=== PATIENT | male | born 1945 | race Caucasian/White ===

== ENCOUNTER 2018-06-04 22:01 | Inpatient (IN) | payer OTHER, BC ==
--- NOTE | 2018-06-04 22:07 | PDOC ---
History of Present Illness - General History Source: Patient - History of Present Illness Initial Comments: 06/04/18 22:10 The patient is a 72 year old male with a PMH of CAD (s/p CABG, stents x4) [place] (x5 ), CVA x2 (residual L sided weakness and slurred speech), IDDM, HTN and HLD who presents to our ED c/o weakness and resolved visual changes. @ bedside assists with history. Patient states he was doing the crossword puzzle when the words started to run together and he felt the sudden urge to urinate. Patient went to the bathroom and then had difficulty getting off the toilet. helped him to the couch and called 911. Patient states visual changes resolved though he continues to feel weak. Notes his first CVA presented similarly with visual changes that persisted. also notes a 2-3 week h/o unsteady gait and general fatigue after completing ADL's. As per EMR, patient last evaluated in 2012 for shortness of breath. ECG non- ischemic, however was admitted to OBS Tele - no notes in EMR. NKDA Surgical: CABG, Stent x4 Social: denies toxic habits PMD: Dr. Alvarez - as per EMR admits to Dr. Christy [employer] Supervisor: Dr. Garcia, Dr. Ramirez <Rebekah Magallon - Last Filed: 06/05/18 00:13> <Michaela Peña - Last Filed: 06/05/18 00:44> - General Chief Complaint: Weakness Stated Complaint: PAIN Time Seen by Provider: 06/04/18 22:06 Past History - Past Medical History Cardiac Disorders: Yes ([place] x5 + CABG) CVA: Yes (LT SIDED WEAKNESS) Diabetes: Yes GI Disorders: Yes (GERD) HTN: Yes Hypercholesterolemia: Yes - Surgical History Cardiac Surgery: Yes (CABG, ENDARTERECTOMY, CARDIAC STENTS 4, 2 TO LOWER EXTREMITIES) - Suicide/Smoking/Psychosocial Hx Smoking Status: Yes Smoking History: Former smoker Years of Tobacco Use: 30 Have you smoked in the past 12 months: No Number of Cigarettes Smoked Daily: 0 Hx Alcohol Use: No Drug/Substance Use Hx: No Substance Use Type: None Hx Substance Use Treatment: No <Rebekah Magallon - Last Filed: 06/05/18 00:13> <Michaela Peña - Last Filed: 06/05/18 00:44> - Past Medical History Allergies/Adverse Reactions: Allergies Allergy/AdvReac Type Severity Reaction Status Date / Time No Known Allergies Allergy Verified 06/04/18 22:24 Home Medications: Ambulatory Orders Atenolol [Tenormin -] 100 mg PO BID #0 tablet 12/19/12 Isosorbide Mononitrate [Imdur] 120 mg PO DAILY 01/08/13 Pantoprazole Sodium 40 mg PO DAILY 01/08/13 Ranolazine [Ranexa] 1,000 mg PO BID 01/08/13 Salmeterol/Fluticasone [Advair 250Mcg/50Mcg -] 1 inh PO BID 01/08/13 Tamsulosin HCl 0.4 mg PO HS 01/08/13 Vitamin E 400 unit PO DAILY 01/08/13 Furosemide [Lasix -] 40 mg PO DAILY #0 tablet 01/10/13 Atorvastatin Ca [Lipitor] 80 mg PO DAILY 06/04/18 Clopidogrel Bisulfate [Plavix] 75 mg PO DAILY 06/04/18 Ezetimibe [Zetia] 10 mg PO DAILY 06/04/18 Ferrous Sulfate [Feosol] 325 mg PO Q48H 06/04/18 Finasteride [Proscar] 5 mg PO DAILY 06/04/18 Insulin (LOG) Aspart [NovoLOG -] 0 units SQ TID 06/04/18 Insulin Degludec [Tresiba Flextouch U-100] 60 unit SQ AM 06/04/18 Montelukast Sodium [Singulair] 10 mg PO DAILY 06/04/18 Nitroglycerin [place] [Nitrolingual [place] -] 1 spray TL Q5M PRN 06/04/18 Polyethylene Glycol 3350 [Miralax 255 gm Btl] 17 gm PO DAILY PRN 06/04/18 Potassium Chloride [Klor-Con 10] 10 meq PO DAILY 06/04/18 Sennosides [Senokot] 8.6 mg PO DAILY PRN 06/04/18 Sitagliptin Phosphate [Januvia] 50 mg PO DAILY 06/04/18 Valsartan [Diovan] 80 mg PO DAILY 06/04/18 Review of Systems - Review of Systems Constitutional: Yes: Weakness. No: Chills, Fever HEENTM: Yes: Blurred Vision. No: Double Vision Respiratory: No: Cough, Shortness of Breath, Wheezing Cardiac (ROS): No: Chest Pain, Lightheadedness, Palpitations, Syncope ABD/GI: No: Constipated, Diarrhea, Nausea, Vomiting : No: Burning, Dysuria Neurological: Yes: Unsteady Gait <SheritaRebekah - Last Filed: 06/05/18 00:13> *Physical Exam - Physical Exam General Appearance: Yes: Nourished, Appropriately Dressed HEENT: positive: Normal Voice, Hearing Grossly Normal Neck: positive: Trachea midline, Supple Respiratory/Chest: positive: Lungs Clear, Normal Breath Sounds. negative: Crackles, Wheezing Cardiovascular: positive: Edema (B/L 1+ pitting edema from feet to ankles), Bradycardia. negative: JVD, Murmur Vascular Pulses: Dorsalis-Pedis (R): 2+, Doralis-Pedis (L): 2+ Gastrointestinal/Abdominal: positive: Normal Bowel Sounds, Soft Musculoskeletal: negative: CVA Tenderness (R), CVA Tenderness (L) Extremity: positive: Normal Capillary Refill, Normal Inspection, Other Integumentary: positive: Dry, Warm Neurologic: positive: Fully Oriented, Alert <Rebekah Magallon - Last Filed: 06/05/18 00:13> - Vital Signs Last Vital Signs Temp Pulse Resp BP Pulse Ox 97.6 F 48 L 18 129/61 98 06/04/18 22:01 06/04/18 22:01 06/04/18 22:01 06/04/18 22:01 06/04/18 23:10 <Michaela Peña - Last Filed: 06/05/18 00:44> Heart Score/ECG Review - ECG Impressions Comment:: 06/04/18 22:55 Sinus julieta 58 GEETA in aVR and aVL, not reciprocal depressions, TWI. <Rebekah Magallon - Last Filed: 06/05/18 00:13> ED Treatment Course - LABORATORY CBC & Chemistry Diagram: 06/04/18 22:50 06/04/18 22:50 <Rebekah Magallon - Last Filed: 06/05/18 00:13> - LABORATORY CBC & Chemistry Diagram: 06/04/18 22:50 06/04/18 22:50 - ADDITIONAL ORDERS Additional order review: Laboratory Results 06/04/18 06/04/18 23:00 22:50 PT with INR 13.70 H INR 1.16 H PTT (Actin FS) 31.6 Sodium 136 Potassium 5.3 H Chloride 101 Carbon Dioxide 30 Anion Gap 5 L BUN 41 H Creatinine 2.2 H Creat Clearance w eGFR 29.49 Random Glucose 181 H Calcium 9.7 Total Bilirubin 0.8 AST 22 ALT 34 Alkaline Phosphatase 119 H Creatine Kinase 69 Troponin I 0.03 B-Natriuretic Peptide 2673.6 H Total Protein 7.0 Albumin 3.2 L 06/04/18 22:50 RBC 3.52 L MCV 92.8 MCHC 33.8 RDW 16.0 H MPV 9.6 D Neutrophils % 76.6 Lymphocytes % 11.3 D Monocytes % 10.3 H Eosinophils % 1.7 Basophils % 0.1 - Medications Given in the ED: ED Medications Discontinued Medications Generic Name Dose Route Start Last Admin Trade Name Freq PRN Reason Stop Dose Admin Sodium Chloride 1,000 ml 06/04/18 22:44 06/04/18 23:58 Normal Saline - IV 06/04/18 22:45 1,000 ml ONCE ONE Administration <Michaela Peña - Last Filed: 06/05/18 00:44> Medical Decision Making - Medical Decision Making 06/04/18 22:20 72 year old male with weakness (resolved). ECG shows ST elevations in aVR and aVL not presents on previous ECG. Will obtain cardiac work-up to r/o ACS as well as CT Head to evaluate for CVA vs TIA. NIHSS 2. As neurologic changes resolved no indication for Code Montiel at this time. Bradycardic (40's-50's) other VS unremarkable. Cardiac Monitoring. Reassess. 06/04/18 22:54 Patient @ [address] Labs pending 06/04/18 23:33 K+ 5.3 - no peaked T waves BNP 2673 (previous BNP 2199) Cr 2.2 (previous Cr 1.1) Patient recieving IV NS Will page Dr. Christy (as per EMR, Dr. Alvarez admits to Dr. Christy) for admission My read of CT shows no areas of acute infarct/ischemia 06/04/18 23:41 Case d/w Dr. Christy, requests Dr. Murray for cardiology. Patient admitted to Inpatient Telemetry. 06/04/18 23:48 Patient reassessed @ bedside Remains bradycardic (48), other VSS Patient and patient's counseled on plan of care 06/04/18 23:[address] negative for acute ischemia. <Rebekah Magallon - Last Filed: 06/05/18 00:13> *DC/Admit/Observation/Transfer - Discharge Dispostion Decision to Admit order: Yes <Rebekah Magallon - Last Filed: 06/05/18 00:13> - Discharge Dispostion Decision to Admit order: Yes Decision to Admit order Date/Time: 06/05/18 00:43 <Michaela Peña - Last Filed: 06/05/18 00:44> Diagnosis at time of Disposition: Acute electrocardiogram changes, Elevated creatine kinase, Elevated brain natriuretic peptide (BNP) level, Bradycardia - Discharge Dispostion Condition at time of disposition: Fair
--- NOTE | 2018-06-04 22:34 | PDOC ---
NIH Stroke Scale - Initial Evaluation Level of consciousness: Alert Ask patient the month and their age: Answers both correctly Ask patient to open & close eyes; make fist and let go: Obeys both correctly Best gaze (horizontal eye movement): Normal Visual field testing: No visual field loss Facial paresis (Show teeth/raise eyebrows/close eyes tight): Normal symmetrical movement Motor Function: Left Arm: Normal Motor Function: Right Arm: Normal (extends arm 90 (or 45) degrees for 10 seconds without drift Motor Function: Left Leg: Some effort against gravity Motor Function: Right Leg: Normal (extends leg 30 degrees for 5 seconds without drift) Limb Ataxia: No ataxia Sensory(Use pinprick test arms,legs,trunk,face/side to side): Normal Best language (Describe picture, name items, read sentences): No Aphasia Dysarthria (read several words): Normal articulation Extinction and Inattention: No abnormality - Total Score NIH Stroke Scale Score: 2
[2018-06-04] MEDS ORDERED: SODIUM CHLORIDE 0.9% 500 ML INFUS.BAG IV ONE (22:44)
[2018-06-04 22:59] LABS: BASO % 0.1 % (0-2.0); EOS % 1.7 % (0-4.5); HEMATOCRIT 32.6 % (35.4-49); LYMPH % 11.3 % (8-40); MCH 31.3 pg (25.7-33.7); MCHC 33.8 g/dl (32.0-35.9); MEAN CELL VOLUME 92.8 fl (80-96); MEAN PLT VOLUME 9.6 fl (7.5-11.1); MONO % 10.3 % (3.8-10.2); NEUT % 76.6 % (42.8-82.8); PLATELET COUNT 142 K/MM3 (134-434); RBC 3.52 M/mm3 (4.00-5.60); WHITE BLOOD COUNT 5.8 K/mm3 (4.0-10.0)
[2018-06-04 23:30] LABS: ALBUMIN 3.2 g/dl (3.4-5.0); ALK PHOS 119 U/L (45-117); ANION GAP 5 MMOL/L (8-16); BILIRUBIN,TOTAL 0.8 mg/dL (0.2-1); BLOOD UREA NITROGEN 41 mg/dL (7-18); CALCIUM 9.7 mg/dL (8.5-10.1); CHLORIDE 101 mmol/L (98-107); CO2 30 mmol/L (21-32); CREATININE 2.2 mg/dL (0.55-1.3); GLUCOSE,RANDOM 181 mg/dL (74-106); N-TERMINAL BNP 2673.6 pg/ml (5-125); POTASSIUM 5.3 mmol/L (3.5-5.1); SGOT/AST 22 U/L (15-37); SGPT/ALT 34 U/L (13-61); SODIUM 136 mmol/L (136-145)
[2018-06-04 23:35] LABS: INR 1.16 (0.83-1.09); PROTHROMBIN TIME (PATIENT) 13.7 SEC (9.7-13.0)
[2018-06-04 23:38] LABS: ACTIVATED PTT 31.6 SECONDS (25.2-36.5)
--- NOTE | 2018-06-05 00:53 | PDOC ---
Attending Attestation - Resident Resident Name: SheritaRebekah - ED Attending Attestation I have performed the following: I have examined & evaluated the patient, The case was reviewed & discussed with the resident, I agree w/resident's findings & plan - HPI HPI: 06/05/18 00:44 Erica 72-year-old male with past medical history significant for CABG, CAD , [place] x5, cardiac stents, hypertension, diabetes, CVA with residual left-sided weakness, hyperlipidemia, presents with weakness, nausea, diaphoresis, transient visual changes and dizziness when he was doing crossword puzzle. Patient went to the bathroom and then had difficulty getting off the toilet. + numbness in his legs, feels unsteady, intermittently x 1 month. - Physicial Exam PE: 06/05/18 00:45 NAD, well appearing, PERRL, EOMI, MMM, nl conjunctiva, anicteric; neck supple. No JVD. Anterior sternotomy scar. lungs clear, RRR, abdomen soft nontender, protuberant. [place] x4, chronic LLE decreased strength against gravity.. No peripheral edema. Pale appearing, WWP. - Medical Decision Making 06/05/18 00:46 Vital signs reviewed, wnl. Prior notes attempted to be reviewed but system not working, including admissions, discharges and consultations. laboratory results and imaging reviewed, basic labs and lytes wnl, notable for baseline anemia and CKD CXR_enlarged cardiac silhouette, interstitial markings noted Cardiac panel_neg trop, but chronically elevated bnp. EKG sinus bradycardia, no interval abnormalities, narrow QRS, ST and T wave segments and morphology normal. TWI in I, AVL, new from prior. CT head grossly normal. ED course: no acute events, remained stable and well appearing. Clinically improved after interventions, including gently IVF Dispo: Admit to Dr Christy, tele monitoring for symptomatic bradycardia and CVA/ Cardiac workup. Discussed results and management plan with pt and family member at bedside, agree with impression and plan 06/05/18 00:53
--- NOTE | 2018-06-05 09:32 | HP ---
Admitting History and Physical - Primary Care Physician PCP: Allen Christy - Admission Chief Complaint: Visual disturbance. Weakness History of Present Illness: Pt with significant Hx/o CAD, CABG, CHF at home yesterday, solving crossword puzzle when the lines of words started to wave and mix. Pt started to feel dizzy , weak (couldn't get up from the toilet w/o help); his called 911. Pt also noticed worsening of his CORREIA for the last 2-3 days. 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: CVA (with left hemiparesis) Cardiovascular: Yes: CAD (s/p CABG and stenting), HTN, [place] Endocrine: Yes: Diabetes Mellitus - Past Surgical History Additional Past Surgical History: PVD with leg stenting - Smoking History Smoking history: Former smoker Have you smoked in the past 12 months: No Aproximately how many cigarettes per day: 0 - Alcohol/Substance Use Hx Alcohol Use: No Home Medications - Allergies Allergies/Adverse Reactions: Allergies Allergy/AdvReac Type Severity Reaction Status Date / Time No Known Allergies Allergy Verified 06/04/18 22:24 - Home Medications Home Medications: Ambulatory Orders Atenolol [Tenormin -] 100 mg PO BID #0 tablet 12/19/12 Isosorbide Mononitrate [Imdur] 120 mg PO DAILY 01/08/13 Pantoprazole Sodium 40 mg PO DAILY 01/08/13 Ranolazine [Ranexa] 1,000 mg PO BID 01/08/13 Salmeterol/Fluticasone [Advair 250Mcg/50Mcg -] 1 inh PO BID 01/08/13 Tamsulosin HCl 0.4 mg PO HS 01/08/13 Vitamin E 400 unit PO DAILY 01/08/13 Furosemide [Lasix -] 40 mg PO DAILY #0 tablet 01/10/13 Atorvastatin Ca [Lipitor] 80 mg PO DAILY 06/04/18 Clopidogrel Bisulfate [Plavix] 75 mg PO DAILY 06/04/18 Ezetimibe [Zetia] 10 mg PO DAILY 06/04/18 Ferrous Sulfate [Feosol] 325 mg PO Q48H 06/04/18 Finasteride [Proscar] 5 mg PO DAILY 06/04/18 Insulin (LOG) Aspart [NovoLOG -] 0 units SQ TID 06/04/18 Insulin Degludec [Tresiba Flextouch U-100] 60 unit SQ AM 06/04/18 Montelukast Sodium [Singulair] 10 mg PO DAILY 06/04/18 Nitroglycerin [place] [Nitrolingual [place] -] 1 spray TL Q5M PRN 06/04/18 Polyethylene Glycol 3350 [Miralax 255 gm Btl] 17 gm PO DAILY PRN 06/04/18 Potassium Chloride [Klor-Con 10] 10 meq PO DAILY 06/04/18 Sennosides [Senokot] 8.6 mg PO DAILY PRN 06/04/18 Sitagliptin Phosphate [Januvia] 50 mg PO DAILY 06/04/18 Valsartan [Diovan] 80 mg PO DAILY 06/04/18 Review of Systems - Review of Systems Constitutional: denies: Chills, Fever Eyes: reports: Recent Change in Vision. denies: Blurred Vision, Double Vision HENT: denies: Difficult Swallowing, Ear Discharge, Nasal Congestion, Throat Pain Neck: denies: Pain on Movement, Stiffness Cardiovascular: denies: Chest Pain, Palpitations Respiratory: denies: Cough, SOB, Wheezing Gastrointestinal: denies: Abdominal Pain, Diarrhea, Nausea, Vomiting Genitourinary: denies: Burning, Discharge, Dysuria Musculoskeletal: denies: Back Pain, Muscle Pain Integumentary: denies: Blister, Bruising Neurological: reports: Weakness. denies: Change in LOC, Change in Speech, Numbness Endocrine: denies: Excessive Sweating, Intolerance to Cold Hematology/Lymphatic: denies: Easily Bruised, Excessive Bleeding Physical Examination Vital Signs: Vital Signs Temperature 97.7 F 06/05/18 07:18 Pulse Rate 62 06/05/18 07:18 Respiratory Rate 18 06/05/18 07:18 Blood Pressure 142/75 06/05/18 07:18 O2 Sat by Pulse Oximetry (%) 96 06/05/18 07:18 Constitutional: Yes: No Distress, Calm Eyes: Yes: EOM Intact, PERRL HENT: No: Epistaxis, Pharyngeal Erythema, Rhinnorhea Neck: Yes: Trachea Midline. No: Lymphadenopathy Cardiovascular: Yes: Regular Rate and Rhythm, S1, S2 Respiratory: Yes: Regular, CTA Bilaterally. No: Rales Gastrointestinal: Yes: Normal Bowel Sounds, Soft, Abdomen, Obese. No: Tenderness ...Rectal Exam: Yes: Deferred Renal/: No: CVA Tenderness - Left, CVA Tenderness - Right Edema: Yes Edema: LLE: 1+, RLE: 1+ Neurological: Yes: Alert, Oriented, Other (dereased motor on lrft side, otherwise sensory and motor is symmetric andintact) Labs: CBC, BMP 06/04/18 22:50 06/04/18 22:50 Imaging - Results Chest X-ray: Report Reviewed Cat Scan: Report Reviewed Problem List - Problems (1) Acute congestive heart failure Code(s): I50.9 - HEART FAILURE, UNSPECIFIED (2) Acute renal failure Code(s): N17.9 - ACUTE KIDNEY FAILURE, UNSPECIFIED (3) Visual disturbance Code(s): H53.9 - UNSPECIFIED VISUAL DISTURBANCE (4) Diabetes mellitus Code(s): E11.9 - TYPE 2 DIABETES MELLITUS WITHOUT COMPLICATIONS (5) Bradycardia Code(s): R00.1 - BRADYCARDIA, UNSPECIFIED (6) CAD (coronary artery disease) Code(s): I25.10 - ATHSCL HEART DISEASE OF [place] CORONARY ARTERY W/O ANG PCTRS (7) CVA (cerebral vascular accident) Code(s): I63.9 - CEREBRAL INFARCTION, UNSPECIFIED Assessment/Plan Admit to monitor bed Lasix Cardio consult Renal consult Neuro cosult AM labs
--- NOTE | 2018-06-05 10:02 | CON.CARD ---
Consult Consult Specialty:: cardio - History of Present Illness Chief Complaint: vision changes History of Present Illness: 72 M here with vision changes and weakness. Patient was doing the crossword puzzle when he noticed words started to run together. Patient went to the bathroom to urinate, then was too weak to rise off the toilet. helped him to the couch and called 911. visual changes resolved by ER. Pt noted that his sx's of his first CVA were also visual changes. per , last cath 2015 ([facility])--awoke next day with vision changes ("double vision") diagnosed with CVA then. was seeing Dr. Malachi Sampson--now for referral to new cardio at [facility] (per dr elliott) has had no chest pain. has noted incr sob with activity the past couple weeks. also feet swollen. dr elliott told him 3 days ago to increase lasix from 40qd to 80qd until sx's improve--noted incr subjective UOP with this but no clear improvement in sx's. no sob at rest currently. 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) IDDM HTN HPL - Alcohol/Substance Use Hx Alcohol Use: No - Smoking History Smoking history: Former smoker Have you smoked in the past 12 months: No Aproximately how many cigarettes per day: 0 Home Medications - Allergies Allergies/Adverse Reactions: Allergies Allergy/AdvReac Type Severity Reaction Status Date / Time No Known Allergies Allergy Verified 06/04/18 22:24 - Home Medications Home Medications: Ambulatory Orders Atenolol [Tenormin -] 100 mg PO BID #0 tablet 12/19/12 Isosorbide Mononitrate [Imdur] 120 mg PO DAILY 01/08/13 Pantoprazole Sodium 40 mg PO DAILY 01/08/13 Ranolazine [Ranexa] 1,000 mg PO BID 01/08/13 Salmeterol/Fluticasone [Advair 250Mcg/50Mcg -] 1 inh PO BID 01/08/13 Tamsulosin HCl 0.4 mg PO HS 01/08/13 Vitamin E 400 unit PO DAILY 01/08/13 Furosemide [Lasix -] 40 mg PO DAILY #0 tablet 01/10/13 Atorvastatin Ca [Lipitor] 80 mg PO DAILY 06/04/18 Clopidogrel Bisulfate [Plavix] 75 mg PO DAILY 06/04/18 Ezetimibe [Zetia] 10 mg PO DAILY 06/04/18 Ferrous Sulfate [Feosol] 325 mg PO Q48H 06/04/18 Finasteride [Proscar] 5 mg PO DAILY 06/04/18 Insulin (LOG) Aspart [NovoLOG -] 0 units SQ TID 06/04/18 Insulin Degludec [Tresiba Flextouch U-100] 60 unit SQ AM 06/04/18 Montelukast Sodium [Singulair] 10 mg PO DAILY 06/04/18 Nitroglycerin [place] [Nitrolingual [place] -] 1 spray TL Q5M PRN 06/04/18 Polyethylene Glycol 3350 [Miralax 255 gm Btl] 17 gm PO DAILY PRN 06/04/18 Potassium Chloride [Klor-Con 10] 10 meq PO DAILY 06/04/18 Sennosides [Senokot] 8.6 mg PO DAILY PRN 06/04/18 Sitagliptin Phosphate [Januvia] 50 mg PO DAILY 06/04/18 Valsartan [Diovan] 80 mg PO DAILY 06/04/18 Review of Systems - Review of Systems Constitutional: denies: Chills, Fever Eyes: denies: Eye Pain HENT: denies: Nasal Congestion Neck: denies: Stiffness Cardiovascular: denies: Palpitations Respiratory: denies: Orthopnea, PND Gastrointestinal: denies: Diarrhea, Rectal Bleeding Genitourinary: denies: Burning, Hematuria Musculoskeletal: denies: Muscle Pain Integumentary: denies: Rash Neurological: denies: Numbness, Seizure, Syncope Endocrine: denies: Excessive Sweating Hematology/Lymphatic: denies: Excessive Bleeding Vital Signs: Vital Signs Temperature 97.7 F 06/05/18 07:18 Pulse Rate 62 06/05/18 07:18 Respiratory Rate 18 06/05/18 07:18 Blood Pressure 142/75 06/05/18 07:18 O2 Sat by Pulse Oximetry (%) 96 06/05/18 07:18 Constitutional: Yes: Well Nourished, No Distress Eyes: No: Sclera Icterus HENT: No: Nasal Congestion Neck: No: Decreased ROM Respiratory: Yes: CTA Bilaterally, Rales (L base). No: Accessory Muscle Use, Wheezes Gastrointestinal: Yes: Normal Bowel Sounds. No: Distention, Hepatomegaly, Palpable Mass, Tenderness Cardiovascular: Yes: Regular Rate and Rhythm JVD: Yes Carotid Bruit: No PMI: Non-Displaced Heart Sounds: Yes: S1, S2. No: Gallop Murmur: No: Systolic Murmur, Diastolic Murmur Musculoskeletal: Yes: Other (No kyphosis) Extremities: No: Cool, Cyanosis Edema: Yes (1+ pretib) Peripheral Pulses: 2+ Left Carotid, 2+ Right Carotid, 2+ Left Doralis Pedis, 2+ Right Dorsalis Pedis Integumentary: No: Jaundice Neurological: Yes: Alert, Oriented (x3) Psychiatric: No: Agitated - Other Data Labs, Other Data: CBC, BMP 06/04/18 22:50 06/04/18 22:50 INR, PTT INR 1.16 (0.83-1.09) H 06/04/18 23:00 Troponin, BNP 06/04/18 06/05/18 22:50 04:30 Troponin I 0.03 0.02 B-Natriuretic Peptide 2673.6 H Troponin, BNP 06/04/18 06/05/18 22:50 04:30 Troponin I 0.03 0.02 B-Natriuretic Peptide 2673.6 H Laboratory Tests 12/14/12 01/08/13 01/10/13 05:20 10:25 06:00 WBC Hgb Plt Count Sodium Potassium Carbon Dioxide BUN Creatinine 2.0 H 1.4 H D AST ALT Troponin I B-Natriuretic Peptide 2199 H* 06/04/18 06/04/18 06/05/18 22:50 22:50 04:30 WBC 5.8 Hgb 11.0 L Plt Count 142 D Sodium 136 Potassium 5.3 H Carbon Dioxide 30 BUN 41 H Creatinine 2.2 H AST 22 ALT 34 Troponin I 0.03 0.02 B-Natriuretic Peptide 2673.6 H Assessment/Plan ECG: sinus julieta (48 bpm); incomplete LBBB. diffuse ST-Ts r/o ischemia. vs prior (2012), QRS is wider and ST-Ts more diffuse CXR: mild congestive changes CT head: no acute pathology acute vision changes, h/o CVA: -CT head no acute pathology -neuro consult pending acute CHF: -mildly decompensated at present -CXR with mild congestive changes and cephalization -BNP 2K (unchanged vs 2016), low GFR confounds -probable JVD on exam. incr sob/pedal edema of late. -on lasix 40qd at home, incr'd to 80 qd 3d ago. will give lasix 40 IV today, reassess phys exam and bun/creat tomorrow. -doubt ACS (trop.s neg x 2, ECG only slightly changed vs remote prior) renal insufficiency: -no recent baseline data available -creat 2.2 here, trend labs CAD, h/o CABG and stents: -doubt ACS here, as above -cont home med regimen -watch for bradycardia on high dose atenolol bid regimen -on ranolazine per outpt cardio, with low GFR--will not change tx plan here, defer to outpt f/u with his doctor HTN: -bp controlled -cont home meds
--- NOTE | 2018-06-05 10:46 | EKG ---
Test Reason : Blood Pressure : / mmHG Vent. Rate : 048 BPM Atrial Rate : 048 BPM P-R Int : 192 ms QRS Dur : 118 ms QT Int : 476 ms P-R-T Axes : 040 -12 149 degrees QTc Int : 425 ms SINUS BRADYCARDIA NON-SPECIFIC INTRA-VENTRICULAR CONDUCTION DELAY ABNORMAL ECG WHEN COMPARED WITH ECG OF 09-JAN-2013 08:31, T WAVE VARIATION Confirmed by LIAM MADDEN MD ([id number]) on 06/05/2018 10:45:51 AM Referred By: Confirmed By:LIAM MADDEN MD
[2018-06-05] MEDS ORDERED: FUROSEMIDE 40 MG/4 ML INJECTABLE VIAL IVPUSH ONE (11:02)
[2018-06-05] MEDS ORDERED: FUROSEMIDE 40 MG/4 ML INJECTABLE VIAL ONE (11:10)
[2018-06-05] MEDS ORDERED: PATIENT'S OWN MEDICATION (NON-FORMULARY) (Insulin Degludec [Tresiba Flextouch U-100] 60 UN SQ SCH (11:12)
[2018-06-05] MEDS ORDERED: SENNOSIDES 8.6MG TABLET (FP) PO PRN (11:12)
[2018-06-05] MEDS ORDERED: POLYETHYLENE GLYCOL 3350 255 GM BTL PO PRN (11:12)
[2018-06-05] MEDS ORDERED: NITROGLYCERIN 0.4MG/SPRAY 4.9 GM BOTTLE TL PRN (11:12)
[2018-06-05] MEDS ORDERED: POTASSIUM CHLORIDE TABS 10 MEQ TABLET.ER (FP) PO SCH (11:30)
[2018-06-05] MEDS: RANOLAZINE E.R. 1,000 MG TABLET (FP) PO SCH ×2 (12:10→23:02)
[2018-06-05] MEDS: FINASTERIDE 5 MG TABLET (FP) PO SCH (12:45)
[2018-06-05] MEDS: ISOSORBIDE MONONITRATE 60 MG TAB.SR.24H (FP) PO SCH (12:45)
[2018-06-05] MEDS: CLOPIDOGREL BISULFATE 75 MG TABLET (FP) PO SCH (12:45)
[2018-06-05] MEDS: ATORVASTATIN CA 80 MG TABLET (FP) PO SCH (12:45)
[2018-06-05] MEDS: PANTOPRAZOLE 40 MG TABLET (FP) PO SCH (12:45)
[2018-06-05] MEDS: ATENOLOL 50 MG TABLET (FP) PO SCH ×2 (12:45→23:02)
[2018-06-05] MEDS: BUDESONIDE/FORMETEROL FUMARATE 80/4.5 mcg INHALER IH SCH ×2 (12:45→23:03)
[2018-06-05] MEDS: EZETIMIBE 10 MG TABLET (FP) PO SCH (12:45)
[2018-06-05] MEDS: MONTELUKAST NA 10 MG TABLET PO SCH (12:45)
--- NOTE | 2018-06-05 14:32 | CONSULT ---
Consult Consult Specialty:: Nephrology ( Suraj/ Shawn) Referred by:: Dr. Christy Reason for Consultation:: Abnormal kidney functions. - History of Present Illness Chief Complaint: The patient is a 72 year old male admitted with weakness, and visual deficits. He has past h/o CAD (s/p CABG, stents x4) [place] (x5), CVA x2 ( residual L sided weakness and slurred speech), IDDM, HTN, PVD with clementina LE stenting. - History Source History Provided By: Patient, Family Member - Past Medical History ASSISTANT TO THE DIRECTOR: Yes: CVA Cardio/Vascular: Yes: CHF, HTN, Hyperlipdemia, SC Renal/: Yes: Renal Failure - Past Surgical History Past Surgical History: Yes: Bypass, Carotid Endarterectomy - Alcohol/Substance Use Hx Alcohol Use: No - Smoking History Smoking history: Former smoker Have you smoked in the past 12 months: No Aproximately how many cigarettes per day: 0 Home Medications - Allergies Allergies/Adverse Reactions: Allergies Allergy/AdvReac Type Severity Reaction Status Date / Time No Known Allergies Allergy Verified 06/04/18 22:24 - Home Medications Home Medications: Ambulatory Orders Atenolol [Tenormin -] 100 mg PO BID #0 tablet 12/19/12 Isosorbide Mononitrate [Imdur] 120 mg PO DAILY 01/08/13 Pantoprazole Sodium 40 mg PO DAILY 01/08/13 Ranolazine [Ranexa] 1,000 mg PO BID 01/08/13 Salmeterol/Fluticasone [Advair 250Mcg/50Mcg -] 1 inh PO BID 01/08/13 Tamsulosin HCl 0.4 mg PO HS 01/08/13 Vitamin E 400 unit PO DAILY 01/08/13 Furosemide [Lasix -] 40 mg PO DAILY #0 tablet 01/10/13 Atorvastatin Ca [Lipitor] 80 mg PO DAILY 06/04/18 Clopidogrel Bisulfate [Plavix] 75 mg PO DAILY 06/04/18 Ezetimibe [Zetia] 10 mg PO DAILY 06/04/18 Ferrous Sulfate [Feosol] 325 mg PO Q48H 06/04/18 Finasteride [Proscar] 5 mg PO DAILY 06/04/18 Insulin (LOG) Aspart [NovoLOG -] 0 units SQ TID 06/04/18 Insulin Degludec [Tresiba Flextouch U-100] 60 unit SQ AM 06/04/18 Montelukast Sodium [Singulair] 10 mg PO DAILY 06/04/18 Nitroglycerin [place] [Nitrolingual [place] -] 1 spray TL Q5M PRN 06/04/18 Polyethylene Glycol 3350 [Miralax 255 gm Btl] 17 gm PO DAILY PRN 06/04/18 Potassium Chloride [Klor-Con 10] 10 meq PO DAILY 06/04/18 Sennosides [Senokot] 8.6 mg PO DAILY PRN 06/04/18 Sitagliptin Phosphate [Januvia] 50 mg PO DAILY 06/04/18 Valsartan [Diovan] 80 mg PO DAILY 06/04/18 Review of Systems - Review of Systems Constitutional: reports: Weakness Eyes: reports: Blurred Vision, Recent Change in Vision Neck: reports: No Symptoms. denies: Pain on Movement Cardiovascular: reports: Palpitations, Shortness of Breath. denies: Chest Pain Respiratory: reports: Orthopnea, SOB Gastrointestinal: reports: No Symptoms Genitourinary: reports: Frequency Musculoskeletal: reports: No Symptoms Neurological: reports: Change in Speech, Confusion Physical Exam Vital Signs: Vital Signs Temperature 98 F 06/05/18 11:21 Pulse Rate 64 06/05/18 12:45 Respiratory Rate 18 06/05/18 12:45 Blood Pressure 151/66 06/05/18 12:45 O2 Sat by Pulse Oximetry (%) 96 06/05/18 12:45 Constitutional: Yes: Anxious, Pallor Eyes: Yes: Conjunctiva Clear Neck: Yes: Supple Cardiovascular: Yes: Tachycardia, Pulse Irregular, S1, S2 Respiratory: Yes: CTA Bilaterally, Poor Air Entry Renal/: No: Bladder Distention, CVA Tenderness - Left, CVA Tenderness - Right , Hematuria Musculoskeletal: No: Back Pain Edema: No Neurological: Yes: Alert, Oriented Psychiatric: Yes: Alert Labs: CBC, BMP 06/04/18 22:50 06/04/18 22:50 Problem List - Problems (1) VICENTE (acute kidney injury) Code(s): N17.9 - ACUTE KIDNEY FAILURE, UNSPECIFIED (2) CKD (chronic kidney disease) Code(s): N18.9 - CHRONIC KIDNEY DISEASE, UNSPECIFIED (3) Anemia Code(s): D64.9 - ANEMIA, UNSPECIFIED (4) CAD (coronary artery disease) Code(s): I25.10 - ATHSCL HEART DISEASE OF [place] CORONARY ARTERY W/O ANG PCTRS (5) PVD (peripheral vascular disease) Code(s): I73.9 - PERIPHERAL VASCULAR DISEASE, UNSPECIFIED (6) CVA (cerebral vascular accident) Code(s): I63.9 - CEREBRAL INFARCTION, UNSPECIFIED (7) Bradycardia Code(s): R00.1 - BRADYCARDIA, UNSPECIFIED Assessment/Plan The patient is a 72 year old male with a PMH of CAD , s/p PTIC, CABG, stents x4 ) [place] (x5), CVA x2 (residual L sided weakness and slurred speech), IDDM, HTN and HLD who presents to our ED c/o weakness and resolved visual changes. The patient has long standing h/o DM2 with h/o Diabetic Retinopathy. Chronic Kidney disease...Stage 3... 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 There could be contributions from other conditions including Hypertension, Athersclerotic vascular disease, etc. There is probably some Acute component to the kidney disease from a purely Hemodynamic reason. Mild Hyperkalemia..Noted patient on CDur. PLAN: Basic w/u ordered. Will stop KDur. Monitor the Renal/ Electrolyte functions with you. Some improvement in azotemia expected. Thank you. Will follow with you. Leonor Ruelas MD
[2018-06-05] MEDS ORDERED: sitaGLIPtin PHOSPHATE 50 MG TABLET ONE (17:47)
[2018-06-05] MEDS ORDERED: INSULIN (NOVOLOG) ASPART 100 UNITS/ML 10ML VIAL ONE (17:49)
[2018-06-05] MEDS: INSULIN SLIDING SCALE (NOVOLOG) 1 VIAL SQ SCH ×2 (17:55→23:02)
[2018-06-05] MEDS: sitaGLIPtin PHOSPHATE 25 MG TABLET (FP) PO SCH (17:56)
[2018-06-05] MEDS: TAMSULOSIN HCL 0.4 MG CAP PO SCH (23:01)
[2018-06-05 23:48] VITALS: BMI 32.1
[2018-06-06] MEDS: sitaGLIPtin PHOSPHATE 25 MG TABLET (FP) PO SCH (06:33)
[2018-06-06] MEDS: INSULIN SLIDING SCALE (NOVOLOG) 1 VIAL SQ SCH ×4 (06:33→21:56)
[2018-06-06 06:35] LABS: HEMATOCRIT 29.7 % (35.4-49); HEMOGLOBIN 9.8 GM/dL (11.7-16.9); MCH 30.5 pg (25.7-33.7); MCHC 33.2 g/dl (32.0-35.9); MEAN CELL VOLUME 91.9 fl (80-96); MEAN PLT VOLUME 9.4 fl (7.5-11.1); PLATELET COUNT 127 K/MM3 (134-434); RBC 3.23 M/mm3 (4.00-5.60); RDW 15.7 % (11.9-15.9); WHITE BLOOD COUNT 5.4 K/mm3 (4.0-10.0)
[2018-06-06 07:13] LABS: ALBUMIN 2.9 g/dl (3.4-5.0); ALK PHOS 102 U/L (45-117); ANION GAP 4 MMOL/L (8-16); BILIRUBIN,TOTAL 0.7 mg/dL (0.2-1); BLOOD UREA NITROGEN 45 mg/dL (7-18); CALCIUM 9.8 mg/dL (8.5-10.1); CHLORIDE 101 mmol/L (98-107); CO2 31 mmol/L (21-32); CREATININE 1.8 mg/dL (0.55-1.3); GLUCOSE,RANDOM 123 mg/dL (74-106); POTASSIUM 4.5 mmol/L (3.5-5.1); SGOT/AST 19 U/L (15-37); SGPT/ALT 28 U/L (13-61); SODIUM 137 mmol/L (136-145); TOT PROT 6.3 g/dl (6.4-8.2)
[2018-06-06] MEDS: ISOSORBIDE MONONITRATE 60 MG TAB.SR.24H (FP) PO SCH (09:48)
[2018-06-06] MEDS: PANTOPRAZOLE 40 MG TABLET (FP) PO SCH (09:48)
[2018-06-06] MEDS: EZETIMIBE 10 MG TABLET (FP) PO SCH (09:48)
[2018-06-06] MEDS: RANOLAZINE E.R. 1,000 MG TABLET (FP) PO SCH ×2 (09:48→21:43)
[2018-06-06] MEDS: CLOPIDOGREL BISULFATE 75 MG TABLET (FP) PO SCH (09:48)
[2018-06-06] MEDS: ATENOLOL 50 MG TABLET (FP) PO SCH ×2 (09:48→21:43)
[2018-06-06] MEDS: FINASTERIDE 5 MG TABLET (FP) PO SCH (09:50)
--- NOTE | 2018-06-06 11:22 | PN ---
Progress Note, Physician History of Present Illness: Pt w/o new sensory or motor deficit, CP, palpitations, SOB, abd pain - Current Medication List Current Medications: Active Medications Atenolol (Tenormin -) 100 mg PO BID [facility] Last Admin: 06/06/18 09:48 Dose: 100 mg Atorvastatin Calcium (Lipitor -) 80 mg PO HS [facility] Last Admin: 06/05/18 12:45 Dose: 80 mg Budesonide/Formoterol Fumarate (Symbicort 80/4.5mcg -) 2 puff IH BID [facility] Last Admin: 06/05/18 23:03 Dose: 2 puff Clopidogrel Bisulfate (Plavix -) 75 mg PO DAILY [facility] Last Admin: 06/06/18 09:48 Dose: 75 mg Ezetimibe (Zetia -) 10 mg PO DAILY [facility] Last Admin: 06/06/18 09:48 Dose: 10 mg Ferrous Sulfate (Feosol -) 325 mg PO Q2D [facility] Finasteride (Proscar -) 5 mg PO DAILY [facility] Last Admin: 06/06/18 09:50 Dose: 5 mg Insulin Aspart (Novolog Vial Sliding Scale -) 1 vial SQ ACHS [facility]; Protocol Last Admin: 06/06/18 06:33 Dose: Not Given Isosorbide Mononitrate (Imdur -) 120 mg PO DAILY [facility] Last Admin: 06/06/18 09:48 Dose: 120 mg Montelukast Sodium (Singulair -) 10 mg PO [facility] Last Admin: 06/05/18 12:45 Dose: 10 mg Nitroglycerin (Nitrolingual [place] -) 1 spray TL Q5M PRN PRN Reason: FOR CHEST PAIN Non-Formulary Medication (Insulin Degludec [Tresiba Flextouch U-100]) 60 unit SQ AM [facility] Pantoprazole Sodium (Protonix -) 40 mg PO DAILY [facility] Last Admin: 06/06/18 09:48 Dose: 40 mg Polyethylene Glycol (Miralax (For Bowel Prep) -) 17 gm PO DAILY PRN PRN Reason: CONSTIPATION Ranolazine (Ranexa -) 1,000 mg PO BID [facility] Last Admin: 06/06/18 09:48 Dose: 1,000 mg Senna (Senna -) 1 tab PO DAILY PRN PRN Reason: CONSTIPATION Sitagliptin Phosphate (Januvia -) 25 mg PO DAILY@0700 [facility] Last Admin: 06/06/18 06:33 Dose: 25 mg Tamsulosin HCl (Flomax -) 0.4 mg PO HS [facility] Last Admin: 06/05/18 23:01 Dose: 0.4 mg - Objective Vital Signs: Vital Signs Temperature 98 F 06/06/18 09:50 Pulse Rate 53 L 06/06/18 09:50 Respiratory Rate 20 06/06/18 09:50 Blood Pressure 129/62 06/06/18 09:50 O2 Sat by Pulse Oximetry (%) 97 06/06/18 09:00 Constitutional: Yes: No Distress, Calm Cardiovascular: Yes: Regular Rate and Rhythm, S1, S2 Respiratory: Yes: Regular, CTA Bilaterally. No: Rales Gastrointestinal: Yes: Normal Bowel Sounds, Soft, Abdomen, Obese. No: Tenderness Edema: LLE: 1+, RLE: 1+ Neurological: Yes: Alert, Oriented Labs: CBC, BMP 06/06/18 05:30 06/06/18 05:30 INR, PTT INR 1.16 (0.83-1.09) H 06/04/18 23:00 Problem List - Problems (1) Acute congestive heart failure Code(s): I50.9 - HEART FAILURE, UNSPECIFIED (2) Acute renal failure Code(s): N17.9 - ACUTE KIDNEY FAILURE, UNSPECIFIED (3) Visual disturbance Code(s): H53.9 - UNSPECIFIED VISUAL DISTURBANCE (4) Diabetes mellitus Code(s): E11.9 - TYPE 2 DIABETES MELLITUS WITHOUT COMPLICATIONS (5) Bradycardia Code(s): R00.1 - BRADYCARDIA, UNSPECIFIED (6) CAD (coronary artery disease) Code(s): I25.10 - ATHSCL HEART DISEASE OF [place] CORONARY ARTERY W/O ANG PCTRS (7) CVA (cerebral vascular accident) Code(s): I63.9 - CEREBRAL INFARCTION, UNSPECIFIED Assessment/Plan Admitted to Telemetry IV Lasix Cardio and Renal consults are appreciated. Neuro consult AM labs Case was d/w pt's nurse.
--- NOTE | 2018-06-06 11:39 | PN ---
Progress Note (short form) - Note Progress Note: s: no cp palps dizzy; sob better o: Vital Signs Period Temp Pulse Resp BP Sys/Chen Pulse Ox Last 24 Hr 97.8 F-98.4 F 52-64 18-20 111-154/50-66 96-97 Constitutional: Yes: Well Nourished, No Distress Eyes: No: Sclera Icterus Respiratory: Yes: CTA Bilaterally, Rales (L base). No: Accessory Muscle Use, Wheezes Gastrointestinal: Yes: Normal Bowel Sounds. No: Distention, Hepatomegaly, Palpable Mass, Tenderness Cardiovascular: Yes: Regular Rate and Rhythm JVD: Yes Heart Sounds: Yes: S1, S2. No: Gallop Murmur: No: Systolic Murmur, Diastolic Murmur Extremities: No: Cool, Cyanosis Edema: Yes (1+ pretib) Peripheral Pulses: 2+ Left Carotid, 2+ Right Carotid, 2+ Left Doralis Pedis, 2+ Right Dorsalis Pedis Integumentary: No: Jaundice Neurological: Yes: Alert, Oriented (x3) Psychiatric: No: Agitated Current Medications Generic Name Dose Route Start Last Admin Trade Name Freq PRN Reason Stop Dose Admin Atenolol 100 mg 06/05/18 11:15 06/06/18 09:48 Tenormin - PO 100 mg BID JAMILA Administration Atorvastatin Calcium 80 mg 06/05/18 11:15 06/05/18 12:45 Lipitor - PO 80 mg HS JAMILA Administration Budesonide/Formoterol Fumarate 2 puff 06/05/18 12:15 06/05/18 23:03 Symbicort 80/4.5mcg - IH 2 puff BID JAMILA Administration Clopidogrel Bisulfate 75 mg 06/05/18 11:15 06/06/18 09:48 Plavix - PO 75 mg DAILY JAMILA Administration Ezetimibe 10 mg 06/05/18 11:15 06/06/18 09:48 Zetia - PO 10 mg DAILY JAMILA Administration Ferrous Sulfate 325 mg 06/06/18 11:15 Feosol - PO Q2D JAMILA Finasteride 5 mg 06/05/18 11:15 06/06/18 09:50 Proscar - PO 5 mg DAILY JAMILA Administration Furosemide 40 mg 06/06/18 11:45 Lasix Injection - IVPUSH DAILY [facility] Insulin Aspart 1 vial 06/05/18 16:30 06/06/18 06:33 Novolog Vial Sliding Scale - SQ Not Given ACHS [facility] Protocol Isosorbide Mononitrate 120 mg 06/05/18 11:15 06/06/18 09:48 Imdur - PO 120 mg DAILY JAMILA Administration Montelukast Sodium 10 mg 06/05/18 11:15 06/05/18 12:45 Singulair - PO 10 mg HS JAMILA Administration Nitroglycerin 1 spray 06/05/18 11:12 Nitrolingual [place] - TL Q5M PRN FOR CHEST PAIN Non-Formulary Medication 60 unit 06/05/18 11:12 Insulin Degludec [Tresiba Flextouch U-100] SQ AM JAMILA Pantoprazole Sodium 40 mg 06/05/18 11:15 06/06/18 09:48 Protonix - PO 40 mg DAILY JAMILA Administration Polyethylene Glycol 17 gm 06/05/18 11:12 Miralax (For Bowel Prep) - PO DAILY PRN CONSTIPATION Ranolazine 1,000 mg 06/05/18 11:30 06/06/18 09:48 Ranexa - PO 1,000 mg BID JAMILA Administration Senna 1 tab 06/05/18 11:12 Senna - PO DAILY PRN CONSTIPATION Sitagliptin Phosphate 25 mg 06/05/18 17:00 06/06/18 06:33 Januvia - PO 25 mg DAILY@0700 JAMILA Administration Tamsulosin HCl 0.4 mg 06/05/18 22:00 06/05/18 23:01 Flomax - PO 0.4 mg HS JAMILA Administration CBC, BMP 06/06/18 05:30 06/06/18 05:30 Assessment/Plan ECG: sinus julieta (48 bpm); incomplete LBBB. diffuse ST-Ts r/o ischemia. vs prior (2012), QRS is wider and ST-Ts more diffuse CXR: mild congestive changes CT head: no acute pathology tele: sr acute vision changes, h/o CVA: -CT head no acute pathology -neuro consult pending acute CHF: -mildly decompensated at present -CXR with mild congestive changes and cephalization -BNP 2K (unchanged vs 2016), low GFR confounds -probable JVD on exam. incr sob/pedal edema of late. -on lasix 40qd at home, incr'd to 80 qd 3d ago. got lasix 40 IV 11/12 and today sob better, cr improved, will cont with lasix 40 iv qd -doubt ACS (trop.s neg x 2, ECG only slightly changed vs remote prior) renal insufficiency: -cr better today after iv lasix, monitor CAD, h/o CABG and stents: -doubt ACS here, as above -cont home med regimen -watch for bradycardia on high dose atenolol bid regimen -on ranolazine per outpt cardio, with low GFR--will not change tx plan here, defer to outpt f/u with his doctor HTN: -bp controlled -cont home meds
[2018-06-06] MEDS: BUDESONIDE/FORMETEROL FUMARATE 80/4.5 mcg INHALER IH SCH ×2 (11:58→21:55)
[2018-06-06] MEDS: FUROSEMIDE 40 MG/4 ML INJECTABLE VIAL IVPUSH SCH (11:59)
[2018-06-06] MEDS: FERROUS SO4 325 MG TABLET (FP) PO SCH (12:01)
--- NOTE | 2018-06-06 14:06 | PN ---
Progress Note (short form) - Note Progress Note: Renal follow up for VICENTE vs CKD Pt seen and examined at the bedside no acute complaints feels better still has a little weakness on left side making urine no sob, cp, abd pain Vital Signs Temperature 98 F 06/06/18 09:50 Pulse Rate 53 L 06/06/18 09:50 Respiratory Rate 20 06/06/18 09:50 Blood Pressure 129/62 06/06/18 09:50 O2 Sat by Pulse Oximetry (%) 97 06/06/18 09:00 Intake & Output 06/03/18 06/04/18 06/05/18 06/06/18 23:59 23:59 23:59 23:59 Intake Total 230 50 Output Total 1280 Balance -1050 50 Weight 100.698 kg 98.883 kg NaD RRR CTA trace edema CBC, BMP 06/06/18 05:30 06/06/18 05:30 Laboratory Tests 06/06/18 06/06/18 05:30 05:30 MCV 91.9 Calcium 9.8 Albumin 2.9 L Current Medications Atenolol (Tenormin -) 100 mg PO BID [facility] Last Admin: 06/06/18 09:48 Dose: 100 mg Atorvastatin Calcium (Lipitor -) 80 mg PO HS [facility] Last Admin: 06/05/18 12:45 Dose: 80 mg Budesonide/Formoterol Fumarate (Symbicort 80/4.5mcg -) 2 puff IH BID [facility] Last Admin: 06/06/18 11:58 Dose: 2 puff Clopidogrel Bisulfate (Plavix -) 75 mg PO DAILY [facility] Last Admin: 06/06/18 09:48 Dose: 75 mg Ezetimibe (Zetia -) 10 mg PO DAILY [facility] Last Admin: 06/06/18 09:48 Dose: 10 mg Ferrous Sulfate (Feosol -) 325 mg PO Q2D [facility] Last Admin: 06/06/18 12:01 Dose: 325 mg Finasteride (Proscar -) 5 mg PO DAILY [facility] Last Admin: 06/06/18 09:50 Dose: 5 mg Furosemide (Lasix Injection -) 40 mg IVPUSH DAILY [facility] Last Admin: 06/06/18 11:59 Dose: 40 mg Insulin Aspart (Novolog Vial Sliding Scale -) 1 vial SQ ACHS [facility]; Protocol Last Admin: 11/13/18 12:52 Dose: 4 unit Isosorbide Mononitrate (Imdur -) 120 mg PO DAILY [facility] Last Admin: 06/06/18 09:48 Dose: 120 mg Montelukast Sodium (Singulair -) 10 mg PO HS [facility] Last Admin: 06/05/18 12:45 Dose: 10 mg Nitroglycerin (Nitrolingual [place] -) 1 spray TL Q5M PRN PRN Reason: FOR CHEST PAIN Non-Formulary Medication (Insulin Degludec [Tresiba Flextouch U-100]) 60 unit SQ AM [facility] Pantoprazole Sodium (Protonix -) 40 mg PO DAILY [facility] Last Admin: 06/06/18 09:48 Dose: 40 mg Polyethylene Glycol (Miralax (For Bowel Prep) -) 17 gm PO DAILY PRN PRN Reason: CONSTIPATION Ranolazine (Ranexa -) 1,000 mg PO BID [facility] Last Admin: 06/06/18 09:48 Dose: 1,000 mg Senna (Senna -) 1 tab PO DAILY PRN PRN Reason: CONSTIPATION Sitagliptin Phosphate (Januvia -) 25 mg PO DAILY@0700 [facility] Last Admin: 06/06/18 06:33 Dose: 25 mg Tamsulosin HCl (Flomax -) 0.4 mg PO HS [facility] Last Admin: 06/05/18 23:01 Dose: 0.4 mg 72 year old male admitted with weakness, and visual deficits. He has past h/o CAD (s/p CABG, stents x4) [place] (x5), CVA x2 (residual L sided weakness and slurred speech), IDDM, HTN, PVD with clement[place] LE stenting. #VICENTE vs. CKD #Anemia Renal function improving toward baseline continue Lasix once daily US of the kidney showed no obstruction Trend renal function and electrolytes would benefit from renal follow up as outpatient Thank you Allan Escobar DO
--- NOTE | 2018-06-06 16:43 | CON.NEURO ---
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 (with left hemiparesis) Cardio/Vascular: Yes: CAD (s/p CABG and stenting), HTN, [place] Renal/: Yes: Renal Failure Endocrine: Yes: Diabetes Mellitus - Past Surgical History Past Surgical History: Yes: Bypass, Carotid Endarterectomy - Alcohol/Substance Use Hx Alcohol Use: No - Smoking History Smoking history: Former smoker Have you smoked in the past 12 months: No Aproximately how many cigarettes per day: 0 Home Medications - Allergies Allergies/Adverse Reactions: Allergies Allergy/AdvReac Type Severity Reaction Status Date / Time No Known Allergies Allergy Verified 06/04/18 22:24 - Home Medications Home Medications: Ambulatory Orders Atenolol [Tenormin -] 100 mg PO BID #0 tablet 12/19/12 Isosorbide Mononitrate [Imdur] 120 mg PO DAILY 01/08/13 Pantoprazole Sodium 40 mg PO DAILY 01/08/13 Ranolazine [Ranexa] 1,000 mg PO BID 01/08/13 Salmeterol/Fluticasone [Advair 250Mcg/50Mcg -] 1 inh PO BID 01/08/13 Tamsulosin HCl 0.4 mg PO HS 01/08/13 Vitamin E 400 unit PO DAILY 01/08/13 Furosemide [Lasix -] 40 mg PO DAILY #0 tablet 01/10/13 Atorvastatin Ca [Lipitor] 80 mg PO DAILY 06/04/18 Clopidogrel Bisulfate [Plavix] 75 mg PO DAILY 06/04/18 Ezetimibe [Zetia] 10 mg PO DAILY 06/04/18 Ferrous Sulfate [Feosol] 325 mg PO Q48H 06/04/18 Finasteride [Proscar] 5 mg PO DAILY 06/04/18 Insulin (LOG) Aspart [NovoLOG -] 0 units SQ TID 06/04/18 Insulin Degludec [Tresiba Flextouch U-100] 60 unit SQ AM 06/04/18 Montelukast Sodium [Singulair] 10 mg PO DAILY 06/04/18 Nitroglycerin [place] [Nitrolingual [place] -] 1 spray TL Q5M PRN 06/04/18 Polyethylene Glycol 3350 [Miralax 255 gm Btl] 17 gm PO DAILY PRN 06/04/18 Potassium Chloride [Klor-Con 10] 10 meq PO DAILY 06/04/18 Sennosides [Senokot] 8.6 mg PO DAILY PRN 06/04/18 Sitagliptin Phosphate [Januvia] 50 mg PO DAILY 06/04/18 Valsartan [Diovan] 80 mg PO DAILY 06/04/18 Physical Exam-Neuro Vital Signs: Vital Signs Temperature 98 F 06/06/18 09:50 Pulse Rate 53 L 06/06/18 09:50 Respiratory Rate 20 06/06/18 09:50 Blood Pressure 129/62 06/06/18 09:50 O2 Sat by Pulse Oximetry (%) 97 06/06/18 09:00 Labs: CBC, BMP 06/06/18 05:30 06/06/18 05:30 INR, PTT INR 1.16 (0.83-1.09) H 06/04/18 23:00 Assessment/Plan Covering for Dr Kathy PALMER possible TIA HPI 72 year old male history of CAD,CABG,CHF, was home doing crossword puzzle and he went to bathroom and his words were slurred and he was swaying to one side or another. He has difficulty moving and blancing. Patient has two stroke in past and had cabg in past. He is feeling better and he has left sided hemiparesis as baseline PMH:CVA (with left hemiparesis) CAD (s/p CABG and stenting), HTN, [place] Diabetes Mellitus ,PVD with leg stenting Social History Former smoker H Allergies/Adverse Reactions: Allergies Allergy/AdvReac Type Severity Reaction Status Date / Time No Known Allergies Allergy Verified 06/04/18 22:24 Home Medications: Atenolol [Tenormin -] 100 mg PO BID #0 tablet 12/19/12 Isosorbide Mononitrate [Imdur] 120 mg PO DAILY 01/08/13 Pantoprazole Sodium 40 mg PO DAILY 01/08/13 Ranolazine [Ranexa] 1,000 mg PO BID 01/08/13 Salmeterol/Fluticasone [Advair 250Mcg/50Mcg -] 1 inh PO BID 01/08/13 Tamsulosin HCl 0.4 mg PO HS 01/08/13 Vitamin E 400 unit PO DAILY 01/08/13 Furosemide [Lasix -] 40 mg PO DAILY #0 tablet 01/10/13 Atorvastatin Ca [Lipitor] 80 mg PO DAILY 06/04/18 Clopidogrel Bisulfate [Plavix] 75 mg PO DAILY 06/04/18 Ezetimibe [Zetia] 10 mg PO DAILY 06/04/18 Ferrous Sulfate [Feosol] 325 mg PO Q48H 06/04/18 Finasteride [Proscar] 5 mg PO DAILY 06/04/18 Insulin (LOG) Aspart [NovoLOG -] 0 units SQ TID 06/04/18 Insulin Degludec [Tresiba Flextouch U-100] 60 unit SQ AM 06/04/18 Montelukast Sodium [Singulair] 10 mg PO DAILY 06/04/18 Nitroglycerin [place] [Nitrolingual [place] -] 1 spray TL Q5M PRN 06/04/18 Polyethylene Glycol 3350 [Miralax 255 gm Btl] 17 gm PO DAILY PRN 06/04/18 Potassium Chloride [Klor-Con 10] 10 meq PO DAILY 06/04/18 Sennosides [Senokot] 8.6 mg PO DAILY PRN 06/04/18 Sitagliptin Phosphate [Januvia] 50 mg PO DAILY 06/04/18 Valsartan [Diovan] 80 mg PO DAILY 06/04/18 Family history, ROS reviewed in chart Neurological Examination Alert oriented x 3 , speech is normal eomi, pupils reactive, no face asymmetry Motor left arm and leg weakness grade 5- sensation is normal ct head unremarkable carotid ultrasound is unremarkable Assessment/Plan Possible TIA PLAN- suggest to continue plavix and statin , already on high dose - mri cant be done - carotid ultrasound - life style modificaitons Thanking you so much Gurvinder Kaufman MD
[2018-06-06] MEDS ORDERED: FLU VACCINE QUAD 60 MCG/0.5 ML (MDV 18-19) IM ONE (17:30)
[2018-06-06 21:37] LABS: URINE APPEARANCE CLEAR; URINE BILIRUBIN NEGATIVE (<2.0 mg/dL); URINE COLOR LTYELLOW; URINE GLUCOSE (UA) NEGATIVE (NEGATIVE); URINE KETONE NEGATIVE (NEGATIVE); URINE LEUK ESTERASE NEGATIVE (NEGATIVE); URINE NITRITE NEGATIVE (NEGATIVE); URINE PROTEIN NEGATIVE (NEGATIVE); URINE UROBILINOGEN NEGATIVE mg/dL (0.2-1.0)
[2018-06-06] MEDS: TAMSULOSIN HCL 0.4 MG CAP PO SCH (21:43)
[2018-06-06] MEDS: MONTELUKAST NA 10 MG TABLET PO SCH (21:43)
[2018-06-06] MEDS: ATORVASTATIN CA 80 MG TABLET (FP) PO SCH (21:43)
[2018-06-07] MEDS: INSULIN SLIDING SCALE (NOVOLOG) 1 VIAL SQ SCH ×4 (06:45→22:13)
[2018-06-07] MEDS: sitaGLIPtin PHOSPHATE 25 MG TABLET (FP) PO SCH (06:48)
[2018-06-07 07:13] LABS: BASO % 0.3 % (0-2.0); EOS % 2.4 % (0-4.5); HEMATOCRIT 33.9 % (35.4-49); HEMOGLOBIN 11.3 GM/dL (11.7-16.9); LYMPH % 17.7 % (8-40); MCH 30.6 pg (25.7-33.7); MCHC 33.4 g/dl (32.0-35.9); MEAN CELL VOLUME 91.6 fl (80-96); MEAN PLT VOLUME 9.7 fl (7.5-11.1); MONO % 11.8 % (3.8-10.2); NEUT % 67.8 % (42.8-82.8); PLATELET COUNT 134 K/MM3 (134-434); RBC 3.71 M/mm3 (4.00-5.60); RDW 15.5 % (11.9-15.9); WHITE BLOOD COUNT 5.1 K/mm3 (4.0-10.0)
[2018-06-07 08:14] LABS: ALBUMIN 3.4 g/dl (3.4-5.0); ALK PHOS 121 U/L (45-117); ANION GAP 8 MMOL/L (8-16); BILIRUBIN,TOTAL 0.9 mg/dL (0.2-1); BLOOD UREA NITROGEN 45 mg/dL (7-18); CHLORIDE 100 mmol/L (98-107); CO2 28 mmol/L (21-32); CREATININE 1.9 mg/dL (0.55-1.3); GLUCOSE,RANDOM 231 mg/dL (74-106); MAGNESIUM 1.9 mg/dL (1.8-2.4); POTASSIUM 4.8 mmol/L (3.5-5.1); SGOT/AST 20 U/L (15-37); SGPT/ALT 34 U/L (13-61); SODIUM 136 mmol/L (136-145); TOT PROT 7.1 g/dl (6.4-8.2)
--- NOTE | 2018-06-07 08:57 | PN ---
Progress Note (short form) - Note Progress Note: Neurology 72 year old male seen initial by Dr. Pepper, covering for me, with history of CAD,CABG,CHF, was home doing crossword puzzle and he went to bathroom with reported slurred speech and per notes was swaying to one side or another. He had difficulty with balance and of note has prior CVAs with residual L hemiparesis. CT head completed and without acute changes. Carotid dopplers completed and reviewed. He is on dual antiplatelet of ASA and Plavix. States his speech is at baseline. Active Medications Atenolol (Tenormin -) 100 mg PO BID [facility] Last Admin: 06/06/18 21:43 Dose: 100 mg Atorvastatin Calcium (Lipitor -) 80 mg PO HS [facility] Last Admin: 06/06/18 21:43 Dose: 80 mg Budesonide/Formoterol Fumarate (Symbicort 80/4.5mcg -) 2 puff IH BID [facility] Last Admin: 06/06/18 21:55 Dose: 2 puff Clopidogrel Bisulfate (Plavix -) 75 mg PO DAILY [facility] Last Admin: 06/06/18 09:48 Dose: 75 mg Ezetimibe (Zetia -) 10 mg PO DAILY [facility] Last Admin: 06/06/18 09:48 Dose: 10 mg Ferrous Sulfate (Feosol -) 325 mg PO Q2D [facility] Last Admin: 06/06/18 12:01 Dose: 325 mg Finasteride (Proscar -) 5 mg PO DAILY [facility] Last Admin: 06/06/18 09:50 Dose: 5 mg Furosemide (Lasix Injection -) 40 mg IVPUSH DAILY [facility] Last Admin: 06/06/18 11:59 Dose: 40 mg Insulin Aspart (Novolog Vial Sliding Scale -) 1 vial SQ ACHS [facility]; Protocol Last Admin: 06/07/18 06:45 Dose: 6 unit Isosorbide Mononitrate (Imdur -) 120 mg PO DAILY [facility] Last Admin: 06/06/18 09:48 Dose: 120 mg Montelukast Sodium (Singulair -) 10 mg PO HS [facility] Last Admin: 06/06/18 21:43 Dose: 10 mg Nitroglycerin (Nitrolingual [place] -) 1 spray TL Q5M PRN PRN Reason: FOR CHEST PAIN Non-Formulary Medication (Insulin Degludec [Tresiba Flextouch U-100]) 60 unit SQ AM [facility] Pantoprazole Sodium (Protonix -) 40 mg PO DAILY [facility] Last Admin: 06/06/18 09:48 Dose: 40 mg Polyethylene Glycol (Miralax (For Bowel Prep) -) 17 gm PO DAILY PRN PRN Reason: CONSTIPATION Ranolazine (Ranexa -) 1,000 mg PO BID [facility] Last Admin: 06/06/18 21:43 Dose: 1,000 mg Senna (Senna -) 1 tab PO DAILY PRN PRN Reason: CONSTIPATION Sitagliptin Phosphate (Januvia -) 25 mg PO DAILY@0700 [facility] Last Admin: 06/07/18 06:48 Dose: 25 mg Tamsulosin HCl (Flomax -) 0.4 mg PO HS [facility] Last Admin: 06/06/18 21:43 Dose: 0.4 mg Physical Exam-Neuro Vital Signs Period Temp Pulse Resp BP Sys/Chen Pulse Ox Last 24 Hr 97.5 F-98.2 F 52-56 18-20 120-153/60-67 97-97 Gen: Awake, alert, responds to questions Card: RRR, nml S1,S2 Resp: Normal symmetric effort, lungs clear to auscultation Abdomen: Soft, nontender, bowel sounds active Musculoskeletal: Adequate range of motion without significant deformity Head atraumatic and normocephalic CN: PERRL, EOMI intact, no apparent facial droop, no abnormalities in facial sensation, palate elevates, uvula and tongue midline Motor: LUE 5-/5, LLE 5-/5 Sensory: Intact to Temperature, light touch, and pinprick in all extremities Reflexes: 2+ biceps, brachioradialis, patellar, achillies Coordination: Intact on aeseic-ehpn-trjvlw testing CBCD WBC 5.1 K/mm3 (4.0-10.0) 06/07/18 06:10 RBC 3.71 M/mm3 (4.00-5.60) L 06/07/18 06:10 Hgb 11.3 GM/dL (11.7-16.9) L 06/07/18 06:10 Hct 33.9 % (35.4-49) L 06/07/18 06:10 MCV 91.6 fl (80-96) 06/07/18 06:10 MCHC 33.4 g/dl (32.0-35.9) 06/07/18 06:10 RDW 15.5 % (11.9-15.9) 06/07/18 06:10 Plt Count 134 K/MM3 (134-434) 06/07/18 06:10 MPV 9.7 fl (7.5-11.1) 06/07/18 06:10 CMP Sodium 136 mmol/L (136-145) 06/07/18 06:10 Potassium 4.8 mmol/L (3.5-5.1) 06/07/18 06:10 Chloride 100 mmol/L (98-107) 06/07/18 06:10 Carbon Dioxide 28 mmol/L (21-32) 06/07/18 06:10 Anion Gap 8 MMOL/L (8-16) 06/07/18 06:10 BUN 45 mg/dL (7-18) H 06/07/18 06:10 Creatinine 1.9 mg/dL (0.55-1.3) H 06/07/18 06:10 Creat Clearance w eGFR 34.92 (>60) 06/07/18 06:10 Calcium 10.0 mg/dL (8.5-10.1) 06/07/18 06:10 Total Bilirubin 0.9 mg/dL (0.2-1) 06/07/18 06:10 AST 20 U/L (15-37) 06/07/18 06:10 ALT 34 U/L (13-61) 06/07/18 06:10 Alkaline Phosphatase 121 U/L (45-117) H 06/07/18 06:10 Total Protein 7.1 g/dl (6.4-8.2) 06/07/18 06:10 Albumin 3.4 g/dl (3.4-5.0) 06/07/18 06:10 Assessment/Plan 72 year old male seen initial by Dr. Pepper, covering for me, with history of CAD,CABG,CHF, was home doing crossword puzzle and he went to bathroom with reported slurred speech and per notes was swaying to one side or another. He had difficulty with balance and of note has prior CVAs with residual L hemiparesis. CT head completed and without acute changes. Carotid dopplers completed and reviewed. He is on dual antiplatelet of ASA and Plavix. States his speech is at baseline. Reports not being able to tolerate MRI, currently low suspicion as patient at baseline. Would optimize medically, monitor blood pressure, maintain normotensive range. Monitor glucose, avoid episodes of hyper/ hypoglycemia. Maintain hydration. Fall precautions. Continue dual antiplatelet, remains on max dose statin.
--- NOTE | 2018-06-07 09:51 | PN ---
Progress Note (short form) - Note Progress Note: Progress Note: s: no cp palps dizzy, still some sob with walking but improving o: Vital Signs Period Temp Pulse Resp BP Sys/Chen Pulse Ox Last 24 Hr 97.5 F-98.2 F 52-56 18-20 120-153/60-67 97 Constitutional: Yes: Well Nourished, No Distress Eyes: No: Sclera Icterus Respiratory: Yes: CTA Bilaterally, +Rales (L base). No: Accessory Muscle Use, Wheezes Gastrointestinal: Yes: Normal Bowel Sounds. No: Distention, Hepatomegaly, Palpable Mass, Tenderness Cardiovascular: Yes: Regular Rate and Rhythm JVD: +JVD Heart Sounds: Yes: S1, S2. No: Gallop Murmur: No: Systolic Murmur, Diastolic Murmur Extremities: No: Cool, Cyanosis Edema: Yes (1+ pretib) Peripheral Pulses: 2+ Left Carotid, 2+ Right Carotid, 2+ Left Doralis Pedis, 2+ Right Dorsalis Pedis Integumentary: No: Jaundice Neurological: Yes: Alert, Oriented (x3) Psychiatric: No: Agitated Current Medications Atenolol (Tenormin -) 100 mg PO BID [facility] Last Admin: 06/06/18 21:43 Dose: 100 mg Atorvastatin Calcium (Lipitor -) 80 mg PO HS [facility] Last Admin: 06/06/18 21:43 Dose: 80 mg Budesonide/Formoterol Fumarate (Symbicort 80/4.5mcg -) 2 puff IH BID [facility] Last Admin: 06/06/18 21:55 Dose: 2 puff Clopidogrel Bisulfate (Plavix -) 75 mg PO DAILY [facility] Last Admin: 06/06/18 09:48 Dose: 75 mg Ezetimibe (Zetia -) 10 mg PO DAILY [facility] Last Admin: 06/06/18 09:48 Dose: 10 mg Ferrous Sulfate (Feosol -) 325 mg PO Q2D [facility] Last Admin: 06/06/18 12:01 Dose: 325 mg Finasteride (Proscar -) 5 mg PO DAILY [facility] Last Admin: 06/06/18 09:50 Dose: 5 mg Furosemide (Lasix Injection -) 40 mg IVPUSH DAILY [facility] Last Admin: 06/06/18 11:59 Dose: 40 mg Insulin Aspart (Novolog Vial Sliding Scale -) 1 vial SQ ACHS [facility]; Protocol Last Admin: 06/07/18 06:45 Dose: 6 unit Isosorbide Mononitrate (Imdur -) 120 mg PO DAILY [facility] Last Admin: 06/06/18 09:48 Dose: 120 mg Montelukast Sodium (Singulair -) 10 mg PO HS [facility] Last Admin: 06/06/18 21:43 Dose: 10 mg Nitroglycerin (Nitrolingual [place] -) 1 spray TL Q5M PRN PRN Reason: FOR CHEST PAIN Non-Formulary Medication (Insulin Degludec [Tresiba Flextouch U-100]) 60 unit SQ AM [facility] Pantoprazole Sodium (Protonix -) 40 mg PO DAILY [facility] Last Admin: 06/06/18 09:48 Dose: 40 mg Polyethylene Glycol (Miralax (For Bowel Prep) -) 17 gm PO DAILY PRN PRN Reason: CONSTIPATION Ranolazine (Ranexa -) 1,000 mg PO BID [facility] Last Admin: 06/06/18 21:43 Dose: 1,000 mg Senna (Senna -) 1 tab PO DAILY PRN PRN Reason: CONSTIPATION Sitagliptin Phosphate (Januvia -) 25 mg PO DAILY@0700 [facility] Last Admin: 06/07/18 06:48 Dose: 25 mg Tamsulosin HCl (Flomax -) 0.4 mg PO HS [facility] Last Admin: 06/06/18 21:43 Dose: 0.4 mg Assessment/Plan ECG: sinus julieta (48 bpm); incomplete LBBB. diffuse ST-Ts r/o ischemia. vs prior (2012), QRS is wider and ST-Ts more diffuse CXR: mild congestive changes CT head: no acute pathology tele: sinus acute vision changes, h/o CVA: -CT head no acute pathology -neuro consult pending acute CHF: -CXR with mild congestive changes and cephalization -BNP 2K (unchanged vs 2016), low GFR confounds -on lasix 40qd at home, incr'd to 80 qd prior to admission - JVD on exam. edema improving - symptoms improving with lasix 40 mg IV daily, continue - monitor daily Cr, standing weight, I/O -doubt ACS (trops neg x 2, ECG only slightly changed vs remote prior) renal insufficiency: -cr better today after iv lasix, monitor CAD, h/o CABG and stents: -doubt ACS here, as above -cont home med regimen -watch for bradycardia on high dose atenolol bid regimen -on ranolazine per outpt cardio, with low GFR--will not change tx plan here, defer to outpt f/u with his doctor HTN: -bp controlled -cont home meds
[2018-06-07] MEDS: EZETIMIBE 10 MG TABLET (FP) PO SCH (10:33)
[2018-06-07] MEDS: ISOSORBIDE MONONITRATE 60 MG TAB.SR.24H (FP) PO SCH (10:34)
[2018-06-07] MEDS: ATENOLOL 50 MG TABLET (FP) PO SCH ×2 (10:34→22:09)
[2018-06-07] MEDS: FUROSEMIDE 40 MG/4 ML INJECTABLE VIAL IVPUSH SCH ×2 (10:34→13:09)
[2018-06-07] MEDS: CLOPIDOGREL BISULFATE 75 MG TABLET (FP) PO SCH (10:34)
[2018-06-07] MEDS: PANTOPRAZOLE 40 MG TABLET (FP) PO SCH (10:34)
[2018-06-07] MEDS: RANOLAZINE E.R. 1,000 MG TABLET (FP) PO SCH ×2 (10:34→22:07)
[2018-06-07] MEDS: FINASTERIDE 5 MG TABLET (FP) PO SCH (10:35)
[2018-06-07] MEDS: BUDESONIDE/FORMETEROL FUMARATE 80/4.5 mcg INHALER IH SCH ×2 (10:35→22:12)
--- NOTE | 2018-06-07 10:47 | PN ---
Progress Note (short form) - Note Progress Note: Renal follow up for VICENTE vs CKD Pt seen and examined at the bedside awake and alert no acute complaints still has some weakenss but feels better no sob, cp, abd pain Vital Signs Temperature 98 F 06/07/18 10:32 Pulse Rate 58 L 06/07/18 10:32 Respiratory Rate 20 06/07/18 10:32 Blood Pressure 127/60 06/07/18 10:32 O2 Sat by Pulse Oximetry (%) 97 06/06/18 20:21 Intake & Output 06/04/18 06/05/18 06/06/18 06/07/18 23:59 23:59 23:59 23:59 Intake Total 230 510 100 Output Total 1280 1100 300 Balance -1050 -590 -200 Weight 100.698 kg 98.883 kg NAD awake and alert RRR CTA soft NT/ND trace edema in LE CBC, BMP 06/07/18 06:10 06/07/18 06:10 Current Medications Atenolol (Tenormin -) 100 mg PO BID [facility] Last Admin: 06/07/18 10:34 Dose: 100 mg Atorvastatin Calcium (Lipitor -) 80 mg PO HS [facility] Last Admin: 06/06/18 21:43 Dose: 80 mg Budesonide/Formoterol Fumarate (Symbicort 80/4.5mcg -) 2 puff IH BID [facility] Last Admin: 06/07/18 10:35 Dose: 2 puff Clopidogrel Bisulfate (Plavix -) 75 mg PO DAILY [facility] Last Admin: 06/07/18 10:34 Dose: 75 mg Ezetimibe (Zetia -) 10 mg PO DAILY [facility] Last Admin: 06/07/18 10:33 Dose: 10 mg Ferrous Sulfate (Feosol -) 325 mg PO Q2D [facility] Last Admin: 06/06/18 12:01 Dose: 325 mg Finasteride (Proscar -) 5 mg PO DAILY [facility] Last Admin: 06/07/18 10:35 Dose: 5 mg Furosemide (Lasix Injection -) 40 mg IVPUSH DAILY [facility] Last Admin: 06/07/18 10:34 Dose: 40 mg Insulin Aspart (Novolog Vial Sliding Scale -) 1 vial SQ ACHS [facility]; Protocol Last Admin: 06/07/18 06:45 Dose: 6 unit Isosorbide Mononitrate (Imdur -) 120 mg PO DAILY [facility] Last Admin: 06/07/18 10:34 Dose: 120 mg Montelukast Sodium (Singulair -) 10 mg PO HS [facility] Last Admin: 06/06/18 21:43 Dose: 10 mg Nitroglycerin (Nitrolingual [place] -) 1 spray TL Q5M PRN PRN Reason: FOR CHEST PAIN Non-Formulary Medication (Insulin Degludec [Tresiba Flextouch U-100]) 60 unit SQ AM [facility] Pantoprazole Sodium (Protonix -) 40 mg PO DAILY [facility] Last Admin: 06/07/18 10:34 Dose: 40 mg Polyethylene Glycol (Miralax (For Bowel Prep) -) 17 gm PO DAILY PRN PRN Reason: CONSTIPATION Ranolazine (Ranexa -) 1,000 mg PO BID [facility] Last Admin: 06/07/18 10:34 Dose: 1,000 mg Senna (Senna -) 1 tab PO DAILY PRN PRN Reason: CONSTIPATION Sitagliptin Phosphate (Januvia -) 25 mg PO DAILY@0700 [facility] Last Admin: 06/07/18 06:48 Dose: 25 mg Tamsulosin HCl (Flomax -) 0.4 mg PO HS [facility] Last Admin: 06/06/18 21:43 Dose: 0.4 mg 72 year old male admitted with weakness, and visual deficits. He has past h/o CAD (s/p CABG, stents x4) [place] (x5), CVA x2 (residual L sided weakness and slurred speech), IDDM, HTN, PVD with [place] LE stenting. #VICENTE vs. CKD (baseline Cr 1-1.4?, US showed no obstruction, [place] UA, UPCR 0.5) #BPH w/o retention #Anemia #Mild Volume overload Renal function improved and stable D/c IV lasix and start Torsemide 20mg Daily Trend renal function and electrolytes should follow up in our office on discharge Continue proscar and flomax awaiting rehab placement Thank you Allan Escobar DO
--- NOTE | 2018-06-07 12:14 | PN ---
Progress Note, Physician History of Present Illness: Pt's voice is back to normal. Pt w/o CP, palpitations, SOB, abd pain. - Current Medication List Current Medications: Active Medications Atenolol (Tenormin -) 100 mg PO BID [facility] Last Admin: 06/07/18 10:34 Dose: 100 mg Atorvastatin Calcium (Lipitor -) 80 mg PO HS [facility] Last Admin: 06/06/18 21:43 Dose: 80 mg Budesonide/Formoterol Fumarate (Symbicort 80/4.5mcg -) 2 puff IH BID [facility] Last Admin: 06/07/18 10:35 Dose: 2 puff Clopidogrel Bisulfate (Plavix -) 75 mg PO DAILY [facility] Last Admin: 06/07/18 10:34 Dose: 75 mg Ezetimibe (Zetia -) 10 mg PO DAILY [facility] Last Admin: 06/07/18 10:33 Dose: 10 mg Ferrous Sulfate (Feosol -) 325 mg PO Q2D [facility] Last Admin: 06/06/18 12:01 Dose: 325 mg Finasteride (Proscar -) 5 mg PO DAILY [facility] Last Admin: 06/07/18 10:35 Dose: 5 mg Furosemide (Lasix Injection -) 40 mg IVPUSH DAILY [facility] Last Admin: 06/07/18 10:34 Dose: 40 mg Insulin Aspart (Novolog Vial Sliding Scale -) 1 vial SQ ACHS [facility]; Protocol Last Admin: 06/07/18 06:45 Dose: 6 unit Isosorbide Mononitrate (Imdur -) 120 mg PO DAILY [facility] Last Admin: 06/07/18 10:34 Dose: 120 mg Montelukast Sodium (Singulair -) 10 mg PO HS [facility] Last Admin: 06/06/18 21:43 Dose: 10 mg Nitroglycerin (Nitrolingual [place] -) 1 spray TL Q5M PRN PRN Reason: FOR CHEST PAIN Non-Formulary Medication (Insulin Degludec [Tresiba Flextouch U-100]) 60 unit SQ AM [facility] Pantoprazole Sodium (Protonix -) 40 mg PO DAILY [facility] Last Admin: 06/07/18 10:34 Dose: 40 mg Polyethylene Glycol (Miralax (For Bowel Prep) -) 17 gm PO DAILY PRN PRN Reason: CONSTIPATION Ranolazine (Ranexa -) 1,000 mg PO BID [facility] Last Admin: 06/07/18 10:34 Dose: 1,000 mg Senna (Senna -) 1 tab PO DAILY PRN PRN Reason: CONSTIPATION Sitagliptin Phosphate (Januvia -) 25 mg PO DAILY@0700 [facility] Last Admin: 06/07/18 06:48 Dose: 25 mg Tamsulosin HCl (Flomax -) 0.4 mg PO HS [facility] Last Admin: 06/06/18 21:43 Dose: 0.4 mg - Objective Vital Signs: Vital Signs Temperature 98 F 06/07/18 10:32 Pulse Rate 58 L 06/07/18 10:32 Respiratory Rate 20 06/07/18 10:32 Blood Pressure 127/60 06/07/18 10:32 O2 Sat by Pulse Oximetry (%) 97 06/07/18 09:00 Constitutional: Yes: No Distress, Calm Cardiovascular: Yes: Regular Rate and Rhythm, S1, S2 Respiratory: Yes: Regular, Rales (crackles at bases) Gastrointestinal: Yes: Normal Bowel Sounds, Soft Edema: LLE: 1+, RLE: 1+ Neurological: Yes: Alert, Oriented Labs: CBC, BMP 06/07/18 06:10 06/07/18 06:10 INR, PTT INR 1.16 (0.83-1.09) H 06/04/18 23:00 Problem List - Problems (1) Acute congestive heart failure Code(s): I50.9 - HEART FAILURE, UNSPECIFIED (2) Acute renal failure Code(s): N17.9 - ACUTE KIDNEY FAILURE, UNSPECIFIED (3) Visual disturbance Code(s): H53.9 - UNSPECIFIED VISUAL DISTURBANCE (4) Diabetes mellitus Code(s): E11.9 - TYPE 2 DIABETES MELLITUS WITHOUT COMPLICATIONS (5) Bradycardia Code(s): R00.1 - BRADYCARDIA, UNSPECIFIED (6) CAD (coronary artery disease) Code(s): I25.10 - ATHSCL HEART DISEASE OF [place] CORONARY ARTERY W/O ANG PCTRS (7) CVA (cerebral vascular accident) Code(s): I63.9 - CEREBRAL INFARCTION, UNSPECIFIED Assessment/Plan Admitted to Telemetry Pt refused IV Lasix today. Pt's sugar si above 300as he is receiving Tresiba. He states yhat before was on Lantus 50 units SQ AM (confirmed by his ). To order Levemir Cardio, Renal, Neuro consults are appreciated. AM labs Case was d/w pt's nurse.
[2018-06-07] MEDS ORDERED: INSULIN (LEVEMIR) 100 UNITS/ML UNITS SQ ONE (13:06)
[2018-06-07] MEDS ORDERED: TORSEMIDE 20 MG TABLET (FP) PO ONE (13:45)
[2018-06-07] MEDS: ATORVASTATIN CA 80 MG TABLET (FP) PO SCH (22:06)
[2018-06-07] MEDS: TAMSULOSIN HCL 0.4 MG CAP PO SCH (22:07)
[2018-06-07] MEDS: MONTELUKAST NA 10 MG TABLET PO SCH (22:09)
[2018-06-08] MEDS: INSULIN SLIDING SCALE (NOVOLOG) 1 VIAL SQ SCH ×5 (02:22→22:51)
[2018-06-08] MEDS: sitaGLIPtin PHOSPHATE 25 MG TABLET (FP) PO SCH (06:15)
[2018-06-08 08:27] LABS: ANION GAP 11 MMOL/L (8-16); BLOOD UREA NITROGEN 25 mg/dL (7-18); CALCIUM 8.4 mg/dL (8.5-10.1); CHLORIDE 94 mmol/L (98-107); CO2 29 mmol/L (21-32); CREATININE 1.1 mg/dL (0.55-1.3); GLUCOSE,RANDOM 141 mg/dL (74-106); MAGNESIUM 1.8 mg/dL (1.8-2.4); POTASSIUM 4.3 mmol/L (3.5-5.1); SODIUM 134 mmol/L (136-145)
--- NOTE | 2018-06-08 09:06 | PN ---
Progress Note (short form) - Note Progress Note: Neurology 72 year old male seen initial by Dr. Pepper, covering for me, with history of CAD,CABG,CHF, was home doing crossword puzzle and he went to bathroom with reported slurred speech and per notes was swaying to one side or another. He had difficulty with balance and of note has prior CVAs with residual L hemiparesis. CT head completed and without acute changes. Carotid dopplers completed and reviewed. States his speech is at baseline. Elevated sugars being optimized. Active Medications Atenolol (Tenormin -) 100 mg PO BID [facility] Last Admin: 06/07/18 22:09 Dose: Not Given Atorvastatin Calcium (Lipitor -) 80 mg PO HS [facility] Last Admin: 06/07/18 22:06 Dose: 80 mg Budesonide/Formoterol Fumarate (Symbicort 80/4.5mcg -) 2 puff IH BID [facility] Last Admin: 06/07/18 22:12 Dose: 2 puff Clopidogrel Bisulfate (Plavix -) 75 mg PO DAILY [facility] Last Admin: 06/07/18 10:34 Dose: 75 mg Ezetimibe (Zetia -) 10 mg PO DAILY [facility] Last Admin: 06/07/18 10:33 Dose: 10 mg Ferrous Sulfate (Feosol -) 325 mg PO Q2D [facility] Last Admin: 06/06/18 12:01 Dose: 325 mg Finasteride (Proscar -) 5 mg PO DAILY [facility] Last Admin: 06/07/18 10:35 Dose: 5 mg Insulin Aspart (Novolog Vial Sliding Scale -) 1 vial SQ ACHS [facility]; Protocol Last Admin: 06/08/18 06:15 Dose: 2 unit Insulin Detemir (Levemir Vial) 50 units SQ DAILY [facility] Isosorbide Mononitrate (Imdur -) 120 mg PO DAILY [facility] Last Admin: 06/07/18 10:34 Dose: 120 mg Montelukast Sodium (Singulair -) 10 mg PO [facility] Last Admin: 06/07/18 22:09 Dose: 10 mg Nitroglycerin (Nitrolingual [place] -) 1 spray TL Q5M PRN PRN Reason: FOR CHEST PAIN Non-Formulary Medication (Insulin Degludec [Tresiba Flextouch U-100]) 60 unit SQ AM [facility] Pantoprazole Sodium (Protonix -) 40 mg PO DAILY [facility] Last Admin: 06/07/18 10:34 Dose: 40 mg Polyethylene Glycol (Miralax (For Bowel Prep) -) 17 gm PO DAILY PRN PRN Reason: CONSTIPATION Ranolazine (Ranexa -) 1,000 mg PO BID [facility] Last Admin: 06/07/18 22:07 Dose: 1,000 mg Senna (Senna -) 1 tab PO DAILY PRN PRN Reason: CONSTIPATION Sitagliptin Phosphate (Januvia -) 25 mg PO DAILY@0700 [facility] Last Admin: 06/08/18 06:15 Dose: 25 mg Tamsulosin HCl (Flomax -) 0.4 mg PO HS [facility] Last Admin: 06/07/18 22:07 Dose: 0.4 mg Torsemide (Demadex -) 20 mg PO DAILY [facility] Physical Exam-Neuro Vital Signs Temperature 98.2 F 06/08/18 05:50 Pulse Rate 56 L 06/08/18 05:50 Respiratory Rate 20 06/08/18 05:50 Blood Pressure 142/63 06/08/18 05:50 O2 Sat by Pulse Oximetry (%) 96 06/07/18 21:00 Gen: Awake, alert, responds to questions Card: RRR, nml S1,S2 Resp: Normal symmetric effort, lungs clear to auscultation Abdomen: Soft, nontender, bowel sounds active Musculoskeletal: Adequate range of motion without significant deformity Head atraumatic and normocephalic CN: PERRL, EOMI intact, no apparent facial droop, no abnormalities in facial sensation, palate elevates, uvula and tongue midline Motor: LUE 5-/5, LLE 5-/5 Sensory: Intact to Temperature, light touch, and pinprick in all extremities Reflexes: 2+ biceps, brachioradialis, patellar, achillies Coordination: Intact on [id number] testing CBCD WBC 5.1 K/mm3 (4.0-10.0) 06/07/18 06:10 RBC 3.71 M/mm3 (4.00-5.60) L 06/07/18 06:10 Hgb 11.3 GM/dL (11.7-16.9) L 06/07/18 06:10 Hct 33.9 % (35.4-49) L 06/07/18 06:10 MCV 91.6 fl (80-96) 06/07/18 06:10 MCHC 33.4 g/dl (32.0-35.9) 06/07/18 06:10 RDW 15.5 % (11.9-15.9) 06/07/18 06:10 Plt Count 134 K/MM3 (134-434) 06/07/18 06:10 MPV 9.7 fl (7.5-11.1) 06/07/18 06:10 CMP Sodium 134 mmol/L (136-145) L 06/08/18 06:50 Potassium 4.3 mmol/L (3.5-5.1) 06/08/18 06:50 Chloride 94 mmol/L (98-107) L 06/08/18 06:50 Carbon Dioxide 29 mmol/L (21-32) 06/08/18 06:50 Anion Gap 11 MMOL/L (8-16) 06/08/18 06:50 BUN 25 mg/dL (7-18) H 06/08/18 06:50 Creatinine 1.1 mg/dL (0.55-1.3) 06/08/18 06:50 Creat Clearance w eGFR > 60 (>60) 06/08/18 06:50 Random Glucose 141 mg/dL (74-106) H 06/08/18 06:50 Calcium 8.4 mg/dL (8.5-10.1) L 06/08/18 06:50 Total Bilirubin 0.9 mg/dL (0.2-1) 06/07/18 06:10 AST 20 U/L (15-37) 06/07/18 06:10 ALT 34 U/L (13-61) 06/07/18 06:10 Alkaline Phosphatase 121 U/L (45-117) H 06/07/18 06:10 Total Protein 7.1 g/dl (6.4-8.2) 06/07/18 06:10 Albumin 3.4 g/dl (3.4-5.0) 06/07/18 06:10 CARDIAC ENZYMES Creatine Kinase 63 IU/L (26-308) 06/05/18 04:30 Troponin I 0.02 ng/ml (0.00-0.05) 06/05/18 04:30 Assessment/Plan 72 year old male seen initial by Dr. Pepper, covering for me, with history of CAD,CABG,CHF, was home doing crossword puzzle and he went to bathroom with reported slurred speech and per notes was swaying to one side or another. He had difficulty with balance and of note has prior CVAs with residual L hemiparesis. CT head completed and without acute changes. Carotid dopplers completed and reviewed. He is on dual antiplatelet of ASA and Plavix. States his speech is at baseline. Reports not being able to tolerate MRI, currently low suspicion as patient at baseline. Would optimize medically, monitor blood pressure, maintain normotensive range. Monitor glucose, avoid episodes of hyper/ hypoglycemia, stillbeing optimized. Maintain hydration. Fall precautions. Continue Plavix, remains on max dose statin. Neurologically stable at this time.
[2018-06-08] MEDS: FINASTERIDE 5 MG TABLET (FP) PO SCH (09:51)
[2018-06-08] MEDS: EZETIMIBE 10 MG TABLET (FP) PO SCH (09:52)
[2018-06-08] MEDS: FERROUS SO4 325 MG TABLET (FP) PO SCH (09:52)
[2018-06-08] MEDS: CLOPIDOGREL BISULFATE 75 MG TABLET (FP) PO SCH (09:52)
[2018-06-08] MEDS: PANTOPRAZOLE 40 MG TABLET (FP) PO SCH (09:52)
[2018-06-08] MEDS: RANOLAZINE E.R. 1,000 MG TABLET (FP) PO SCH ×2 (09:52→21:17)
[2018-06-08] MEDS: ISOSORBIDE MONONITRATE 60 MG TAB.SR.24H (FP) PO SCH (09:53)
[2018-06-08] MEDS: TORSEMIDE 20 MG TABLET (FP) PO SCH (09:53)
[2018-06-08] MEDS: INSULIN (LEVEMIR) 100 UNITS/ML UNITS SQ SCH (09:53)
[2018-06-08] MEDS: BUDESONIDE/FORMETEROL FUMARATE 80/4.5 mcg INHALER IH SCH ×2 (09:54→21:18)
[2018-06-08] MEDS: ATENOLOL 50 MG TABLET (FP) PO SCH ×2 (09:54→21:17)
--- NOTE | 2018-06-08 11:35 | PN ---
Progress Note (short form) - Note Progress Note: s: no cp palps dizzy; sob better o: Vital Signs Period Temp Pulse Resp BP Sys/Chen Pulse Ox Last 24 Hr 97.9 F-98.2 F 55-58 18-20 111-142/41-74 96-96 Constitutional: Yes: Well Nourished, No Distress Eyes: No: Sclera Icterus Respiratory: Yes: CTA Bilaterally, Rales (L base). No: Accessory Muscle Use, Wheezes Gastrointestinal: Yes: Normal Bowel Sounds. No: Distention, Hepatomegaly, Palpable Mass, Tenderness Cardiovascular: Yes: Regular Rate and Rhythm Heart Sounds: Yes: S1, S2. No: Gallop Murmur: No: Systolic Murmur, Diastolic Murmur Extremities: No: Cool, Cyanosis Edema: no Peripheral Pulses: 2+ Left Carotid, 2+ Right Carotid, 2+ Left Doralis Pedis, 2+ Right Dorsalis Pedis Integumentary: No: Jaundice Neurological: Yes: Alert, Oriented (x3) Psychiatric: No: Agitated Current Medications Generic Name Dose Route Start Last Admin Trade Name Freq PRN Reason Stop Dose Admin Atenolol 100 mg 06/05/18 11:15 06/08/18 09:54 Tenormin - PO Not Given BID JAMILA Atorvastatin Calcium 80 mg 06/05/18 11:15 06/07/18 22:06 Lipitor - PO 80 mg HS JAMILA Administration Budesonide/Formoterol Fumarate 2 puff 06/05/18 12:15 06/08/18 09:54 Symbicort 80/4.5mcg - IH 2 puff BID JAMILA Administration Clopidogrel Bisulfate 75 mg 06/05/18 11:15 06/08/18 09:52 Plavix - PO 75 mg DAILY JAMILA Administration Ezetimibe 10 mg 06/05/18 11:15 06/08/18 09:52 Zetia - PO 10 mg DAILY JAMILA Administration Ferrous Sulfate 325 mg 06/06/18 11:15 06/08/18 09:52 Feosol - PO 325 mg Q2D JAMILA Administration Finasteride 5 mg 06/05/18 11:15 06/08/18 09:51 Proscar - PO 5 mg DAILY JAMILA Administration Insulin Aspart 1 vial 06/05/18 16:30 06/08/18 11:23 Novolog Vial Sliding Scale - SQ Not Given ACHS [facility] Protocol Insulin Detemir 50 units 06/08/18 10:00 06/08/18 09:53 Levemir Vial SQ Not Given DAILY JAMILA Isosorbide Mononitrate 120 mg 06/05/18 11:15 06/08/18 09:53 Imdur - PO 120 mg DAILY JAMIAL Administration Montelukast Sodium 10 mg 06/05/18 11:15 06/07/18 22:09 Singulair - PO 10 mg HS JAMILA Administration Nitroglycerin 1 spray 06/05/18 11:12 Nitrolingual [place] - TL Q5M PRN FOR CHEST PAIN Non-Formulary Medication 60 unit 06/05/18 11:12 Insulin Degludec [Tresiba Flextouch U-100] SQ AM JAMILA Pantoprazole Sodium 40 mg 06/05/18 11:15 06/08/18 09:52 Protonix - PO 40 mg DAILY JAMILA Administration Polyethylene Glycol 17 gm 06/05/18 11:12 Miralax (For Bowel Prep) - PO DAILY PRN CONSTIPATION Ranolazine 1,000 mg 06/05/18 11:30 06/08/18 09:52 Ranexa - PO 1,000 mg BID JAMILA Administration Senna 1 tab 06/05/18 11:12 Senna - PO DAILY PRN CONSTIPATION Sitagliptin Phosphate 25 mg 06/05/18 17:00 06/08/18 06:15 Januvia - PO 25 mg DAILY@0700 JAMILA Administration Tamsulosin HCl 0.4 mg 06/05/18 22:00 06/07/18 22:07 Flomax - PO 0.4 mg HS JAMILA Administration Torsemide 20 mg 06/08/18 10:00 06/08/18 09:53 Demadex - PO 20 mg DAILY JAMILA Administration CBC, BMP 06/07/18 06:10 06/08/18 06:50 Assessment/Plan ECG: sinus julieta (48 bpm); incomplete LBBB. diffuse ST-Ts r/o ischemia. vs prior (2012), QRS is wider and ST-Ts more diffuse CXR: mild congestive changes CT head: no acute pathology tele: sr acute vision changes, h/o CVA: -CT head no acute pathology -neuro consulted acute diastolic CHF: -mildly decompensated at present -CXR with mild congestive changes and cephalization -BNP 2K (unchanged vs 2016), low GFR confounds -probable JVD on exam. incr sob/pedal edema of late. -on lasix 40qd at home, incr'd to 80 qd 3d ago. got lasix IV and sob better, cr improved -doubt ACS (trop.s neg x 2, ECG only slightly changed vs remote prior) -06/08: vol stable, cont torsemide po renal insufficiency: -cr better, renal following CAD, h/o CABG and stents: -doubt ACS here, as above -cont home med regimen -watch for bradycardia on high dose atenolol bid regimen -on ranolazine per outpt cardio, with low GFR--will not change tx plan here, defer to outpt f/u with his doctor HTN: -bp controlled -cont home meds cardiac lai stable, dc tele
--- NOTE | 2018-06-08 11:47 | PN ---
Progress Note, Physician History of Present Illness: Pt w/o CP, palpitations, SOB, abd pain. pt w/o new motor or sensory deficits - Current Medication List Current Medications: Active Medications Atenolol (Tenormin -) 100 mg PO BID [facility] Last Admin: 06/08/18 09:54 Dose: Not Given Atorvastatin Calcium (Lipitor -) 80 mg PO [facility] Last Admin: 06/07/18 22:06 Dose: 80 mg Budesonide/Formoterol Fumarate (Symbicort 80/4.5mcg -) 2 puff IH BID [facility] Last Admin: 06/08/18 09:54 Dose: 2 puff Clopidogrel Bisulfate (Plavix -) 75 mg PO DAILY [facility] Last Admin: 06/08/18 09:52 Dose: 75 mg Ezetimibe (Zetia -) 10 mg PO DAILY [facility] Last Admin: 06/08/18 09:52 Dose: 10 mg Ferrous Sulfate (Feosol -) 325 mg PO Q2D [facility] Last Admin: 06/08/18 09:52 Dose: 325 mg Finasteride (Proscar -) 5 mg PO DAILY [facility] Last Admin: 06/08/18 09:51 Dose: 5 mg Insulin Aspart (Novolog Vial Sliding Scale -) 1 vial SQ [facility]; Protocol Last Admin: 06/08/18 11:23 Dose: Not Given Insulin Detemir (Levemir Vial) 50 units SQ DAILY [facility] Last Admin: 06/08/18 09:53 Dose: Not Given Isosorbide Mononitrate (Imdur -) 120 mg PO DAILY [facility] Last Admin: 06/08/18 09:53 Dose: 120 mg Montelukast Sodium (Singulair -) 10 mg PO [facility] Last Admin: 06/07/18 22:09 Dose: 10 mg Nitroglycerin (Nitrolingual [place] -) 1 spray TL Q5M PRN PRN Reason: FOR CHEST PAIN Non-Formulary Medication (Insulin Degludec [Tresiba Flextouch U-100]) 60 unit SQ AM [facility] Pantoprazole Sodium (Protonix -) 40 mg PO DAILY [facility] Last Admin: 06/08/18 09:52 Dose: 40 mg Polyethylene Glycol (Miralax (For Bowel Prep) -) 17 gm PO DAILY PRN PRN Reason: CONSTIPATION Ranolazine (Ranexa -) 1,000 mg PO BID [facility] Last Admin: 06/08/18 09:52 Dose: 1,000 mg Senna (Senna -) 1 tab PO DAILY PRN PRN Reason: CONSTIPATION Sitagliptin Phosphate (Januvia -) 25 mg PO DAILY@0700 [facility] Last Admin: 06/08/18 06:15 Dose: 25 mg Tamsulosin HCl (Flomax -) 0.4 mg PO HS [facility] Last Admin: 06/07/18 22:07 Dose: 0.4 mg Torsemide (Demadex -) 20 mg PO DAILY [facility] Last Admin: 06/08/18 09:53 Dose: 20 mg - Objective Vital Signs: Vital Signs Temperature 97.9 F 06/08/18 09:40 Pulse Rate 57 L 06/08/18 09:40 Respiratory Rate 20 06/08/18 09:40 Blood Pressure 111/74 06/08/18 09:40 O2 Sat by Pulse Oximetry (%) 96 06/08/18 09:39 Constitutional: Yes: No Distress, Calm Cardiovascular: Yes: Regular Rate and Rhythm, S1, S2 Respiratory: Yes: Regular, Rales, Other (crackles at bases) Edema: LLE: Trace, RLE: Trace Neurological: Yes: Alert, Oriented Labs: CBC, BMP 06/07/18 06:10 06/08/18 06:50 INR, PTT INR 1.16 (0.83-1.09) H 06/04/18 23:00 Problem List - Problems (1) Acute congestive heart failure Code(s): I50.9 - HEART FAILURE, UNSPECIFIED (2) Acute renal failure Code(s): N17.9 - ACUTE KIDNEY FAILURE, UNSPECIFIED (3) Visual disturbance Code(s): H53.9 - UNSPECIFIED VISUAL DISTURBANCE (4) Diabetes mellitus Code(s): E11.9 - TYPE 2 DIABETES MELLITUS WITHOUT COMPLICATIONS (5) Bradycardia Code(s): R00.1 - BRADYCARDIA, UNSPECIFIED (6) CAD (coronary artery disease) Code(s): I25.10 - ATHSCL HEART DISEASE OF [place] CORONARY ARTERY W/O ANG PCTRS (7) CVA (cerebral vascular accident) Code(s): I63.9 - CEREBRAL INFARCTION, UNSPECIFIED Assessment/Plan Admitted to Telemetry Lasix per Cardio Cardio, Renal, Neuro consults are appreciated. AM labs. I encouraged pt to walk and report CORREIA or CP. Case was d/w pt's nurse.
--- NOTE | 2018-06-08 15:20 | PN ---
Progress Note (short form) - Note Progress Note: Renal follow up for VICENTE vs CKD Pt seen and examined at the bedside sleeping no overnight events at the bedside Vital Signs Temperature 97.9 F 06/08/18 09:40 Pulse Rate 57 L 06/08/18 09:40 Respiratory Rate 20 06/08/18 09:40 Blood Pressure 111/74 06/08/18 09:40 O2 Sat by Pulse Oximetry (%) 96 06/08/18 09:39 Intake & Output 06/05/18 06/06/18 06/07/18 06/08/18 23:59 23:59 23:59 23:59 Intake Total 230 510 580 10 Output Total 1280 1100 1200 Balance -1050 -590 -620 10 Weight 98.883 kg 100.879 kg NAD awake and alert RRR CTA soft NT/ND trace edema in LE CBC, BMP 06/07/18 06:10 06/08/18 06:50 Current Medications Atenolol (Tenormin -) 100 mg PO BID [facility] Last Admin: 06/08/18 09:54 Dose: Not Given Atorvastatin Calcium (Lipitor -) 80 mg PO HS [facility] Last Admin: 06/07/18 22:06 Dose: 80 mg Budesonide/Formoterol Fumarate (Symbicort 80/4.5mcg -) 2 puff IH BID [facility] Last Admin: 06/08/18 09:54 Dose: 2 puff Clopidogrel Bisulfate (Plavix -) 75 mg PO DAILY [facility] Last Admin: 06/08/18 09:52 Dose: 75 mg Ezetimibe (Zetia -) 10 mg PO DAILY [facility] Last Admin: 06/08/18 09:52 Dose: 10 mg Ferrous Sulfate (Feosol -) 325 mg PO Q2D [facility] Last Admin: 06/08/18 09:52 Dose: 325 mg Finasteride (Proscar -) 5 mg PO DAILY [facility] Last Admin: 06/08/18 09:51 Dose: 5 mg Insulin Aspart (Novolog Vial Sliding Scale -) 1 vial SQ ACHS [facility]; Protocol Last Admin: 06/08/18 11:23 Dose: Not Given Insulin Detemir (Levemir Vial) 50 units SQ DAILY [facility] Last Admin: 06/08/18 09:53 Dose: Not Given Isosorbide Mononitrate (Imdur -) 120 mg PO DAILY [facility] Last Admin: 06/08/18 09:53 Dose: 120 mg Montelukast Sodium (Singulair -) 10 mg PO HS [facility] Last Admin: 06/07/18 22:09 Dose: 10 mg Nitroglycerin (Nitrolingual [place] -) 1 spray TL Q5M PRN PRN Reason: FOR CHEST PAIN Non-Formulary Medication (Insulin Degludec [Tresiba Flextouch U-100]) 60 unit SQ AM [facility] Pantoprazole Sodium (Protonix -) 40 mg PO DAILY [facility] Last Admin: 06/08/18 09:52 Dose: 40 mg Polyethylene Glycol (Miralax (For Bowel Prep) -) 17 gm PO DAILY PRN PRN Reason: CONSTIPATION Ranolazine (Ranexa -) 1,000 mg PO BID [facility] Last Admin: 06/08/18 09:52 Dose: 1,000 mg Senna (Senna -) 1 tab PO DAILY PRN PRN Reason: CONSTIPATION Sitagliptin Phosphate (Januvia -) 25 mg PO DAILY@0700 [facility] Last Admin: 06/08/18 06:15 Dose: 25 mg Tamsulosin HCl (Flomax -) 0.4 mg PO [facility] Last Admin: 06/07/18 22:07 Dose: 0.4 mg Torsemide (Demadex -) 20 mg PO DAILY [facility] Last Admin: 06/08/18 09:53 Dose: 20 mg 72 year old male admitted with weakness, and visual deficits. He has past h/o CAD (s/p CABG, stents x4) [place] (x5), CVA x2 (residual L sided weakness and slurred speech), IDDM, HTN, PVD with c[place]ina LE stenting. #VICENTE vs. CKD (baseline Cr 1-1.4?, US showed no obstruction, [place] UA, UPCR 0.5) #BPH w/o retention #Anemia #Mild Volume overload Renal function improved and stable Continue torsemide daily, trend daily weights cardiology follow up discharge planning as per primary Thank you Allan Escobar DO
[2018-06-08] MEDS: MONTELUKAST NA 10 MG TABLET PO SCH (21:17)
[2018-06-08] MEDS: TAMSULOSIN HCL 0.4 MG CAP PO SCH (21:17)
[2018-06-08] MEDS: ATORVASTATIN CA 80 MG TABLET (FP) PO SCH (21:17)
[2018-06-09] MEDS: sitaGLIPtin PHOSPHATE 25 MG TABLET (FP) PO SCH (06:22)
[2018-06-09] MEDS: INSULIN SLIDING SCALE (NOVOLOG) 1 VIAL SQ SCH ×4 (06:23→21:37)
[2018-06-09 07:26] LABS: ANION GAP 8 MMOL/L (8-16); BLOOD UREA NITROGEN 51 mg/dL (7-18); CALCIUM 10.1 mg/dL (8.5-10.1); CHLORIDE 99 mmol/L (98-107); CO2 28 mmol/L (21-32); GLUCOSE,RANDOM 207 mg/dL (74-106); POTASSIUM 4.3 mmol/L (3.5-5.1); SODIUM 135 mmol/L (136-145)
[2018-06-09] MEDS: EZETIMIBE 10 MG TABLET (FP) PO SCH (09:43)
[2018-06-09] MEDS: INSULIN (LEVEMIR) 100 UNITS/ML UNITS SQ SCH (09:44)
[2018-06-09] MEDS: PANTOPRAZOLE 40 MG TABLET (FP) PO SCH (09:44)
[2018-06-09] MEDS: RANOLAZINE E.R. 1,000 MG TABLET (FP) PO SCH ×2 (09:44→21:33)
[2018-06-09] MEDS: CLOPIDOGREL BISULFATE 75 MG TABLET (FP) PO SCH (09:44)
[2018-06-09] MEDS: ISOSORBIDE MONONITRATE 60 MG TAB.SR.24H (FP) PO SCH (09:44)
[2018-06-09] MEDS: BUDESONIDE/FORMETEROL FUMARATE 80/4.5 mcg INHALER IH SCH ×2 (09:45→21:43)
[2018-06-09] MEDS: FINASTERIDE 5 MG TABLET (FP) PO SCH (09:45)
[2018-06-09] MEDS: ATENOLOL 50 MG TABLET (FP) PO SCH ×2 (09:45→21:33)
[2018-06-09] MEDS: TORSEMIDE 20 MG TABLET (FP) PO SCH (09:46)
--- NOTE | 2018-06-09 10:48 | PN ---
Progress Note, Physician History of Present Illness: Pt w/o SOB, CP, palpitations,, abd pain, difficulty urinating, blood in urine. Pt w/o new motor or sensory deficits. - Current Medication List Current Medications: Active Medications Atenolol (Tenormin -) 100 mg PO BID [facility] Last Admin: 06/09/18 09:45 Dose: Not Given Atorvastatin Calcium (Lipitor -) 80 mg PO [facility] Last Admin: 06/08/18 21:17 Dose: 80 mg Budesonide/Formoterol Fumarate (Symbicort 80/4.5mcg -) 2 puff IH BID [facility] Last Admin: 06/09/18 09:45 Dose: 2 puff Clopidogrel Bisulfate (Plavix -) 75 mg PO DAILY [facility] Last Admin: 06/09/18 09:44 Dose: 75 mg Ezetimibe (Zetia -) 10 mg PO DAILY [facility] Last Admin: 06/09/18 09:43 Dose: 10 mg Ferrous Sulfate (Feosol -) 325 mg PO Q2D [facility] Last Admin: 06/08/18 09:52 Dose: 325 mg Finasteride (Proscar -) 5 mg PO DAILY [facility] Last Admin: 06/09/18 09:45 Dose: 5 mg Insulin Aspart (Novolog Vial Sliding Scale -) 1 vial SQ ACHS [facility]; Protocol Last Admin: 06/09/18 06:23 Dose: 4 unit Insulin Detemir (Levemir Vial) 50 units SQ DAILY [facility] Last Admin: 06/09/18 09:44 Dose: 50 units Isosorbide Mononitrate (Imdur -) 120 mg PO DAILY [facility] Last Admin: 06/09/18 09:44 Dose: 120 mg Montelukast Sodium (Singulair -) 10 mg PO [facility] Last Admin: 06/08/18 21:17 Dose: 10 mg Nitroglycerin (Nitrolingual [place] -) 1 spray TL Q5M PRN PRN Reason: FOR CHEST PAIN Non-Formulary Medication (Insulin Degludec [Tresiba Flextouch U-100]) 60 unit SQ AM [facility] Pantoprazole Sodium (Protonix -) 40 mg PO DAILY [facility] Last Admin: 06/09/18 09:44 Dose: 40 mg Polyethylene Glycol (Miralax (For Bowel Prep) -) 17 gm PO DAILY PRN PRN Reason: CONSTIPATION Ranolazine (Ranexa -) 1,000 mg PO BID [facility] Last Admin: 06/09/18 09:44 Dose: 1,000 mg Senna (Senna -) 1 tab PO DAILY PRN PRN Reason: CONSTIPATION Last Admin: 06/08/18 21:17 Dose: 1 tab Sitagliptin Phosphate (Januvia -) 25 mg PO DAILY@0700 [facility] Last Admin: 06/09/18 06:22 Dose: 25 mg Tamsulosin HCl (Flomax -) 0.4 mg PO HS [facility] Last Admin: 06/08/18 21:17 Dose: 0.4 mg Torsemide (Demadex -) 20 mg PO DAILY [facility] Last Admin: 06/09/18 09:46 Dose: 20 mg - Objective Vital Signs: Vital Signs Temperature 97.9 F 06/09/18 06:03 Pulse Rate 55 L 06/09/18 06:03 Respiratory Rate 18 06/09/18 06:03 Blood Pressure 142/69 06/09/18 06:03 O2 Sat by Pulse Oximetry (%) 96 06/08/18 20:47 Constitutional: Yes: No Distress, Calm Cardiovascular: Yes: Regular Rate and Rhythm, S1, S2 Respiratory: Yes: Regular, Rales (minimal crackles at bases) Gastrointestinal: Yes: Normal Bowel Sounds, Soft, Tenderness Edema: LLE: Trace, RLE: Trace Labs: CBC, BMP 06/07/18 06:10 06/09/18 05:30 INR, PTT INR 1.16 (0.83-1.09) H 06/04/18 23:00 Problem List - Problems (1) Acute congestive heart failure Code(s): I50.9 - HEART FAILURE, UNSPECIFIED (2) Acute renal failure Code(s): N17.9 - ACUTE KIDNEY FAILURE, UNSPECIFIED (3) Visual disturbance Code(s): H53.9 - UNSPECIFIED VISUAL DISTURBANCE (4) Diabetes mellitus Code(s): E11.9 - TYPE 2 DIABETES MELLITUS WITHOUT COMPLICATIONS (5) Bradycardia Code(s): R00.1 - BRADYCARDIA, UNSPECIFIED (6) CAD (coronary artery disease) Code(s): I25.10 - ATHSCL HEART DISEASE OF [place] CORONARY ARTERY W/O ANG PCTRS (7) CVA (cerebral vascular accident) Code(s): I63.9 - CEREBRAL INFARCTION, UNSPECIFIED Assessment/Plan Admitted to Telemetry. Cardio, Renal, Neuro consults are appreciated. Elevated Creatinine, unclear etiology; to repeate BMP; to f/u with Renal, Cardio. AM labs. I encouraged pt to walk and report CORREIA or CP. Case was d/w pt's nurse.
--- NOTE | 2018-06-09 11:36 | PN ---
Progress Note (short form) - Note Progress Note: s: no cp palps dizzy; sob better o: Vital Signs Period Temp Pulse Resp BP Sys/Chen Pulse Ox Last 24 Hr 97.5 F-98.0 F 54-70 18-20 102-160/52-70 96-96 Constitutional: Yes: Well Nourished, No Distress Eyes: No: Sclera Icterus Respiratory: Yes: CTA Bilaterally, Rales (L base). No: Accessory Muscle Use, Wheezes Gastrointestinal: Yes: Normal Bowel Sounds. No: Distention, Hepatomegaly, Palpable Mass, Tenderness Cardiovascular: Yes: Regular Rate and Rhythm Heart Sounds: Yes: S1, S2. No: Gallop Murmur: No: Systolic Murmur, Diastolic Murmur Extremities: No: Cool, Cyanosis Edema: no Peripheral Pulses: 2+ Left Carotid, 2+ Right Carotid, 2+ Left Doralis Pedis, 2+ Right Dorsalis Pedis Integumentary: No: Jaundice Neurological: Yes: Alert, Oriented (x3) Psychiatric: No: Agitated Current Medications Generic Name Dose Route Start Last Admin Trade Name Freq PRN Reason Stop Dose Admin Atenolol 100 mg 06/05/18 11:15 06/09/18 09:45 Tenormin - PO Not Given BID JAMILA Atorvastatin Calcium 80 mg 06/05/18 11:15 06/08/18 21:17 Lipitor - PO 80 mg HS JAMILA Administration Budesonide/Formoterol Fumarate 2 puff 06/05/18 12:15 06/09/18 09:45 Symbicort 80/4.5mcg - IH 2 puff BID JAMILA Administration Clopidogrel Bisulfate 75 mg 06/05/18 11:15 06/09/18 09:44 Plavix - PO 75 mg DAILY JAMILA Administration Ezetimibe 10 mg 06/05/18 11:15 06/09/18 09:43 Zetia - PO 10 mg DAILY JAMILA Administration Ferrous Sulfate 325 mg 06/06/18 11:15 06/08/18 09:52 Feosol - PO 325 mg Q2D JAMILA Administration Finasteride 5 mg 06/05/18 11:15 06/09/18 09:45 Proscar - PO 5 mg DAILY JAMILA Administration Insulin Aspart 1 vial 06/05/18 16:30 06/09/18 06:23 Novolog Vial Sliding Scale - SQ 4 unit ACHS JAMILA Administration Protocol Insulin Detemir 50 units 06/08/18 10:00 06/09/18 09:44 Levemir Vial SQ 50 units DAILY JAMILA Administration Isosorbide Mononitrate 120 mg 06/05/18 11:15 06/09/18 09:44 Imdur - PO 120 mg DAILY JAMILA Administration Montelukast Sodium 10 mg 06/05/18 11:15 06/08/18 21:17 Singulair - PO 10 mg HS JAMILA Administration Nitroglycerin 1 spray 06/05/18 11:12 Nitrolingual [place] - TL Q5M PRN FOR CHEST PAIN Non-Formulary Medication 60 unit 06/05/18 11:12 Insulin Degludec [Tresiba Flextouch U-100] SQ AM JAMILA Pantoprazole Sodium 40 mg 06/05/18 11:15 06/09/18 09:44 Protonix - PO 40 mg DAILY JAMILA Administration Polyethylene Glycol 17 gm 06/05/18 11:12 Miralax (For Bowel Prep) - PO DAILY PRN CONSTIPATION Ranolazine 1,000 mg 06/05/18 11:30 06/09/18 09:44 Ranexa - PO 1,000 mg BID JAMILA Administration Senna 1 tab 06/05/18 11:12 06/08/18 21:17 Senna - PO 1 tab DAILY PRN Administration CONSTIPATION Sitagliptin Phosphate 25 mg 06/05/18 17:00 06/09/18 06:22 Januvia - PO 25 mg DAILY@0700 JAMILA Administration Tamsulosin HCl 0.4 mg 06/05/18 22:00 06/08/18 21:17 Flomax - PO 0.4 mg HS JAMILA Administration Torsemide 20 mg 06/08/18 10:00 06/09/18 09:46 Demadex - PO 20 mg DAILY JAMILA Administration CBC, BMP 06/07/18 06:10 06/09/18 05:30 Assessment/Plan ECG: sinus julieta (48 bpm); incomplete LBBB. diffuse ST-Ts r/o ischemia. vs prior (2012), QRS is wider and ST-Ts more diffuse CXR: mild congestive changes CT head: no acute pathology tele: sr, sb acute vision changes, h/o CVA: -CT head no acute pathology -neuro consulted acute diastolic CHF: -mildly decompensated at present -CXR with mild congestive changes and cephalization -BNP 2K (unchanged vs 2016), low GFR confounds -probable JVD on exam. incr sob/pedal edema of late. -on lasix 40qd at home, incr'd to 80 qd 3d ago. got lasix IV and sob better, cr improved -doubt ACS (trop.s neg x 2, ECG only slightly changed vs remote prior) -06/08-16: vol stable, cont torsemide po renal insufficiency: -cr better, renal following CAD, h/o CABG and stents: -doubt ACS here, as above -cont home med regimen -on atenolol 100 bid but has been held several times due to julieta, will decrease dose to 50 bid. -on ranolazine per outpt cardio, with low GFR--will not change tx plan here, defer to outpt f/u with his doctor HTN: -cont current meds cardiac lai stable
--- NOTE | 2018-06-09 12:54 | PN ---
Progress Note (short form) - Note Progress Note: Renal follow up for VICENTE vs CKD Pt seen and examined at the bedside awake and alert no acute complaints no sob, cp, abd pain, N/V/D Vital Signs Temperature 97.9 F 06/09/18 06:03 Pulse Rate 54 L 06/09/18 10:59 Respiratory Rate 18 06/09/18 10:59 Blood Pressure 160/62 06/09/18 10:59 O2 Sat by Pulse Oximetry (%) 96 06/09/18 09:00 Intake & Output 06/06/18 06/07/18 06/08/18 06/09/18 23:59 23:59 23:59 23:59 Intake Total 510 580 490 Output Total 1100 1200 400 Balance -590 -620 90 Weight 100.879 kg 100.335 kg NAD awake and alert RRR CTA soft NT/ND trace edema in LE CBC, BMP 06/07/18 06:10 Current Medications Atenolol (Tenormin -) 50 mg PO BID [facility] Atorvastatin Calcium (Lipitor -) 80 mg PO HS [facility] Last Admin: 06/08/18 21:17 Dose: 80 mg Budesonide/Formoterol Fumarate (Symbicort 80/4.5mcg -) 2 puff IH BID [facility] Last Admin: 06/09/18 09:45 Dose: 2 puff Clopidogrel Bisulfate (Plavix -) 75 mg PO DAILY [facility] Last Admin: 06/09/18 09:44 Dose: 75 mg Ezetimibe (Zetia -) 10 mg PO DAILY [facility] Last Admin: 06/09/18 09:43 Dose: 10 mg Ferrous Sulfate (Feosol -) 325 mg PO Q2D [facility] Last Admin: 06/08/18 09:52 Dose: 325 mg Finasteride (Proscar -) 5 mg PO DAILY [facility] Last Admin: 06/09/18 09:45 Dose: 5 mg Insulin Aspart (Novolog Vial Sliding Scale -) 1 vial SQ ACHS [facility]; Protocol Last Admin: 06/09/18 06:23 Dose: 4 unit Insulin Detemir (Levemir Vial) 50 units SQ DAILY [facility] Last Admin: 06/09/18 09:44 Dose: 50 units Isosorbide Mononitrate (Imdur -) 120 mg PO DAILY [facility] Last Admin: 06/09/18 09:44 Dose: 120 mg Montelukast Sodium (Singulair -) 10 mg PO HS [facility] Last Admin: 06/08/18 21:17 Dose: 10 mg Nitroglycerin (Nitrolingual [place] -) 1 spray TL Q5M PRN PRN Reason: FOR CHEST PAIN Non-Formulary Medication (Insulin Degludec [Tresiba Flextouch U-100]) 60 unit SQ AM [facility] Pantoprazole Sodium (Protonix -) 40 mg PO DAILY [facility] Last Admin: 06/09/18 09:44 Dose: 40 mg Polyethylene Glycol (Miralax (For Bowel Prep) -) 17 gm PO DAILY PRN PRN Reason: CONSTIPATION Ranolazine (Ranexa -) 1,000 mg PO BID [facility] Last Admin: 06/09/18 09:44 Dose: 1,000 mg Senna (Senna -) 1 tab PO DAILY PRN PRN Reason: CONSTIPATION Last Admin: 06/08/18 21:17 Dose: 1 tab Sitagliptin Phosphate (Januvia -) 25 mg PO DAILY@0700 [facility] Last Admin: 06/09/18 06:22 Dose: 25 mg Tamsulosin HCl (Flomax -) 0.4 mg PO [facility] Last Admin: 06/08/18 21:17 Dose: 0.4 mg Torsemide (Demadex -) 20 mg PO DAILY [facility] Last Admin: 06/09/18 09:46 Dose: 20 mg 72 year old male admitted with weakness, and visual deficits. He has past h/o CAD (s/p CABG, stents x4) [place] (x5), CVA x2 (residual L sided weakness and slurred speech), IDDM, HTN, PVD with [place] LE stenting. #VICENTE vs. CKD (baseline Cr 1-1.4?, US showed no obstruction, [place] UA, UPCR 0.5) #BPH w/o retention #Anemia #Mild Volume overload Cr sindhu to 2 today, etiology unclear as pt w/o nephrotoxin exposure, no overt hypotension and appears to be evolemic will repeat labs to ensure that it is not a lab error if Cr remains elevated, will check imaging of kidney and bladder continue torsemide for now Thank you Allan Escobar DO
[2018-06-09 13:18] LABS: ANION GAP 8 MMOL/L (8-16); BLOOD UREA NITROGEN 53 mg/dL (7-18); CHLORIDE 99 mmol/L (98-107); CO2 28 mmol/L (21-32); CREATININE 1.9 mg/dL (0.55-1.3); POTASSIUM 4.2 mmol/L (3.5-5.1); SODIUM 136 mmol/L (136-145)
[2018-06-09 13:25] LABS: GLUCOSE,RANDOM 304 mg/dL (74-106)
[2018-06-09] MEDS: ATORVASTATIN CA 80 MG TABLET (FP) PO SCH (21:33)
[2018-06-09] MEDS: MONTELUKAST NA 10 MG TABLET PO SCH (21:33)
[2018-06-09] MEDS: TAMSULOSIN HCL 0.4 MG CAP PO SCH (21:33)
[2018-06-09] MEDS ORDERED: INSULIN (NOVOLOG) ASPART 100 UNITS/ML 10ML VIAL ONE (21:41)
[2018-06-10] MEDS: INSULIN SLIDING SCALE (NOVOLOG) 1 VIAL SQ SCH ×4 (05:59→22:50)
[2018-06-10] MEDS: sitaGLIPtin PHOSPHATE 25 MG TABLET (FP) PO SCH (06:32)
[2018-06-10 06:59] LABS: HEMATOCRIT 30.8 % (35.4-49); HEMOGLOBIN 10.1 GM/dL (11.7-16.9); MCH 30.1 pg (25.7-33.7); MCHC 32.9 g/dl (32.0-35.9); MEAN CELL VOLUME 91.3 fl (80-96); MEAN PLT VOLUME 9.7 fl (7.5-11.1); PLATELET COUNT 128 K/MM3 (134-434); RBC 3.37 M/mm3 (4.00-5.60); RDW 15.6 % (11.9-15.9); WHITE BLOOD COUNT 5.2 K/mm3 (4.0-10.0)
--- NOTE | 2018-06-10 07:38 | PN ---
Progress Note (short form) - Note Progress Note: Renal follow up for VICENTE vs CKD Pt seen and examined at the bedside no acute complaints denies any sob, cp, abd pain making urine Vital Signs Temperature 98.2 F 06/10/18 06:00 Pulse Rate 57 L 06/10/18 06:00 Respiratory Rate 20 06/10/18 06:00 Blood Pressure 115/45 L 06/10/18 06:00 O2 Sat by Pulse Oximetry (%) 96 06/09/18 20:24 Intake & Output 06/07/18 06/08/18 06/09/18 06/10/18 23:59 23:59 23:59 23:59 Intake Total 580 490 480 Output Total 1200 400 300 Balance -620 90 180 Weight 100.879 kg 100.335 kg NAD trace Le edema no bladder distension CBC, BMP 06/10/18 05:30 06/10/18 05:30 Current Medications Atenolol (Tenormin -) 50 mg PO BID [facility] Last Admin: 06/09/18 21:33 Dose: 50 mg Atorvastatin Calcium (Lipitor -) 80 mg PO HS [facility] Last Admin: 06/09/18 21:33 Dose: 80 mg Budesonide/Formoterol Fumarate (Symbicort 80/4.5mcg -) 2 puff IH BID [facility] Last Admin: 06/09/18 21:43 Dose: 2 puff Clopidogrel Bisulfate (Plavix -) 75 mg PO DAILY [facility] Last Admin: 06/09/18 09:44 Dose: 75 mg Ezetimibe (Zetia -) 10 mg PO DAILY [facility] Last Admin: 06/09/18 09:43 Dose: 10 mg Ferrous Sulfate (Feosol -) 325 mg PO Q2D [facility] Last Admin: 06/08/18 09:52 Dose: 325 mg Finasteride (Proscar -) 5 mg PO DAILY [facility] Last Admin: 06/09/18 09:45 Dose: 5 mg Insulin Aspart (Novolog Vial Sliding Scale -) 1 vial SQ [facility]; Protocol Last Admin: 06/10/18 05:59 Dose: Not Given Insulin Detemir (Levemir Vial) 50 units SQ DAILY [facility] Last Admin: 06/09/18 09:44 Dose: 50 units Isosorbide Mononitrate (Imdur -) 120 mg PO DAILY [facility] Last Admin: 06/09/18 09:44 Dose: 120 mg Montelukast Sodium (Singulair -) 10 mg PO HS [facility] Last Admin: 06/09/18 21:33 Dose: 10 mg Nitroglycerin (Nitrolingual [place] -) 1 spray TL Q5M PRN PRN Reason: FOR CHEST PAIN Pantoprazole Sodium (Protonix -) 40 mg PO DAILY [facility] Last Admin: 06/09/18 09:44 Dose: 40 mg Polyethylene Glycol (Miralax (For Bowel Prep) -) 17 gm PO DAILY PRN PRN Reason: CONSTIPATION Ranolazine (Ranexa -) 1,000 mg PO BID [facility] Last Admin: 06/09/18 21:33 Dose: 1,000 mg Senna (Senna -) 1 tab PO DAILY PRN PRN Reason: CONSTIPATION Last Admin: 06/08/18 21:17 Dose: 1 tab Sitagliptin Phosphate (Januvia -) 25 mg PO DAILY@0700 [facility] Last Admin: 06/10/18 06:32 Dose: 25 mg Tamsulosin HCl (Flomax -) 0.4 mg PO [facility] Last Admin: 06/09/18 21:33 Dose: 0.4 mg Torsemide (Demadex -) 20 mg PO DAILY [facility] Last Admin: 06/09/18 09:46 Dose: 20 mg 72 year old male admitted with weakness, and visual deficits. He has past h/o CAD (s/p CABG, stents x4) [place] (x5), CVA x2 (residual L sided weakness and slurred speech), IDDM, HTN, PVD with clementina LE stenting. #VICENTE vs. CKD (baseline Cr 1-1.4?, US showed no obstruction, [place] UA, UPCR 0.5) #BPH w/o retention #Anemia #Mild Volume overload Cr w/o improvement back to baseline however is not worsening US showed no obstruction or signs of retention no overt nephrotoxin exposure noted Would continue Torsemide for volume management check urine studies no indication for [employer] given no acidosis, hyperkalemia discharge planning as per primary, renal function can be monitored as outpatient as well. Thank you Allan Escobar DO
[2018-06-10 07:49] LABS: ALBUMIN 2.9 g/dl (3.4-5.0); ALK PHOS 104 U/L (45-117); ANION GAP 5 MMOL/L (8-16); BILIRUBIN,TOTAL 0.8 mg/dL (0.2-1); BLOOD UREA NITROGEN 51 mg/dL (7-18); CALCIUM 10.5 mg/dL (8.5-10.1); CHLORIDE 101 mmol/L (98-107); CO2 31 mmol/L (21-32); CREATININE 1.8 mg/dL (0.55-1.3); GLUCOSE,RANDOM 112 mg/dL (74-106); SGOT/AST 21 U/L (15-37); SGPT/ALT 24 U/L (13-61); SODIUM 138 mmol/L (136-145); TOT PROT 6.3 g/dl (6.4-8.2)
[2018-06-10] MEDS: RANOLAZINE E.R. 1,000 MG TABLET (FP) PO SCH ×2 (09:48→22:50)
[2018-06-10] MEDS: FERROUS SO4 325 MG TABLET (FP) PO SCH (09:48)
[2018-06-10] MEDS: CLOPIDOGREL BISULFATE 75 MG TABLET (FP) PO SCH (09:49)
[2018-06-10] MEDS: INSULIN (LEVEMIR) 100 UNITS/ML UNITS SQ SCH (09:49)
[2018-06-10] MEDS: PANTOPRAZOLE 40 MG TABLET (FP) PO SCH (09:49)
[2018-06-10] MEDS: ISOSORBIDE MONONITRATE 60 MG TAB.SR.24H (FP) PO SCH (09:51)
[2018-06-10] MEDS: EZETIMIBE 10 MG TABLET (FP) PO SCH (09:52)
[2018-06-10] MEDS: ATENOLOL 50 MG TABLET (FP) PO SCH ×2 (09:52→22:50)
[2018-06-10] MEDS: FINASTERIDE 5 MG TABLET (FP) PO SCH (09:53)
[2018-06-10] MEDS: TORSEMIDE 20 MG TABLET (FP) PO SCH (09:53)
[2018-06-10] MEDS: BUDESONIDE/FORMETEROL FUMARATE 80/4.5 mcg INHALER IH SCH ×2 (09:56→22:50)
--- NOTE | 2018-06-10 15:23 | PN ---
Progress Note, Physician History of Present Illness: See Progress note I wrote later. - Current Medication List Current Medications: Active Medications Atenolol (Tenormin -) 50 mg PO BID [facility] Last Admin: 06/10/18 09:52 Dose: 50 mg Atorvastatin Calcium (Lipitor -) 80 mg PO HS [facility] Last Admin: 06/09/18 21:33 Dose: 80 mg Budesonide/Formoterol Fumarate (Symbicort 80/4.5mcg -) 2 puff IH BID [facility] Last Admin: 06/10/18 09:56 Dose: 2 puff Clopidogrel Bisulfate (Plavix -) 75 mg PO DAILY [facility] Last Admin: 06/10/18 09:49 Dose: 75 mg Ezetimibe (Zetia -) 10 mg PO DAILY [facility] Last Admin: 06/10/18 09:52 Dose: 10 mg Ferrous Sulfate (Feosol -) 325 mg PO Q2D [facility] Last Admin: 06/10/18 09:48 Dose: 325 mg Finasteride (Proscar -) 5 mg PO DAILY [facility] Last Admin: 06/10/18 09:53 Dose: 5 mg Insulin Aspart (Novolog Vial Sliding Scale -) 1 vial SQ [facility]; Protocol Last Admin: 06/10/18 13:13 Dose: 2 unit Insulin Detemir (Levemir Vial) 50 units SQ DAILY [facility] Last Admin: 06/10/18 09:49 Dose: 50 units Isosorbide Mononitrate (Imdur -) 120 mg PO DAILY [facility] Last Admin: 06/10/18 09:51 Dose: 120 mg Montelukast Sodium (Singulair -) 10 mg PO [facility] Last Admin: 06/09/18 21:33 Dose: 10 mg Nitroglycerin (Nitrolingual [place] -) 1 spray TL Q5M PRN PRN Reason: FOR CHEST PAIN Pantoprazole Sodium (Protonix -) 40 mg PO DAILY [facility] Last Admin: 06/10/18 09:49 Dose: 40 mg Polyethylene Glycol (Miralax (For Bowel Prep) -) 17 gm PO DAILY PRN PRN Reason: CONSTIPATION Ranolazine (Ranexa -) 1,000 mg PO BID [facility] Last Admin: 06/10/18 09:48 Dose: 1,000 mg Senna (Senna -) 1 tab PO DAILY PRN PRN Reason: CONSTIPATION Last Admin: 06/08/18 21:17 Dose: 1 tab Sitagliptin Phosphate (Januvia -) 25 mg PO DAILY@0700 [facility] Last Admin: 06/10/18 06:32 Dose: 25 mg Tamsulosin HCl (Flomax -) 0.4 mg PO [facility] Last Admin: 06/09/18 21:33 Dose: 0.4 mg Torsemide (Demadex -) 20 mg PO DAILY [facility] Last Admin: 06/10/18 09:53 Dose: 20 mg - Objective Vital Signs: Vital Signs Temperature 97.4 F L 06/10/18 10:00 Pulse Rate 51 L 06/10/18 10:00 Respiratory Rate 18 06/10/18 10:00 Blood Pressure 143/65 06/10/18 10:00 O2 Sat by Pulse Oximetry (%) 94 L 06/10/18 09:00 Labs: CBC, BMP 06/10/18 05:30 06/10/18 05:30 INR, PTT INR 1.16 (0.83-1.09) H 06/04/18 23:00 Problem List - Problems (1) Acute congestive heart failure Code(s): I50.9 - HEART FAILURE, UNSPECIFIED (2) Acute renal failure Code(s): N17.9 - ACUTE KIDNEY FAILURE, UNSPECIFIED (3) Visual disturbance Code(s): H53.9 - UNSPECIFIED VISUAL DISTURBANCE (4) Diabetes mellitus Code(s): E11.9 - TYPE 2 DIABETES MELLITUS WITHOUT COMPLICATIONS (5) Bradycardia Code(s): R00.1 - BRADYCARDIA, UNSPECIFIED (6) CAD (coronary artery disease) Code(s): I25.10 - ATHSCL HEART DISEASE OF [place] CORONARY ARTERY W/O ANG PCTRS (7) CVA (cerebral vascular accident) Code(s): I63.9 - CEREBRAL INFARCTION, UNSPECIFIED Assessment/Plan See Progress note I wrote later.
--- NOTE | 2018-06-10 15:44 | PN ---
Progress Note, Physician History of Present Illness: Pt w/o SOB, CP, palpitations,, abd pain. Pt w/o new motor or sensory deficits. Pt states that walked a little today in AM w/o CORREIA. Pt awawre that needs to give urine for tests but didn't go to the bathroom since AM. - Current Medication List Current Medications: Active Medications Atenolol (Tenormin -) 50 mg PO BID [facility] Last Admin: 06/10/18 09:52 Dose: 50 mg Atorvastatin Calcium (Lipitor -) 80 mg PO [facility] Last Admin: 06/09/18 21:33 Dose: 80 mg Budesonide/Formoterol Fumarate (Symbicort 80/4.5mcg -) 2 puff IH BID [facility] Last Admin: 06/10/18 09:56 Dose: 2 puff Clopidogrel Bisulfate (Plavix -) 75 mg PO DAILY [facility] Last Admin: 06/10/18 09:49 Dose: 75 mg Ezetimibe (Zetia -) 10 mg PO DAILY [facility] Last Admin: 06/10/18 09:52 Dose: 10 mg Ferrous Sulfate (Feosol -) 325 mg PO Q2D [facility] Last Admin: 06/10/18 09:48 Dose: 325 mg Finasteride (Proscar -) 5 mg PO DAILY [facility] Last Admin: 06/10/18 09:53 Dose: 5 mg Insulin Aspart (Novolog Vial Sliding Scale -) 1 vial SQ [facility]; Protocol Last Admin: 06/10/18 13:13 Dose: 2 unit Insulin Detemir (Levemir Vial) 50 units SQ DAILY [facility] Last Admin: 06/10/18 09:49 Dose: 50 units Isosorbide Mononitrate (Imdur -) 120 mg PO DAILY [facility] Last Admin: 06/10/18 09:51 Dose: 120 mg Montelukast Sodium (Singulair -) 10 mg PO [facility] Last Admin: 06/09/18 21:33 Dose: 10 mg Nitroglycerin (Nitrolingual [place] -) 1 spray TL Q5M PRN PRN Reason: FOR CHEST PAIN Pantoprazole Sodium (Protonix -) 40 mg PO DAILY [facility] Last Admin: 06/10/18 09:49 Dose: 40 mg Polyethylene Glycol (Miralax (For Bowel Prep) -) 17 gm PO DAILY PRN PRN Reason: CONSTIPATION Ranolazine (Ranexa -) 1,000 mg PO BID [facility] Last Admin: 06/10/18 09:48 Dose: 1,000 mg Senna (Senna -) 1 tab PO DAILY PRN PRN Reason: CONSTIPATION Last Admin: 06/08/18 21:17 Dose: 1 tab Sitagliptin Phosphate (Januvia -) 25 mg PO DAILY@0700 [facility] Last Admin: 06/10/18 06:32 Dose: 25 mg Tamsulosin HCl (Flomax -) 0.4 mg PO HS [facility] Last Admin: 06/09/18 21:33 Dose: 0.4 mg Torsemide (Demadex -) 20 mg PO DAILY [facility] Last Admin: 06/10/18 09:53 Dose: 20 mg - Objective Vital Signs: Vital Signs Temperature 97.4 F L 06/10/18 10:00 Pulse Rate 51 L 06/10/18 10:00 Respiratory Rate 18 06/10/18 10:00 Blood Pressure 143/65 06/10/18 10:00 O2 Sat by Pulse Oximetry (%) 94 L 06/10/18 09:00 Constitutional: Yes: No Distress, Calm Cardiovascular: Yes: Regular Rate and Rhythm, S1, S2 Respiratory: Yes: Regular, Rales (minimal crackle at bases) Gastrointestinal: Yes: Normal Bowel Sounds, Soft, Abdomen, Obese. No: Tenderness Edema: LLE: 1+, RLE: 1+ Neurological: Yes: Alert, Oriented Labs: CBC, BMP 06/10/18 05:30 06/10/18 05:30 INR, PTT INR 1.16 (0.83-1.09) H 06/04/18 23:00 Problem List - Problems (1) Acute congestive heart failure Code(s): I50.9 - HEART FAILURE, UNSPECIFIED (2) Acute renal failure Code(s): N17.9 - ACUTE KIDNEY FAILURE, UNSPECIFIED (3) Visual disturbance Code(s): H53.9 - UNSPECIFIED VISUAL DISTURBANCE (4) Diabetes mellitus Code(s): E11.9 - TYPE 2 DIABETES MELLITUS WITHOUT COMPLICATIONS (5) Bradycardia Code(s): R00.1 - BRADYCARDIA, UNSPECIFIED (6) CAD (coronary artery disease) Code(s): I25.10 - ATHSCL HEART DISEASE OF [place] CORONARY ARTERY W/O ANG PCTRS (7) CVA (cerebral vascular accident) Code(s): I63.9 - CEREBRAL INFARCTION, UNSPECIFIED (8) Anemia Code(s): D64.9 - ANEMIA, UNSPECIFIED Assessment/Plan Admitted to Telemetry. Cardio, Renal, Neuro consults are appreciated. Creatinine level stable but elevated, unclear cause. AM labs. I encouraged pt and (at bedside) to walk and report CORREIA or CP; if AM labs are stable to DC pt home. Case was d/w pt's nurse.
[2018-06-10 16:16] LABS: URINE APPEARANCE CLEAR; URINE BILIRUBIN NEGATIVE (<2.0 mg/dL); URINE COLOR LTYELLOW; URINE GLUCOSE (UA) NEGATIVE (NEGATIVE); URINE KETONE NEGATIVE (NEGATIVE); URINE LEUK ESTERASE NEGATIVE (NEGATIVE); URINE NITRITE NEGATIVE (NEGATIVE); URINE PROTEIN NEGATIVE (NEGATIVE); URINE UROBILINOGEN NEGATIVE mg/dL (0.2-1.0)
--- NOTE | 2018-06-10 17:42 | PN ---
Progress Note, Physician History of Present Illness: No complaints today Tele: SB 50s No dizziness - Current Medication List Current Medications: Active Medications Atenolol (Tenormin -) 50 mg PO BID [facility] Last Admin: 06/10/18 09:52 Dose: 50 mg Atorvastatin Calcium (Lipitor -) 80 mg PO HS [facility] Last Admin: 06/09/18 21:33 Dose: 80 mg Budesonide/Formoterol Fumarate (Symbicort 80/4.5mcg -) 2 puff IH BID [facility] Last Admin: 06/10/18 09:56 Dose: 2 puff Clopidogrel Bisulfate (Plavix -) 75 mg PO DAILY [facility] Last Admin: 06/10/18 09:49 Dose: 75 mg Ezetimibe (Zetia -) 10 mg PO DAILY [facility] Last Admin: 06/10/18 09:52 Dose: 10 mg Ferrous Sulfate (Feosol -) 325 mg PO Q2D [facility] Last Admin: 06/10/18 09:48 Dose: 325 mg Finasteride (Proscar -) 5 mg PO DAILY [facility] Last Admin: 06/10/18 09:53 Dose: 5 mg Insulin Aspart (Novolog Vial Sliding Scale -) 1 vial SQ [facility]; Protocol Last Admin: 06/10/18 13:13 Dose: 2 unit Insulin Detemir (Levemir Vial) 50 units SQ DAILY [facility] Last Admin: 06/10/18 09:49 Dose: 50 units Isosorbide Mononitrate (Imdur -) 120 mg PO DAILY [facility] Last Admin: 06/10/18 09:51 Dose: 120 mg Montelukast Sodium (Singulair -) 10 mg PO [facility] Last Admin: 06/09/18 21:33 Dose: 10 mg Nitroglycerin (Nitrolingual [place] -) 1 spray TL Q5M PRN PRN Reason: FOR CHEST PAIN Pantoprazole Sodium (Protonix -) 40 mg PO DAILY [facility] Last Admin: 06/10/18 09:49 Dose: 40 mg Polyethylene Glycol (Miralax (For Bowel Prep) -) 17 gm PO DAILY PRN PRN Reason: CONSTIPATION Ranolazine (Ranexa -) 1,000 mg PO BID [facility] Last Admin: 06/10/18 09:48 Dose: 1,000 mg Senna (Senna -) 1 tab PO DAILY PRN PRN Reason: CONSTIPATION Last Admin: 06/08/18 21:17 Dose: 1 tab Sitagliptin Phosphate (Januvia -) 25 mg PO DAILY@0700 [facility] Last Admin: 06/10/18 06:32 Dose: 25 mg Tamsulosin HCl (Flomax -) 0.4 mg PO HS [facility] Last Admin: 06/09/18 21:33 Dose: 0.4 mg Torsemide (Demadex -) 20 mg PO DAILY [facility] Last Admin: 06/10/18 09:53 Dose: 20 mg - Objective Vital Signs: Vital Signs Temperature 97.4 F L 06/10/18 10:00 Pulse Rate 51 L 06/10/18 10:00 Respiratory Rate 06/10/18 10:00 Blood Pressure 143/65 06/10/18 10:00 O2 Sat by Pulse Oximetry (%) 94 L 06/10/18 09:00 Constitutional: Yes: No Distress Eyes: Yes: WNL HENT: Yes: WNL Neck: Yes: WNL Cardiovascular: Yes: Bradycardia, Murmur Respiratory: Yes: CTA Bilaterally Gastrointestinal: Yes: Normal Bowel Sounds Musculoskeletal: Yes: WNL Extremities: Yes: WNL Edema: No Labs: CBC, BMP 06/10/18 05:30 06/10/18 05:30 INR, PTT INR 1.16 (0.83-1.09) H 06/04/18 23:00 Assessment/Plan acute vision changes, h/o CVA: -CT head no acute pathology -neuro consulted acute diastolic CHF: -mildly decompensated at present -CXR with mild congestive changes and cephalization -BNP 2K (unchanged vs 2016), low GFR confounds -on lasix 40qd at home, incr'd to 80 qd 3d ago. got lasix IV and sob better, cr improved -doubt ACS (trop.s neg x 2, ECG only slightly changed vs remote prior) -06/08-: vol stable, cont torsemide po -06/10: Creat Stable at 1.8 (1.9), weight down 220#. Will continue Torsemide PO renal insufficiency: -cr better (1.8 today), renal following CAD, h/o CABG and stents: -doubt ACS here, as above -cont home med regimen -on atenolol 100 bid but has been held several times due to julieta, now on 50mg bid remains julieta to 50s but asx. -on ranolazine per outpt cardio, with low GFR--will not change tx plan here, defer to outpt f/u with his doctor HTN: -cont current meds cardiac lai stable
[2018-06-10] MEDS: MONTELUKAST NA 10 MG TABLET PO SCH (22:50)
[2018-06-10] MEDS: ATORVASTATIN CA 80 MG TABLET (FP) PO SCH (22:50)
[2018-06-10] MEDS: TAMSULOSIN HCL 0.4 MG CAP PO SCH (22:50)
[2018-06-11] MEDS: sitaGLIPtin PHOSPHATE 25 MG TABLET (FP) PO SCH (06:35)
[2018-06-11] MEDS: INSULIN SLIDING SCALE (NOVOLOG) 1 VIAL SQ SCH ×2 (06:35→12:05)
[2018-06-11 07:36] LABS: ANION GAP 6 MMOL/L (8-16); BLOOD UREA NITROGEN 50 mg/dL (7-18); CHLORIDE 100 mmol/L (98-107); CO2 31 mmol/L (21-32); CREATININE 1.7 mg/dL (0.55-1.3); GLUCOSE,RANDOM 200 mg/dL (74-106); MAGNESIUM 1.7 mg/dL (1.8-2.4); PHOSPHOROUS 3.2 mg/dL (2.5-4.9); POTASSIUM 3.8 mmol/L (3.5-5.1); SODIUM 137 mmol/L (136-145)
--- NOTE | 2018-06-11 08:35 | PN ---
Progress Note (short form) - Note Progress Note: Renal follow up for VICENTE vs CKD Pt seen and examined at the bedside no acute compliants no sob, cp, abd pain, N/V/D Vital Signs Temperature 97.1 F L 06/11/18 06:00 Pulse Rate 56 L 06/11/18 06:00 Respiratory Rate 20 06/11/18 06:00 Blood Pressure 153/67 06/11/18 06:00 O2 Sat by Pulse Oximetry (%) 94 L 06/10/18 20:27 Intake & Output 06/08/18 06/09/18 06/10/18 06/11/18 23:59 23:59 23:59 23:59 Intake Total 490 480 Output Total 400 300 Balance 90 180 Weight 100.879 kg 100.335 kg 99.79 kg 98.52 kg NAD awake and alert No LE edema CBC, BMP 06/10/18 05:30 06/11/18 05:30 Current Medications Atenolol (Tenormin -) 50 mg PO BID [facility] Last Admin: 06/10/18 22:50 Dose: 50 mg Atorvastatin Calcium (Lipitor -) 80 mg PO HS [facility] Last Admin: 06/10/18 22:50 Dose: 80 mg Budesonide/Formoterol Fumarate (Symbicort 80/4.5mcg -) 2 puff IH BID [facility] Last Admin: 06/10/18 22:50 Dose: 2 puff Clopidogrel Bisulfate (Plavix -) 75 mg PO DAILY [facility] Last Admin: 06/10/18 09:49 Dose: 75 mg Ezetimibe (Zetia -) 10 mg PO DAILY [facility] Last Admin: 06/10/18 09:52 Dose: 10 mg Ferrous Sulfate (Feosol -) 325 mg PO Q2D [facility] Last Admin: 06/10/18 09:48 Dose: 325 mg Finasteride (Proscar -) 5 mg PO DAILY [facility] Last Admin: 06/10/18 09:53 Dose: 5 mg Insulin Aspart (Novolog Vial Sliding Scale -) 1 vial SQ [facility]; Protocol Last Admin: 06/11/18 06:35 Dose: 4 unit Insulin Detemir (Levemir Vial) 50 units SQ DAILY [facility] Last Admin: 06/10/18 09:49 Dose: 50 units Isosorbide Mononitrate (Imdur -) 120 mg PO DAILY [facility] Last Admin: 06/10/18 09:51 Dose: 120 mg Montelukast Sodium (Singulair -) 10 mg PO HS [facility] Last Admin: 06/10/18 22:50 Dose: 10 mg Nitroglycerin (Nitrolingual [place] -) 1 spray TL Q5M PRN PRN Reason: FOR CHEST PAIN Pantoprazole Sodium (Protonix -) 40 mg PO DAILY [facility] Last Admin: 06/10/18 09:49 Dose: 40 mg Polyethylene Glycol (Miralax (For Bowel Prep) -) 17 gm PO DAILY PRN PRN Reason: CONSTIPATION Ranolazine (Ranexa -) 1,000 mg PO BID [facility] Last Admin: 06/10/18 22:50 Dose: 1,000 mg Senna (Senna -) 1 tab PO DAILY PRN PRN Reason: CONSTIPATION Last Admin: 06/08/18 21:17 Dose: 1 tab Sitagliptin Phosphate (Januvia -) 25 mg PO DAILY@0700 [facility] Last Admin: 06/11/18 06:35 Dose: 25 mg Tamsulosin HCl (Flomax -) 0.4 mg PO [facility] Last Admin: 06/10/18 22:50 Dose: 0.4 mg Torsemide (Demadex -) 20 mg PO DAILY [facility] Last Admin: 06/10/18 09:53 Dose: 20 mg 72 year old male admitted with weakness, and visual deficits. He has past h/o CAD (s/p CABG, stents x4) [place] (x5), CVA x2 (residual L sided weakness and slurred speech), IDDM, HTN, PVD with clementina LE stenting. #VICENTE vs. CKD (baseline Cr 1-1.4?, US showed no obstruction, [place] UA, UPCR 0.5, FeUrea 35.7%) #BPH w/o retention #Anemia #Mild Volume overload Renal function slightly imported Urine studies show borderline FeUrea indicating possible tubular injury no change in management at this time continue torsemide daily for volume management can be discharged and renal function can be monitored as outpatient avoid nsaids, fleets, IV contrast at this time Thank you Allan Escobar DO
[2018-06-11 09:59] VITALS: BP 149/80; PULSE 57; TEMP 98
[2018-06-11] MEDS ORDERED: MAGNESIUM OXIDE 400 MG TABLET (FP) PO ONE (10:00)
[2018-06-11] MEDS: INSULIN (LEVEMIR) 100 UNITS/ML UNITS SQ SCH (10:05)
[2018-06-11] MEDS: TORSEMIDE 20 MG TABLET (FP) PO SCH (10:05)
[2018-06-11] MEDS: ISOSORBIDE MONONITRATE 60 MG TAB.SR.24H (FP) PO SCH (10:05)
[2018-06-11] MEDS: CLOPIDOGREL BISULFATE 75 MG TABLET (FP) PO SCH (10:05)
[2018-06-11] MEDS: BUDESONIDE/FORMETEROL FUMARATE 80/4.5 mcg INHALER IH SCH (10:06)
[2018-06-11] MEDS: EZETIMIBE 10 MG TABLET (FP) PO SCH (10:06)
[2018-06-11] MEDS: FINASTERIDE 5 MG TABLET (FP) PO SCH (10:06)
[2018-06-11] MEDS: PANTOPRAZOLE 40 MG TABLET (FP) PO SCH (10:06)
[2018-06-11] MEDS: RANOLAZINE E.R. 1,000 MG TABLET (FP) PO SCH (10:06)
[2018-06-11] MEDS: ATENOLOL 50 MG TABLET (FP) PO SCH (10:06)
--- NOTE | 2018-06-11 10:12 | PN ---
Progress Note, Physician History of Present Illness: No CV events overnight Nagging non-productive cough persists Tele: Sinus julieta - Current Medication List Current Medications: Active Medications Atenolol (Tenormin -) 50 mg PO BID [facility] Last Admin: 06/11/18 10:06 Dose: 50 mg Atorvastatin Calcium (Lipitor -) 80 mg PO HS [facility] Last Admin: 06/10/18 22:50 Dose: 80 mg Budesonide/Formoterol Fumarate (Symbicort 80/4.5mcg -) 2 puff IH BID [facility] Last Admin: 06/11/18 10:06 Dose: 2 puff Clopidogrel Bisulfate (Plavix -) 75 mg PO DAILY [facility] Last Admin: 06/11/18 10:05 Dose: 75 mg Ezetimibe (Zetia -) 10 mg PO DAILY [facility] Last Admin: 06/11/18 10:06 Dose: 10 mg Ferrous Sulfate (Feosol -) 325 mg PO Q2D [facility] Last Admin: 06/10/18 09:48 Dose: 325 mg Finasteride (Proscar -) 5 mg PO DAILY [facility] Last Admin: 06/11/18 10:06 Dose: 5 mg Insulin Aspart (Novolog Vial Sliding Scale -) 1 vial SQ [facility]; Protocol Last Admin: 06/11/18 06:35 Dose: 4 unit Insulin Detemir (Levemir Vial) 50 units SQ DAILY [facility] Last Admin: 06/11/18 10:05 Dose: 50 units Isosorbide Mononitrate (Imdur -) 120 mg PO DAILY [facility] Last Admin: 06/11/18 10:05 Dose: 120 mg Montelukast Sodium (Singulair -) 10 mg PO [facility] Last Admin: 06/10/18 22:50 Dose: 10 mg Nitroglycerin (Nitrolingual [place] -) 1 spray TL Q5M PRN PRN Reason: FOR CHEST PAIN Pantoprazole Sodium (Protonix -) 40 mg PO DAILY [facility] Last Admin: 06/11/18 10:06 Dose: 40 mg Polyethylene Glycol (Miralax (For Bowel Prep) -) 17 gm PO DAILY PRN PRN Reason: CONSTIPATION Ranolazine (Ranexa -) 1,000 mg PO BID [facility] Last Admin: 06/11/18 10:06 Dose: 1,000 mg Senna (Senna -) 1 tab PO DAILY PRN PRN Reason: CONSTIPATION Last Admin: 06/08/18 21:17 Dose: 1 tab Sitagliptin Phosphate (Januvia -) 25 mg PO DAILY@0700 [facility] Last Admin: 06/11/18 06:35 Dose: 25 mg Tamsulosin HCl (Flomax -) 0.4 mg PO HS [facility] Last Admin: 06/10/18 22:50 Dose: 0.4 mg Torsemide (Demadex -) 20 mg PO DAILY [facility] Last Admin: 06/11/18 10:05 Dose: 20 mg - Objective Vital Signs: Vital Signs Temperature 98 F 06/11/18 09:59 Pulse Rate 57 L 06/11/18 09:59 Respiratory Rate 20 06/11/18 09:59 Blood Pressure 149/80 06/11/18 09:59 O2 Sat by Pulse Oximetry (%) 94 L 06/10/18 20:27 Constitutional: Yes: No Distress, Calm Eyes: Yes: WNL HENT: Yes: WNL Neck: Yes: WNL Cardiovascular: Yes: Regular Rate and Rhythm Respiratory: Yes: CTA Bilaterally Gastrointestinal: Yes: Normal Bowel Sounds Musculoskeletal: Yes: WNL Extremities: Yes: WNL Edema: Yes Labs: CBC, BMP 06/10/18 05:30 06/11/18 05:30 INR, PTT INR 1.16 (0.83-1.09) H 06/04/18 23:00 Assessment/Plan acute vision changes, h/o CVA: -CT head no acute pathology -neuro consulted acute diastolic CHF: -mildly decompensated at present -CXR with mild congestive changes and cephalization -BNP 2K (unchanged vs 2016), low GFR confounds -on lasix 40qd at home, incr'd to 80 qd 3d ago. got lasix IV and sob better, cr improved -doubt ACS (trop.s neg x 2, ECG only slightly changed vs remote prior) -06/08-: vol stable, cont torsemide po -06/10: Creat Stable at 1.8 (1.9), weight down 220#. Will continue Torsemide PO -06/11: Creat improving 1.7, weight 220. Continue diuresis with PO Torsemide renal insufficiency: -cr better (1.7 today), renal following CAD, h/o CABG and stents: -doubt ACS here, as above -cont home med regimen -on atenolol 100 bid but has been held several times due to julieta, now on 50mg bid remains julieta to 50s but asx. -on ranolazine per outpt cardio, with low GFR--will not change tx plan here, defer to outpt f/u with his doctor HTN: -cont current meds cardiac lai stable
--- NOTE | 2018-06-11 11:49 | DS ---
Physical Examination Vital Signs: Vital Signs Temperature 98 F 06/11/18 09:59 Pulse Rate 57 L 06/11/18 09:59 Respiratory Rate 20 06/11/18 09:59 Blood Pressure 149/80 06/11/18 09:59 O2 Sat by Pulse Oximetry (%) 97 06/11/18 09:00 Findings/Remarks: Pt w/o SOB, CP, Palpitations, dizziness, abd pain. Pt walked w/o CORREIA. Constitutional: Yes: No Distress, Calm Cardiovascular: Yes: Regular Rate and Rhythm, S1, S2 Respiratory: Yes: Regular, CTA Bilaterally. No: Rales Gastrointestinal: Yes: Normal Bowel Sounds, Soft, Abdomen, Obese. No: Tenderness Edema: LLE: 1+, RLE: 1+ Neurological: Yes: Alert, Oriented Labs: CBC, BMP 06/10/18 05:30 06/11/18 05:30 Discharge Summary Reason For Visit: ACUTE KIDNEY INJURY,ELEVATED BRAIN NATRIURETIC Current Active Problems VICENTE (acute kidney injury) (Acute) Acute congestive heart failure (Acute) Acute electrocardiogram changes (Acute) Acute renal failure (Acute) Anemia (Acute) Bradycardia (Acute) CAD (coronary artery disease) (Acute) CKD (chronic kidney disease) (Acute) CVA (cerebral vascular accident) (Acute) Diabetes mellitus (Acute) Elevated brain natriuretic peptide (BNP) level (Acute) Elevated creatine kinase (Acute) PVD (peripheral vascular disease) (Acute) Visual disturbance (Acute) Procedures: Principal: Head CT scan. Renal and Bladder US Hospital Course: Pt came to ER c/o weakness, dizziness, visual disturbances, CORREIA. Pt was admitted to Telemetry for acute CHF exacerbation, VICENTE. Pt was seen in consult by Cardio (Dr. King), Renal (Dr. Ruelas/ Shawn), Neuro (Dr. Kaufman). Pt had Head CT scan which was negative for acute injury. Pt received diuretics and CHF improved. Pt creatinine increased again, and Renal and Bladder US ( no obstruction) were done; per Renal, tubular injury could be the cause of creatinine elevation; creatinine is improving. 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 Condition: Improved - Instructions Diet, Activity, Other Instructions: Resume Diet To f/u with PCP, Cardio, Renal, Neuro. Referrals: Darlene Alvarez MD [Primary Care Provider] - (within one week; Needs BMP, Magnesium checked) Linus King MD [Staff Physician] - (in 1-2 weeks) Allan Escobar MD [Staff Physician] - (in 1-2 weeks) Krishan Fitzpatrick MD [Staff Physician] - (in 2-4 weeks) Disposition: HOME - Home Medications Comprehensive Discharge Medication List: Ambulatory Orders See DC instructions
[2018-06-12] MEDS ORDERED: MAGNESIUM OXIDE 400 MG TABLET (FP) PO SCH (10:00)
== END 2018-06-11 14:34 | disposition home or self-care (01) | DRG 291 ==
LOC: JER 22:01 → JERBED 23:05 → J4W 06-05 19:10
PROVIDERS: ADMIT Internal Medicine; ATTEND Internal Medicine
DX: I13.0 Hypertensive heart and chronic kidney disease with heart failure and stage 1 through stage 4 chronic kidney disease, or unspecified chronic kidney disease (principal); I50.31 Acute diastolic (congestive) heart failure; I69.354 Hemiplegia and hemiparesis following cerebral infarction affecting left non-dominant side; N17.9 Acute kidney failure, unspecified; I25.10 Atherosclerotic heart disease of native coronary artery without angina pectoris; E11.9 Type 2 diabetes mellitus without complications; I10 Essential (primary) hypertension; E78.5 Hyperlipidemia, unspecified; E11.319 Type 2 diabetes mellitus with unspecified diabetic retinopathy without macular edema; K21.9 Gastro-esophageal reflux disease without esophagitis; R29.702 NIHSS score 2; I25.2 Old myocardial infarction; H53.9 Unspecified visual disturbance; D64.9 Anemia, unspecified; R00.1 Bradycardia, unspecified; I44.7 Left bundle-branch block, unspecified; E11.51 Type 2 diabetes mellitus with diabetic peripheral angiopathy without gangrene; E87.5 Hyperkalemia; N40.0 Benign prostatic hyperplasia without lower urinary tract symptoms; E11.22 Type 2 diabetes mellitus with diabetic chronic kidney disease; N18.3 Chronic kidney disease, stage 3 (moderate); Z95.5 Presence of coronary angioplasty implant and graft; Z95.1 Presence of aortocoronary bypass graft
CPT/HCPCS: 36415; 70450-TC; 71045-TC-FY; 76775-TC; 76856-TC; 80048; 80053; 81003; 82550; 82570; 82962; 83735; 83880; 84100; 84156; 84300; 84484; 84540; 85025; 85027; 85610; 85730; 87205; 90688; 93005; 93010; 93880-TC; 99285-25; G0008

== ENCOUNTER 2018-07-26 13:30 | Inpatient (IN) | payer OTHER, BC ==
--- NOTE | 2018-07-26 13:52 | PDOC ---
Attending Attestation - HPI HPI: 07/26/18 14:28 The patient is a 72 year old male with a PMH of CAD (s/p CABG, stents x4) AL (x5 ), CVA x2 (residual L sided weakness and slurred speech), IDDM, HTN and HLD who presents to our ED from [facility] for evaluation of anterior chest pressure pain, bilateral hand numbness, and increased SOB today. He was reportedly given 10 units of insulin and 2 nitros prior to ED arrival. As per at bedside, the patient was seen at [facility] from 07/18 to 07/23 where he was incidentally diagnosed with acute kidney failure after a fall onto his backside and transferred to [facility] for rehab. Allergies: NKDA Surgical Hx: CABG, Stent x4 Social Hx: denies toxic habits PMD: Dr. Alvarez - as per EMR admits to Dr. Christy Filterer: Dr. King - Physicial Exam PE: 07/26/18 14:28 GENERAL: (+) The patient is in respiratory distress. HEAD: Normal with no signs of trauma. EYES: PERRLA, EOMI, sclera anicteric, conjunctiva clear. ENT: Ears normal, nares patent, oropharynx clear without exudates. Moist mucous membranes. NECK: (+) JVD. Normal range of motion, supple without lymphadenopathy, or masses. LUNGS: (+) conversational dyspnea, tachypnea, inspiratory and expiratory wheezing, bibasilar crackles. Breath sounds equal, HEART:Regular rate and rhythm, normal S1 and S2 without murmur, rub or gallop. ABDOMEN: Soft, nontender, normoactive bowel sounds. No guarding, no rebound. No masses palpable. EXTREMITIES: Normal range of motion, no edema. No clubbing or cyanosis. No erythema, or tenderness. NEUROLOGICAL: Cranial nerves II through XII grossly intact. Normal speech. No focal neurological deficits. MUSCULOSKELETAL: Back non-tender to palpation, no CVA tenderness SKIN: Warm, Dry, normal turgor, no rashes or lesions noted. - Medical Decision Making 07/26/18 14:30 Documentation prepared by Renate Walden, acting as medical records technician for Silvina Toussaint MD 07/26/18 16:23 Dr. King was paged at this time requesting a call back for doctor to doctor. 07/26/18 16:49 Dr. King was called at this time and the patient's case was discussed. 07/26/18 17:14 Dr. Christy was paged via phone answering service at this time. <Renate Walden - Last Filed: 07/26/18 17:14> - Resident Resident Name: Jason Solis - ED Attending Attestation I have performed the following: I have examined & evaluated the patient, The case was reviewed & discussed with the resident, I agree w/resident's findings & plan, Exceptions are as noted - Medical Decision Making 07/26/18 13:59 EKG - NSR rate of 89 bpm, axis nml, no st elevations, lateral st depressions, t wave inversions laterally, otherwise, prominent t waves 07/26/18 15:35 Laboratory Tests 07/26/18 15:13 WBC 6.1 Hgb 10.1 L Hct 30.5 L Plt Count 200 D 07/26/18 16:28 Laboratory Tests 06/05/18 07/26/18 04:30 15:11 Sodium 135 L Potassium 4.7 Chloride 103 Carbon Dioxide 26 BUN 39 H Creatinine 1.4 H Random Glucose 278 H Creatine Kinase 63 101 Troponin I 0.02 0.43 H B-Natriuretic Peptide 5610.0 H Pt continues to have chest pain 05/03 --> 5/10 after SLN 2 in the ER Will start heparin 07/26/18 16:[address] King Will keep here BNP higher than prior Will give Lasix 20mg IV, BiPAP Admit to tele to Dr. Christy <Silvina Toussaint - Last Filed: 07/28/18 07:49>
--- NOTE | 2018-07-26 14:12 | PDOC ---
History of Present Illness - General Chief Complaint: Chest Pain Stated Complaint: CHEST PAIN Time Seen by Provider: 07/26/18 13:42 - History of Present Illness Initial Comments: 07/26/18 14:32 The patient is a 72 year old male with a history of HTN, HLD, DM, CAD, [place], CABG , CVA who presents for evaluation of chest pain and shortness of breath. The patient is accompanied by family who assist in providing the history. They note that the patient was recently admitted at [facility] following a fall after being found to have an VICENTE. He was recently discharged to rehab at [facility] on 07/23/18. They note over the past few days, the patient has been experiencing worsening shortness of breath and began experiencing poorly described chest pain today prompting his presentation to the ED for further evaluation. The patient received 2 nitro en route to the ED. They otherwise deny fevers, chills, nausea, vomiting, abdominal pain, or changes with urination or bowel movements. Past History - Past Medical History Allergies/Adverse Reactions: Allergies Allergy/AdvReac Type Severity Reaction Status Date / Time No Known Allergies Allergy Verified 07/26/18 13:52 Home Medications: Ambulatory Orders Atenolol [Tenormin -] 100 mg PO BID #0 tablet 12/19/12 Isosorbide Mononitrate [Imdur] 120 mg PO DAILY 01/08/13 Pantoprazole Sodium 40 mg PO DAILY 01/08/13 Ranolazine [Ranexa] 1,000 mg PO BID 01/08/13 Salmeterol/Fluticasone [Advair 250Mcg/50Mcg -] 1 inh PO BID 01/08/13 Tamsulosin HCl 0.4 mg PO HS 01/08/13 Vitamin E 400 unit PO DAILY 01/08/13 Atorvastatin Ca [Lipitor] 80 mg PO DAILY 06/04/18 Clopidogrel Bisulfate [Plavix] 75 mg PO DAILY 06/04/18 Ezetimibe [Zetia] 10 mg PO DAILY 06/04/18 Ferrous Sulfate [Feosol] 325 mg PO Q48H 06/04/18 Finasteride [Proscar] 5 mg PO DAILY 06/04/18 Insulin (LOG) Aspart [NovoLOG -] 0 units SQ TID 06/04/18 Insulin Degludec [Tresiba Flextouch U-100] 60 unit SQ AM 06/04/18 Montelukast Sodium [Singulair] 10 mg PO DAILY 06/04/18 Nitroglycerin [place] [Nitrolingual [place] -] 1 spray TL Q5M PRN 06/04/18 Polyethylene Glycol 3350 [Miralax 255 gm Btl -] 17 gm PO DAILY PRN 06/04/18 Sennosides [Senokot] 8.6 mg PO DAILY PRN 06/04/18 Sitagliptin Phosphate [Januvia] 50 mg PO DAILY 06/04/18 Magnesium Oxide [Mag-Ox -] 400 mg PO DAILY #30 tablet MDD 1 06/11/18 Torsemide [Demadex -] 20 mg PO DAILY #30 tablet MDD 1 06/11/18 Cardiac Disorders: Yes (AZ x5 + CABG) CVA: Yes (LT SIDED WEAKNESS) COPD: No Diabetes: Yes GI Disorders: Yes (GERD) HTN: Yes Hypercholesterolemia: Yes - Surgical History Cardiac Surgery: Yes (CABG, ENDARTERECTOMY, CARDIAC STENTS 4, 2 TO LOWER EXTREMITIES) - Suicide/Smoking/Psychosocial Hx Smoking Status: Yes Smoking History: Never smoked Years of Tobacco Use: 30 Have you smoked in the past 12 months: No Number of Cigarettes Smoked Daily: 0 Information on smoking cessation initiated: No Hx Alcohol Use: No Drug/Substance Use Hx: No Substance Use Type: None Hx Substance Use Treatment: No Review of Systems - Review of Systems Comments:: 07/26/18 14:44 Constitutional: No fevers, chills, fatigue, malaise HEENT: No Rhinorrhea, nasal congestion, visual changes Cardiovascular: Chest pain. No syncope, palpitations, lightheadedness Respiratory: SOB. No Cough, Hemoptysis, Gastrointestinal: No Abdominal pain, Nausea, Vomiting, Constipation, Diarrhea, Melena Genitourinary: No Dysuria, Frequency, Urgency, Hesitancy, Hematuria, Flank pain Musculoskeletal: No Myalgia, arthralgia Skin: No rashes, itching, bruising, pallor Neurologic: No Headache, Dizziness, Numbness, Weakness, or Tingling Psychiatric: No Hallucinations. No SI or HI *Physical Exam - Vital Signs Last Vital Signs Temp Pulse Resp BP Pulse Ox 98.6 F 94 H 16 152/77 100 07/26/18 13:30 07/26/18 13:30 07/26/18 13:30 07/26/18 13:30 07/26/18 13:30 - Physical Exam Comments: 07/26/18 14:46 General Appearance: Nourished. No Apparent Distress HEENT: No Pharyngeal Erythema, Tonsillar Exudate, Tonsillar Erythema Neck: No Cervical Lymphadenopathy Respiratory/Chest: Diffuse inspiratory and expiratory wheezing with poor air movement noted on exam. No Crackles or rales. Cardiovascular: Regular Rhythm, Regular Rate. No Murmur, Gallops, Rubs Gastrointestinal/Abdominal: Normal Bowel Sounds, Soft. No Guarding, Rebound, Tenderness Musculoskeletal: No CVA Tenderness Extremity: Normal Capillary Refill Integumentary: Normal Color, Dry, Warm Neurologic: Fully Oriented, Alert, Normal Mood/Affect, Normal Response, Moderate Sedation - Procedure Monitoring Vital Signs: Procedure Monitoring Vital Signs Temperature 98.6 F 07/26/18 13:30 Pulse Rate 94 H 07/26/18 13:30 Respiratory Rate 16 07/26/18 13:30 Blood Pressure 152/77 07/26/18 13:30 O2 Sat by Pulse Oximetry (%) 100 07/26/18 13:30 Heart Score/ECG Review #1 ECG reviewed & interpreted by me at: 14:46 07/26/18 14:46 Normal Sinus Rhythm Possible Left Atrial Enlargement HR 89 Unchanged from prior on 06/04/18 ED Treatment Course - LABORATORY CBC & Chemistry Diagram: 07/26/18 15:13 07/26/18 15:11 - RADIOLOGY Radiology Studies Ordered: Category Date Time Status CHEST X-RAY PORTABLE* [RAD] Stat Radiology 07/26/18 13:43 Ordered Medical Decision Making - Medical Decision Making 07/26/18 14:48 The patient is a 72 year old male with a history of HTN, HLD, DM, CAD, AZ, CABG , CVA who presents for evaluation of chest pain and shortness of breath. Differential includes but is not limited to: ACS, COPD, CHF, Pneumonia, Infectious, Metabolic Derangement. Given the patient's history and physical exam, we will obtain a cbc, cmp, troponin, bnp, chest plain film, ekg to evaluate further. We will treat with SL nitro, aspirin, duoneb and continue to monitor and reassess while here in the ED. The patient will likely require admission for further management. 07/26/18 18:53 CBC, cmp is unremarkable and unchanged. Troponin is elevated to 0.43. BNP is elevated to 5000s. Chest plain film demonstrates a large heart with pulmonary congestion. We discussed the case with cardiology Dr. King who recommended treating the patient's elevated troponin as an nstemi with plavix and a heparin drip. We will also treat with 20mg of lasix given his congestive changes. We discussed the case with the admitting team who accepted the patient for admission. *DC/Admit/Observation/Transfer Diagnosis at time of Disposition: Shortness of breath, Elevated troponin Chest pain Qualifiers: Chest pain type: unspecified Qualified Code(s): R07.9 - Chest pain, unspecified - Discharge Dispostion Condition at time of disposition: Stable Decision to Admit order: Yes - Referrals Referrals: Darlene Alvarez MD [Primary Care Provider] - - Patient Instructions - Post Discharge Activity
[2018-07-26] MEDS ORDERED: NITROGLYCERIN SUBLINGUAL 1/150 0.4 MG TAB SL ONE ×2 (14:27→15:30)
[2018-07-26] MEDS ORDERED: ALBUTEROL SO4 2.5/IPRATROPIUM 0.5 INH SOL 3 ML VIAL.NEB. NEB ONE ×2 (14:27→14:53)
[2018-07-26] MEDS ORDERED: ASPIRIN 81 MG CHEWABLE TABLETS PO ONE (14:27)
[2018-07-26] MEDS ORDERED: NITROGLYCERIN SUBLINGUAL 1/150 0.4 MG TAB ONE (14:53)
[2018-07-26] MEDS ORDERED: ASPIRIN 81 MG CHEWABLE TABLETS ONE (14:53)
[2018-07-26 15:28] LABS: BASO % 0.3 % (0-2.0); EOS % 0.7 % (0-4.5); HEMATOCRIT 30.5 % (35.4-49); HEMOGLOBIN 10.1 GM/dL (11.7-16.9); LYMPH % 9.6 % (8-40); MCH 30.9 pg (25.7-33.7); MCHC 33.1 g/dl (32.0-35.9); MEAN CELL VOLUME 93.5 fl (80-96); MEAN PLT VOLUME 8.7 fl (7.5-11.1); MONO % 7.7 % (3.8-10.2); NEUT % 81.7 % (42.8-82.8); PLATELET COUNT 200 K/MM3 (134-434); RBC 3.27 M/mm3 (4.00-5.60); WHITE BLOOD COUNT 6.1 K/mm3 (4.0-10.0)
[2018-07-26 15:40] LABS: INR 1.13 (0.83-1.09); PROTHROMBIN TIME (PATIENT) 13.3 SEC (9.7-13.0)
[2018-07-26 15:43] LABS: ACTIVATED PTT 31.2 SECONDS (25.2-36.5)
[2018-07-26] MEDS ORDERED: ACETAMINOPHEN 1000 MG/100 ML VIAL (NON FORMULARY) IVPB ONE (16:15)
[2018-07-26 16:17] LABS: ALBUMIN 2.9 g/dl (3.4-5.0); ALK PHOS 152 U/L (45-117); ANION GAP 6 MMOL/L (8-16); BLOOD UREA NITROGEN 39 mg/dL (7-18); CALCIUM 10.7 mg/dL (8.5-10.1); CHLORIDE 103 mmol/L (98-107); CO2 26 mmol/L (21-32); CREATININE 1.4 mg/dL (0.55-1.3); GLUCOSE,RANDOM 278 mg/dL (74-106); POTASSIUM 4.7 mmol/L (3.5-5.1); SGOT/AST 41 U/L (15-37); SGPT/ALT 63 U/L (13-61); SODIUM 135 mmol/L (136-145); TOT PROT 7.2 g/dl (6.4-8.2)
[2018-07-26] MEDS ORDERED: ACETAMINOPHEN INJECTION 100 ML IVPB ONE (16:22)
[2018-07-26] MEDS ORDERED: FUROSEMIDE 40 MG/4 ML INJECTABLE VIAL IVPUSH ONE (16:46)
[2018-07-26] MEDS ORDERED: CLOPIDOGREL BISULFATE 75 MG TABLET (FP) PO ONE (16:54)
[2018-07-26] MEDS ORDERED: HEPARIN NA (PORCINE) 5,000 UNITS/ML 1ML VIAL IVPUSH PRN ×2 (16:54)
[2018-07-26] MEDS ORDERED: FUROSEMIDE 40 MG/4 ML INJECTABLE VIAL ONE (17:14)
[2018-07-26] MEDS ORDERED: HEPARIN INFUSION - 25,000 UNITS/500 ML INFUS.BAG IVPB ONE (17:15)
[2018-07-26] MEDS: HEPARIN - 25,000 UNIT in SODIUM CHLORIDE 495 ML IV SCH (17:20)
[2018-07-26] MEDS ORDERED: CLOPIDOGREL BISULFATE 75 MG TABLET (FP) ONE (17:23)
--- NOTE | 2018-07-26 18:06 | EKG ---
Test Reason : Blood Pressure : / mmHG Vent. Rate : 089 BPM Atrial Rate : 089 BPM P-R Int : 146 ms QRS Dur : 126 ms QT Int : 380 ms P-R-T Axes : 052 016 164 degrees QTc Int : 462 ms NORMAL SINUS RHYTHM POSSIBLE LEFT ATRIAL ENLARGEMENT NON-SPECIFIC INTRA-VENTRICULAR CONDUCTION BLOCK T WAVE ABNORMALITY, CONSIDER INFEROLATERAL ISCHEMIA ABNORMAL ECG WHEN COMPARED WITH ECG OF 04-JUN-2018 22:10, VENT. RATE HAS INCREASED BY 41 BPM T WAVE INVERSION NO LONGER EVIDENT IN ANTERIOR LEADS Confirmed by BEST MESA MD ([id number]) on 07/26/2018 6:05:53 PM Referred By: Confirmed By:BEST MESA MD
--- NOTE | 2018-07-26 19:19 | HP ---
Admitting History and Physical - Primary Care Physician PCP: Allen Christy - Admission Chief Complaint: CP History of Present Illness: Pt with significant Hx/ CAD, CABG in [facility], developed left sided CP yesterday but didn't tell anybody; today pt developed again left sided CP, radiating to left shoulder today, and SOB. Pt was transferred to ER were was foun to have elevated Trop I, and elevated BNP. Pt with recent admission to [facility] (in [place]) after fall, found to be in ARF ( no CVA or Heart attack -per his ); from hospitalization pt was transferred to [facility] for Rehab. 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) Cardiovascular: Yes: CAD (s/p CABG and stenting), HTN, [place] Renal/: Yes: Renal Failure (VICENTE and CRF) Endocrine: Yes: Diabetes Mellitus - Past Surgical History Past Surgical History: Yes: Bypass, Carotid Endarterectomy, Stent (to LE) - Smoking History Smoking history: Never smoked Have you smoked in the past 12 months: No Aproximately how many cigarettes per day: 0 - Alcohol/Substance Use Hx Alcohol Use: No Home Medications - Allergies Allergies/Adverse Reactions: Allergies Allergy/AdvReac Type Severity Reaction Status Date / Time No Known Allergies Allergy Verified 07/26/18 13:52 - Home Medications Home Medications: Ambulatory Orders Atenolol [Tenormin -] 100 mg PO BID #0 tablet 12/19/12 Isosorbide Mononitrate [Imdur] 120 mg PO DAILY 01/08/13 Pantoprazole Sodium 40 mg PO DAILY 01/08/13 Ranolazine [Ranexa] 1,000 mg PO BID 01/08/13 Salmeterol/Fluticasone [Advair 250Mcg/50Mcg -] 1 inh PO BID 01/08/13 Tamsulosin HCl 0.4 mg PO HS 01/08/13 Vitamin E 400 unit PO DAILY 01/08/13 Atorvastatin Ca [Lipitor] 80 mg PO DAILY 06/04/18 Clopidogrel Bisulfate [Plavix] 75 mg PO DAILY 06/04/18 Ezetimibe [Zetia] 10 mg PO DAILY 06/04/18 Ferrous Sulfate [Feosol] 325 mg PO Q48H 06/04/18 Finasteride [Proscar] 5 mg PO DAILY 06/04/18 Insulin (LOG) Aspart [NovoLOG -] 0 units SQ TID 06/04/18 Insulin Degludec [Tresiba Flextouch U-100] 60 unit SQ AM 06/04/18 Montelukast Sodium [Singulair] 10 mg PO DAILY 06/04/18 Nitroglycerin [place] [Nitrolingual [place] -] 1 spray TL Q5M PRN 06/04/18 Polyethylene Glycol 3350 [Miralax 255 gm Btl -] 17 gm PO DAILY PRN 06/04/18 Sennosides [Senokot] 8.6 mg PO DAILY PRN 06/04/18 Sitagliptin Phosphate [Januvia] 50 mg PO DAILY 06/04/18 Magnesium Oxide [Mag-Ox -] 400 mg PO DAILY #30 tablet MDD 1 06/11/18 Torsemide [Demadex -] 20 mg PO DAILY #30 tablet MDD 1 06/11/18 Review of Systems - Review of Systems Constitutional: denies: Chills, Fever Eyes: reports: Blurred Vision (for few months). denies: Recent Change in Vision HENT: denies: Difficult Swallowing, Ear Discharge, Ear Pain, Throat Pain Neck: denies: Stiffness, Tenderness Cardiovascular: reports: Chest Pain. denies: Edema, Palpitations, Shortness of Breath (now) Respiratory: denies: Cough, Wheezing Gastrointestinal: denies: Abdominal Pain, Nausea, Vomiting Genitourinary: denies: Burning, Discharge, Dysuria Musculoskeletal: reports: Back Pain (chronic). denies: Joint Swelling Integumentary: denies: Blister, Bruising Neurological: reports: Unsteady Gait (since the fall). denies: Change in Speech , Confusion Endocrine: denies: Excessive Sweating, Intolerance to Cold Hematology/Lymphatic: denies: Easily Bruised, Excessive Bleeding Psychiatric: denies: Anxiety, Depression Physical Examination Vital Signs: Vital Signs Temperature 98.6 F 07/26/18 13:30 Pulse Rate 88 07/26/18 16:05 Respiratory Rate 20 07/26/18 16:05 Blood Pressure 153/73 07/26/18 16:05 O2 Sat by Pulse Oximetry (%) 96 07/26/18 16:05 Constitutional: Yes: No Distress, Calm Eyes: Yes: Conjunctiva Clear, EOM Intact, PERRL HENT: No: Pharyngeal Erythema, Rhinnorhea Neck: Yes: Trachea Midline. No: Lymphadenopathy Cardiovascular: Yes: Regular Rate and Rhythm, S1, S2 Respiratory: Yes: Regular, CTA Bilaterally Gastrointestinal: Yes: Normal Bowel Sounds, Soft, Abdomen, Obese. No: Tenderness ...Rectal Exam: Yes: Deferred Renal/: No: CVA Tenderness - Left, CVA Tenderness - Right Musculoskeletal: Yes: Back Pain. No: Joint Stiffness Extremities: No: Cool, Cyanosis Edema: No Neurological: Yes: Alert, Oriented, Other (motort and sensory examination is symmetric in UE/ LE/ face) Psychiatric: Yes: Alert, Oriented Labs: CBC, BMP 07/26/18 15:13 07/26/18 15:11 Imaging - Results Chest X-ray: Report Reviewed EKG: Report Reviewed Problem List - Problems (1) NSTEMI (non-ST elevated myocardial infarction) Code(s): I21.4 - NON-ST ELEVATION (NSTEMI) MYOCARDIAL INFARCTION (2) S/P CABG (coronary artery bypass graft) Code(s): Z95.1 - PRESENCE OF AORTOCORONARY BYPASS GRAFT (3) Acute congestive heart failure Code(s): I50.9 - HEART FAILURE, UNSPECIFIED (4) CAD (coronary artery disease) Code(s): I25.10 - ATHSCL HEART DISEASE OF [place] CORONARY ARTERY W/O ANG PCTRS (5) CKD (chronic kidney disease) Code(s): N18.9 - CHRONIC KIDNEY DISEASE, UNSPECIFIED (6) Diabetes mellitus Code(s): E11.9 - TYPE 2 DIABETES MELLITUS WITHOUT COMPLICATIONS (7) Back pain Code(s): M54.9 - DORSALGIA, UNSPECIFIED (8) HTN (hypertension) Code(s): I10 - ESSENTIAL (PRIMARY) HYPERTENSION (9) CVA (cerebral vascular accident) Code(s): I63.9 - CEREBRAL INFARCTION, UNSPECIFIED Assessment/Plan IV Heparin O2 Supplementation SL NGL PRN BB IV Lasix Statin Serial CE Admit to Monitored bed Cardio Consult
[2018-07-26] MEDS ORDERED: POLYETHYLENE GLYCOL 3350 119 GM BTL PO PRN (20:06)
[2018-07-26] MEDS ORDERED: SENNOSIDES 8.6MG TABLET (FP) PO PRN (20:06)
[2018-07-26] MEDS ORDERED: ATORVASTATIN CA 80 MG TABLET (FP) PO SCH ×2 (20:15→22:00)
[2018-07-26] MEDS ORDERED: TAMSULOSIN HCL 0.4 MG CAP PO SCH (22:00)
[2018-07-26] MEDS: PANTOPRAZOLE 40 MG TABLET (FP) PO SCH (22:03)
[2018-07-26] MEDS: MAGNESIUM OXIDE 400 MG TABLET (FP) PO SCH (22:03)
[2018-07-26] MEDS: BUDESONIDE/FORMETEROL FUMARATE 80/4.5 mcg INHALER IH SCH (22:03)
[2018-07-26] MEDS: ATENOLOL 50 MG TABLET (FP) PO SCH (22:03)
[2018-07-27] MEDS ORDERED: CLOPIDOGREL BISULFATE 75 MG TABLET (FP) PO ONE (03:30)
[2018-07-27 06:54] LABS: HEMOGLOBIN 9.7 GM/dL (11.7-16.9); MCH 30.9 pg (25.7-33.7); MCHC 33.4 g/dl (32.0-35.9); MEAN CELL VOLUME 92.7 fl (80-96); MEAN PLT VOLUME 8.5 fl (7.5-11.1); PLATELET COUNT 205 K/MM3 (134-434); RBC 3.13 M/mm3 (4.00-5.60); RDW 15.3 % (11.9-15.9); WHITE BLOOD COUNT 5.1 K/mm3 (4.0-10.0)
[2018-07-27 07:36] VITALS: BMI 30.4
[2018-07-27] MEDS: HEPARIN - 25,000 UNIT in SODIUM CHLORIDE 495 ML IV SCH (09:00)
[2018-07-27 09:02] LABS: CREATININE 1.8 mg/dL (0.55-1.3)
[2018-07-27 09:03] LABS: ALBUMIN 2.9 g/dl (3.4-5.0); CO2 24 mmol/L (21-32)
[2018-07-27 09:32] LABS: ALK PHOS 147 U/L (45-117); ANION GAP 9 MMOL/L (8-16); BLOOD UREA NITROGEN 43 mg/dL (7-18); CALCIUM 10.7 mg/dL (8.5-10.1); CHLORIDE 103 mmol/L (98-107); GLUCOSE,RANDOM 284 mg/dL (74-106); MAGNESIUM 2.2 mg/dL (1.8-2.4); POTASSIUM 5.2 mmol/L (3.5-5.1); SGOT/AST 113 U/L (15-37); SGPT/ALT 71 U/L (13-61); SODIUM 135 mmol/L (136-145); TOT PROT 6.8 g/dl (6.4-8.2)
[2018-07-27] MEDS ORDERED: SODIUM POLYSTYRENE SULFONATE 15 GM/60 ML BOTTLE PO ONE (09:58)
--- NOTE | 2018-07-27 09:59 | PN ---
Progress Note, Physician History of Present Illness: Pt w/o CP this AM; no SOB, palpitations, dizziness. Pt c/o back pain, asking for Tramadol; he states that didn't received it since yesterday. - Current Medication List Current Medications: Active Medications Aspirin (Asa -) 81 mg PO DAILY [facility] Atenolol (Tenormin -) 100 mg PO BID [facility] Last Admin: 07/26/18 22:03 Dose: 100 mg Atorvastatin Calcium (Lipitor -) 80 mg PO HS [facility] Last Admin: 07/26/18 22:03 Dose: 80 mg Budesonide/Formoterol Fumarate (Symbicort 80/4.5mcg -) 2 puff IH BID [facility] Last Admin: 07/26/18 22:03 Dose: 2 puff Clopidogrel Bisulfate (Plavix -) 75 mg PO DAILY [facility] Finasteride (Proscar -) 5 mg PO DAILY [facility] Heparin Sodium (Porcine) (Heparin -) 1,000 unit IVPUSH PRN PRN PRN Reason: Heparin Heparin Sodium (Porcine) (Heparin -) 5,000 unit IVPUSH PRN PRN PRN Reason: Heparin Heparin Sodium (Porcine) 25, (000 unit/ Sodium Chloride) 500 mls @ 16 mls/hr IV TITR [facility]; Protocol Last Titration: 07/27/18 02:30 Dose: 900 unit/hr, 18 mls/hr Isosorbide Mononitrate (Imdur -) 120 mg PO DAILY [facility] Magnesium Oxide (Mag-Ox -) 400 mg PO DAILY [facility] Last Admin: 07/26/18 22:03 Dose: 400 mg Montelukast Sodium (Singulair -) 10 mg PO [facility] Pantoprazole Sodium (Protonix -) 40 mg PO DAILY [facility] Last Admin: 07/26/18 22:03 Dose: 40 mg Polyethylene Glycol (Miralax (For Daily Use) -) 17 gm PO DAILY PRN PRN Reason: CONSTIPATION Senna (Senna -) 2 tab PO HS PRN PRN Reason: CONSTIPATION Tamsulosin HCl (Flomax -) 0.4 mg PO HS [facility] Last Admin: 07/26/18 22:03 Dose: 0.4 mg - Objective Vital Signs: Vital Signs Temperature 98.1 F 07/27/18 02:04 Pulse Rate 60 07/27/18 02:04 Respiratory Rate 20 07/27/18 02:04 Blood Pressure 114/47 L 07/27/18 02:04 O2 Sat by Pulse Oximetry (%) 94 L 07/27/18 07:55 Constitutional: Yes: No Distress, Calm Cardiovascular: Yes: Regular Rate and Rhythm, S1, S2 Respiratory: Yes: Regular, Rales, Other (coarse BS at bases) Gastrointestinal: Yes: Normal Bowel Sounds, Soft, Abdomen, Obese. No: Tenderness Edema: No Neurological: Yes: Alert, Oriented Labs: CBC, BMP 07/27/18 05:30 07/27/18 06:00 INR, PTT INR 1.13 (0.83-1.09) H 07/26/18 15:13 Problem List - Problems (1) NSTEMI (non-ST elevated myocardial infarction) Code(s): I21.4 - NON-ST ELEVATION (NSTEMI) MYOCARDIAL INFARCTION (2) S/P CABG (coronary artery bypass graft) Code(s): Z95.1 - PRESENCE OF AORTOCORONARY BYPASS GRAFT (3) Acute congestive heart failure Code(s): I50.9 - HEART FAILURE, UNSPECIFIED (4) CAD (coronary artery disease) Code(s): I25.10 - ATHSCL HEART DISEASE OF [place] CORONARY ARTERY W/O ANG PCTRS (5) CKD (chronic kidney disease) Code(s): N18.9 - CHRONIC KIDNEY DISEASE, UNSPECIFIED (6) Diabetes mellitus Code(s): E11.9 - TYPE 2 DIABETES MELLITUS WITHOUT COMPLICATIONS (7) Back pain Code(s): M54.9 - DORSALGIA, UNSPECIFIED (8) HTN (hypertension) Code(s): I10 - ESSENTIAL (PRIMARY) HYPERTENSION (9) CVA (cerebral vascular accident) Code(s): I63.9 - CEREBRAL INFARCTION, UNSPECIFIED (10) Hyperkalemia Code(s): E87.5 - HYPERKALEMIA (11) Creatinine elevation Code(s): R79.89 - OTHER SPECIFIED ABNORMAL FINDINGS OF BLOOD CHEMISTRY Assessment/Plan Pt is admitted to monitored bed IV Heparin O2 Supplementation SL NGL PRN BB Statin Serial CE Cardio Consult To f/u ECHO report Kayexalate X 1. AM labs Case was d/w pt's nurse
[2018-07-27] MEDS ORDERED: ISOSORBIDE MONONITRATE 60 MG TAB.SR.24H (FP) PO SCH (10:00)
[2018-07-27] MEDS ORDERED: ASPIRIN 81 MG CHEWABLE TABLETS PO SCH (10:00)
[2018-07-27] MEDS ORDERED: FINASTERIDE 5 MG TABLET (FP) PO SCH (10:00)
[2018-07-27] MEDS ORDERED: CLOPIDOGREL BISULFATE 75 MG TABLET (FP) PO SCH (10:00)
[2018-07-27] MEDS ORDERED: traMADol HCL 50 MG TABLET PO PRN (10:09)
[2018-07-27 10:58] VITALS: BP 134/65; PULSE 59; TEMP 97.6
[2018-07-27] MEDS: ATENOLOL 50 MG TABLET (FP) PO SCH (11:05)
[2018-07-27] MEDS: MAGNESIUM OXIDE 400 MG TABLET (FP) PO SCH (11:06)
[2018-07-27] MEDS: PANTOPRAZOLE 40 MG TABLET (FP) PO SCH (11:06)
[2018-07-27] MEDS: BUDESONIDE/FORMETEROL FUMARATE 80/4.5 mcg INHALER IH SCH (11:06)
--- NOTE | 2018-07-27 12:22 | CON.CARD ---
Cardiology Consult (text) - Consultation Consultation Note: Chief Complaint: cp History of Present Illness: 72 M here with cp. Was admitted at outside hospital recently for arsh, dc to rehab. At rehab was having ventral sharp cp so came to ER. No sob palps dizzy loc pnd orthopnea le edema. Found to have nstemi. CP resolved now. Sees me for cardio in office. 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) IDDM HTN HPL - Alcohol/Substance Use Hx Alcohol Use: No - Smoking History Smoking history: Former smoker Have you smoked in the past 12 months: No Aproximately how many cigarettes per day: 0 Home Medications - Allergies Allergies/Adverse Reactions: Allergies Allergy/AdvReac Type Severity Reaction Status Date / Time No Known Allergies Allergy Verified 07/26/18 13:52 - Home Medications Home Medications Medication Instructions Recorded Atenolol [Tenormin -] 100 mg PO BID #0 tablet 12/19/12 Isosorbide Mononitrate [Imdur] 120 mg PO DAILY 01/08/13 Pantoprazole Sodium 40 mg PO DAILY 01/08/13 Ranolazine [Ranexa] 1,000 mg PO BID 01/08/13 Salmeterol/Fluticasone [Advair 1 inh PO BID 01/08/13 250Mcg/50Mcg -] Tamsulosin HCl 0.4 mg PO HS 01/08/13 Vitamin E 400 unit PO DAILY 01/08/13 Atorvastatin Ca [Lipitor] 80 mg PO DAILY 06/04/18 Clopidogrel Bisulfate [Plavix] 75 mg PO DAILY 06/04/18 Ezetimibe [Zetia] 10 mg PO DAILY 06/04/18 Ferrous Sulfate [Feosol] 325 mg PO Q48H 06/04/18 Finasteride [Proscar] 5 mg PO DAILY 06/04/18 Insulin (LOG) Aspart [NovoLOG -] 0 units SQ TID 06/04/18 Insulin Degludec [Tresiba 60 unit SQ AM 06/04/18 Flextouch U-100] Montelukast Sodium [Singulair] 10 mg PO DAILY 06/04/18 Nitroglycerin [place] [Nitrolingual 1 spray TL Q5M PRN 06/04/18 [place] -] Polyethylene Glycol 3350 [Miralax 17 gm PO DAILY PRN 06/04/18 255 gm Btl -] Sennosides [Senokot] 8.6 mg PO DAILY PRN 06/04/18 Sitagliptin Phosphate [Januvia] 50 mg PO DAILY 06/04/18 Magnesium Oxide [Mag-Ox -] 400 mg PO DAILY #30 tablet MDD 1 06/11/18 Torsemide [Demadex -] 20 mg PO DAILY #30 tablet MDD 1 06/11/18 Review of Systems - Review of Systems Constitutional: denies: Chills, Fever Eyes: denies: Eye Pain HENT: denies: Nasal Congestion Neck: denies: Stiffness Cardiovascular: denies: Palpitations Respiratory: denies: Orthopnea, PND Gastrointestinal: denies: Diarrhea, Rectal Bleeding Genitourinary: denies: Burning, Hematuria Musculoskeletal: denies: Muscle Pain Integumentary: denies: Rash Neurological: denies: Numbness, Seizure, Syncope Endocrine: denies: Excessive Sweating Hematology/Lymphatic: denies: Excessive Bleeding Vital Signs: Vital Signs Temp 97.6 F 07/27/18 10:00 Pulse 59 L 07/27/18 10:00 Resp 18 07/27/18 10:00 BP 134/65 07/27/18 10:00 Pulse Ox 94 L 07/27/18 07:55 Intake & Output 07/26/18 07/27/18 07/27/18 23:59 11:59 23:59 Intake Total 408 Output Total 200 Balance 208 Weight 206 lb Intake: IV 168 Heparin - 25,000 Unit In 168 Normal Saline - 495 ml @ 800 UNIT/HR 16 mls/hr IV TITR JAMILA Rx#:[id number] Oral 240 Output: Urine 200 Void 200 Other: Voiding Method Urinal Toilet Bowel Movement Yes # Bowel Movements 1 Height 5 ft 9 in Body Mass Index (BMI) 30.4 Weight Measurement Method Standing Scale Constitutional: Yes: Well Nourished, No Distress Eyes: No: Sclera Icterus HENT: No: Nasal Congestion Respiratory: Yes: CTA Bilaterally, No: Accessory Muscle Use, Wheezes Gastrointestinal: Yes: Normal Bowel Sounds. No: Distention, Hepatomegaly, Palpable Mass, Tenderness Cardiovascular: Yes: Regular Rate and Rhythm JVD: Yes Carotid Bruit: No PMI: Non-Displaced Heart Sounds: Yes: S1, S2. No: Gallop Murmur: No: Systolic Murmur, Diastolic Murmur Extremities: No: Cool, Cyanosis Edema:no Peripheral Pulses: 2+ Left Carotid, 2+ Right Carotid, 2+ Left Doralis Pedis, 2+ Right Dorsalis Pedis Integumentary: No: Jaundice diaphoresis Neurological: Yes: Alert, Oriented (x3) Psychiatric: No: Agitated - Other Data Labs, Other Data: Laboratory Last Values WBC 5.1 K/mm3 (4.0-10.0) 07/27/18 05:30 RBC 3.13 M/mm3 (4.00-5.60) L 07/27/18 05:30 Hgb 9.7 GM/dL (11.7-16.9) L 07/27/18 05:30 Hct 29.0 % (35.4-49) L 07/27/18 05:30 MCV 92.7 fl (80-96) 07/27/18 05:30 MCH 30.9 pg (25.7-33.7) 07/27/18 05:30 MCHC 33.4 g/dl (32.0-35.9) 07/27/18 05:30 RDW 15.3 % (11.9-15.9) 07/27/18 05:30 Plt Count 205 K/MM3 (134-434) 07/27/18 05:30 MPV 8.5 fl (7.5-11.1) 07/27/18 05:30 Absolute Neuts (auto) 5.0 K/mm3 (1.5-8.0) 07/26/18 15:13 Neutrophils % 81.7 % (42.8-82.8) D 07/26/18 15:13 Lymphocytes % 9.6 % (8-40) D 07/26/18 15:13 Monocytes % 7.7 % (3.8-10.2) 07/26/18 15:13 Eosinophils % 0.7 % (0-4.5) 07/26/18 15:13 Basophils % 0.3 % (0-2.0) 07/26/18 15:13 Nucleated RBC % 0 % (0-0) 07/26/18 15:13 PT with INR 13.30 SEC (9.7-13.0) H 07/26/18 15:13 INR 1.13 (0.83-1.09) H 07/26/18 15:13 PTT (Actin FS) 89.4 SECONDS (25.2-36.5) H 07/27/18 08:30 Sodium 135 mmol/L (136-145) L 07/27/18 06:00 Potassium 5.2 mmol/L (3.5-5.1) H 07/27/18 06:00 Chloride 103 mmol/L (98-107) 07/27/18 06:00 Carbon Dioxide 24 mmol/L (21-32) 07/27/18 06:00 Anion Gap 9 MMOL/L (8-16) 07/27/18 06:00 BUN 43 mg/dL (7-18) H 07/27/18 06:00 Creatinine 1.8 mg/dL (0.55-1.3) H 07/27/18 06:00 Creat Clearance w eGFR 37.17 (>60) 07/27/18 06:00 Random Glucose 284 mg/dL (74-106) H 07/27/18 06:00 Calcium 10.7 mg/dL (8.5-10.1) H 07/27/18 06:00 Magnesium 2.2 mg/dL (1.8-2.4) 07/27/18 06:00 Total Bilirubin 1.0 mg/dL (0.2-1) 07/27/18 06:00 AST 113 U/L (15-37) H 07/27/18 06:00 ALT 71 U/L (13-61) H 07/27/18 06:00 Alkaline Phosphatase 147 U/L (45-117) H 07/27/18 06:00 Creatine Kinase 348 IU/L (26-308) H 07/27/18 06:00 Creatine Kinase Index 9.7 % (0.0-5.0) H* 07/27/18 06:00 CK-MB (CK-2) 33.9 ng/mL (0.5-3.6) H 07/27/18 06:00 Troponin I 25.70 ng/ml (0.00-0.05) H* 07/27/18 06:00 B-Natriuretic Peptide 5610.0 pg/ml (5-125) H 07/26/18 15:11 Total Protein 6.8 g/dl (6.4-8.2) 07/27/18 06:00 Albumin 2.9 g/dl (3.4-5.0) L 07/27/18 06:00 ECG: sr; incomplete LBBB. diffuse ST-Ts, similar to 05/2018 ecg CXR: mild congestive changes tele: sr echo 02/2015: nl lvef, mild as/tr/mr, mild lae mibi 02/2015: inferolat scar with minimal fahad ischemia est cct 35 mins Assessment/Plan cp, nstemi: -trop elevation and cp sxs consistent with NSTEMI. ECG similar to priors. -cp improved -continue tele. check echo -cont hep gtt, dapt, nitrate, statin, bb -discussed case with interventionalist and agreed for transfer for cardiac cath at [facility]. pt also agrees. chronic diastolic CHF: -stable at present -on torsemide 10 qd at home, holding for now to allow improved cr prior to cath given his ckd hx -check echo ckd: -cr close to baseline 1.7-2 CAD, h/o CABG and stents: -as above HTN: -cont current meds hld: -cont statin
--- NOTE | 2018-07-27 13:47 | ECHO ---
Name: JAJA THOMAS Exam:Adult Echocardiogram Study Date: 07/27/2018 10:18 AM Age: 72 yrs Reason For Study: evaluate mann motion pt with NSTEMI,HX/O mi/cabg Height: 69 in Weight: 213 lb BSA: 2.1 m2 MMode/2D Measurements & Calculations IVSd: 0.84 cm Ao root diam: 3.1 cm LVIDd: 6.0 cm LA dimension: 4.3 cm LVIDs: 4.2 cm ACS: 1.3 cm LVPWd: 1.0 cm IVSs: 1.1 cm LVPWs: 1.4 cm EDV(Teich): 181.7 ml ESV(Teich): 80.2 ml Doppler Measurements & Calculations MV E max davion: 113.8 cm/sec Ao V2 max: 181.3 cm/sec MV A max davion: 62.7 cm/sec Ao max P.2 mmHg MV E/A: 1.8 Ao V2 mean: 140.9 cm/sec Ao mean P.7 mmHg Ao V2 VTI: 46.6 cm MR max davion: 467.8 cm/sec TR max davion: 342.3 cm/sec MR max P.7 mmHg TR max P.2 mmHg Med Peak E' Davion: 4.4 cm/sec Med E/e': 25.9 Lat Peak E' Davion: 7.6 cm/sec Lat E/e': 15.0 Procedure A complete two-dimensional transthoracic echocardiogram was performed (2D, M-mode, Doppler and color flow Doppler). Left Ventricle The left ventricle is mildly dilated. Left ventricular systolic function is mildly reduced. Ejection Fraction = 45-50%. There is mild inferior wall hypokinesis. Right Ventricle The right ventricle is normal in size and function. Atria Normal left and right atrial size and function. Mitral Valve There is moderate mitral regurgitation. Tricuspid Valve There is mild tricuspid regurgitation. Right ventricular systolic pressure is elevated at 50-60mmHg. Aortic Valve No hemodynamically significant valvular aortic stenosis. No aortic regurgitation is present. Pulmonic Valve There is no pulmonic valvular regurgitation. Great Vessels The aortic root is normal size. Pericardium/Pleura There is no pericardial effusion. Interpretation Summary The left ventricle is mildly dilated. Left ventricular systolic function is mildly reduced. There is mild inferior wall hypokinesis. The right ventricle is normal in size and function. There is moderate mitral regurgitation. There is mild tricuspid regurgitation. Right ventricular systolic pressure is elevated at 50-60mmHg. MD Linus King 07/27/2018 01:46 PM
[2018-07-27] MEDS ORDERED: INSULIN (NOVOLOG) ASPART 100 UNITS/ML 10ML VIAL SQ ONE (14:45)
[2018-07-27] MEDS ORDERED: MONTELUKAST NA 10 MG TABLET PO SCH (22:00)
== END 2018-07-27 14:47 | disposition short-term general hospital (02) | DRG 280 ==
LOC: JER 13:30 → JERBED 17:25 → J4W 20:09
PROVIDERS: ADMIT Internal Medicine; ATTEND Internal Medicine
DX: I21.4 Non-ST elevation (NSTEMI) myocardial infarction (principal); I50.31 Acute diastolic (congestive) heart failure; I69.354 Hemiplegia and hemiparesis following cerebral infarction affecting left non-dominant side; I13.0 Hypertensive heart and chronic kidney disease with heart failure and stage 1 through stage 4 chronic kidney disease, or unspecified chronic kidney disease; I25.10 Atherosclerotic heart disease of native coronary artery without angina pectoris; E11.9 Type 2 diabetes mellitus without complications; I25.2 Old myocardial infarction; K21.9 Gastro-esophageal reflux disease without esophagitis; E78.00 Pure hypercholesterolemia, unspecified; R79.89 Other specified abnormal findings of blood chemistry; M54.9 Dorsalgia, unspecified; E87.5 Hyperkalemia; I44.7 Left bundle-branch block, unspecified; E11.22 Type 2 diabetes mellitus with diabetic chronic kidney disease; N18.9 Chronic kidney disease, unspecified; Z79.4 Long term (current) use of insulin; Z95.5 Presence of coronary angioplasty implant and graft; Z95.1 Presence of aortocoronary bypass graft; Z87.891 Personal history of nicotine dependence
CPT/HCPCS: 36415; 71045-TC-FY; 80053; 82550; 82553; 82962; 83735; 83880; 84484; 85025; 85027; 85610; 85730; 93005; 93010; 93306-TC; 94660; 99284-25; J0131; J1644

== ENCOUNTER 2019-07-05 00:33 | Inpatient (IN) | payer OTHER, BC ==
--- NOTE | 2019-07-05 00:48 | PDOC ---
History of Present Illness - General Stated Complaint: NAUSEA,WEAKNESS Time Seen by Provider: 07/05/19 00:47 History Source: Patient Exam Limitations: No Limitations - History of Present Illness Initial Comments: 07/05/19 00:48 Francisco Maldonado is a 73M with PMH CAD/VT s/p 7x stents/CABG, CVA w/ residual LLE weakness, HTN, HLD, IDDM presenting with new onset weakness. Was sitting at home today 3 hours [employer] when he began to feel weaker and nauseated. Per family at bedside, started having numbness in his hands. Tried to stand up to go to bathroom when he fell backwards and to the left, hit his head and L knee. No LOC, not on AC, just ASA and Brillinta. Patient complains of L knee pain with nausea and weakness at this time, no vomiting. Denies chest pain, SOB, abd pain, dizziness, urinary sx, constipation/diarrhea. Last BM yesterday. Has baseline LLE weakness 2/2 CVA, has difficulty walking and trips a lot. Last VT 2 months ago. [facility] Exclusion Checklist 0-3hr - Time Elapsed Date last known well: 07/04/19 Time last known well: 21:30 Elaspsed time: Day(s) and 22 Hour(s) and 56 Minutes - Thrombolytic Therapy Candidate Is the patient eligible for Thrombolytic Therapy?: Yes - Exclusion Criteria 0-3hr SBP greater than 185 or DBP greater than 110mmHg despite tx: No Recent IC/spinal surgery,head trauma or stroke w/in last 3mo: No Hx of previous IC hemorrhage, IC neoplasm, AVM or aneurysm: No Active internal bleeding: No - Relative Exclusion Criteria 0-3h Stroke severity too mild: Yes - Ineligibility reason(s) Reasons No tPA given: See reason(s) noted above (patient has no new neurological deficits) NIH Stroke Scale - Last Known Well Date/Time & Onset Date Last Known Well: 07/05/19 Time Last Known Well: 21:30 - Initial Evaluation Level of consciousness: Alert Ask patient the month and their age: Answers both correctly Ask patient to open & close eyes; make fist and let go: Obeys both correctly Best gaze (horizontal eye movement): Normal Visual field testing: No visual field loss Facial paresis (Show teeth/raise eyebrows/close eyes tight): Normal symmetrical movement Motor Function: Left Arm: Normal Motor Function: Right Arm: Normal (extends arm 90 (or 45) degrees for 10 seconds without drift Motor Function: Left Leg: Drift Motor Function: Right Leg: Normal (extends leg 30 degrees for 5 seconds without drift) Limb Ataxia: No ataxia Sensory(Use pinprick test arms,legs,trunk,face/side to side): Normal Best language (Describe picture, name items, read sentences): No Aphasia Dysarthria (read several words): Normal articulation Extinction and Inattention: No abnormality (baseline LLE weakness 2/2 prior CVA , family at bedside confirms) - Total Score NIH Stroke Scale Score: 1 Past History - Past Medical History Allergies/Adverse Reactions: Allergies Allergy/AdvReac Type Severity Reaction Status Date / Time No Known Allergies Allergy Verified 07/05/19 02:02 Home Medications: Ambulatory Orders Atenolol [Tenormin -] 100 mg PO BID #0 tablet 12/19/12 Isosorbide Mononitrate [Imdur] 120 mg PO DAILY 01/08/13 Pantoprazole Sodium 40 mg PO DAILY 01/08/13 Ranolazine [Ranexa] 500 mg PO BID 01/08/13 Tamsulosin HCl 0.4 mg PO HS 01/08/13 Atorvastatin Ca [Lipitor] 80 mg PO DAILY 06/04/18 Clopidogrel Bisulfate [Plavix] 75 mg PO DAILY 06/04/18 Ezetimibe [Zetia] 10 mg PO DAILY 06/04/18 Finasteride [Proscar] 5 mg PO DAILY 06/04/18 Insulin (LOG) Aspart [NovoLOG -] 0 units SQ TID 06/04/18 Insulin Degludec [Tresiba Flextouch U-100] 60 unit SQ AM 06/04/18 Montelukast Sodium [Singulair] 10 mg PO DAILY 06/04/18 Nitroglycerin [place] [Nitrolingual [place] -] 1 spray TL Q5M PRN 06/04/18 Polyethylene Glycol 3350 [Miralax 255 gm Btl -] 17 gm PO DAILY PRN 06/04/18 Sennosides [Senokot] 8.6 mg PO DAILY PRN 06/04/18 Sitagliptin Phosphate [Januvia] 50 mg PO DAILY 06/04/18 Torsemide [Demadex -] 20 mg PO DAILY #30 tablet MDD 1 06/11/18 Aspirin [ASA -] 81 mg PO DAILY 07/05/19 Isosorbide Mononitrate [Isosorbide Mononitrate ER] 60 mg PO DAILY 07/05/19 Ticagrelor [Brilinta] 90 mg PO BID 07/05/19 Valsartan [Diovan] 40 mg PO DAILY 07/05/19 Cardiac Disorders: Yes (VT x5 + CABG) CVA: Yes (LT SIDED WEAKNESS) COPD: No Diabetes: Yes GI Disorders: Yes (GERD) HTN: Yes Hypercholesterolemia: Yes - Surgical History Cardiac Surgery: Yes (CABG, ENDARTERECTOMY, CARDIAC STENTS 4, 2 TO LOWER EXTREMITIES) - Immunization History Immunization Up to Date: Yes - Psycho Social/Smoking Cessation Hx Smoking Status: Yes Smoking History: Never smoked Years of Tobacco Use: 30 Have you smoked in the past 12 months: No Number of Cigarettes Smoked Daily: 0 Hx Alcohol Use: No Drug/Substance Use Hx: No Substance Use Type: None Hx Substance Use Treatment: No Review of Systems - Review of Systems Able to Perform ROS?: Yes Constitutional: Yes: Weakness HEENTM: No: Symptoms Reported Respiratory: No: Symptoms reported Cardiac (ROS): No: Chest Pain, Irregular Heart Rate, Lightheadedness, Palpitations, Syncope, Chest Tightness ABD/GI: No: Constipated, Diarrhea, Nausea, Vomiting : No: Symptoms Reported Musculoskeletal: No: Symptoms Reported Integumentary: No: Symptoms Reported Neurological: No: Headache, Numbness, Paresthesia, Tremors, Weakness Endocrine: No: Symptoms Reported Hematologic/Lymphatic: No: Symptoms Reported All Other Systems: Reviewed and Negative *Physical Exam - Physical Exam General Appearance: Yes: Nourished, Appropriately Dressed. No: Apparent Distress HEENT: positive: EOMI, IFEANYI, Normal ENT Inspection, Normal Voice, Symmetrical, Pharynx Normal, Hearing Grossly Normal, Other (normocephalic atraumatic). negative: Scleral Icterus (R), Scleral Icterus (L) Neck: positive: Normal Thyroid, Supple. negative: Tender, Decreased range of motion, Lymphadenopathy (R), Lymphadenopathy (L) Respiratory/Chest: positive: Lungs Clear, Normal Breath Sounds. negative: Chest Tender, Respiratory Distress, Accessory Muscle Use, Crackles, Rales, Rhonchi, Stridor, Wheezing, Hyperresonant, Dullness Cardiovascular: positive: Regular Rhythm, Regular Rate Gastrointestinal/Abdominal: positive: Normal Bowel Sounds, Flat, Soft. negative : Tender, Organomegaly, Pulsatile Mass Musculoskeletal: positive: Normal Inspection. negative: CVA Tenderness Extremity: positive: Normal Capillary Refill, Normal Inspection. negative: Tender Integumentary: positive: Normal Color, Dry, Warm Neurologic: positive: hog dropper II-XII NML intact, Fully Oriented, Alert, Normal Mood/ Affect, Normal Response Heart Score/ECG Review - History History: Highly suspicious - Electrocardiogram EKG: Non specific repolarization disturbance - Age Age: >/= 65 - Risk Factors Risk Factors Heart Score: Yes Hx Hypercholesterolemia, Yes Hx Hypertension, Yes Hx Diabetes Based on the list above the patient has:: >/=3 risk factors or Hx atherosclerotic disease - Troponin Troponin: 1-3x normal limit - Score Heart Score - Total: 8 ED Treatment Course - LABORATORY CBC & Chemistry Diagram: 07/05/19 01:28 07/05/19 09:57 Medical Decision Making - Medical Decision Making 07/05/19 00:48 Francisco Maldonado is a 73M with PMH CAD/VT s/p 7x stents/CABG, CVA, HTN, HLD, IDDM presenting with new onset weakness. Patient presentation is highly concerning for cardiac event given weakness and PMH. LE edema on exam, no crackles. CMP CBC CP ECG CXR CT head US LLE BNP Coags 07/05/19 03:10 Labs notable for: - BNP 4952 - Cr 2.0 - trop 0.04 LLE US shows no evidence of DVT. CT head shows no evidence of acute pathology. 07/05/19 04:17 Patient too weak to walk, has significant cardiac history and HEART Score >7, has CHF exacerbation with elevated BNP. Will admit for ACS and CHF exacerbation. 07/05/19 05:04 Darlene Alvarez MD admits to [facility], discussed case with karen Christie for admission to tele. Discharge - Discharge Information Problems reviewed: Yes Clinical Impression/Diagnosis: Weakness Acute on chronic heart failure Qualifiers: Heart failure type: unspecified Qualified Code(s): I50.9 - Heart failure, unspecified Condition: Stable - Admission Yes - Follow up/Referral - Patient Discharge Instructions - Post Discharge Activity
--- NOTE | 2019-07-05 01:23 | PDOC ---
Documentation entered by Jason Vance SCRIBE, acting as scribe for Shantelle Chinchilla DO. Shantelle Chinchilla DO: This documentation has been prepared by the Rajiv reed Daniel, SCRIBE, under my direction and personally reviewed by me in its entirety. I confirm that the documentation accurately reflects all work, treatment, procedures, and medical decision making performed by me. Attending Attestation - Resident Resident Name: Sp Sam - ED Attending Attestation I have performed the following: I have examined & evaluated the patient, The case was reviewed & discussed with the resident, I agree w/resident's findings & plan, Exceptions are as noted - HPI HPI: 07/05/19 01:23 The patient is a 73 year old male with a past medical history of HTN, HLD, diabetes, CAD, 7 MIs (last 05/10/19), CABG, and CVA (with residual left lower extremity weakness) here today for evaluation of generalized weakness. was at bedside to assist with history. As per the , the patient was nauseous and she was helping him to the bathroom when he became weak while standing and fell backwards. She notes that the patient landed on his buttocks then his back and hit his head. She denies him having any loss of consciousness. Patient states that his left side is weaker than his right and that his weakness started in his hands and then his whole body became weak. Patient states that his previous MIs started with being weak. also notes that the patient has intermittent cough and shortness of breath. Patient denies headache, lightheadedness. Denies fever, chills. Denies chest pain. Denies vomiting, diarrhea, abdominal pain. Allergies: NKA PCP: Allen Christy - Physicial Exam PE: 07/05/19 01:24 Constitutional: Awake, alert, oriented. No acute distress. Head: Normocephalic. Atraumatic Eyes: PERRL. EOMI. Conjunctivae are not pale. ENT: Mucous membranes are moist and intact. Posterior pharynx without exudates or erythema. Uvula midline. Neck: Supple. Full ROM. No lymphadenopathy. Cardiovascular: +bradycardic. Regular rhythm. S1, S2 regular. Distal pulses are 2+ and symmetric. Pulmonary/Chest: +rhonchorous bilateral breath sounds in the mid and lower lobes , right greater than left. No evidence of respiratory distress. No wheezing or rales. Abdominal: Soft and non-distended. There is no tenderness. No rebound, guarding or rigidity. No organomegaly. No palpable masses. Good bowel sounds. Back: No CVA tenderness. Musculoskeletal: No edema. No cyanosis. No clubbing. Full range of motion in all extremities. Nocalf tenderness. Radial/pedal pulses are intact and 2+ bilaterally Skin: Skin is warm and dry. No petechiae. No purpura. Neurological: +left lower extremity has 1+ pitting edema with 4/5 muscle strength which is chronic since CVA, good capillary refill, and pulses. All other extremities have 5/5 muscle strength. Alert and oriented to person, place , and time. Cranial nerves II-XII are grossly intact. Normal speech. No sensory deficits. Psychiatric: Good eye contact. Normal interaction, affect and behavior. - Medical Decision Making 07/05/19 01:18 I, Dr. Shantelle Chinchilla, DO, attest that this document has been prepared under my direction and personally reviewed by me in its entirety. I further attest, that it accurately reflects all work, treatment, procedures and medical decision -making performed by me. a/p: 73yo male with hx of cad/cva with generalized weakness tonight -started in his arms/hands and then his legs -weakness was bilateral -caused him to fall when walking with his walker- landed on his buttock and his back, did hit his head, no LOC -L side is always weaker from prior cva and LLE always more swollen than the RLE -pt denies cp, but states sob when ambulating -concern for cva vs mi vs uti vs pna -coarse bs on exam -hx of LLE weakness -will send for head ct, cxr, labs 07/05/19 02:17 trop 0.04 bnp elevated cr at baseline labs reviewed pt pending ct head, ultrasound -will need admission for [facility] later [facility] eval of generalized weakness, fall, sob Heart Score/ECG Review - ECG Intrepretation Comment:: 07/05/19 01:17 junctional julieta at 53, nl axis, lvh, interventricular conduction delay, no acute st/t wave findings
[2019-07-05] MEDS ORDERED: SODIUM CHLORIDE 0.9% 500 ML INFUS.BAG IV ONE ×2 (01:36→03:35)
[2019-07-05 01:40] LABS: BASO % 0.3 % (0-2.0); EOS % 0.8 % (0-4.5); HEMATOCRIT 27.1 % (35.4-49); HEMOGLOBIN 9.3 GM/dL (11.7-16.9); LYMPH % 7.6 % (8-40); MCHC 34.2 g/dl (32.0-35.9); MEAN CELL VOLUME 96.5 fl (80-96); MEAN PLT VOLUME 9.3 fl (7.5-11.1); NEUT % 85.3 % (42.8-82.8); PLATELET COUNT 165 K/MM3 (134-434); RBC 2.81 M/mm3 (4.00-5.60); RDW 16.1 % (11.9-15.9); WHITE BLOOD COUNT 7.2 K/mm3 (4.0-10.0)
[2019-07-05 01:52] LABS: INR 1.2 (0.83-1.09); PROTHROMBIN TIME (PATIENT) 14.2 SEC (9.7-13.0)
[2019-07-05 02:04] LABS: ALBUMIN 3.4 g/dl (3.4-5.0); BILIRUBIN,TOTAL 0.8 mg/dL (0.2-1); BLOOD UREA NITROGEN 54.7 mg/dL (7-18); CALCIUM 10.2 mg/dL (8.5-10.1); POTASSIUM 4.7 mmol/L (3.5-5.1); TOT PROT 7.4 g/dl (6.4-8.2)
[2019-07-05] MEDS ORDERED: ONDANSETRON 4 MG/2 ML VIAL IVPUSH ONE (03:35)
[2019-07-05] MEDS ORDERED: FAMOTIDINE 20 MG/50 ML IVPB 50 ML IVPB ONE (03:35)
[2019-07-05] MEDS ORDERED: FUROSEMIDE 40 MG/4 ML INJECTABLE VIAL IVPUSH ONE (04:14)
[2019-07-05] MEDS ORDERED: FUROSEMIDE 40 MG/4 ML INJECTABLE VIAL ONE (04:36)
[2019-07-05 10:42] LABS: BLOOD UREA NITROGEN 51.8 mg/dL (7-18); POTASSIUM 4.5 mmol/L (3.5-5.1)
--- NOTE | 2019-07-05 11:45 | CON.CARD ---
Cardiology Consult (text) - Consultation Consultation Note: Chief Complaint: s/p fall History of Present Illness: 73 M here s/p fall. Has been feeling well. Yesterday was at home and tried to stand and his knee gave out and he fell. No loc. No prodrome sxs. No cp sob palps pnd orthopnea. 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) IDDM HTN HPL - Alcohol/Substance Use Hx Alcohol Use: No - Smoking History Smoking history: Former smoker Have you smoked in the past 12 months: No Aproximately how many cigarettes per day: 0 Home Medications - Allergies Allergies/Adverse Reactions: Allergies Allergy/AdvReac Type Severity Reaction Status Date / Time No Known Allergies Allergy Verified 07/05/19 02:02 Home Medications Medication Instructions Recorded Atenolol [Tenormin -] 100 mg PO BID #0 tablet 12/19/12 Isosorbide Mononitrate [Imdur] 120 mg PO DAILY 01/08/13 Pantoprazole Sodium 40 mg PO DAILY 01/08/13 Ranolazine [Ranexa] 500 mg PO BID 01/08/13 Tamsulosin HCl 0.4 mg PO HS 01/08/13 Atorvastatin Ca [Lipitor] 80 mg PO DAILY 06/04/18 Clopidogrel Bisulfate [Plavix] 75 mg PO DAILY 06/04/18 Ezetimibe [Zetia] 10 mg PO DAILY 06/04/18 Finasteride [Proscar] 5 mg PO DAILY 06/04/18 Insulin (LOG) Aspart [NovoLOG -] 0 units SQ TID 06/04/18 Insulin Degludec [Tresiba 60 unit SQ AM 06/04/18 Flextouch U-100] Montelukast Sodium [Singulair] 10 mg PO DAILY 06/04/18 Nitroglycerin [place] [Nitrolingual 1 spray TL Q5M PRN 06/04/18 [place] -] Polyethylene Glycol 3350 [Miralax 17 gm PO DAILY PRN 06/04/18 255 gm Btl -] Sennosides [Senokot] 8.6 mg PO DAILY PRN 06/04/18 Sitagliptin Phosphate [Januvia] 50 mg PO DAILY 06/04/18 Torsemide [Demadex -] 20 mg PO DAILY #30 tablet MDD 1 06/11/18 Aspirin [ASA -] 81 mg PO DAILY 07/05/19 Isosorbide Mononitrate [Isosorbide 60 mg PO DAILY 07/05/19 Mononitrate ER] Ticagrelor [Brilinta] 90 mg PO BID 07/05/19 Valsartan [Diovan] 40 mg PO DAILY 07/05/19 Review of Systems - Review of Systems Constitutional: denies: Chills, Fever Eyes: denies: Eye Pain HENT: denies: Nasal Congestion Neck: denies: Stiffness Cardiovascular: denies: Palpitations Respiratory: denies: Orthopnea, PND Gastrointestinal: denies: Diarrhea, Rectal Bleeding Genitourinary: denies: Burning, Hematuria Integumentary: denies: Rash Neurological: denies: Numbness, Seizure, Syncope Endocrine: denies: Excessive Sweating Hematology/Lymphatic: denies: Excessive Bleeding Vital Signs: Vital Signs Period Temp Pulse Resp BP Sys/Chen Pulse Ox Last 24 Hr 97.8 F-98.0 F 53-61 16-18 142-158/56-61 96-97 Constitutional: Yes: Well Nourished, No Distress Eyes: No: Sclera Icterus HENT: No: Nasal Congestion Respiratory: Yes: CTA Bilaterally, No: Accessory Muscle Use, Wheezes Gastrointestinal: Yes: Normal Bowel Sounds. No: Distention, Hepatomegaly, Palpable Mass, Tenderness Cardiovascular: Yes: Regular Rate and Rhythm JVD: Yes Carotid Bruit: No PMI: Non-Displaced Heart Sounds: Yes: S1, S2. No: Gallop Murmur: No: Systolic Murmur, Diastolic Murmur Extremities: No: Cool, Cyanosis Edema:no Peripheral Pulses: 2+ Left Carotid, 2+ Right Carotid, 2+ Left Doralis Pedis, 2+ Right Dorsalis Pedis Integumentary: No: Jaundice diaphoresis Neurological: Yes: Alert, Oriented (x3) Psychiatric: No: Agitated - Other Data Labs, Other Data: Laboratory Last Values WBC 7.2 K/mm3 (4.0-10.0) 07/05/19 01:28 RBC 2.81 M/mm3 (4.00-5.60) L 07/05/19 01:28 Hgb 9.3 GM/dL (11.7-16.9) L 07/05/19 01:28 Hct 27.1 % (35.4-49) L 07/05/19 01:28 MCV 96.5 fl (80-96) H 07/05/19 01:28 MCH 33.0 pg (25.7-33.7) 07/05/19 01:28 MCHC 34.2 g/dl (32.0-35.9) 07/05/19 01:28 RDW 16.1 % (11.9-15.9) H 07/05/19 01:28 Plt Count 165 K/MM3 (134-434) 07/05/19 01:28 MPV 9.3 fl (7.5-11.1) 07/05/19 01:28 Absolute Neuts (auto) 6.2 K/mm3 (1.5-8.0) 07/05/19 01:28 Neutrophils % 85.3 % (42.8-82.8) H 07/05/19 01:28 Lymphocytes % 7.6 % (8-40) L D 07/05/19 01:28 Monocytes % 6.0 % (3.8-10.2) 07/05/19 01:28 Eosinophils % 0.8 % (0-4.5) 07/05/19 01:28 Basophils % 0.3 % (0-2.0) 07/05/19 01:28 Nucleated RBC % 0 % (0-0) 07/05/19 01:28 PT with INR 14.20 SEC (9.7-13.0) H 07/05/19 01:28 INR 1.20 (0.83-1.09) H 07/05/19 01:28 PTT (Actin FS) 37.7 SECONDS (25.2-36.5) H 07/05/19 01:28 Sodium 136 mmol/L (136-145) 07/05/19 09:57 Potassium 4.5 mmol/L (3.5-5.1) 07/05/19 09:57 Chloride 101 mmol/L (98-107) 07/05/19 09:57 Carbon Dioxide 30 mmol/L (21-32) 07/05/19 09:57 Anion Gap 5 MMOL/L (8-16) L 07/05/19 09:57 BUN 51.8 mg/dL (7-18) H 07/05/19 09:57 Creatinine 2.0 mg/dL (0.55-1.3) H 07/05/19 09:57 Est GFR (CKD-EPI)AfAm 37.01 07/05/19 09:57 Est GFR (CKD-EPI)NonAf 31.93 07/05/19 09:57 POC Glucometer 178 UNITS (80-120) 07/05/19 11:31 Random Glucose 197 mg/dL (74-106) H 07/05/19 09:57 Calcium 10.0 mg/dL (8.5-10.1) 07/05/19 09:57 Magnesium 2.2 mg/dL (1.8-2.4) 07/05/19 01:28 Total Bilirubin 0.8 mg/dL (0.2-1) 07/05/19 01:28 AST 18 U/L (15-37) 07/05/19 01:28 ALT 21 U/L (13-61) 07/05/19 01:28 Alkaline Phosphatase 86 U/L (45-117) 07/05/19 01:28 Creatine Kinase 100 U/L (26-308) 07/05/19 01:28 Troponin I 0.05 ng/ml (0.00-0.05) 07/05/19 09:57 B-Natriuretic Peptide 4952.8 pg/ml (5-125) H 07/05/19 01:28 Total Protein 7.4 g/dl (6.4-8.2) 07/05/19 01:28 Albumin 3.4 g/dl (3.4-5.0) 07/05/19 01:28 ECG: sr; incomplete LBBB, similar to priors CXR: clear lungs tele: sr echo 02/2015: nl lvef, mild as/tr/mr, mild lae echo 10/2018: nl lv/rv, mild as, mild mr, mild tr, mild phtn mibi 02/2015: inferolat scar with minimal fahad ischemia Assessment/Plan 73 m hx htn, hld, dchf, cva, pad, cad s/p cabg 1997, pci 2011, 2012, 2013, and most recent cath for nstemi 04/2019 with latoya to d1, lcx, here with fall. cad: -has been stable since his most recent cath for nstemi 04/2019 with latoya to d1, lcx -no signs acs here -continue home atenolol, imdur, ranexa, atorva, brilinta, asa, zetia, valsartan chronic diastolic CHF: -stable at present -cont home torsemide 20 qd ckd: -cr close to baseline 1.7-2 HTN: -cont current meds hld: -cont statin fall: -seems mechanical, monitor on tele for now -PT eval
--- NOTE | 2019-07-05 11:51 | EKG ---
Test Reason : Blood Pressure : / mmHG Vent. Rate : 053 BPM Atrial Rate : 053 BPM P-R Int : 000 ms QRS Dur : 136 ms QT Int : 512 ms P-R-T Axes : 000 -14 116 degrees QTc Int : 480 ms WIDE QRS RHYTHM NON-SPECIFIC INTRA-VENTRICULAR CONDUCTION BLOCK T WAVE ABNORMALITY, CONSIDER LATERAL ISCHEMIA ABNORMAL ECG WHEN COMPARED WITH ECG OF 26-JUL-2018 13:43, WIDE QRS RHYTHM HAS REPLACED SINUS RHYTHM VENT. RATE HAS DECREASED BY 36 BPM Confirmed by LORA WOOD MD ([id number]) on 07/05/2019 11:50:36 AM Referred By: Confirmed By:LORA WOOD MD
[2019-07-05 18:24] VITALS: BMI 28.8
--- NOTE | 2019-07-05 19:25 | HP ---
Admitting History and Physical - Primary Care Physician PCP: Allen Christy - Admission Chief Complaint: fall History of Present Illness: Pt with significant Hx/o CAD, CABG, [place], CVA with left side hemiparesis tried to stand up and go to the bathroom and fell. Pt fell on his buttock but hit his head on the floor. Pt felt nauseated yesterday History Source: Patient, Medical Record - Past Medical History [employer]: Yes: CVA (with left hemiparesis) Cardiovascular: Yes: CAD (s/p CABG and stenting), HTN, [place] Renal/: Yes: Renal Failure (VICENTE and CRF) Endocrine: Yes: Diabetes Mellitus - Past Surgical History Past Surgical History: Yes: Bypass, Carotid Endarterectomy, Stent (to LE) - Advance Directives Advance Directives: Yes: Health Care Proxy - Smoking History Smoking history: Former smoker Have you smoked in the past 12 months: No Aproximately how many cigarettes per day: 0 - Alcohol/Substance Use Hx Alcohol Use: No Home Medications - Allergies Allergies/Adverse Reactions: Allergies Allergy/AdvReac Type Severity Reaction Status Date / Time No Known Allergies Allergy Verified 07/05/19 02:02 - Home Medications Home Medications: Ambulatory Orders Atenolol [Tenormin -] 100 mg PO BID #0 tablet 12/19/12 Isosorbide Mononitrate [Imdur] 120 mg PO DAILY 01/08/13 Pantoprazole Sodium 40 mg PO DAILY 01/08/13 Ranolazine [Ranexa] 500 mg PO BID 01/08/13 Tamsulosin HCl 0.4 mg PO HS 01/08/13 Atorvastatin Ca [Lipitor] 80 mg PO DAILY 06/04/18 Clopidogrel Bisulfate [Plavix] 75 mg PO DAILY 06/04/18 Ezetimibe [Zetia] 10 mg PO DAILY 06/04/18 Finasteride [Proscar] 5 mg PO DAILY 06/04/18 Insulin (LOG) Aspart [NovoLOG -] 0 units SQ TID 06/04/18 Insulin Degludec [Tresiba Flextouch U-100] 60 unit SQ AM 06/04/18 Montelukast Sodium [Singulair] 10 mg PO DAILY 06/04/18 Nitroglycerin [place] [Nitrolingual [place] -] 1 spray TL Q5M PRN 06/04/18 Polyethylene Glycol 3350 [Miralax 255 gm Btl -] 17 gm PO DAILY PRN 06/04/18 Sennosides [Senokot] 8.6 mg PO DAILY PRN 06/04/18 Sitagliptin Phosphate [Januvia] 50 mg PO DAILY 06/04/18 Torsemide [Demadex -] 20 mg PO DAILY #30 tablet MDD 1 06/11/18 Aspirin [ASA -] 81 mg PO DAILY 07/05/19 Isosorbide Mononitrate [Isosorbide Mononitrate ER] 60 mg PO DAILY 07/05/19 Ticagrelor [Brilinta] 90 mg PO BID 07/05/19 Valsartan [Diovan] 40 mg PO DAILY 07/05/19 Review of Systems - Review of Systems Constitutional: denies: Chills, Fever Eyes: denies: Blurred Vision, Double Vision HENT: denies: Ear Discharge, Epistaxis, Nasal Congestion, Throat Pain Neck: denies: Pain on Movement, Stiffness Cardiovascular: denies: Chest Pain, Edema, Palpitations Respiratory: denies: Cough, SOB, Wheezing Gastrointestinal: denies: Abdominal Pain, Diarrhea, Nausea (today), Vomiting Genitourinary: denies: Burning, Frequency Musculoskeletal: denies: Back Pain, Muscle Cramps Integumentary: denies: Eczema, Rash Neurological: denies: Change in LOC, Change in Speech, Numbness Endocrine: denies: Excessive Sweating, Intolerance to Cold Hematology/Lymphatic: denies: Easily Bruised, Excessive Bleeding Psychiatric: denies: Anxiety, Depression Physical Examination Vital Signs: Vital Signs Temperature 98.6 F 07/05/19 18:10 Pulse Rate 64 07/05/19 18:10 Respiratory Rate 18 07/05/19 18:10 Blood Pressure 125/53 L 07/05/19 18:10 O2 Sat by Pulse Oximetry (%) 95 07/05/19 18:27 Constitutional: Yes: No Distress, Calm Eyes: Yes: Conjunctiva Clear, EOM Intact HENT: No: Epistaxis, Pharyngeal Erythema, Rhinnorhea Neck: Yes: Trachea Midline, Lymphadenopathy Cardiovascular: Yes: Regular Rate and Rhythm, S1, S2 Respiratory: Yes: Regular, CTA Bilaterally, Rales Gastrointestinal: Yes: Normal Bowel Sounds, Soft, Abdomen, Obese, Tenderness ...Rectal Exam: Yes: Deferred Renal/: No: CVA Tenderness - Left, CVA Tenderness - Right Musculoskeletal: No: Back Pain, Joint Stiffness Extremities: No: Cold, Cyanosis Edema: No Neurological: Yes: Alert, Oriented, Weakness (left leg) Psychiatric: Yes: Alert, Oriented Labs: CBC, BMP 07/05/19 01:28 07/05/19 09:57 Imaging - Results Chest X-ray: Report Reviewed Cat Scan: Report Reviewed Ultrasound: Report Reviewed Problem List - Problems (1) Fall Code(s): W19.XXXA - UNSPECIFIED FALL, INITIAL ENCOUNTER (2) CAD (coronary artery disease) Code(s): I25.10 - ATHSCL HEART DISEASE OF [place] CORONARY ARTERY W/O ANG PCTRS (3) CVA (cerebral vascular accident) Code(s): I63.9 - CEREBRAL INFARCTION, UNSPECIFIED (4) CKD (chronic kidney disease) Code(s): N18.9 - CHRONIC KIDNEY DISEASE, UNSPECIFIED (5) S/P CABG (coronary artery bypass graft) Code(s): Z95.1 - PRESENCE OF AORTOCORONARY BYPASS GRAFT (6) Anemia Code(s): D64.9 - ANEMIA, UNSPECIFIED (7) Diabetes mellitus Code(s): E11.9 - TYPE 2 DIABETES MELLITUS WITHOUT COMPLICATIONS (8) HTN (hypertension) Code(s): I10 - ESSENTIAL (PRIMARY) HYPERTENSION Assessment/Plan Admit to telemetry. negative CE Cardio consult, is appreciated. To monitor Hb/ HCT. Renal function is stable. AM labs.
[2019-07-05] MEDS ORDERED: SENNOSIDES 8.6MG TABLET (FP) PO PRN (19:37)
[2019-07-05] MEDS ORDERED: POLYETHYLENE GLYCOL 3350 255 GM BTL PO PRN (19:37)
[2019-07-05] MEDS ORDERED: NITROGLYCERIN 0.4MG/SPRAY 4.9 GM BOTTLE TL PRN (19:37)
[2019-07-05] MEDS ORDERED: ISOSORBIDE MONONITRATE 60 MG TAB.SR.24H (FP) PO SCH (19:45)
[2019-07-05] MEDS ORDERED: PATIENT'S OWN MEDICATION (NON-FORMULARY) (Isosorbide Mononitrate [Imdur] 120 MG) PO SCH (19:45)
[2019-07-05] MEDS ORDERED: CLOPIDOGREL BISULFATE 75 MG TABLET (FP) PO SCH (19:45)
[2019-07-05] MEDS: FINASTERIDE 5 MG TABLET (FP) PO SCH (20:29)
[2019-07-05] MEDS: PANTOPRAZOLE 40 MG TABLET (FP) PO SCH (20:29)
[2019-07-05] MEDS: ASPIRIN 81 MG CHEWABLE TABLETS PO SCH (20:29)
[2019-07-05] MEDS ORDERED: TICAGRELOR 90 MG TABLET PO SCH (22:00)
[2019-07-05] MEDS: ATORVASTATIN CA 80 MG TABLET (FP) PO SCH (22:47)
[2019-07-05] MEDS: ATENOLOL 50 MG TABLET (FP) PO SCH (22:48)
[2019-07-05] MEDS: TAMSULOSIN HCL 0.4 MG CAP PO SCH (22:48)
[2019-07-05] MEDS: MONTELUKAST NA 10 MG TABLET PO SCH (22:48)
[2019-07-05] MEDS: RANOLAZINE E.R. 500 MG TABLET (FP) PO SCH (22:48)
[2019-07-06] MEDS: INSULIN SLIDING SCALE (NOVOLOG) 1 VIAL SQ SCH ×4 (06:50→23:01)
[2019-07-06] MEDS: sitaGLIPtin PHOSPHATE 50 MG TABLET PO SCH (06:51)
[2019-07-06 07:03] LABS: HEMATOCRIT 24.9 % (35.4-49); HEMOGLOBIN 8.7 GM/dL (11.7-16.9); MCH 33.1 pg (25.7-33.7); MCHC 34.7 g/dl (32.0-35.9); MEAN CELL VOLUME 95.3 fl (80-96); MEAN PLT VOLUME 9.1 fl (7.5-11.1); PLATELET COUNT 152 K/MM3 (134-434); RBC 2.61 M/mm3 (4.00-5.60); RDW 16.2 % (11.9-15.9); WHITE BLOOD COUNT 6.4 K/mm3 (4.0-10.0)
[2019-07-06] MEDS: INSULIN (LEVEMIR) 100 UNITS/ML UNITS SQ SCH (07:35)
[2019-07-06 07:47] LABS: ALBUMIN 3.3 g/dl (3.4-5.0); BILIRUBIN,TOTAL 1.1 mg/dL (0.2-1); BLOOD UREA NITROGEN 52.4 mg/dL (7-18); CALCIUM 10.3 mg/dL (8.5-10.1); CREATININE 1.8 mg/dL (0.55-1.3); POTASSIUM 4.7 mmol/L (3.5-5.1); TOT PROT 7.1 g/dl (6.4-8.2)
--- NOTE | 2019-07-06 10:22 | PN ---
Progress Note, Physician Chief Complaint: sitting in chair TELE: NSR no cp or sob - Current Medication List Current Medications: Active Medications Aspirin (Asa -) 81 mg PO DAILY [facility] Last Admin: 07/05/19 20:29 Dose: 81 mg Atenolol (Tenormin -) 100 mg PO BID [facility] Last Admin: 07/05/19 22:48 Dose: 100 mg Atorvastatin Calcium (Lipitor -) 80 mg PO HS [facility] Last Admin: 07/05/19 22:47 Dose: 80 mg Clopidogrel Bisulfate (Plavix -) 75 mg PO DAILY [facility] Ezetimibe (Zetia -) 10 mg PO DAILY [facility] Finasteride (Proscar -) 5 mg PO DAILY [facility] Last Admin: 07/05/19 20:29 Dose: 5 mg Insulin Aspart (Novolog Vial Sliding Scale -) 1 vial SQ ACHS [facility]; Protocol Last Admin: 07/06/19 06:50 Dose: 4 units Insulin Detemir (Levemir Vial) 60 units SQ AM [facility] Last Admin: 07/06/19 07:35 Dose: Not Given Isosorbide Mononitrate (Imdur -) 120 mg PO DAILY [facility] Montelukast Sodium (Singulair -) 10 mg PO [facility] Last Admin: 07/05/19 22:48 Dose: 10 mg Nitroglycerin (Nitrolingual [place] -) 1 spray TL Q5M PRN PRN Reason: FOR CHEST PAIN Pantoprazole Sodium (Protonix -) 40 mg PO DAILY [facility] Last Admin: 07/05/19 20:29 Dose: 40 mg Polyethylene Glycol (Miralax (For Bowel Prep) -) 17 gm PO DAILY PRN PRN Reason: CONSTIPATION Ranolazine (Ranexa -) 500 mg PO BID [facility] Last Admin: 07/05/19 22:48 Dose: 500 mg Senna (Senna -) 1 tab PO DAILY PRN PRN Reason: CONSTIPATION Sitagliptin Phosphate (Januvia -) 50 mg PO DAILY@0700 [facility] Last Admin: 07/06/19 06:51 Dose: 50 mg Tamsulosin HCl (Flomax -) 0.4 mg PO [facility] Last Admin: 07/05/19 22:48 Dose: 0.4 mg Ticagrelor (Brilinta -) 90 mg PO BID [facility] Torsemide (Demadex -) 20 mg PO DAILY [facility] Valsartan (Diovan -) 40 mg PO DAILY JAMILA - Objective Vital Signs: Vital Signs Temperature 98.4 F 07/06/19 06:00 Pulse Rate 65 07/06/19 06:00 Respiratory Rate 18 07/06/19 06:00 Blood Pressure 141/59 L 07/06/19 06:00 O2 Sat by Pulse Oximetry (%) 98 07/05/19 21:00 Constitutional: Yes: No Distress Cardiovascular: Yes: Regular Rate and Rhythm Respiratory: Yes: CTA Bilaterally Gastrointestinal: Yes: Soft, Abdomen, Obese Edema: No Neurological: Yes: Alert, Oriented Labs: CBC, BMP 07/06/19 06:34 07/06/19 06:34 INR, PTT INR 1.20 (0.83-1.09) H 07/05/19 01:28 Assessment/Plan Assessment/Plan 73 m hx htn, hld, dchf, cva, pad, cad s/p cabg 1997, pci 2011, 2012, 2013, and most recent cath for nstemi 04/2019 with latoya to d1, lcx, here with fall. cad: -has been stable since his most recent cath for nstemi 04/2019 with latoya to d1, lcx -no signs acs here -continue home atenolol, imdur, ranexa, atorva, brilinta, asa, zetia, valsartan chronic diastolic CHF: -stable at present -cont home torsemide 20 qd ckd: -cr close to baseline 1.7-2 HTN: -cont current meds hld: -cont statin fall: -seems mechanical, no arrhythmias to explain fall thus far -PT eval
[2019-07-06] MEDS: TICAGRELOR 90 MG TABLET PO SCH ×2 (10:41→23:03)
[2019-07-06] MEDS: EZETIMIBE 10 MG TABLET (FP) PO SCH (10:42)
[2019-07-06] MEDS: VALSARTAN 40 MG TABLET (FP) PO SCH (10:43)
[2019-07-06] MEDS: TORSEMIDE 20 MG TABLET (FP) PO SCH (10:43)
[2019-07-06] MEDS: FINASTERIDE 5 MG TABLET (FP) PO SCH (10:43)
[2019-07-06] MEDS: PANTOPRAZOLE 40 MG TABLET (FP) PO SCH (10:43)
[2019-07-06] MEDS: ISOSORBIDE MONONITRATE 60 MG TAB.SR.24H (FP) PO SCH (10:43)
[2019-07-06] MEDS: ASPIRIN 81 MG CHEWABLE TABLETS PO SCH (10:44)
[2019-07-06] MEDS: ATENOLOL 50 MG TABLET (FP) PO SCH ×2 (10:44→23:01)
[2019-07-06] MEDS: RANOLAZINE E.R. 500 MG TABLET (FP) PO SCH ×2 (10:44→23:01)
[2019-07-06] MEDS ORDERED: ACETAMINOPHEN 325 MG TABLET (FP) PO PRN ×2 (18:08→22:08)
[2019-07-06] MEDS: ATORVASTATIN CA 80 MG TABLET (FP) PO SCH (22:59)
[2019-07-06] MEDS: MONTELUKAST NA 10 MG TABLET PO SCH (22:59)
[2019-07-06] MEDS: TAMSULOSIN HCL 0.4 MG CAP PO SCH (23:01)
[2019-07-06] MEDS: oxyCODONE HCL 5 MG TABLET PO PRN (23:02)
[2019-07-06] MEDS: ACETAMINOPHEN 325 MG TABLET (FP) PO PRN (23:03)
--- NOTE | 2019-07-06 23:24 | PN ---
Progress Note, Physician History of Present Illness: Pt w/o SOB, CP, palpitations, abd pain. Pt with left ankle pain, since the fall, worse today. Pt's and son are at bed side. - Current Medication List Current Medications: Active Medications Acetaminophen (Tylenol -) 650 mg PO Q6H PRN PRN Reason: PAIN LEVEL 1-5 Acetaminophen (Tylenol -) 325 mg PO Q4H PRN PRN Reason: PAIN LEVEL 6-10 Stop: 07/09/19 22:17 Last Admin: 07/06/19 23:03 Dose: 325 mg Aspirin (Asa -) 81 mg PO DAILY [facility] Last Admin: 07/06/19 10:44 Dose: 81 mg Atenolol (Tenormin -) 100 mg PO BID [facility] Last Admin: 07/06/19 23:01 Dose: 100 mg Atorvastatin Calcium (Lipitor -) 80 mg PO HS [facility] Last Admin: 07/06/19 22:59 Dose: 80 mg Clopidogrel Bisulfate (Plavix -) 75 mg PO DAILY [facility] Ezetimibe (Zetia -) 10 mg PO DAILY [facility] Last Admin: 07/06/19 10:42 Dose: 10 mg Finasteride (Proscar -) 5 mg PO DAILY [facility] Last Admin: 07/06/19 10:43 Dose: 5 mg Insulin Aspart (Novolog Vial Sliding Scale -) 1 vial SQ ACHS [facility]; Protocol Last Admin: 07/06/19 23:01 Dose: 2 units Insulin Detemir (Levemir Vial) 60 units SQ AM [facility] Last Admin: 07/06/19 07:35 Dose: Not Given Isosorbide Mononitrate (Imdur -) 120 mg PO DAILY [facility] Last Admin: 07/06/19 10:43 Dose: 120 mg Montelukast Sodium (Singulair -) 10 mg PO HS [facility] Last Admin: 07/06/19 22:59 Dose: 10 mg Nitroglycerin (Nitrolingual [place] -) 1 spray TL Q5M PRN PRN Reason: FOR CHEST PAIN Oxycodone HCl (Roxicodone -) 5 mg PO Q4H PRN PRN Reason: PAIN LEVEL 6-10 Last Admin: 07/06/19 23:02 Dose: 5 mg Pantoprazole Sodium (Protonix -) 40 mg PO DAILY [facility] Last Admin: 07/06/19 10:43 Dose: 40 mg Polyethylene Glycol (Miralax (For Bowel Prep) -) 17 gm PO DAILY PRN PRN Reason: CONSTIPATION Ranolazine (Ranexa -) 500 mg PO BID [facility] Last Admin: 07/06/19 23:01 Dose: 500 mg Senna (Senna -) 1 tab PO DAILY PRN PRN Reason: CONSTIPATION Sitagliptin Phosphate (Januvia -) 50 mg PO DAILY@0700 [facility] Last Admin: 07/06/19 06:51 Dose: 50 mg Tamsulosin HCl (Flomax -) 0.4 mg PO HS [facility] Last Admin: 07/06/19 23:01 Dose: 0.4 mg Ticagrelor (Brilinta -) 90 mg PO BID [facility] Last Admin: 07/06/19 23:03 Dose: 90 mg Torsemide (Demadex -) 20 mg PO DAILY [facility] Last Admin: 07/06/19 10:43 Dose: 20 mg Valsartan (Diovan -) 40 mg PO DAILY [facility] Last Admin: 07/06/19 10:43 Dose: 40 mg - Objective Vital Signs: Vital Signs Temperature 98.5 F 07/06/19 18:00 Pulse Rate 65 07/06/19 18:00 Respiratory Rate 18 07/06/19 18:00 Blood Pressure 110/45 L 07/06/19 18:00 O2 Sat by Pulse Oximetry (%) 98 07/06/19 09:00 Constitutional: Yes: No Distress, Calm Cardiovascular: Yes: Regular Rate and Rhythm, S1, S2 Respiratory: Yes: Regular, CTA Bilaterally. No: Rales Gastrointestinal: Yes: Normal Bowel Sounds, Soft, Abdomen, Obese. No: Tenderness Extremities: Yes: Other (Ledt ankle pain with palpation, midly swollen, no deformity) Edema: No Neurological: Yes: Alert, Oriented Labs: CBC, BMP 07/06/19 06:34 07/06/19 06:34 INR, PTT INR 1.20 (0.83-1.09) H 07/05/19 01:28 Problem List - Problems (1) Fall Code(s): W19.XXXA - UNSPECIFIED FALL, INITIAL ENCOUNTER (2) CAD (coronary artery disease) Code(s): I25.10 - ATHSCL HEART DISEASE OF [place] CORONARY ARTERY W/O ANG PCTRS (3) CVA (cerebral vascular accident) Code(s): I63.9 - CEREBRAL INFARCTION, UNSPECIFIED (4) CKD (chronic kidney disease) Code(s): N18.9 - CHRONIC KIDNEY DISEASE, UNSPECIFIED (5) S/P CABG (coronary artery bypass graft) Code(s): Z95.1 - PRESENCE OF AORTOCORONARY BYPASS GRAFT (6) Anemia Code(s): D64.9 - ANEMIA, UNSPECIFIED (7) Diabetes mellitus Code(s): E11.9 - TYPE 2 DIABETES MELLITUS WITHOUT COMPLICATIONS (8) HTN (hypertension) Code(s): I10 - ESSENTIAL (PRIMARY) HYPERTENSION (9) Ankle pain, left Code(s): M25.572 - PAIN IN LEFT ANKLE AND JOINTS OF LEFT FOOT Assessment/Plan Admitted to telemetry. negative CE Cardio consult is appreciated. To monitor Hb/ HCT. Renal function is stable. L ankle XR; consider Ortho consult AM labs.
[2019-07-07] MEDS: INSULIN (LEVEMIR) 100 UNITS/ML UNITS SQ SCH (06:47)
[2019-07-07] MEDS: sitaGLIPtin PHOSPHATE 50 MG TABLET PO SCH (06:48)
[2019-07-07] MEDS: ACETAMINOPHEN 325 MG TABLET (FP) PO PRN ×2 (06:48→23:41)
[2019-07-07] MEDS: oxyCODONE HCL 5 MG TABLET PO PRN ×2 (06:48→23:36)
[2019-07-07] MEDS: INSULIN SLIDING SCALE (NOVOLOG) 1 VIAL SQ SCH ×4 (06:48→22:30)
[2019-07-07 07:18] LABS: HEMATOCRIT 25.4 % (35.4-49); HEMOGLOBIN 8.7 GM/dL (11.7-16.9); MCH 32.7 pg (25.7-33.7); MCHC 34.4 g/dl (32.0-35.9); MEAN CELL VOLUME 95.1 fl (80-96); MEAN PLT VOLUME 9.5 fl (7.5-11.1); PLATELET COUNT 147 K/MM3 (134-434); RBC 2.67 M/mm3 (4.00-5.60); RDW 15.7 % (11.9-15.9); WHITE BLOOD COUNT 6.4 K/mm3 (4.0-10.0)
[2019-07-07 07:31] LABS: ALBUMIN 3.1 g/dl (3.4-5.0); BILIRUBIN,TOTAL 1.4 mg/dL (0.2-1); BLOOD UREA NITROGEN 54.9 mg/dL (7-18); CREATININE 1.9 mg/dL (0.55-1.3); POTASSIUM 4.3 mmol/L (3.5-5.1); TOT PROT 6.7 g/dl (6.4-8.2)
--- NOTE | 2019-07-07 09:49 | PN ---
Progress Note (short form) - Note Progress Note: s: no cp sob palps dizzy Current Medications Generic Name Dose Route Start Last Admin Trade Name Freq PRN Reason Stop Dose Admin Acetaminophen 650 mg 07/06/19 22:08 Tylenol - PO Q6H PRN PAIN LEVEL 1-5 Acetaminophen 325 mg 07/06/19 22:18 07/07/19 06:48 Tylenol - PO 07/09/19 22:17 325 mg Q4H PRN Administration PAIN LEVEL 6-10 Aspirin 81 mg 07/05/19 19:45 07/06/19 10:44 Asa - PO 81 mg DAILY JAMILA Administration Atenolol 100 mg 07/05/19 22:00 07/06/19 23:01 Tenormin - PO 100 mg BID JAMILA Administration Atorvastatin Calcium 80 mg 07/05/19 22:00 07/06/19 22:59 Lipitor - PO 80 mg HS JAMILA Administration Clopidogrel Bisulfate 75 mg 07/06/19 10:00 Plavix - PO DAILY JAMILA Ezetimibe 10 mg 07/06/19 10:00 07/06/19 10:42 Zetia - PO 10 mg DAILY JAMILA Administration Finasteride 5 mg 07/05/19 19:45 07/06/19 10:43 Proscar - PO 5 mg DAILY JAMILA Administration Insulin Aspart 1 vial 07/06/19 07:00 07/07/19 06:48 Novolog Vial Sliding Scale - SQ 2 units ACHS JAMILA Administration Protocol Insulin Detemir 60 units 07/06/19 07:00 07/07/19 06:47 Levemir Vial SQ Not Given AM JAMILA Isosorbide Mononitrate 120 mg 07/06/19 10:00 07/06/19 10:43 Imdur - PO 120 mg DAILY JAMILA Administration Montelukast Sodium 10 mg 07/05/19 22:00 07/06/19 22:59 Singulair - PO 10 mg HS JAMILA Administration Nitroglycerin 1 spray 07/05/19 19:37 Nitrolingual [place] - TL Q5M PRN FOR CHEST PAIN Oxycodone HCl 5 mg 07/06/19 22:18 07/07/19 06:48 Roxicodone - PO 5 mg Q4H PRN Administration PAIN LEVEL 6-10 Pantoprazole Sodium 40 mg 07/05/19 19:45 07/06/19 10:43 Protonix - PO 40 mg DAILY JAMILA Administration Polyethylene Glycol 17 gm 07/05/19 19:37 Miralax (For Bowel Prep) - PO DAILY PRN CONSTIPATION Ranolazine 500 mg 07/05/19 22:00 07/06/19 23:01 Ranexa - PO 500 mg BID JAMILA Administration Senna 1 tab 07/05/19 19:37 Senna - PO DAILY PRN CONSTIPATION Sitagliptin Phosphate 50 mg 07/06/19 07:00 07/07/19 06:48 Januvia - PO 50 mg DAILY@0700 JAMILA Administration Tamsulosin HCl 0.4 mg 07/05/19 22:00 07/06/19 23:01 Flomax - PO 0.4 mg HS JAMILA Administration Ticagrelor 90 mg 07/06/19 10:00 07/06/19 23:03 Brilinta - PO 90 mg BID JAMILA Administration Torsemide 20 mg 07/06/19 10:00 07/06/19 10:43 Demadex - PO 20 mg DAILY JAMILA Administration Valsartan 40 mg 07/06/19 10:00 07/06/19 10:43 Diovan - PO 40 mg DAILY JAMILA Administration Vital Signs Period Temp Pulse Resp BP Sys/Chen Pulse Ox Last 24 Hr 97.8 F-99.8 F 53-66 18-20 110-141/43-62 95 Constitutional: Yes: Well Nourished, No Distress Eyes: No: Sclera Icterus HENT: No: Nasal Congestion Respiratory: Yes: CTA Bilaterally, No: Accessory Muscle Use, Wheezes Gastrointestinal: Yes: Normal Bowel Sounds. No: Distention, Hepatomegaly, Palpable Mass, Tenderness Cardiovascular: Yes: Regular Rate and Rhythm JVD: no Heart Sounds: Yes: S1, S2. No: Gallop Murmur: No: Systolic Murmur, Diastolic Murmur Extremities: No: Cool, Cyanosis Edema:no Peripheral Pulses: 2+ Left Carotid, 2+ Right Carotid, 2+ Left Doralis Pedis, 2+ Right Dorsalis Pedis Integumentary: No: Jaundice diaphoresis Neurological: Yes: Alert, Oriented (x3) Psychiatric: No: Agitated - Other Data Labs, Other Data: CBC, BMP 07/07/19 06:20 07/07/19 06:20 ECG: sr; incomplete LBBB, similar to priors CXR: clear lungs tele: sr echo 02/2015: nl lvef, mild as/tr/mr, mild lae echo 10/2018: nl lv/rv, mild as, mild mr, mild tr, mild phtn mibi 02/2015: inferolat scar with minimal fahad ischemia Assessment/Plan 73 m hx htn, hld, dchf, cva, pad, cad s/p cabg 1997, pci 2011, 2012, 2013, and most recent cath for nstemi 04/2019 with latoya to d1, lcx, here with fall. cad: -has been stable since his most recent cath for nstemi 04/2019 with latoya to d1, lcx -no signs acs here -continue home atenolol, imdur, ranexa, atorva, brilinta, asa, zetia, valsartan chronic diastolic CHF: -stable at present -cont home torsemide 20 qd ckd: -cr close to baseline 1.7-2 HTN: -cont current meds hld: -cont statin fall: -seems mechanical, tele benign -PT eval dc tele
[2019-07-07] MEDS: ISOSORBIDE MONONITRATE 60 MG TAB.SR.24H (FP) PO SCH (10:59)
[2019-07-07] MEDS: ATENOLOL 50 MG TABLET (FP) PO SCH ×2 (10:59→22:23)
[2019-07-07] MEDS: TORSEMIDE 20 MG TABLET (FP) PO SCH (11:00)
[2019-07-07] MEDS: RANOLAZINE E.R. 500 MG TABLET (FP) PO SCH ×2 (11:00→22:23)
[2019-07-07] MEDS: EZETIMIBE 10 MG TABLET (FP) PO SCH (11:00)
[2019-07-07] MEDS: FINASTERIDE 5 MG TABLET (FP) PO SCH (11:00)
[2019-07-07] MEDS: ASPIRIN 81 MG CHEWABLE TABLETS PO SCH (11:00)
[2019-07-07] MEDS: VALSARTAN 40 MG TABLET (FP) PO SCH (11:00)
[2019-07-07] MEDS: PANTOPRAZOLE 40 MG TABLET (FP) PO SCH (11:00)
[2019-07-07] MEDS: TICAGRELOR 90 MG TABLET PO SCH ×2 (11:00→22:21)
[2019-07-07] MEDS ORDERED: INSULIN (LEVEMIR) 100 UNITS/ML UNITS SQ SCH (11:31)
--- NOTE | 2019-07-07 11:37 | PN ---
Progress Note, Physician History of Present Illness: Pt w/o SOB, CP, palpitations, abd pain. Pt with left ankle pain, since the fall, not better, XR still pending. Pt states that the other day he had BM and stained and saw a little blood; he states that is happening when he strains. - Current Medication List Current Medications: Active Medications Acetaminophen (Tylenol -) 650 mg PO Q6H PRN PRN Reason: PAIN LEVEL 1-5 Acetaminophen (Tylenol -) 325 mg PO Q4H PRN PRN Reason: PAIN LEVEL 6-10 Stop: 07/09/19 22:17 Last Admin: 07/07/19 06:48 Dose: 325 mg Aspirin (Asa -) 81 mg PO DAILY [facility] Last Admin: 07/07/19 11:00 Dose: 81 mg Atenolol (Tenormin -) 100 mg PO BID [facility] Last Admin: 07/07/19 10:59 Dose: 100 mg Atorvastatin Calcium (Lipitor -) 80 mg PO HS [facility] Last Admin: 07/06/19 22:59 Dose: 80 mg Clopidogrel Bisulfate (Plavix -) 75 mg PO DAILY [facility] Ezetimibe (Zetia -) 10 mg PO DAILY [facility] Last Admin: 07/07/19 11:00 Dose: 10 mg Finasteride (Proscar -) 5 mg PO DAILY [facility] Last Admin: 07/07/19 11:00 Dose: 5 mg Insulin Aspart (Novolog Vial Sliding Scale -) 1 vial SQ ACHS [facility]; Protocol Last Admin: 07/07/19 06:48 Dose: 2 units Insulin Detemir (Levemir Vial) 37 units SQ AM [facility] Isosorbide Mononitrate (Imdur -) 120 mg PO DAILY [facility] Last Admin: 07/07/19 10:59 Dose: 120 mg Montelukast Sodium (Singulair -) 10 mg PO HS [facility] Last Admin: 07/06/19 22:59 Dose: 10 mg Nitroglycerin (Nitrolingual [place] -) 1 spray TL Q5M PRN PRN Reason: FOR CHEST PAIN Oxycodone HCl (Roxicodone -) 5 mg PO Q4H PRN PRN Reason: PAIN LEVEL 6-10 Last Admin: 07/07/19 06:48 Dose: 5 mg Pantoprazole Sodium (Protonix -) 40 mg PO DAILY [facility] Last Admin: 07/07/19 11:00 Dose: 40 mg Polyethylene Glycol (Miralax (For Bowel Prep) -) 17 gm PO DAILY PRN PRN Reason: CONSTIPATION Ranolazine (Ranexa -) 500 mg PO BID [facility] Last Admin: 07/07/19 11:00 Dose: 500 mg Senna (Senna -) 1 tab PO DAILY PRN PRN Reason: CONSTIPATION Sitagliptin Phosphate (Januvia -) 50 mg PO DAILY@0700 [facility] Last Admin: 07/07/19 06:48 Dose: 50 mg Tamsulosin HCl (Flomax -) 0.4 mg PO HS [facility] Last Admin: 07/06/19 23:01 Dose: 0.4 mg Ticagrelor (Brilinta -) 90 mg PO BID [facility] Last Admin: 07/07/19 11:00 Dose: 90 mg Torsemide (Demadex -) 20 mg PO DAILY [facility] Last Admin: 07/07/19 11:00 Dose: 20 mg Valsartan (Diovan -) 40 mg PO DAILY [facility] Last Admin: 07/07/19 11:00 Dose: 40 mg - Objective Vital Signs: Vital Signs Temperature 98.1 F 07/07/19 10:00 Pulse Rate 89 07/07/19 10:00 Respiratory Rate 20 07/07/19 10:00 Blood Pressure 118/61 07/07/19 10:00 O2 Sat by Pulse Oximetry (%) 95 07/07/19 09:00 Constitutional: Yes: No Distress, Calm Cardiovascular: Yes: Regular Rate and Rhythm, S1, S2 Respiratory: Yes: Regular, CTA Bilaterally. No: Rales Gastrointestinal: Yes: Normal Bowel Sounds, Soft. No: Tenderness Edema: No Neurological: Yes: Alert, Oriented Labs: CBC, BMP 07/07/19 06:20 07/07/19 06:20 INR, PTT INR 1.20 (0.83-1.09) H 07/05/19 01:28 Problem List - Problems (1) Fall Code(s): W19.XXXA - UNSPECIFIED FALL, INITIAL ENCOUNTER (2) CAD (coronary artery disease) Code(s): I25.10 - ATHSCL HEART DISEASE OF [place] CORONARY ARTERY W/O ANG PCTRS (3) CVA (cerebral vascular accident) Code(s): I63.9 - CEREBRAL INFARCTION, UNSPECIFIED (4) CKD (chronic kidney disease) Code(s): N18.9 - CHRONIC KIDNEY DISEASE, UNSPECIFIED (5) S/P CABG (coronary artery bypass graft) Code(s): Z95.1 - PRESENCE OF AORTOCORONARY BYPASS GRAFT (6) Anemia Code(s): D64.9 - ANEMIA, UNSPECIFIED (7) Diabetes mellitus Code(s): E11.9 - TYPE 2 DIABETES MELLITUS WITHOUT COMPLICATIONS (8) HTN (hypertension) Code(s): I10 - ESSENTIAL (PRIMARY) HYPERTENSION (9) Ankle pain, left Code(s): M25.572 - PAIN IN LEFT ANKLE AND JOINTS OF LEFT FOOT Assessment/Plan Admitted to telemetry. negative CE Cardio consult is appreciated. To monitor Hb/ HCT. Renal function is stable. L ankle XR;Ortho consult. PT Stool for occult blood. AM labs.
[2019-07-07] MEDS ORDERED: DOCUSATE SODIUM 100 MG CAPSULE (FP) PO SCH (12:00)
[2019-07-07 17:08] LABS: CK-MM 100 % (97-100)
[2019-07-07] MEDS ORDERED: SENNOSIDES 8.6MG TABLET (FP) PO PRN (19:14)
[2019-07-07] MEDS ORDERED: NITROGLYCERIN 0.4MG/SPRAY 4.9 GM BOTTLE TL PRN (19:14)
[2019-07-07] MEDS: DOCUSATE SODIUM 100 MG CAPSULE (FP) PO SCH (22:22)
[2019-07-07] MEDS: TAMSULOSIN HCL 0.4 MG CAP PO SCH (22:22)
[2019-07-07] MEDS: MONTELUKAST NA 10 MG TABLET PO SCH (22:22)
[2019-07-07] MEDS: ATORVASTATIN CA 80 MG TABLET (FP) PO SCH (22:22)
[2019-07-08] MEDS: CLOPIDOGREL BISULFATE 75 MG TABLET (FP) PO SCH ×2 (03:40→03:41)
[2019-07-08] MEDS: INSULIN (LEVEMIR) 100 UNITS/ML UNITS SQ SCH (07:00)
[2019-07-08] MEDS: sitaGLIPtin PHOSPHATE 50 MG TABLET PO SCH (07:00)
[2019-07-08] MEDS: INSULIN SLIDING SCALE (NOVOLOG) 1 VIAL SQ SCH ×4 (07:01→21:35)
[2019-07-08 08:24] LABS: HEMATOCRIT 28.8 % (35.4-49); HEMOGLOBIN 9.7 GM/dL (11.7-16.9); MCH 32.8 pg (25.7-33.7); MCHC 33.7 g/dl (32.0-35.9); MEAN CELL VOLUME 97.3 fl (80-96); MEAN PLT VOLUME 9.8 fl (7.5-11.1); PLATELET COUNT 155 K/MM3 (134-434); RBC 2.96 M/mm3 (4.00-5.60); WHITE BLOOD COUNT 5.5 K/mm3 (4.0-10.0)
[2019-07-08] MEDS ORDERED: PT OWN MED DRAWER 7, Y5N ONE (09:27)
--- NOTE | 2019-07-08 09:33 | CON.ORTH ---
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: CVA (with left hemiparesis) Cardio/Vascular: Yes: CAD (s/p CABG and stenting), HTN, NC Renal/: Yes: Renal Failure (VICENTE and CRF) Endocrine: Yes: Diabetes Mellitus - Past Surgical History Past Surgical History: Yes: Bypass, Carotid Endarterectomy, Stent (to LE) - Alcohol/Substance Use Hx Alcohol Use: No - Smoking History Smoking history: Former smoker Have you smoked in the past 12 months: No Aproximately how many cigarettes per day: 0 Home Medications - Allergies Allergies/Adverse Reactions: Allergies Allergy/AdvReac Type Severity Reaction Status Date / Time No Known Allergies Allergy Verified 07/05/19 02:02 - Home Medications Home Medications: Ambulatory Orders Atenolol [Tenormin -] 100 mg PO BID #0 tablet 12/19/12 Isosorbide Mononitrate [Imdur] 120 mg PO DAILY 01/08/13 Pantoprazole Sodium 40 mg PO DAILY 01/08/13 Ranolazine [Ranexa] 500 mg PO BID 01/08/13 Tamsulosin HCl 0.4 mg PO HS 01/08/13 Atorvastatin Ca [Lipitor] 80 mg PO DAILY 06/04/18 Clopidogrel Bisulfate [Plavix] 75 mg PO DAILY 06/04/18 Ezetimibe [Zetia] 10 mg PO DAILY 06/04/18 Finasteride [Proscar] 5 mg PO DAILY 06/04/18 Insulin (LOG) Aspart [NovoLOG -] 0 units SQ TID 06/04/18 Insulin Degludec [Tresiba Flextouch U-100] 37 unit SQ AM 06/04/18 Montelukast Sodium [Singulair] 10 mg PO DAILY 06/04/18 Nitroglycerin [place] [Nitrolingual [place] -] 1 spray TL Q5M PRN 06/04/18 Polyethylene Glycol 3350 [Miralax 255 gm Btl -] 17 gm PO DAILY PRN 06/04/18 Sennosides [Senokot] 8.6 mg PO DAILY PRN 06/04/18 Sitagliptin Phosphate [Januvia] 50 mg PO DAILY 06/04/18 Torsemide [Demadex -] 20 mg PO DAILY #30 tablet MDD 1 06/11/18 Aspirin [ASA -] 81 mg PO DAILY 07/05/19 Isosorbide Mononitrate [Isosorbide Mononitrate ER] 60 mg PO DAILY 07/05/19 Ticagrelor [Brilinta] 90 mg PO BID 07/05/19 Valsartan [Diovan] 40 mg PO DAILY 07/05/19 Physical Exam for Ortho Vital Signs: Vital Signs Temperature 98.4 F 07/08/19 06:00 Pulse Rate 54 L 07/08/19 06:00 Respiratory Rate 18 07/08/19 06:00 Blood Pressure 142/64 07/08/19 06:00 O2 Sat by Pulse Oximetry (%) 97 07/07/19 21:00 Labs: CBC, BMP 07/08/19 07:35 INR, PTT INR 1.20 (0.83-1.09) H 07/05/19 01:28 Assessment/Plan CONSULT PENDING Imaging reviewed - no ankle fracture. Pt likely sprained ankle when he fell. Ankle brace (Air Cast) ordered. Nursing staff can apply brace when it arrrives from central and pt can then be OOB with full WBAT. I am away this weekend and will see the patient on Tuesday. - JOE
[2019-07-08 09:37] LABS: ALBUMIN 3.4 g/dl (3.4-5.0); BILIRUBIN,TOTAL 1.4 mg/dL (0.2-1); BLOOD UREA NITROGEN 59.3 mg/dL (7-18); CALCIUM 10.6 mg/dL (8.5-10.1); CREATININE 2.2 mg/dL (0.55-1.3); POTASSIUM 4.5 mmol/L (3.5-5.1); TOT PROT 7.6 g/dl (6.4-8.2)
[2019-07-08] MEDS ORDERED: CLOPIDOGREL BISULFATE 75 MG TABLET (FP) PO SCH (10:00)
--- NOTE | 2019-07-08 10:45 | PN ---
Progress Note (short form) - Note Progress Note: s: no cp sob palps dizzy Current Medications Generic Name Dose Route Start Last Admin Trade Name Freq PRN Reason Stop Dose Admin Acetaminophen 650 mg 07/07/19 19:14 Tylenol - PO Q6H PRN PAIN LEVEL 1-5 Acetaminophen 325 mg 07/07/19 19:14 07/07/19 23:41 Tylenol - PO 07/09/19 22:17 325 mg Q4H PRN Administration PAIN LEVEL 6-10 Aspirin 81 mg 07/08/19 10:00 Asa - PO DAILY [facility] Atenolol 100 mg 07/07/19 22:00 07/07/19 22:23 Tenormin - PO Not Given BID [facility] Atorvastatin Calcium 80 mg 07/07/19 22:00 07/07/19 22:22 Lipitor - PO 80 mg HS [facility] Administration Docusate Sodium 100 mg 07/07/19 22:00 07/07/19 22:22 Colace - PO 100 mg BID [facility] Administration Ezetimibe 10 mg 07/08/19 10:00 Zetia - PO DAILY [facility] Finasteride 5 mg 07/08/19 10:00 Proscar - PO DAILY [facility] Insulin Aspart 1 vial 07/07/19 22:00 07/08/19 07:01 Novolog Vial Sliding Scale - SQ 4 units ACHS [facility] Administration Protocol Insulin Detemir 37 units 07/08/19 07:00 07/08/19 07:00 Levemir Vial SQ 37 units AM [facility] Administration Isosorbide Mononitrate 120 mg 07/08/19 10:00 Imdur - PO DAILY [facility] Montelukast Sodium 10 mg 07/07/19 22:00 07/07/19 22:22 Singulair - PO 10 mg HS [facility] Administration Nitroglycerin 1 spray 07/07/19 19:14 Nitrolingual [place] - TL Q5M PRN FOR CHEST PAIN Oxycodone HCl 5 mg 07/07/19 19:14 07/07/19 23:36 Roxicodone - PO 5 mg Q4H PRN Administration PAIN LEVEL 6-10 Pantoprazole Sodium 40 mg 07/08/19 10:00 Protonix - PO DAILY [facility] Polyethylene Glycol 17 gm 07/07/19 19:14 Miralax (For Bowel Prep) - PO DAILY PRN [facility]STIP[facility] Ranolazine 500 mg 07/07/19 22:00 07/07/19 22:23 Ranexa - PO 500 mg BID [facility] Administration Senna 1 tab 07/07/19 19:14 Senna - PO DAILY PRN [facility] Sitagliptin Phosphate 50 mg 07/08/19 07:00 07/08/19 07:00 Januvia - PO 50 mg DAILY@0700 [facility] Administration Tamsulosin HCl 0.4 mg 07/07/19 22:00 07/07/19 22:22 Flomax - PO 0.4 mg HS [facility] Administration Ticagrelor 90 mg 07/07/19 22:00 07/07/19 22:21 Brilinta - PO 90 mg BID [facility] Administration Torsemide 20 mg 07/08/19 10:00 Demadex - PO DAILY [facility] Valsartan 40 mg 07/08/19 10:00 Diovan - PO DAILY [facility] Vital Signs Period Temp Pulse Resp BP Sys/Chen Pulse Ox Last 24 Hr 98.0 F-98.4 F 54-58 18-20 113-142/45-64 97 Constitutional: Yes: Well Nourished, No Distress Eyes: No: Sclera Icterus HENT: No: Nasal Congestion Respiratory: Yes: CTA Bilaterally, No: Accessory Muscle Use, Wheezes Gastrointestinal: Yes: Normal Bowel Sounds. No: Distention, Hepatomegaly, Palpable Mass, Tenderness Cardiovascular: Yes: Regular Rate and Rhythm JVD: no Heart Sounds: Yes: S1, S2. No: Gallop Murmur: No: Systolic Murmur, Diastolic Murmur Extremities: No: Cool, Cyanosis Edema:no Integumentary: No: Jaundice diaphoresis Neurological: Yes: Alert, Oriented (x3) Psychiatric: No: Agitated - Other Data Labs, Other Data: CBC, BMP 07/08/19 07:35 07/08/19 07:35 ECG: sr; incomplete LBBB, similar to priors CXR: clear lungs echo 02/2015: nl lvef, mild as/tr/mr, mild lae echo 10/2018: nl lv/rv, mild as, mild mr, mild tr, mild phtn mibi 02/2015: inferolat scar with minimal fahad ischemia Assessment/Plan 73 m hx htn, hld, dchf, cva, pad, cad s/p cabg 1997, pci 2011, 2012, 2013, and most recent cath for nstemi 04/2019 with latoya to d1, lcx, here with fall. cad: -has been stable since his most recent cath for nstemi 04/2019 with latoya to d1, lcx -no signs acs here -continue home atenolol, imdur, ranexa, atorva, brilinta, asa, zetia, valsartan chronic diastolic CHF: -stable at present -cont home torsemide 20 qd ckd: -cr close to baseline 1.7-2 HTN: -cont current meds hld: -cont statin fall: -seems mechanical, tele benign -PT eval
[2019-07-08] MEDS: ASPIRIN 81 MG CHEWABLE TABLETS PO SCH (10:56)
[2019-07-08] MEDS: TICAGRELOR 90 MG TABLET PO SCH ×2 (10:57→21:35)
[2019-07-08] MEDS: PANTOPRAZOLE 40 MG TABLET (FP) PO SCH (10:58)
[2019-07-08] MEDS: DOCUSATE SODIUM 100 MG CAPSULE (FP) PO SCH ×2 (10:58→21:35)
[2019-07-08] MEDS: VALSARTAN 40 MG TABLET (FP) PO SCH (10:58)
[2019-07-08] MEDS: ISOSORBIDE MONONITRATE 60 MG TAB.SR.24H (FP) PO SCH (10:58)
[2019-07-08] MEDS: TORSEMIDE 20 MG TABLET (FP) PO SCH (10:58)
[2019-07-08] MEDS: FINASTERIDE 5 MG TABLET (FP) PO SCH (10:58)
[2019-07-08] MEDS: ATENOLOL 50 MG TABLET (FP) PO SCH ×2 (10:59→21:36)
[2019-07-08] MEDS: RANOLAZINE E.R. 500 MG TABLET (FP) PO SCH ×2 (10:59→21:36)
[2019-07-08] MEDS: EZETIMIBE 10 MG TABLET (FP) PO SCH (11:00)
--- NOTE | 2019-07-08 12:28 | PN ---
Progress Note, Physician History of Present Illness: Pt w/o SOB, CP, palpitations, abd pain. Pt with left ankle pain, better today. Pt is c/o significant left knee pain today - Current Medication List Current Medications: Active Medications Acetaminophen (Tylenol -) 650 mg PO Q6H PRN PRN Reason: PAIN LEVEL 1-5 Acetaminophen (Tylenol -) 325 mg PO Q4H PRN PRN Reason: PAIN LEVEL 6-10 Stop: 07/09/19 22:17 Last Admin: 07/07/19 23:41 Dose: 325 mg Aspirin (Asa -) 81 mg PO DAILY [facility] Last Admin: 07/08/19 10:56 Dose: 81 mg Atenolol (Tenormin -) 100 mg PO BID [facility] Last Admin: 07/08/19 10:59 Dose: 100 mg Atorvastatin Calcium (Lipitor -) 80 mg PO HS [facility] Last Admin: 07/07/19 22:22 Dose: 80 mg Docusate Sodium (Colace -) 100 mg PO BID [facility] Last Admin: 07/08/19 10:58 Dose: 100 mg Ezetimibe (Zetia -) 10 mg PO DAILY [facility] Last Admin: 07/08/19 11:00 Dose: 10 mg Finasteride (Proscar -) 5 mg PO DAILY [facility] Last Admin: 07/08/19 10:58 Dose: 5 mg Insulin Aspart (Novolog Vial Sliding Scale -) 1 vial SQ ACHS [facility]; Protocol Last Admin: 07/08/19 11:53 Dose: 4 units Insulin Detemir (Levemir Vial) 37 units SQ AM [facility] Last Admin: 07/08/19 07:00 Dose: 37 units Isosorbide Mononitrate (Imdur -) 120 mg PO DAILY [facility] Last Admin: 07/08/19 10:58 Dose: 120 mg Montelukast Sodium (Singulair -) 10 mg PO HS [facility] Last Admin: 07/07/19 22:22 Dose: 10 mg Nitroglycerin (Nitrolingual [place] -) 1 spray TL Q5M PRN PRN Reason: FOR CHEST PAIN Oxycodone HCl (Roxicodone -) 5 mg PO Q4H PRN PRN Reason: PAIN LEVEL 6-10 Last Admin: 07/07/19 23:36 Dose: 5 mg Pantoprazole Sodium (Protonix -) 40 mg PO DAILY [facility] Last Admin: 07/08/19 10:58 Dose: 40 mg Polyethylene Glycol (Miralax (For Bowel Prep) -) 17 gm PO DAILY PRN PRN Reason: CONSTIPATION Ranolazine (Ranexa -) 500 mg PO BID [facility] Last Admin: 07/08/19 10:59 Dose: 500 mg Senna (Senna -) 1 tab PO DAILY PRN PRN Reason: CONSTIPATION Sitagliptin Phosphate (Januvia -) 50 mg PO DAILY@0700 [facility] Last Admin: 07/08/19 07:00 Dose: 50 mg Tamsulosin HCl (Flomax -) 0.4 mg PO HS [facility] Last Admin: 07/07/19 22:22 Dose: 0.4 mg Ticagrelor (Brilinta -) 90 mg PO BID [facility] Last Admin: 07/08/19 10:57 Dose: 90 mg Torsemide (Demadex -) 20 mg PO DAILY [facility] Last Admin: 07/08/19 10:58 Dose: 20 mg Valsartan (Diovan -) 40 mg PO DAILY [facility] Last Admin: 07/08/19 10:58 Dose: 40 mg - Objective Vital Signs: Vital Signs Temperature 98.4 F 07/08/19 06:00 Pulse Rate 54 L 07/08/19 06:00 Respiratory Rate 18 07/08/19 06:00 Blood Pressure 142/64 07/08/19 06:00 O2 Sat by Pulse Oximetry (%) 97 07/07/19 21:00 Constitutional: Yes: No Distress, Calm Cardiovascular: Yes: Regular Rate and Rhythm, S1, S2 Respiratory: Yes: Regular, CTA Bilaterally. No: Rales Gastrointestinal: Yes: Normal Bowel Sounds, Soft, Abdomen, Obese. No: Tenderness Extremities: Yes: Other (Left Knee: no swelling, no calor, no erythema) Edema: No Neurological: Yes: Alert, Oriented Labs: CBC, BMP 07/08/19 07:35 07/08/19 07:35 INR, PTT INR 1.20 (0.83-1.09) H 07/05/19 01:28 - ....Imaging X-ray: Report Reviewed Problem List - Problems (1) Fall Code(s): W19.XXXA - UNSPECIFIED FALL, INITIAL ENCOUNTER (2) CAD (coronary artery disease) Code(s): I25.10 - ATHSCL HEART DISEASE OF [place] CORONARY ARTERY W/O ANG PCTRS (3) CVA (cerebral vascular accident) Code(s): I63.9 - CEREBRAL INFARCTION, UNSPECIFIED (4) CKD (chronic kidney disease) Code(s): N18.9 - CHRONIC KIDNEY DISEASE, UNSPECIFIED (5) S/P CABG (coronary artery bypass graft) Code(s): Z95.1 - PRESENCE OF AORTOCORONARY BYPASS GRAFT (6) Anemia Code(s): D64.9 - ANEMIA, UNSPECIFIED (7) Diabetes mellitus Code(s): E11.9 - TYPE 2 DIABETES MELLITUS WITHOUT COMPLICATIONS (8) HTN (hypertension) Code(s): I10 - ESSENTIAL (PRIMARY) HYPERTENSION (9) Ankle pain, left Code(s): M25.572 - PAIN IN LEFT ANKLE AND JOINTS OF LEFT FOOT (10) Knee pain, left Code(s): M25.562 - PAIN IN LEFT KNEE Assessment/Plan Admitted to telemetry, transferred t medical floor on 2018 negative CE Cardio consult is appreciated. L ankle XR w/o Fx; Ortho consult. Send pt for knee XR PT Stool for occult blood. AM labs.
[2019-07-08] MEDS: oxyCODONE HCL 5 MG TABLET PO PRN ×2 (13:12→21:37)
[2019-07-08] MEDS: ACETAMINOPHEN 325 MG TABLET (FP) PO PRN ×2 (13:13→21:37)
[2019-07-08] MEDS: ATORVASTATIN CA 80 MG TABLET (FP) PO SCH (21:35)
[2019-07-08] MEDS: TAMSULOSIN HCL 0.4 MG CAP PO SCH (21:35)
[2019-07-08] MEDS: MONTELUKAST NA 10 MG TABLET PO SCH (21:36)
[2019-07-09] MEDS: ACETAMINOPHEN 325 MG TABLET (FP) PO PRN ×3 (02:46→16:13)
[2019-07-09] MEDS: oxyCODONE HCL 5 MG TABLET PO PRN ×3 (02:46→16:13)
[2019-07-09] MEDS ORDERED: INSULIN (NOVOLOG) ASPART 100 UNITS/ML 10ML VIAL ONE (06:00)
[2019-07-09] MEDS: INSULIN (LEVEMIR) 100 UNITS/ML UNITS SQ SCH (06:17)
[2019-07-09] MEDS: sitaGLIPtin PHOSPHATE 50 MG TABLET PO SCH (06:17)
[2019-07-09] MEDS: INSULIN SLIDING SCALE (NOVOLOG) 1 VIAL SQ SCH ×4 (06:18→21:59)
[2019-07-09 06:50] LABS: HEMATOCRIT 24.3 % (35.4-49); HEMOGLOBIN 8.4 GM/dL (11.7-16.9); MCH 32.7 pg (25.7-33.7); MCHC 34.5 g/dl (32.0-35.9); MEAN PLT VOLUME 9.2 fl (7.5-11.1); PLATELET COUNT 144 K/MM3 (134-434); RBC 2.56 M/mm3 (4.00-5.60); RDW 15.5 % (11.9-15.9); WHITE BLOOD COUNT 3.2 K/mm3 (4.0-10.0)
[2019-07-09 07:03] LABS: BLOOD UREA NITROGEN 63.2 mg/dL (7-18); CALCIUM 10.2 mg/dL (8.5-10.1); CREATININE 2.2 mg/dL (0.55-1.3); POTASSIUM 4.3 mmol/L (3.5-5.1)
[2019-07-09] MEDS: ATENOLOL 50 MG TABLET (FP) PO SCH (10:31)
[2019-07-09] MEDS ORDERED: PT OWN MED DRAWER 7, Y5N ONE (10:35)
[2019-07-09] MEDS: DOCUSATE SODIUM 100 MG CAPSULE (FP) PO SCH ×2 (10:37→21:58)
[2019-07-09] MEDS: RANOLAZINE E.R. 500 MG TABLET (FP) PO SCH ×2 (10:37→21:58)
[2019-07-09] MEDS: PANTOPRAZOLE 40 MG TABLET (FP) PO SCH (10:37)
[2019-07-09] MEDS: FINASTERIDE 5 MG TABLET (FP) PO SCH ×2 (10:38→11:23)
[2019-07-09] MEDS: ASPIRIN 81 MG CHEWABLE TABLETS PO SCH (10:39)
[2019-07-09] MEDS: EZETIMIBE 10 MG TABLET (FP) PO SCH (10:39)
[2019-07-09] MEDS: TICAGRELOR 90 MG TABLET PO SCH ×2 (10:39→21:58)
[2019-07-09] MEDS ORDERED: ATENOLOL 50 MG TABLET (FP) PO SCH (10:53)
[2019-07-09] MEDS: VALSARTAN 40 MG TABLET (FP) PO SCH (11:22)
[2019-07-09] MEDS: TORSEMIDE 20 MG TABLET (FP) PO SCH (11:22)
[2019-07-09] MEDS: ISOSORBIDE MONONITRATE 60 MG TAB.SR.24H (FP) PO SCH (11:22)
--- NOTE | 2019-07-09 13:22 | EKG ---
Test Reason : Blood Pressure : / mmHG Vent. Rate : 049 BPM Atrial Rate : 049 BPM P-R Int : 174 ms QRS Dur : 124 ms QT Int : 458 ms P-R-T Axes : 087 -16 185 degrees QTc Int : 413 ms SINUS BRADYCARDIA POSSIBLE INFERIOR INFARCT , AGE UNDETERMINED NONSPECIFIC INTRAVENTRICULAR CONDUCTION DEFECT ABNORMAL ECG WHEN COMPARED WITH ECG OF 05-JUL-2019 01:02, LIKELY NO SIGNIFICANT CHANGES Confirmed by LIAM MADDEN MD ([id number]) on 07/09/2019 1:22:34 PM Referred By: CHARO PRADO GIT Confirmed By:LIAM MADDEN MD
--- NOTE | 2019-07-09 17:06 | PN ---
Progress Note (short form) - Note Progress Note: s: no cp sob palps dizzy former smoker Current Medications Acetaminophen (Tylenol -) 650 mg PO Q6H PRN PRN Reason: PAIN LEVEL 1-5 Last Admin: 07/09/19 16:13 Dose: 650 mg Acetaminophen (Tylenol -) 325 mg PO Q4H PRN PRN Reason: PAIN LEVEL 6-10 Stop: 07/09/19 22:17 Last Admin: 07/09/19 07:16 Dose: 325 mg Aspirin (Asa -) 81 mg PO DAILY [facility] Last Admin: 07/09/19 10:39 Dose: 81 mg Atorvastatin Calcium (Lipitor -) 80 mg PO HS [facility] Last Admin: 07/08/19 21:35 Dose: 80 mg Docusate Sodium (Colace -) 100 mg PO BID [facility] Last Admin: 07/09/19 10:37 Dose: 100 mg Ezetimibe (Zetia -) 10 mg PO DAILY [facility] Last Admin: 07/09/19 10:39 Dose: 10 mg Finasteride (Proscar -) 5 mg PO DAILY [facility] Last Admin: 07/09/19 11:23 Dose: Not Given Insulin Aspart (Novolog Vial Sliding Scale -) 1 vial SQ ACHS [facility]; Protocol Last Admin: 07/09/19 12:08 Dose: 4 units Insulin Detemir (Levemir Vial) 37 units SQ AM [facility] Last Admin: 07/09/19 06:17 Dose: 37 units Isosorbide Mononitrate (Imdur -) 120 mg PO DAILY [facility] Last Admin: 07/09/19 11:22 Dose: 120 mg Montelukast Sodium (Singulair -) 10 mg PO [facility] Last Admin: 07/08/19 21:36 Dose: 10 mg Nitroglycerin (Nitrolingual [place] -) 1 spray TL Q5M PRN PRN Reason: FOR CHEST PAIN Oxycodone HCl (Roxicodone -) 5 mg PO Q4H PRN PRN Reason: PAIN LEVEL 6-10 Last Admin: 07/09/19 16:13 Dose: 5 mg Pantoprazole Sodium (Protonix -) 40 mg PO DAILY [facility] Last Admin: 07/09/19 10:37 Dose: 40 mg Polyethylene Glycol (Miralax (For Bowel Prep) -) 17 gm PO DAILY PRN PRN Reason: CONSTIPATION Ranolazine (Ranexa -) 500 mg PO BID [facility] Last Admin: 07/09/19 10:37 Dose: 500 mg Senna (Senna -) 1 tab PO DAILY PRN PRN Reason: CONSTIPATION Last Admin: 07/08/19 13:12 Dose: 1 tab Sitagliptin Phosphate (Januvia -) 50 mg PO DAILY@0700 [facility] Last Admin: 07/09/19 06:17 Dose: 50 mg Tamsulosin HCl (Flomax -) 0.4 mg PO HS [facility] Last Admin: 07/08/19 21:35 Dose: 0.4 mg Ticagrelor (Brilinta -) 90 mg PO BID [facility] Last Admin: 07/09/19 10:39 Dose: 90 mg Torsemide (Demadex -) 20 mg PO DAILY [facility] Last Admin: 07/09/19 11:22 Dose: 20 mg Valsartan (Diovan -) 40 mg PO DAILY [facility] Last Admin: 07/09/19 11:22 Dose: 40 mg Vital Signs Period Temp Pulse Resp BP Sys/Chen Pulse Ox Last 24 Hr 98.0 F-98.4 F 54-58 18-20 113-142/45-64 97 Constitutional: Yes: Well Nourished, No Distress Eyes: No: Sclera Icterus HENT: No: Nasal Congestion Respiratory: Yes: CTA Bilaterally, No: Accessory Muscle Use, Wheezes Gastrointestinal: Yes: Normal Bowel Sounds. No: Distention, Hepatomegaly, Palpable Mass, Tenderness Cardiovascular: Yes: Regular Rate and Rhythm JVD: no Heart Sounds: Yes: S1, S2. No: Gallop Murmur: No: Systolic Murmur, Diastolic Murmur Extremities: No: Cool, Cyanosis Edema:no Integumentary: No: Jaundice diaphoresis Neurological: Yes: Alert, Oriented (x3) Psychiatric: No: Agitated 2 ECG: sr; incomplete LBBB, similar to priors CXR: clear lungs echo 02/2015: nl lvef, mild as/tr/mr, mild lae echo 10/2018: nl lv/rv, mild as, mild mr, mild tr, mild phtn mibi 02/2015: inferolat scar with minimal fahad ischemia Assessment/Plan 73 m hx htn, hld, dchf, cva, pad, cad s/p cabg 1997, pci 2011, 2012, 2013, and most recent cath for nstemi 04/2019 with latoya to d1, lcx, here with fall. bradycardia - EKG this AM sinus julieta with rate 49 bpm - atenolol held today - per outpatient dose of atenolol had been reduced to 100 mg daily (had been receiving 100 mg BID here) - changed to daily dosing with hold parameters, if remains bradycardic will reduce dose further cad: -has been stable since his most recent cath for nstemi 04/2019 with latoya to d1, lcx -no signs acs here -continue home atenolol, imdur, ranexa, atorva, brilinta, asa, zetia, valsartan chronic diastolic CHF: -stable at present -cont home torsemide 20 qd ckd: -cr close to baseline 1.7-2 HTN: -cont current meds hld: -cont statin fall: -seems mechanical, tele benign -PT eval
--- NOTE | 2019-07-09 18:53 | PN ---
Progress Note, Physician History of Present Illness: Pt w/o SOB, CP, palpitations, abd pain. Pt still with left ankle and Knee pain. Pt with constipation - Current Medication List Current Medications: Active Medications Acetaminophen (Tylenol -) 650 mg PO Q6H PRN PRN Reason: PAIN LEVEL 1-5 Last Admin: 07/09/19 16:13 Dose: 650 mg Acetaminophen (Tylenol -) 325 mg PO Q4H PRN PRN Reason: PAIN LEVEL 6-10 Stop: 07/09/19 22:17 Last Admin: 07/09/19 07:16 Dose: 325 mg Aspirin (Asa -) 81 mg PO DAILY [facility] Last Admin: 07/09/19 10:39 Dose: 81 mg Atenolol (Tenormin -) 100 mg PO DAILY [facility] Atorvastatin Calcium (Lipitor -) 80 mg PO HS [facility] Last Admin: 07/08/19 21:35 Dose: 80 mg Docusate Sodium (Colace -) 100 mg PO BID [facility] Last Admin: 07/09/19 10:37 Dose: 100 mg Ezetimibe (Zetia -) 10 mg PO DAILY [facility] Last Admin: 07/09/19 10:39 Dose: 10 mg Finasteride (Proscar -) 5 mg PO DAILY [facility] Last Admin: 07/09/19 11:23 Dose: Not Given Insulin Aspart (Novolog Vial Sliding Scale -) 1 vial SQ ACHS [facility]; Protocol Last Admin: 07/09/19 18:41 Dose: Not Given Insulin Detemir (Levemir Vial) 37 units SQ AM [facility] Last Admin: 07/09/19 06:17 Dose: 37 units Isosorbide Mononitrate (Imdur -) 120 mg PO DAILY [facility] Last Admin: 07/09/19 11:22 Dose: 120 mg Montelukast Sodium (Singulair -) 10 mg PO HS [facility] Last Admin: 07/08/19 21:36 Dose: 10 mg Nitroglycerin (Nitrolingual [place] -) 1 spray TL Q5M PRN PRN Reason: FOR CHEST PAIN Oxycodone HCl (Roxicodone -) 5 mg PO Q4H PRN PRN Reason: PAIN LEVEL 6-10 Last Admin: 07/09/19 16:13 Dose: 5 mg Pantoprazole Sodium (Protonix -) 40 mg PO DAILY [facility] Last Admin: 12/16/19 10:37 Dose: 40 mg Polyethylene Glycol (Miralax (For Bowel Prep) -) 17 gm PO DAILY PRN PRN Reason: CONSTIPATION Ranolazine (Ranexa -) 500 mg PO BID [facility] Last Admin: 07/09/19 10:37 Dose: 500 mg Senna (Senna -) 1 tab PO DAILY PRN PRN Reason: CONSTIPATION Last Admin: 07/08/19 13:12 Dose: 1 tab Sitagliptin Phosphate (Januvia -) 50 mg PO DAILY@0700 [facility] Last Admin: 07/09/19 06:17 Dose: 50 mg Tamsulosin HCl (Flomax -) 0.4 mg PO HS [facility] Last Admin: 07/08/19 21:35 Dose: 0.4 mg Ticagrelor (Brilinta -) 90 mg PO BID [facility] Last Admin: 07/09/19 10:39 Dose: 90 mg Torsemide (Demadex -) 20 mg PO DAILY [facility] Last Admin: 07/09/19 11:22 Dose: 20 mg Valsartan (Diovan -) 40 mg PO DAILY [facility] Last Admin: 07/09/19 11:22 Dose: 40 mg - Objective Vital Signs: Vital Signs Temperature 98.4 F 07/09/19 18:15 Pulse Rate 52 L 07/09/19 18:15 Respiratory Rate 19 07/09/19 18:15 Blood Pressure 120/50 L 07/09/19 18:15 O2 Sat by Pulse Oximetry (%) 96 07/09/19 09:00 Constitutional: Yes: No Distress, Calm Cardiovascular: Yes: Regular Rate and Rhythm, S1, S2 Respiratory: Yes: Regular, CTA Bilaterally. No: Rales Gastrointestinal: Yes: Normal Bowel Sounds, Soft. No: Tenderness Edema: No Neurological: Yes: Alert, Oriented Labs: CBC, BMP 07/09/19 06:10 07/09/19 06:10 INR, PTT INR 1.20 (0.83-1.09) H 07/05/19 01:28 Problem List - Problems (1) Fall Code(s): W19.XXXA - UNSPECIFIED FALL, INITIAL ENCOUNTER (2) CAD (coronary artery disease) Code(s): I25.10 - ATHSCL HEART DISEASE OF [place] CORONARY ARTERY W/O ANG PCTRS (3) CVA (cerebral vascular accident) Code(s): I63.9 - CEREBRAL INFARCTION, UNSPECIFIED (4) CKD (chronic kidney disease) Code(s): N18.9 - CHRONIC KIDNEY DISEASE, UNSPECIFIED (5) S/P CABG (coronary artery bypass graft) Code(s): Z95.1 - PRESENCE OF AORTOCORONARY BYPASS GRAFT (6) Anemia Code(s): D64.9 - ANEMIA, UNSPECIFIED (7) Diabetes mellitus Code(s): E11.9 - TYPE 2 DIABETES MELLITUS WITHOUT COMPLICATIONS (8) HTN (hypertension) Code(s): I10 - ESSENTIAL (PRIMARY) HYPERTENSION (9) Ankle pain, left Code(s): M25.572 - PAIN IN LEFT ANKLE AND JOINTS OF LEFT FOOT (10) Knee pain, left Code(s): M25.562 - PAIN IN LEFT KNEE (11) Leukopenia Code(s): D72.819 - DECREASED WHITE BLOOD CELL COUNT, UNSPECIFIED Assessment/Plan Admitted to telemetry, transferred to medical floor on 07/07/2019 negative CE Cardio consult is appreciated. L ankle and knee XR w/o Fx; Ortho consult. PT Stool for occult blood. AM labs.
[2019-07-09] MEDS: TAMSULOSIN HCL 0.4 MG CAP PO SCH (21:58)
[2019-07-09] MEDS: ATORVASTATIN CA 80 MG TABLET (FP) PO SCH (21:58)
[2019-07-09] MEDS: SENNOSIDES 8.6MG TABLET (FP) PO SCH (21:58)
[2019-07-09] MEDS: MONTELUKAST NA 10 MG TABLET PO SCH (21:58)
[2019-07-09] MEDS: POLYETHYLENE GLYCOL 3350 255 GM BTL PO PRN (22:00)
[2019-07-10] MEDS: ACETAMINOPHEN 325 MG TABLET (FP) PO PRN ×3 (02:45→15:13)
[2019-07-10] MEDS: INSULIN SLIDING SCALE (NOVOLOG) 1 VIAL SQ SCH ×4 (06:12→22:41)
[2019-07-10] MEDS: INSULIN (LEVEMIR) 100 UNITS/ML UNITS SQ SCH (06:12)
[2019-07-10] MEDS: sitaGLIPtin PHOSPHATE 50 MG TABLET PO SCH (06:12)
[2019-07-10 08:33] LABS: HEMATOCRIT 23.6 % (35.4-49); HEMOGLOBIN 8.1 GM/dL (11.7-16.9); MCH 32.7 pg (25.7-33.7); MCHC 34.3 g/dl (32.0-35.9); MEAN CELL VOLUME 95.4 fl (80-96); MEAN PLT VOLUME 8.8 fl (7.5-11.1); PLATELET COUNT 153 K/MM3 (134-434); RBC 2.47 M/mm3 (4.00-5.60); RDW 15.8 % (11.9-15.9); WHITE BLOOD COUNT 3.3 K/mm3 (4.0-10.0)
[2019-07-10 09:14] LABS: BLOOD UREA NITROGEN 64.1 mg/dL (7-18); CALCIUM 9.9 mg/dL (8.5-10.1); CREATININE 2.2 mg/dL (0.55-1.3); POTASSIUM 4.2 mmol/L (3.5-5.1)
[2019-07-10] MEDS: SENNOSIDES 8.6MG TABLET (FP) PO SCH ×2 (09:22→22:40)
[2019-07-10] MEDS: RANOLAZINE E.R. 500 MG TABLET (FP) PO SCH ×2 (09:22→22:40)
[2019-07-10] MEDS: ASPIRIN 81 MG CHEWABLE TABLETS PO SCH (09:22)
[2019-07-10] MEDS: PANTOPRAZOLE 40 MG TABLET (FP) PO SCH ×2 (09:23→22:40)
[2019-07-10] MEDS: TICAGRELOR 90 MG TABLET PO SCH ×2 (09:23→22:40)
[2019-07-10] MEDS: FINASTERIDE 5 MG TABLET (FP) PO SCH (09:23)
[2019-07-10] MEDS: TORSEMIDE 20 MG TABLET (FP) PO SCH (09:23)
[2019-07-10] MEDS: DOCUSATE SODIUM 100 MG CAPSULE (FP) PO SCH (09:23)
[2019-07-10] MEDS: EZETIMIBE 10 MG TABLET (FP) PO SCH (09:23)
[2019-07-10] MEDS: ISOSORBIDE MONONITRATE 60 MG TAB.SR.24H (FP) PO SCH (09:26)
[2019-07-10] MEDS ORDERED: ATENOLOL 50 MG TABLET (FP) PO SCH (10:00)
[2019-07-10] MEDS: oxyCODONE HCL 5 MG TABLET PO PRN (10:42)
--- NOTE | 2019-07-10 12:58 | PN ---
Progress Note (short form) - Note Progress Note: s: no cp sob palps dizzy Current Medications Acetaminophen (Tylenol -) 650 mg PO Q6H PRN PRN Reason: PAIN LEVEL 1-5 Last Admin: 07/10/19 09:30 Dose: 650 mg Aspirin (Asa -) 81 mg PO DAILY [facility] Last Admin: 07/10/19 09:22 Dose: 81 mg Atenolol (Tenormin -) 100 mg PO DAILY [facility] Last Admin: 07/10/19 09:25 Dose: Not Given Atorvastatin Calcium (Lipitor -) 80 mg PO [facility] Last Admin: 07/09/19 21:58 Dose: 80 mg Docusate Sodium (Colace -) 100 mg PO BID [facility] Last Admin: 07/10/19 09:23 Dose: 100 mg Ezetimibe (Zetia -) 10 mg PO DAILY [facility] Last Admin: 07/10/19 09:23 Dose: 10 mg Finasteride (Proscar -) 5 mg PO DAILY [facility] Last Admin: 07/10/19 09:23 Dose: 5 mg Insulin Aspart (Novolog Vial Sliding Scale -) 1 vial SQ ACHS [facility]; Protocol Last Admin: 07/10/19 11:44 Dose: Not Given Insulin Detemir (Levemir Vial) 37 units SQ AM [facility] Last Admin: 07/10/19 06:12 Dose: Not Given Isosorbide Mononitrate (Imdur -) 120 mg PO DAILY [facility] Last Admin: 07/10/19 09:26 Dose: 120 mg Montelukast Sodium (Singulair -) 10 mg PO [facility] Last Admin: 07/09/19 21:58 Dose: 10 mg Nitroglycerin (Nitrolingual [place] -) 1 spray TL Q5M PRN PRN Reason: FOR CHEST PAIN Oxycodone HCl (Roxicodone -) 5 mg PO Q4H PRN PRN Reason: PAIN LEVEL 6-10 Last Admin: 07/10/19 10:42 Dose: 5 mg Pantoprazole Sodium (Protonix -) 40 mg PO DAILY [facility] Last Admin: 07/10/19 09:23 Dose: 40 mg Polyethylene Glycol (Miralax (For Bowel Prep) -) 17 gm PO DAILY PRN PRN Reason: CONSTIPATION Last Admin: 07/09/19 22:00 Dose: 17 gm Ranolazine (Ranexa -) 500 mg PO BID [facility] Last Admin: 07/10/19 09:22 Dose: 500 mg Senna (Senna -) 1 tab PO BID [facility] Last Admin: 07/10/19 09:22 Dose: 1 tab Sitagliptin Phosphate (Januvia -) 50 mg PO DAILY@0700 [facility] Last Admin: 07/10/19 06:12 Dose: 50 mg Tamsulosin HCl (Flomax -) 0.4 mg PO HS [facility] Last Admin: 07/09/19 21:58 Dose: 0.4 mg Ticagrelor (Brilinta -) 90 mg PO BID [facility] Last Admin: 07/10/19 09:23 Dose: 90 mg Torsemide (Demadex -) 20 mg PO DAILY [facility] Last Admin: 07/10/19 09:23 Dose: 20 mg Valsartan (Diovan -) 40 mg PO DAILY [facility] Last Admin: 07/09/19 11:22 Dose: 40 mg Vital Signs Period Temp Pulse Resp BP Sys/Chen Pulse Ox Last 24 Hr 97.4 F-98.4 F 50-55 16-19 103-130/45-57 96-99 Constitutional: Yes: Well Nourished, No Distress Eyes: No: Sclera Icterus HENT: No: Nasal Congestion Respiratory: Yes: CTA Bilaterally, No: Accessory Muscle Use, Wheezes Gastrointestinal: Yes: Normal Bowel Sounds. No: Distention, Hepatomegaly, Palpable Mass, Tenderness Cardiovascular: Yes: Regular Rate and Rhythm JVD: no Heart Sounds: Yes: S1, S2. No: Gallop Murmur: No: Systolic Murmur, Diastolic Murmur Extremities: No: Cool, Cyanosis Edema:no Integumentary: No: Jaundice diaphoresis Neurological: Yes: Alert, Oriented (x3) Psychiatric: No: Agitated 2 ECG: sr; incomplete LBBB, similar to priors CXR: clear lungs echo 02/2015: nl lvef, mild as/tr/mr, mild lae echo 10/2018: nl lv/rv, mild as, mild mr, mild tr, mild phtn mibi 02/2015: inferolat scar with minimal fahad ischemia Assessment/Plan 73 m hx htn, hld, dchf, cva, pad, cad s/p cabg 1997, pci 2011, 2012, 2013, and most recent cath for nstemi 04/2019 with latoya to d1, lcx, here with fall. bradycardia - remains bradycardic, atenolol held - will dc for now, monitor HR cad: -has been stable since his most recent cath for nstemi 04/2019 with latoya to d1, lcx -no signs acs here -continue home imdur, ranexa, atorva, brilinta, asa, zetia, valsartan - holding bb as above for bradycardia chronic diastolic CHF: -stable at present -cont home torsemide 20 qd ckd: -cr close to baseline 1.7-2 HTN: -cont current meds hld: -cont statin fall: -seems mechanical, tele benign -PT eval
[2019-07-10] MEDS: VALSARTAN 40 MG TABLET (FP) PO SCH (16:52)
[2019-07-10] MEDS: POLYETHYLENE GLYCOL 3350 255 GM BTL PO PRN (17:49)
--- NOTE | 2019-07-10 18:45 | PN ---
Progress Note, Physician History of Present Illness: Pt w/o SOB, CP, palpitations, abd pain. Pt still with left ankle and Knee pain. Pt with BM, saw blood in stool again. - Current Medication List Current Medications: Active Medications Acetaminophen (Tylenol -) 650 mg PO Q6H PRN PRN Reason: PAIN LEVEL 1-5 Last Admin: 07/10/19 15:13 Dose: 650 mg Aspirin (Asa -) 81 mg PO DAILY [facility] Last Admin: 07/10/19 09:22 Dose: 81 mg Atorvastatin Calcium (Lipitor -) 80 mg PO HS [facility] Last Admin: 07/09/19 21:58 Dose: 80 mg Docusate Sodium (Colace -) 100 mg PO BID [facility] Last Admin: 07/10/19 09:23 Dose: 100 mg Ezetimibe (Zetia -) 10 mg PO DAILY [facility] Last Admin: 07/10/19 09:23 Dose: 10 mg Finasteride (Proscar -) 5 mg PO DAILY [facility] Last Admin: 07/10/19 09:23 Dose: 5 mg Insulin Aspart (Novolog Vial Sliding Scale -) 1 vial SQ ACHS [facility]; Protocol Last Admin: 07/10/19 16:53 Dose: 6 units Insulin Detemir (Levemir Vial) 37 units SQ AM [facility] Last Admin: 07/10/19 06:12 Dose: Not Given Isosorbide Mononitrate (Imdur -) 120 mg PO DAILY [facility] Last Admin: 07/10/19 09:26 Dose: 120 mg Montelukast Sodium (Singulair -) 10 mg PO [facility] Last Admin: 07/09/19 21:58 Dose: 10 mg Nitroglycerin (Nitrolingual [place] -) 1 spray TL Q5M PRN PRN Reason: FOR CHEST PAIN Oxycodone HCl (Roxicodone -) 5 mg PO Q4H PRN PRN Reason: PAIN LEVEL 6-10 Last Admin: 07/10/19 10:42 Dose: 5 mg Pantoprazole Sodium (Protonix -) 40 mg PO DAILY [facility] Last Admin: 07/10/19 09:23 Dose: 40 mg Polyethylene Glycol (Miralax (For Bowel Prep) -) 17 gm PO DAILY PRN PRN Reason: CONSTIPATION Last Admin: 07/10/19 17:49 Dose: 17 gm Ranolazine (Ranexa -) 500 mg PO BID [facility] Last Admin: 12/17/19 09:22 Dose: 500 mg Senna (Senna -) 1 tab PO BID [facility] Last Admin: 07/10/19 09:22 Dose: 1 tab Sitagliptin Phosphate (Januvia -) 50 mg PO DAILY@0700 [facility] Last Admin: 07/10/19 06:12 Dose: 50 mg Tamsulosin HCl (Flomax -) 0.4 mg PO HS [facility] Last Admin: 07/09/19 21:58 Dose: 0.4 mg Ticagrelor (Brilinta -) 90 mg PO BID [facility] Last Admin: 07/10/19 09:23 Dose: 90 mg Torsemide (Demadex -) 20 mg PO DAILY [facility] Last Admin: 07/10/19 09:23 Dose: 20 mg Valsartan (Diovan -) 40 mg PO DAILY [facility] Last Admin: 07/10/19 16:52 Dose: Not Given - Objective Vital Signs: Vital Signs Temperature 97.3 F L 07/10/19 14:12 Pulse Rate 51 L 07/10/19 14:12 Respiratory Rate 18 07/10/19 14:12 Blood Pressure 142/53 L 07/10/19 14:12 O2 Sat by Pulse Oximetry (%) 99 07/10/19 09:00 Constitutional: Yes: No Distress, Calm Cardiovascular: Yes: Regular Rate and Rhythm, S1, S2 Respiratory: Yes: Regular, CTA Bilaterally. No: Rales Gastrointestinal: Yes: Normal Bowel Sounds, Soft, Abdomen, Obese. No: Tenderness Edema: No Neurological: Yes: Alert, Oriented Labs: CBC, BMP 07/10/19 07:50 07/10/19 07:50 INR, PTT INR 1.20 (0.83-1.09) H 07/05/19 01:28 Problem List - Problems (1) Fall Code(s): W19.XXXA - UNSPECIFIED FALL, INITIAL ENCOUNTER (2) CAD (coronary artery disease) Code(s): I25.10 - ATHSCL HEART DISEASE OF [place] CORONARY ARTERY W/O ANG PCTRS (3) CVA (cerebral vascular accident) Code(s): I63.9 - CEREBRAL INFARCTION, UNSPECIFIED (4) CKD (chronic kidney disease) Code(s): N18.9 - CHRONIC KIDNEY DISEASE, UNSPECIFIED (5) S/P CABG (coronary artery bypass graft) Code(s): Z95.1 - PRESENCE OF AORTOCORONARY BYPASS GRAFT (6) Anemia Code(s): D64.9 - ANEMIA, UNSPECIFIED (7) Diabetes mellitus Code(s): E11.9 - TYPE 2 DIABETES MELLITUS WITHOUT COMPLICATIONS (8) HTN (hypertension) Code(s): I10 - ESSENTIAL (PRIMARY) HYPERTENSION (9) Ankle pain, left Code(s): M25.572 - PAIN IN LEFT ANKLE AND JOINTS OF LEFT FOOT (10) Knee pain, left Code(s): M25.562 - PAIN IN LEFT KNEE (11) Leukopenia Code(s): D72.819 - DECREASED WHITE BLOOD CELL COUNT, UNSPECIFIED Assessment/Plan Admitted to telemetry, transferred to medical floor on 07/07/2019 Negative CE Cardio consult is appreciated. L ankle and knee XR w/o Fx; Ortho consult. PT GI consult for BRBPR Stool for occult blood. AM labs.
[2019-07-10] MEDS ORDERED: PT OWN MED DRAWER 7, Y5N ONE (20:11)
--- NOTE | 2019-07-10 20:31 | CON.GI ---
Consult Consult Specialty:: Gastroenterology Referred by:: Dr Christy Reason for Consultation:: Anemia - History of Present Illness Chief Complaint: Constipation and rectal bleeding History of Present Illness: 73M admitted for weakness and paresthesias is found to have a dwindling Hb. He has constipation and noted blood on toilet paper after having a hard BM today. He is taking clopidogrel for coronary stents. He had a colonoscopy at [facility] about 5 years ago which his tells me was normal. His tells me that he has had 7 MIs, the last in 05/12 when he was stented in [place]. He is s/p CABG and has had multiple coronary stents. She reports chronic anemia. His mother developed colon cancer at age 90 - History Source History Provided By: Patient, Family Member, Medical Record - Past Medical History [employer]: Yes: CVA (with left hemiparesis) Cardio/Vascular: Yes: CAD (s/p CABG and stenting), HTN, [place] ([place] x 7 , the last in 05/12) Gastrointestinal: Yes: Constipation, Other (Colonoscopy at [facility] 5 years ago was normal. Had difficulties with the prep.) Renal/: Yes: Renal Failure (VICENTE and CRF) Endocrine: Yes: Diabetes Mellitus - Past Surgical History Past Surgical History: Yes: Bypass, CABG (at [facility]), Carotid Endarterectomy ( right side), Stent (PVD with lower extremity and coronary stenting ) - Alcohol/Substance Use Hx Alcohol Use: Yes (rare wine) History of Substance Use: reports: None - Smoking History Smoking history: Former smoker Have you smoked in the past 12 months: No Aproximately how many cigarettes per day: 0 If you are a former smoker, when did you quit?: 1984 - Social History Usual Living Arrangement: With Spouse ADL: Independent 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year[place] age 18 Home Medications - Allergies Allergies/Adverse Reactions: Allergies Allergy/AdvReac Type Severity Reaction Status Date / Time No Known Allergies Allergy Verified 07/05/19 02:02 - Home Medications Home Medications: Ambulatory Orders Atenolol [Tenormin -] 100 mg PO BID #0 tablet 12/19/12 Isosorbide Mononitrate [Imdur] 120 mg PO DAILY 01/08/13 Pantoprazole Sodium 40 mg PO DAILY 01/08/13 Ranolazine [Ranexa] 500 mg PO BID 01/08/13 Tamsulosin HCl 0.4 mg PO HS 01/08/13 Atorvastatin Ca [Lipitor] 80 mg PO DAILY 06/04/18 Clopidogrel Bisulfate [Plavix] 75 mg PO DAILY 06/04/18 Ezetimibe [Zetia] 10 mg PO DAILY 06/04/18 Finasteride [Proscar] 5 mg PO DAILY 06/04/18 Insulin (LOG) Aspart [NovoLOG -] 0 units SQ TID 06/04/18 Insulin Degludec [Tresiba Flextouch U-100] 37 unit SQ AM 06/04/18 Montelukast Sodium [Singulair] 10 mg PO DAILY 06/04/18 Nitroglycerin [place] [Nitrolingual [place] -] 1 spray TL Q5M PRN 06/04/18 Polyethylene Glycol 3350 [Miralax 255 gm Btl -] 17 gm PO DAILY PRN 06/04/18 Sennosides [Senokot] 8.6 mg PO DAILY PRN 06/04/18 Sitagliptin Phosphate [Januvia] 50 mg PO DAILY 06/04/18 Torsemide [Demadex -] 20 mg PO DAILY #30 tablet MDD 1 06/11/18 Aspirin [ASA -] 81 mg PO DAILY 07/05/19 Isosorbide Mononitrate [Isosorbide Mononitrate ER] 60 mg PO DAILY 07/05/19 Ticagrelor [Brilinta] 90 mg PO BID 07/05/19 Valsartan [Diovan] 40 mg PO DAILY 07/05/19 Family Medical History Family Hx Cancer: Mother (colon cancer age 90), Son (post [place] agent [place] exposure cancer) Review of Systems - Review of Systems Constitutional: reports: Lethargy, Malaise Eyes: reports: No Symptoms HENT: reports: No Symptoms Neck: reports: No Symptoms Cardiovascular: reports: Chest Pain, Palpitations Respiratory: reports: Exercise Intolerance Gastrointestinal: reports: Constipation Musculoskeletal: reports: Joint Pain Physical Exam-GI Vital Signs: Vital Signs Temperature 97.2 F L 07/10/19 18:00 Pulse Rate 51 L 07/10/19 18:00 Respiratory Rate 18 07/10/19 18:00 Blood Pressure 122/42 L 07/10/19 18:00 O2 Sat by Pulse Oximetry (%) 99 12/17/19 09:00 CBC,CMP WBC 3.3 K/mm3 (4.0-10.0) L 07/10/19 07:50 RBC 2.47 M/mm3 (4.00-5.60) L 07/10/19 07:50 Hgb 8.1 GM/dL (11.7-16.9) L 07/10/19 07:50 Hct 23.6 % (35.4-49) L 07/10/19 07:50 MCV 95.4 fl (80-96) 07/10/19 07:50 MCH 32.7 pg (25.7-33.7) 07/10/19 07:50 MCHC 34.3 g/dl (32.0-35.9) 07/10/19 07:50 RDW 15.8 % (11.9-15.9) 07/10/19 07:50 Plt Count 153 K/MM3 (134-434) 07/10/19 07:50 MPV 8.8 fl (7.5-11.1) 07/10/19 07:50 Absolute Neuts (auto) 6.2 K/mm3 (1.5-8.0) 07/05/19 01:28 Neutrophils % 85.3 % (42.8-82.8) H 07/05/19 01:28 Lymphocytes % 7.6 % (8-40) L D 07/05/19 01:28 Monocytes % 6.0 % (3.8-10.2) 07/05/19 01:28 Eosinophils % 0.8 % (0-4.5) 07/05/19 01:28 Basophils % 0.3 % (0-2.0) 07/05/19 01:28 Nucleated RBC % 0 % (0-0) 07/05/19 01:28 Retic Count 2.00 % (0.5-1.5) H 07/08/19 07:35 Sodium 140 mmol/L (136-145) 07/10/19 07:50 Potassium 4.2 mmol/L (3.5-5.1) 07/10/19 07:50 Chloride 105 mmol/L (98-107) 07/10/19 07:50 Carbon Dioxide 27 mmol/L (21-32) 07/10/19 07:50 Anion Gap 8 MMOL/L (8-16) 07/10/19 07:50 BUN 64.1 mg/dL (7-18) H 07/10/19 07:50 Creatinine 2.2 mg/dL (0.55-1.3) H 07/10/19 07:50 Est GFR (CKD-EPI)AfAm 32.98 07/10/19 07:50 Est GFR (CKD-EPI)NonAf 28.45 07/10/19 07:50 POC Glucometer 251 UNITS (80-120) 07/10/19 16:51 Random Glucose 74 mg/dL (74-106) 07/10/19 07:50 Calcium 9.9 mg/dL (8.5-10.1) 07/10/19 07:50 Magnesium 2.2 mg/dL (1.8-2.4) 07/05/19 01:28 Iron 40 ug/dL (50-175) L 07/08/19 07:35 TIBC 298 ug/dL (250-450) 07/08/19 07:35 Iron Saturation 13 % (17.5-39) L 07/08/19 07:35 Unsaturated IBC 258 ug/dL (200-275) 07/08/19 07:35 Ferritin 153.1 ng/ml (8-388) 07/08/19 07:35 Total Bilirubin 1.4 mg/dL (0.2-1) H 07/08/19 07:35 AST 26 U/L (15-37) 07/08/19 07:35 ALT 27 U/L (13-61) 07/08/19 07:35 Alkaline Phosphatase 95 U/L (45-117) 07/08/19 07:35 Creatine Kinase 100 U/L (26-308) 07/05/19 01:28 CK-BB (CK-1) 0 % TOTAL (0) 07/05/19 09:57 CK/CKMB % Calc 0 % (0-3) 07/05/19 09:57 Troponin I 0.05 ng/ml (0.00-0.05) 07/05/19 09:57 B-Natriuretic Peptide 4952.8 pg/ml (5-125) H 07/05/19 01:28 Total Protein 7.6 g/dl (6.4-8.2) 07/08/19 07:35 Albumin 3.4 g/dl (3.4-5.0) 07/08/19 07:35 Serum Folate 22 ng/mL (3.1-17.5) H 07/08/19 07:35 Current Medications Generic Name Dose Route Start Last Admin Trade Name Freq PRN Reason Stop Dose Admin Acetaminophen 650 mg 07/07/19 19:14 07/10/19 15:13 Tylenol - PO 650 mg Q6H PRN Administration PAIN LEVEL 1-5 Aspirin 81 mg 07/08/19 10:00 07/10/19 09:22 Asa - PO 81 mg DAILY [facility] Administration Atorvastatin Calcium 80 mg 07/07/19 22:00 07/09/19 21:58 Lipitor - PO 80 mg HS [facility] Administration Docusate Sodium 100 mg 07/07/19 22:00 07/10/19 09:23 Colace - PO 100 mg BID [facility] Administration Ezetimibe 10 mg 07/08/19 10:00 07/10/19 09:23 Zetia - PO 10 mg DAILY [facility] Administration Finasteride 5 mg 07/08/19 10:00 07/10/19 09:23 Proscar - PO 5 mg DAILY [facility] Administration Insulin Aspart 1 vial 07/07/19 22:00 07/10/19 16:53 Novolog Vial Sliding Scale - SQ 6 units ACHS [facility] Administration Protocol Insulin Detemir 37 units 07/08/19 07:00 07/10/19 06:12 Levemir Vial SQ Not Given AM [facility] Isosorbide Mononitrate 120 mg 07/08/19 10:00 07/10/19 09:26 Imdur - PO 120 mg DAILY [facility] Administration Montelukast Sodium 10 mg 07/07/19 22:00 07/09/19 21:58 Singulair - PO 10 mg HS [facility] Administration Nitroglycerin 1 spray 07/07/19 19:14 Nitrolingual [place] - TL Q5M PRN FOR CHEST PAIN Pantoprazole Sodium 40 mg 07/08/19 10:00 07/10/19 09:23 Protonix - PO 40 mg DAILY [facility] Administration Polyethylene Glycol 17 gm 07/07/19 19:14 07/10/19 17:49 Miralax (For Bowel Prep) - PO 17 gm DAILY PRN Administration CONSTIPATION Ranolazine 500 mg 07/07/19 22:00 07/10/19 09:22 Ranexa - PO 500 mg BID [facility] Administration Senna 1 tab 07/09/19 22:00 07/10/19 09:22 Senna - PO 1 tab BID [facility] Administration Sitagliptin Phosphate 50 mg 07/08/19 07:00 07/10/19 06:12 Januvia - PO 50 mg DAILY@0700 [facility] Administration Tamsulosin HCl 0.4 mg 07/07/19 22:00 07/09/19 21:58 Flomax - PO 0.4 mg HS [facility] Administration Ticagrelor 90 mg 07/07/19 22:00 07/10/19 09:23 Brilinta - PO 90 mg BID [facility] Administration Torsemide 20 mg 07/08/19 10:00 07/10/19 09:23 Demadex - PO 20 mg DAILY [facility] Administration Valsartan 40 mg 07/08/19 10:00 07/10/19 16:52 Diovan - PO Not Given DAILY [facility] Constitutional: Yes: Calm Eyes: Yes: Conjunctiva Clear HENT: Yes: Atraumatic Neck: Yes: Supple, Other (right neck incision) Cardiovascular: Yes: Regular Rate and Rhythm, Other (healed median sternotomy incision) Respiratory: Yes: CTA Bilaterally Gastrointestinal Inspection: Yes: Distention (soft, obese) ...Auscultate: Yes: Normoactive Bowel Sounds ...Palpate: Yes: Soft, Other (nontender) ...Percussion: Yes: Tympanitic ...Rectal Exam: Yes: Guaiac Positive (brown g positive stool) Neurological: Yes: Alert, Oriented Labs: CBC, BMP 07/10/19 07:50 07/10/19 07:50 INR, PTT INR 1.20 (0.83-1.09) H 07/05/19 01:28 Problem List - Problems (1) Occult blood in stools Code(s): R19.5 - OTHER FECAL ABNORMALITIES (2) Rectal bleeding Code(s): K62.5 - HEMORRHAGE OF ANUS AND RECTUM (3) Constipation Code(s): K59.00 - CONSTIPATION, UNSPECIFIED (4) Family history of colon cancer in mother Code(s): Z80.0 - FAMILY HISTORY OF MALIGNANT NEOPLASM OF DIGESTIVE ORGANS (5) CAD (coronary artery disease) Code(s): I25.10 - ATHSCL HEART DISEASE OF [place] CORONARY ARTERY W/O ANG PCTRS (6) CKD (chronic kidney disease) Code(s): N18.9 - CHRONIC KIDNEY DISEASE, UNSPECIFIED (7) CVA (cerebral vascular accident) Code(s): I63.9 - CEREBRAL INFARCTION, UNSPECIFIED (8) HTN (hypertension) Code(s): I10 - ESSENTIAL (PRIMARY) HYPERTENSION (9) NSTEMI (non-ST elevated myocardial infarction) Code(s): I21.4 - NON-ST ELEVATION (NSTEMI) MYOCARDIAL INFARCTION (10) PVD (peripheral vascular disease) Code(s): I73.9 - PERIPHERAL VASCULAR DISEASE, UNSPECIFIED (11) S/P CABG (coronary artery bypass graft) Code(s): Z95.1 - PRESENCE OF AORTOCORONARY BYPASS GRAFT (12) Iron deficiency anemia Code(s): D50.9 - IRON DEFICIENCY ANEMIA, UNSPECIFIED Assessment/Plan Assessment: - Suspect rectal bleeding is hemorrhoidal and related to chronic constipation. This may also account for his occult bleeding and anemia - Chronic constipation aggravated by iron - FH colon cancer Plan: -- I explained to Francisco and his Tracy that he should ideally have both an EGD and a colonscopy to determine the bleeding source and guide anticoagulation. Tracy tells me that she wants him treated conservatively until she discusses his situation with Dr Darlene Alvarez. We mutually agreed that if undertaken he should have his endoscopies performed at a tertiary care center with an interventional cardiology unit should he suffer ischemia or failure. -- PPI BID empirically for possible ulcer, GERD or gastritis bleeding -- Venofer so that iron can be avoided -- Miralax -- If endoscopies are decided upon transfer to tertiary care center given his cardiac fragility
[2019-07-10] MEDS: TAMSULOSIN HCL 0.4 MG CAP PO SCH (22:40)
[2019-07-10] MEDS: ATORVASTATIN CA 80 MG TABLET (FP) PO SCH (22:40)
[2019-07-10] MEDS: MONTELUKAST NA 10 MG TABLET PO SCH (22:40)
[2019-07-11] MEDS: sitaGLIPtin PHOSPHATE 50 MG TABLET PO SCH (06:05)
[2019-07-11] MEDS: INSULIN SLIDING SCALE (NOVOLOG) 1 VIAL SQ SCH ×4 (06:06→22:18)
[2019-07-11] MEDS: INSULIN (LEVEMIR) 100 UNITS/ML UNITS SQ SCH (06:06)
[2019-07-11 08:02] LABS: HEMATOCRIT 23.5 % (35.4-49); MCH 32.6 pg (25.7-33.7); MCHC 34.2 g/dl (32.0-35.9); MEAN CELL VOLUME 95.3 fl (80-96); MEAN PLT VOLUME 9.3 fl (7.5-11.1); PLATELET COUNT 163 K/MM3 (134-434); RBC 2.47 M/mm3 (4.00-5.60); RDW 15.6 % (11.9-15.9); RETICULOCYTES 2.87 % (0.5-1.5); WHITE BLOOD COUNT 3.9 K/mm3 (4.0-10.0)
--- NOTE | 2019-07-11 08:32 | PN ---
Progress Note (short form) - Note Progress Note: Pt seen and examined. 73yo male with hx of multiple CVAs, left-sided hemiparesis and frequent falls fell when going to bathroom and injured left knee and left ankle. Pt is a poor historian but states that 6 years ago prior to the strokes and cardiac events he was a frequent golfer and moved to [place] so that he could golf regularly. Afebrile Gen: NAD, AAO LLE: left ankle - intact skin, TTP over ATFL, less TTP over deltoid. Pain with inversion. Grossly NVID Left knee - intact skin, no swelling/effusion. Mild joint line tenderness. Approx 30 degree flexion contracture (also a flextion contracture on the right knee), unable to fully extend, chronic weakness of quads. Pain over distal hamstring with palpation and with extension of knee. Xrays -left ankle and left knee - minimal degenerative changes. No fracture or dislocation A/P left ankle sprain, left knee flexion contracture, chronic weakness, and hamstring strain from fall. Left ankle - stirrup brace when walking for 8 weeks. Can ambulate with brace on. After 8 weeks will need PT for ankle strengthening as outpt. Left knee -chronic weakness from stroke (or possibly other cause such as spinal stenosis). Also flexion contracture in both knees from lack of ambulation / sitting with knees bent for long periods of time. Hamstring strain likely from extension past contracture when he fell. No surgical intervention needed at this time. The combination of knee flexion contractures and chronic weakness of leg(s) will mean that he will be unsteady whenever he tries to ambulate and will have frequent falls. Recommend consulting Physiatry/Dr. Lal to determine plan for additional post- stroke rehab and to possible do a neurodiagnostic study such as EMG/NCS to determine whether the LE weakness is due to his CVAs or some other potentially collectible cause such as spinal stenosis.
[2019-07-11 08:34] LABS: ALBUMIN 2.6 g/dl (3.4-5.0); BILIRUBIN,TOTAL 0.9 mg/dL (0.2-1); BLOOD UREA NITROGEN 61.9 mg/dL (7-18); CALCIUM 9.4 mg/dL (8.5-10.1); CREATININE 2.3 mg/dL (0.55-1.3); POTASSIUM 4.8 mmol/L (3.5-5.1)
[2019-07-11] MEDS ORDERED: IRON SUCROSE INJECTION 200 MG in SODIUM CHLORIDE 100 ML IVPB ONE (09:00)
[2019-07-11] MEDS: PANTOPRAZOLE 40 MG TABLET (FP) PO SCH ×2 (09:45→22:18)
[2019-07-11] MEDS: ASPIRIN 81 MG CHEWABLE TABLETS PO SCH (09:45)
[2019-07-11] MEDS: SENNOSIDES 8.6MG TABLET (FP) PO SCH ×2 (09:45→22:18)
[2019-07-11] MEDS: RANOLAZINE E.R. 500 MG TABLET (FP) PO SCH ×2 (09:45→22:18)
[2019-07-11] MEDS: TICAGRELOR 90 MG TABLET PO SCH ×2 (09:46→22:18)
[2019-07-11] MEDS: ISOSORBIDE MONONITRATE 60 MG TAB.SR.24H (FP) PO SCH (09:47)
[2019-07-11] MEDS: TORSEMIDE 20 MG TABLET (FP) PO SCH (09:47)
[2019-07-11] MEDS: EZETIMIBE 10 MG TABLET (FP) PO SCH (09:47)
[2019-07-11] MEDS: FINASTERIDE 5 MG TABLET (FP) PO SCH (09:47)
[2019-07-11] MEDS: POLYETHYLENE GLYCOL 3350 119 GM BTL PO SCH (09:49)
--- NOTE | 2019-07-11 12:21 | PN.GI ---
GI Progress Note Subjective: GI NOte: Had a soft BM but no further bleeding. Hb relatively stable. NO abdominal pain - Objective Vital Signs: Vital Signs Temperature 98.4 F 07/11/19 08:33 Pulse Rate 58 L 07/11/19 08:33 Respiratory Rate 18 07/11/19 08:33 Blood Pressure 104/37 L 07/11/19 08:33 O2 Sat by Pulse Oximetry (%) 99 07/10/19 21:00 Laboratory Tests 07/09/19 07/10/19 07/11/19 06:10 07:50 07:13 Hgb 8.4 L 8.1 L 8.0 L Hct 24.3 L D 23.6 L 23.5 L Retic Count 2.87 H D Constitutional: Calm ...Auscultate: Yes: Normoactive Bowel Sounds ...Palpate: Yes: Soft, Other (nontender) Labs: CBC, BMP 07/11/19 07:13 07/11/19 07:13 INR, PTT INR 1.20 (0.83-1.09) H 07/05/19 01:28 Assessment/Plan Assessment: - Suspect rectal bleeding is hemorrhoidal and related to chronic constipation. This may also account for his occult bleeding and anemia - Chronic constipation aggravated by iron - FH colon cancer Plan: -- Continue PPI BID empirically for possible ulcer, GERD or gastritis bleeding -- Venofer being given -- Serial CBCs -- Miralax -- If endoscopies are decided upon transfer to tertiary care center given his cardiac fragility Problem List - Problems (1) Occult blood in stools Code(s): R19.5 - OTHER FECAL ABNORMALITIES (2) Rectal bleeding Code(s): K62.5 - HEMORRHAGE OF ANUS AND RECTUM (3) Constipation Code(s): K59.00 - CONSTIPATION, UNSPECIFIED (4) Family history of colon cancer in mother Code(s): Z80.0 - FAMILY HISTORY OF MALIGNANT NEOPLASM OF DIGESTIVE ORGANS (5) CAD (coronary artery disease) Code(s): I25.10 - ATHSCL HEART DISEASE OF [place] CORONARY ARTERY W/O ANG PCTRS (6) CKD (chronic kidney disease) Code(s): N18.9 - CHRONIC KIDNEY DISEASE, UNSPECIFIED (7) CVA (cerebral vascular accident) Code(s): I63.9 - CEREBRAL INFARCTION, UNSPECIFIED (8) HTN (hypertension) Code(s): I10 - ESSENTIAL (PRIMARY) HYPERTENSION (9) NSTEMI (non-ST elevated myocardial infarction) Code(s): I21.4 - NON-ST ELEVATION (NSTEMI) MYOCARDIAL INFARCTION (10) PVD (peripheral vascular disease) Code(s): I73.9 - PERIPHERAL VASCULAR DISEASE, UNSPECIFIED (11) S/P CABG (coronary artery bypass graft) Code(s): Z95.1 - PRESENCE OF AORTOCORONARY BYPASS GRAFT (12) Iron deficiency anemia Code(s): D50.9 - IRON DEFICIENCY ANEMIA, UNSPECIFIED
--- NOTE | 2019-07-11 14:26 | PN ---
Progress Note (short form) - Note Progress Note: s: no cp sob palps dizzy Current Medications Generic Name Dose Route Start Last Admin Trade Name Freq PRN Reason Stop Dose Admin Acetaminophen 650 mg 07/07/19 19:14 07/10/19 15:13 Tylenol - PO 650 mg Q6H PRN Administration PAIN LEVEL 1-5 Aspirin 81 mg 07/08/19 10:00 07/11/19 09:45 Asa - PO 81 mg DAILY JAMILA Administration Atorvastatin Calcium 80 mg 07/07/19 22:00 07/10/19 22:40 Lipitor - PO 80 mg HS JAMILA Administration Ezetimibe 10 mg 07/08/19 10:00 07/11/19 09:47 Zetia - PO 10 mg DAILY JAMILA Administration Finasteride 5 mg 07/08/19 10:00 07/11/19 09:47 Proscar - PO 5 mg DAILY JAMILA Administration Insulin Aspart 1 vial 07/07/19 22:00 07/11/19 11:45 Novolog Vial Sliding Scale - SQ 4 units ACHS JAMILA Administration Protocol Insulin Detemir 37 units 07/08/19 07:00 07/11/19 06:06 Levemir Vial SQ 37 units AM JAMILA Administration Isosorbide Mononitrate 120 mg 07/08/19 10:00 07/11/19 09:47 Imdur - PO 120 mg DAILY JAMILA Administration Montelukast Sodium 10 mg 07/07/19 22:00 07/10/19 22:40 Singulair - PO 10 mg HS JAMILA Administration Nitroglycerin 1 spray 07/07/19 19:14 Nitrolingual [place] - TL Q5M PRN FOR CHEST PAIN Pantoprazole Sodium 40 mg 07/10/19 22:00 07/11/19 09:45 Protonix - PO 40 mg BID JAMILA Administration Polyethylene Glycol 17 gm 07/11/19 10:00 07/11/19 09:49 Miralax (For Daily Use) - PO 17 grams DAILY JAMILA Administration Ranolazine 500 mg 07/07/19 22:00 07/11/19 09:45 Ranexa - PO 500 mg BID JAMILA Administration Senna 1 tab 07/09/19 22:00 07/11/19 09:45 Senna - PO 1 tab BID JAMILA Administration Sitagliptin Phosphate 50 mg 07/08/19 07:00 07/11/19 06:05 Januvia - PO 50 mg DAILY@0700 JAMILA Administration Tamsulosin HCl 0.4 mg 07/07/19 22:00 07/10/19 22:40 Flomax - PO 0.4 mg HS JAMILA Administration Ticagrelor 90 mg 07/07/19 22:00 07/11/19 09:46 Brilinta - PO 90 mg BID JAMILA Administration Torsemide 20 mg 07/08/19 10:00 07/11/19 09:47 Demadex - PO 20 mg DAILY JAMILA Administration Valsartan 40 mg 07/08/19 10:00 07/10/19 16:52 Diovan - PO Not Given DAILY JAMILA Vital Signs Period Temp Pulse Resp BP Sys/Chen Pulse Ox Last 24 Hr 97.2 F-98.4 F 50-58 16-20 104-140/37-57 99 Constitutional: Yes: Well Nourished, No Distress Eyes: No: Sclera Icterus HENT: No: Nasal Congestion Respiratory: Yes: CTA Bilaterally, No: Accessory Muscle Use, Wheezes Gastrointestinal: Yes: Normal Bowel Sounds. No: Distention, Hepatomegaly, Palpable Mass, Tenderness Cardiovascular: Yes: Regular Rate and Rhythm JVD: no Heart Sounds: Yes: S1, S2. No: Gallop Murmur: No: Systolic Murmur, Diastolic Murmur Extremities: No: Cool, Cyanosis Edema:no Integumentary: No: Jaundice diaphoresis Neurological: Yes: Alert, Oriented (x3) Psychiatric: No: Agitated - Other Data Labs, Other Data: CBC, BMP 07/11/19 07:13 07/11/19 07:13 ECG: sr; incomplete LBBB, similar to priors CXR: clear lungs echo 02/2015: nl lvef, mild as/tr/mr, mild lae echo 10/2018: nl lv/rv, mild as, mild mr, mild tr, mild phtn mibi 02/2015: inferolat scar with minimal fahad ischemia Assessment/Plan 73 m hx htn, hld, dchf, cva, pad, cad s/p cabg 1997, pci 2011, 2012, 2013, and most recent cath for nstemi 04/2019 with latoya to d1, lcx, here with fall. bradycardia - atenolol stopped, monitor for now, hr improved cad: -has been stable since his most recent cath for nstemi 04/2019 with latoya to d1, lcx -no signs acs here -continue home imdur, ranexa, atorva, brilinta, asa, zetia, valsartan - holding bb as above for bradycardia chronic diastolic CHF: -stable at present -cont home torsemide 20 qd ckd: -cr close to baseline 1.7-2 HTN: -cont current meds hld: -cont statin fall: -seems mechanical, tele benign -PT eval
[2019-07-11] MEDS: VALSARTAN 40 MG TABLET (FP) PO SCH (15:16)
[2019-07-11] MEDS: ACETAMINOPHEN 325 MG TABLET (FP) PO PRN (18:51)
--- NOTE | 2019-07-11 18:57 | PN ---
Progress Note, Physician History of Present Illness: Pt w/o SOB, CP, palpitations, abd pain. Pt still with left ankle and Knee pain. Pt's is at bed side. - Current Medication List Current Medications: Active Medications Acetaminophen (Tylenol -) 650 mg PO Q6H PRN PRN Reason: PAIN LEVEL 1-5 Last Admin: 07/11/19 18:51 Dose: 650 mg Aspirin (Asa -) 81 mg PO DAILY [facility] Last Admin: 07/11/19 09:45 Dose: 81 mg Atorvastatin Calcium (Lipitor -) 80 mg PO HS [facility] Last Admin: 07/10/19 22:40 Dose: 80 mg Ezetimibe (Zetia -) 10 mg PO DAILY [facility] Last Admin: 07/11/19 09:47 Dose: 10 mg Finasteride (Proscar -) 5 mg PO DAILY [facility] Last Admin: 07/11/19 09:47 Dose: 5 mg Insulin Aspart (Novolog Vial Sliding Scale -) 1 vial SQ ACHS [facility]; Protocol Last Admin: 07/11/19 16:26 Dose: 4 units Insulin Detemir (Levemir Vial) 37 units SQ AM [facility] Last Admin: 07/11/19 06:06 Dose: 37 units Isosorbide Mononitrate (Imdur -) 120 mg PO DAILY [facility] Last Admin: 07/11/19 09:47 Dose: 120 mg Montelukast Sodium (Singulair -) 10 mg PO HS [facility] Last Admin: 07/10/19 22:40 Dose: 10 mg Nitroglycerin (Nitrolingual [place] -) 1 spray TL Q5M PRN PRN Reason: FOR CHEST PAIN Pantoprazole Sodium (Protonix -) 40 mg PO BID [facility] Last Admin: 07/11/19 09:45 Dose: 40 mg Polyethylene Glycol (Miralax (For Daily Use) -) 17 gm PO DAILY [facility] Last Admin: 07/11/19 09:49 Dose: 17 grams Ranolazine (Ranexa -) 500 mg PO BID [facility] Last Admin: 07/11/19 09:45 Dose: 500 mg Senna (Senna -) 1 tab PO BID [facility] Last Admin: 07/11/19 09:45 Dose: 1 tab Sitagliptin Phosphate (Januvia -) 50 mg PO DAILY@0700 [facility] Last Admin: 07/11/19 06:05 Dose: 50 mg Tamsulosin HCl (Flomax -) 0.4 mg PO HS [facility] Last Admin: 07/10/19 22:40 Dose: 0.4 mg Ticagrelor (Brilinta -) 90 mg PO BID [facility] Last Admin: 07/11/19 09:46 Dose: 90 mg Torsemide (Demadex -) 20 mg PO DAILY [facility] Last Admin: 07/11/19 09:47 Dose: 20 mg Valsartan (Diovan -) 40 mg PO DAILY [facility] Last Admin: 07/11/19 15:16 Dose: 40 mg - Objective Vital Signs: Vital Signs Temperature 98.2 F 07/11/19 14:31 Pulse Rate 62 07/11/19 14:31 Respiratory Rate 18 07/11/19 14:31 Blood Pressure 122/75 07/11/19 14:31 O2 Sat by Pulse Oximetry (%) 98 07/11/19 09:00 Constitutional: Yes: No Distress, Calm Cardiovascular: Yes: Regular Rate and Rhythm, S1, S2 Respiratory: Yes: Regular, CTA Bilaterally. No: Rales Gastrointestinal: Yes: Normal Bowel Sounds, Soft. No: Tenderness Edema: No Neurological: Yes: Alert, Oriented Labs: CBC, BMP 07/11/19 07:13 07/11/19 07:13 INR, PTT INR 1.20 (0.83-1.09) H 07/05/19 01:28 Problem List - Problems (1) Fall Code(s): W19.XXXA - UNSPECIFIED FALL, INITIAL ENCOUNTER (2) CAD (coronary artery disease) Code(s): I25.10 - ATHSCL HEART DISEASE OF [place] CORONARY ARTERY W/O ANG PCTRS (3) CVA (cerebral vascular accident) Code(s): I63.9 - CEREBRAL INFARCTION, UNSPECIFIED (4) CKD (chronic kidney disease) Code(s): N18.9 - CHRONIC KIDNEY DISEASE, UNSPECIFIED (5) S/P CABG (coronary artery bypass graft) Code(s): Z95.1 - PRESENCE OF AORTOCORONARY BYPASS GRAFT (6) Anemia Code(s): D64.9 - ANEMIA, UNSPECIFIED (7) Diabetes mellitus Code(s): E11.9 - TYPE 2 DIABETES MELLITUS WITHOUT COMPLICATIONS (8) HTN (hypertension) Code(s): I10 - ESSENTIAL (PRIMARY) HYPERTENSION (9) Ankle pain, left Code(s): M25.572 - PAIN IN LEFT ANKLE AND JOINTS OF LEFT FOOT (10) Knee pain, left Code(s): M25.562 - PAIN IN LEFT KNEE (11) Leukopenia Code(s): D72.819 - DECREASED WHITE BLOOD CELL COUNT, UNSPECIFIED Assessment/Plan Admitted to telemetry, transferred to medical floor on 07/07/2019 Negative CE Cardio, GI, Ortho consults are appreciated. L ankle and knee XR w/o Fx; Ortho consult. PT H/H slightly down. To monitor. If not trending down to DC to rehab. If H/H are trending down in AM to transfuse PRBC and reevaluate for possible transfer for EGD/colonoscopy. This was d/w pt and pt's ; all questions were answered. Stool for occult blood. AM labs.
[2019-07-11] MEDS ORDERED: PT OWN MED DRAWER 7, Y5N ONE (22:11)
[2019-07-11] MEDS: MONTELUKAST NA 10 MG TABLET PO SCH (22:18)
[2019-07-11] MEDS: ATORVASTATIN CA 80 MG TABLET (FP) PO SCH (22:18)
[2019-07-11] MEDS: TAMSULOSIN HCL 0.4 MG CAP PO SCH (22:18)
[2019-07-12] MEDS: INSULIN SLIDING SCALE (NOVOLOG) 1 VIAL SQ SCH ×4 (06:39→22:28)
[2019-07-12] MEDS: INSULIN (LEVEMIR) 100 UNITS/ML UNITS SQ SCH (06:40)
[2019-07-12 07:53] LABS: BASO % 0.3 % (0-2.0); EOS % 4.2 % (0-4.5); HEMATOCRIT 22.7 % (35.4-49); HEMOGLOBIN 7.9 GM/dL (11.7-16.9); LYMPH % 16.7 % (8-40); MCH 32.6 pg (25.7-33.7); MCHC 34.7 g/dl (32.0-35.9); MEAN PLT VOLUME 8.6 fl (7.5-11.1); MONO % 11.1 % (3.8-10.2); NEUT % 67.7 % (42.8-82.8); PLATELET COUNT 170 K/MM3 (134-434); RBC 2.42 M/mm3 (4.00-5.60); RDW 15.3 % (11.9-15.9); RETICULOCYTES 2.74 % (0.5-1.5); WHITE BLOOD COUNT 4.1 K/mm3 (4.0-10.0)
[2019-07-12 08:21] LABS: BLOOD UREA NITROGEN 52.7 mg/dL (7-18); CREATININE 2.2 mg/dL (0.55-1.3); POTASSIUM 4.3 mmol/L (3.5-5.1)
[2019-07-12 08:22] LABS: CALCIUM 9.6 mg/dL (8.5-10.1)
[2019-07-12] MEDS ORDERED: PT OWN MED DRAWER 7, Y5N ONE ×2 (10:15→21:29)
[2019-07-12] MEDS: ISOSORBIDE MONONITRATE 60 MG TAB.SR.24H (FP) PO SCH (10:17)
[2019-07-12] MEDS: ASPIRIN 81 MG CHEWABLE TABLETS PO SCH (10:17)
[2019-07-12] MEDS: VALSARTAN 40 MG TABLET (FP) PO SCH (10:17)
[2019-07-12] MEDS: FINASTERIDE 5 MG TABLET (FP) PO SCH (10:19)
[2019-07-12] MEDS: RANOLAZINE E.R. 500 MG TABLET (FP) PO SCH ×2 (10:19→22:27)
[2019-07-12] MEDS: PANTOPRAZOLE 40 MG TABLET (FP) PO SCH ×2 (10:20→22:27)
[2019-07-12] MEDS: sitaGLIPtin PHOSPHATE 50 MG TABLET PO SCH (10:20)
[2019-07-12] MEDS: TICAGRELOR 90 MG TABLET PO SCH ×2 (10:20→23:08)
[2019-07-12] MEDS: EZETIMIBE 10 MG TABLET (FP) PO SCH (10:21)
[2019-07-12] MEDS: TORSEMIDE 20 MG TABLET (FP) PO SCH (10:21)
[2019-07-12] MEDS: SENNOSIDES 8.6MG TABLET (FP) PO SCH ×2 (10:21→22:28)
[2019-07-12] MEDS: POLYETHYLENE GLYCOL 3350 119 GM BTL PO SCH (10:36)
[2019-07-12] MEDS: ACETAMINOPHEN 325 MG TABLET (FP) PO PRN (14:21)
--- NOTE | 2019-07-12 16:35 | PN ---
Progress Note, Physician History of Present Illness: Pt w/o SOB, CP, palpitations, abd pain. Pt had BM, no blood in stool. - Current Medication List Current Medications: Active Medications Acetaminophen (Tylenol -) 650 mg PO Q6H PRN PRN Reason: PAIN LEVEL 1-5 Last Admin: 07/12/19 14:21 Dose: 650 mg Aspirin (Asa -) 81 mg PO DAILY [facility] Last Admin: 07/12/19 10:17 Dose: 81 mg Atorvastatin Calcium (Lipitor -) 80 mg PO HS [facility] Last Admin: 07/11/19 22:18 Dose: 80 mg Ezetimibe (Zetia -) 10 mg PO DAILY [facility] Last Admin: 07/12/19 10:21 Dose: 10 mg Finasteride (Proscar -) 5 mg PO DAILY [facility] Last Admin: 07/12/19 10:19 Dose: 5 mg Insulin Aspart (Novolog Vial Sliding Scale -) 1 vial SQ [facility]; Protocol Last Admin: 07/12/19 12:29 Dose: 2 units Insulin Detemir (Levemir Vial) 37 units SQ AM [facility] Last Admin: 07/12/19 06:40 Dose: 37 units Isosorbide Mononitrate (Imdur -) 120 mg PO DAILY [facility] Last Admin: 07/12/19 10:17 Dose: 120 mg Montelukast Sodium (Singulair -) 10 mg PO HS [facility] Last Admin: 07/11/19 22:18 Dose: 10 mg Nitroglycerin (Nitrolingual [place] -) 1 spray TL Q5M PRN PRN Reason: FOR CHEST PAIN Pantoprazole Sodium (Protonix -) 40 mg PO BID [facility] Last Admin: 07/12/19 10:20 Dose: 40 mg Polyethylene Glycol (Miralax (For Daily Use) -) 17 gm PO DAILY [facility] Last Admin: 07/12/19 10:36 Dose: 17 grams Ranolazine (Ranexa -) 500 mg PO BID [facility] Last Admin: 07/12/19 10:19 Dose: 500 mg Senna (Senna -) 1 tab PO BID [facility] Last Admin: 07/12/19 10:21 Dose: 1 tab Sitagliptin Phosphate (Januvia -) 50 mg PO DAILY@0700 [facility] Last Admin: 07/12/19 10:20 Dose: 50 mg Tamsulosin HCl (Flomax -) 0.4 mg PO HS [facility] Last Admin: 07/11/19 22:18 Dose: 0.4 mg Ticagrelor (Brilinta -) 90 mg PO BID [facility] Last Admin: 07/12/19 10:20 Dose: 90 mg Torsemide (Demadex -) 20 mg PO DAILY [facility] Last Admin: 07/12/19 10:21 Dose: 20 mg Valsartan (Diovan -) 40 mg PO DAILY [facility] Last Admin: 07/12/19 10:17 Dose: 40 mg - Objective Vital Signs: Vital Signs Temperature 98 F 07/12/19 10:07 Pulse Rate 60 07/12/19 10:07 Respiratory Rate 18 07/12/19 08:05 Blood Pressure 123/62 07/12/19 08:05 O2 Sat by Pulse Oximetry (%) 99 07/12/19 07:53 Constitutional: Yes: No Distress, Calm Cardiovascular: Yes: Regular Rate and Rhythm, S1, S2 Respiratory: Yes: Regular, CTA Bilaterally. No: Rales Gastrointestinal: Yes: Normal Bowel Sounds, Soft, Abdomen, Obese, Tenderness Edema: No Neurological: Yes: Alert, Oriented Labs: CBC, BMP 07/12/19 07:05 07/12/19 07:05 INR, PTT INR 1.20 (0.83-1.09) H 07/05/19 01:28 Problem List - Problems (1) Fall Code(s): W19.XXXA - UNSPECIFIED FALL, INITIAL ENCOUNTER (2) CAD (coronary artery disease) Code(s): I25.10 - ATHSCL HEART DISEASE OF [place] CORONARY ARTERY W/O ANG PCTRS (3) CVA (cerebral vascular accident) Code(s): I63.9 - CEREBRAL INFARCTION, UNSPECIFIED (4) CKD (chronic kidney disease) Code(s): N18.9 - CHRONIC KIDNEY DISEASE, UNSPECIFIED (5) S/P CABG (coronary artery bypass graft) Code(s): Z95.1 - PRESENCE OF AORTOCORONARY BYPASS GRAFT (6) Anemia Code(s): D64.9 - ANEMIA, UNSPECIFIED (7) Diabetes mellitus Code(s): E11.9 - TYPE 2 DIABETES MELLITUS WITHOUT COMPLICATIONS (8) HTN (hypertension) Code(s): I10 - ESSENTIAL (PRIMARY) HYPERTENSION (9) Ankle pain, left Code(s): M25.572 - PAIN IN LEFT ANKLE AND JOINTS OF LEFT FOOT (10) Knee pain, left Code(s): M25.562 - PAIN IN LEFT KNEE (11) Leukopenia Code(s): D72.819 - DECREASED WHITE BLOOD CELL COUNT, UNSPECIFIED Assessment/Plan Admitted to telemetry, transferred to medical floor on 07/07/2019 Negative CE Cardio, GI, Ortho consults are appreciated. H/H slightly down again in a pt with significant PMHx/o CAD; Hb is less than 8; To transfuse one unit of PRBC Pt's case was d/w CM; [place] does not transfuse PRBC. AM labs.
--- NOTE | 2019-07-12 16:46 | PN ---
Progress Note (short form) - Note Progress Note: s: no cp sob palps dizzy Current Medications Acetaminophen (Tylenol -) 650 mg PO Q6H PRN PRN Reason: PAIN LEVEL 1-5 Last Admin: 07/12/19 14:21 Dose: 650 mg Aspirin (Asa -) 81 mg PO DAILY [facility] Last Admin: 07/12/19 10:17 Dose: 81 mg Atorvastatin Calcium (Lipitor -) 80 mg PO HS [facility] Last Admin: 07/11/19 22:18 Dose: 80 mg Ezetimibe (Zetia -) 10 mg PO DAILY [facility] Last Admin: 07/12/19 10:21 Dose: 10 mg Finasteride (Proscar -) 5 mg PO DAILY [facility] Last Admin: 07/12/19 10:19 Dose: 5 mg Insulin Aspart (Novolog Vial Sliding Scale -) 1 vial SQ ACHS [facility]; Protocol Last Admin: 07/12/19 12:29 Dose: 2 units Insulin Detemir (Levemir Vial) 37 units SQ AM [facility] Last Admin: 07/12/19 06:40 Dose: 37 units Isosorbide Mononitrate (Imdur -) 120 mg PO DAILY [facility] Last Admin: 07/12/19 10:17 Dose: 120 mg Montelukast Sodium (Singulair -) 10 mg PO HS [facility] Last Admin: 07/11/19 22:18 Dose: 10 mg Nitroglycerin (Nitrolingual [place] -) 1 spray TL Q5M PRN PRN Reason: FOR CHEST PAIN Pantoprazole Sodium (Protonix -) 40 mg PO BID [facility] Last Admin: 07/12/19 10:20 Dose: 40 mg Polyethylene Glycol (Miralax (For Daily Use) -) 17 gm PO DAILY [facility] Last Admin: 07/12/19 10:36 Dose: 17 grams Ranolazine (Ranexa -) 500 mg PO BID [facility] Last Admin: 07/12/19 10:19 Dose: 500 mg Senna (Senna -) 1 tab PO BID [facility] Last Admin: 07/12/19 10:21 Dose: 1 tab Sitagliptin Phosphate (Januvia -) 50 mg PO DAILY@0700 [facility] Last Admin: 07/12/19 10:20 Dose: 50 mg Tamsulosin HCl (Flomax -) 0.4 mg PO HS [facility] Last Admin: 07/11/19 22:18 Dose: 0.4 mg Ticagrelor (Brilinta -) 90 mg PO BID [facility] Last Admin: 07/12/19 10:20 Dose: 90 mg Torsemide (Demadex -) 20 mg PO DAILY [facility] Last Admin: 07/12/19 10:21 Dose: 20 mg Valsartan (Diovan -) 40 mg PO DAILY [facility] Last Admin: 07/12/19 10:17 Dose: 40 mg Vital Signs Period Temp Pulse Resp BP Sys/Chen Pulse Ox Last 24 Hr 97.7 F-98.2 F 52-62 18-18 117-128/46-64 99-99 Constitutional: Yes: Well Nourished, No Distress Eyes: No: Sclera Icterus HENT: No: Nasal Congestion Respiratory: Yes: CTA Bilaterally, No: Accessory Muscle Use, Wheezes Gastrointestinal: Yes: Normal Bowel Sounds. No: Distention, Hepatomegaly, Palpable Mass, Tenderness Cardiovascular: Yes: Regular Rate and Rhythm JVD: no Heart Sounds: Yes: S1, S2. No: Gallop Murmur: No: Systolic Murmur, Diastolic Murmur Extremities: No: Cool, Cyanosis Edema:no Integumentary: No: Jaundice diaphoresis Neurological: Yes: Alert, Oriented (x3) Psychiatric: No: Agitated ECG: sr; incomplete LBBB, similar to priors CXR: clear lungs echo 02/2015: nl lvef, mild as/tr/mr, mild lae echo 10/2018: nl lv/rv, mild as, mild mr, mild tr, mild phtn mibi 02/2015: inferolat scar with minimal fahad ischemia Assessment/Plan 73 m hx htn, hld, dchf, cva, pad, cad s/p cabg 1997, pci 2011, 2012, 2013, and most recent cath for nstemi 04/2019 with latoya to d1, lcx, here with fall. bradycardia - atenolol stopped, monitor for now, hr improved and bp stable cad: -has been stable since his most recent cath for nstemi 04/2019 with latoya to d1, lcx -no signs acs here -continue home imdur, ranexa, atorva, brilinta, asa, zetia, valsartan - holding bb as above for bradycardia chronic diastolic CHF: -stable at present -cont home torsemide 20 qd ckd: -cr close to baseline 1.7-2 HTN: -cont current meds hld: -cont statin fall: -seems mechanical, tele benign -PT eval
--- NOTE | 2019-07-12 18:26 | PN.GI ---
GI Progress Note Subjective: GI NOte: I saw Francisco this morning. He had no further rectal bleeding. His Hb dwindled to 7.9. I discussed the issue with Dr Christy and support his ordering a unit of PRBCs to improve Francisco's perfusion. - Objective Vital Signs: Vital Signs Temperature 98 F 07/12/19 10:07 Pulse Rate 60 07/12/19 10:07 Respiratory Rate 18 07/12/19 08:05 Blood Pressure 123/62 07/12/19 08:05 O2 Sat by Pulse Oximetry (%) 99 07/12/19 07:53 Laboratory Tests 07/08/19 07/09/19 07/10/19 07:35 06:10 07:50 Hgb 9.7 L 8.4 L 8.1 L Retic Count 07/11/19 07/12/19 07:13 07:05 Hgb 8.0 L 7.9 L Retic Count 2.74 H Constitutional: Calm ...Auscultate: Yes: Normoactive Bowel Sounds ...Palpate: Yes: Soft, Other (nontender) Labs: CBC, BMP 07/12/19 07:05 07/12/19 07:05 INR, PTT INR 1.20 (0.83-1.09) H 07/05/19 01:28 Assessment/Plan Assessment: - Suspect rectal bleeding is hemorrhoidal and related to chronic constipation. This may also account for his occult bleeding and anemia - Chronic constipation aggravated by iron - FH colon cancer Plan: -- Continue PPI BID empirically for possible ulcer, GERD or gastritis bleeding -- Continue Miralax -- If endoscopies are decided upon transfer to tertiary care center given his cardiac fragility Problem List - Problems (1) Occult blood in stools Code(s): R19.5 - OTHER FECAL ABNORMALITIES (2) Rectal bleeding Code(s): K62.5 - HEMORRHAGE OF ANUS AND RECTUM (3) Constipation Code(s): K59.00 - CONSTIPATION, UNSPECIFIED (4) Family history of colon cancer in mother Code(s): Z80.0 - FAMILY HISTORY OF MALIGNANT NEOPLASM OF DIGESTIVE ORGANS (5) CAD (coronary artery disease) Code(s): I25.10 - ATHSCL HEART DISEASE OF [place] CORONARY ARTERY W/O ANG PCTRS (6) CKD (chronic kidney disease) Code(s): N18.9 - CHRONIC KIDNEY DISEASE, UNSPECIFIED (7) CVA (cerebral vascular accident) Code(s): I63.9 - CEREBRAL INFARCTION, UNSPECIFIED (8) HTN (hypertension) Code(s): I10 - ESSENTIAL (PRIMARY) HYPERTENSION (9) NSTEMI (non-ST elevated myocardial infarction) Code(s): I21.4 - NON-ST ELEVATION (NSTEMI) MYOCARDIAL INFARCTION (10) PVD (peripheral vascular disease) Code(s): I73.9 - PERIPHERAL VASCULAR DISEASE, UNSPECIFIED (11) S/P CABG (coronary artery bypass graft) Code(s): Z95.1 - PRESENCE OF AORTOCORONARY BYPASS GRAFT (12) Iron deficiency anemia Code(s): D50.9 - IRON DEFICIENCY ANEMIA, UNSPECIFIED
[2019-07-12] MEDS: TAMSULOSIN HCL 0.4 MG CAP PO SCH (22:26)
[2019-07-12] MEDS: ATORVASTATIN CA 80 MG TABLET (FP) PO SCH (22:27)
[2019-07-12] MEDS: MONTELUKAST NA 10 MG TABLET PO SCH (22:28)
[2019-07-13] MEDS: sitaGLIPtin PHOSPHATE 50 MG TABLET PO SCH (06:45)
[2019-07-13] MEDS: INSULIN (LEVEMIR) 100 UNITS/ML UNITS SQ SCH (06:45)
[2019-07-13] MEDS: INSULIN SLIDING SCALE (NOVOLOG) 1 VIAL SQ SCH ×4 (06:45→22:38)
[2019-07-13 08:22] LABS: HEMATOCRIT 27.1 % (35.4-49); HEMOGLOBIN 9.3 GM/dL (11.7-16.9); MCH 31.4 pg (25.7-33.7); MCHC 34.5 g/dl (32.0-35.9); MEAN PLT VOLUME 8.6 fl (7.5-11.1); PLATELET COUNT 188 K/MM3 (134-434); RBC 2.97 M/mm3 (4.00-5.60); RDW 18.4 % (11.9-15.9); WHITE BLOOD COUNT 4.2 K/mm3 (4.0-10.0)
[2019-07-13 08:28] LABS: BLOOD UREA NITROGEN 47.2 mg/dL (7-18); CALCIUM 10.1 mg/dL (8.5-10.1); POTASSIUM 4.7 mmol/L (3.5-5.1)
[2019-07-13] MEDS: TORSEMIDE 20 MG TABLET (FP) PO SCH (09:36)
[2019-07-13] MEDS: ISOSORBIDE MONONITRATE 60 MG TAB.SR.24H (FP) PO SCH (09:37)
[2019-07-13] MEDS: TICAGRELOR 90 MG TABLET PO SCH ×2 (09:37→22:37)
[2019-07-13] MEDS: ASPIRIN 81 MG CHEWABLE TABLETS PO SCH (09:37)
[2019-07-13] MEDS: FINASTERIDE 5 MG TABLET (FP) PO SCH (09:37)
[2019-07-13] MEDS: PANTOPRAZOLE 40 MG TABLET (FP) PO SCH ×2 (09:38→22:37)
[2019-07-13] MEDS: SENNOSIDES 8.6MG TABLET (FP) PO SCH ×2 (09:38→22:37)
[2019-07-13] MEDS: POLYETHYLENE GLYCOL 3350 119 GM BTL PO SCH (09:39)
[2019-07-13] MEDS: RANOLAZINE E.R. 500 MG TABLET (FP) PO SCH ×2 (09:39→22:37)
[2019-07-13] MEDS: EZETIMIBE 10 MG TABLET (FP) PO SCH (09:41)
--- NOTE | 2019-07-13 11:23 | PN ---
Progress Note, Physician Chief Complaint: in bed awake alert NAD VSS no c/o feels better, wants to go to [place] rehab; at bedside - Current Medication List Current Medications: Active Medications Acetaminophen (Tylenol -) 650 mg PO Q6H PRN PRN Reason: PAIN LEVEL 1-5 Last Admin: 07/12/19 14:21 Dose: 650 mg Aspirin (Asa -) 81 mg PO DAILY [facility] Last Admin: 07/13/19 09:37 Dose: 81 mg Atorvastatin Calcium (Lipitor -) 80 mg PO HS [facility] Last Admin: 07/12/19 22:27 Dose: 80 mg Ezetimibe (Zetia -) 10 mg PO DAILY [facility] Last Admin: 07/13/19 09:41 Dose: 10 mg Finasteride (Proscar -) 5 mg PO DAILY [facility] Last Admin: 07/13/19 09:37 Dose: 5 mg Insulin Aspart (Novolog Vial Sliding Scale -) 1 vial SQ [facility]; Protocol Last Admin: 07/13/19 11:05 Dose: 2 units Insulin Detemir (Levemir Vial) 37 units SQ AM [facility] Last Admin: 07/13/19 06:45 Dose: 37 units Isosorbide Mononitrate (Imdur -) 120 mg PO DAILY [facility] Last Admin: 07/13/19 09:37 Dose: 120 mg Montelukast Sodium (Singulair -) 10 mg PO HS [facility] Last Admin: 07/12/19 22:28 Dose: 10 mg Nitroglycerin (Nitrolingual [place] -) 1 spray TL Q5M PRN PRN Reason: FOR CHEST PAIN Pantoprazole Sodium (Protonix -) 40 mg PO BID [facility] Last Admin: 07/13/19 09:38 Dose: 40 mg Polyethylene Glycol (Miralax (For Daily Use) -) 17 gm PO DAILY [facility] Last Admin: 07/13/19 09:39 Dose: 17 grams Ranolazine (Ranexa -) 500 mg PO BID [facility] Last Admin: 07/13/19 09:39 Dose: 500 mg Senna (Senna -) 1 tab PO BID [facility] Last Admin: 07/13/19 09:38 Dose: 1 tab Sitagliptin Phosphate (Januvia -) 50 mg PO DAILY@0700 [facility] Last Admin: 07/13/19 06:45 Dose: 50 mg Tamsulosin HCl (Flomax -) 0.4 mg PO [facility] Last Admin: 07/12/19 22:26 Dose: 0.4 mg Ticagrelor (Brilinta -) 90 mg PO BID [facility] Last Admin: 07/13/19 09:37 Dose: 90 mg Torsemide (Demadex -) 20 mg PO DAILY [facility] Last Admin: 07/13/19 09:36 Dose: 20 mg Valsartan (Diovan -) 40 mg PO DAILY [facility] Last Admin: 07/12/19 10:17 Dose: 40 mg - Objective Vital Signs: Vital Signs Temperature 98.4 F 07/13/19 08:40 Pulse Rate 59 L 07/13/19 08:40 Respiratory Rate 18 07/13/19 08:40 Blood Pressure 121/51 L 07/13/19 08:40 O2 Sat by Pulse Oximetry (%) 96 07/12/19 21:00 Constitutional: Yes: No Distress, Calm Eyes: Yes: Conjunctiva Clear HENT: Yes: Atraumatic Neck: Yes: Supple Cardiovascular: Yes: Regular Rate and Rhythm Respiratory: Yes: CTA Bilaterally Gastrointestinal: Yes: Soft. No: Tenderness Genitourinary: No: Hematuria Musculoskeletal: No: Joint Stiffness, Joint Swelling Extremities: No: Cold, Cool Edema: No Integumentary: No: Rash, Venous Stasis Changes Neurological: Yes: Alert ...Motor Strength: WNL Psychiatric: Yes: Alert. No: Agitated, Suicidal Ideation Labs: CBC, BMP 07/13/19 07:04 07/13/19 07:04 INR, PTT INR 1.20 (0.83-1.09) H 07/05/19 01:28 - ....Imaging Other: Report Reviewed Assessment/Plan The patient is a 73 year old male with a past medical history of HTN, HLD, diabetes, CAD, 7 MIs (last 05/10/19), CABG, and CVA (with residual left lower extremity weakness) admitted with weakness, anemia, h/o GIB AVM cardio, GI consults appreciated anemia GIB s.p PRBCs H&H stable VSS OK for DC to rehab then needs close f/u with GI, cardiology and PCP dr Vamshi Alvarez d/w pt and at bedside and d/w PCP they are aware
--- NOTE | 2019-07-13 13:38 | DS ---
Physical Examination Vital Signs: Vital Signs Temperature 98.4 F 07/13/19 08:40 Pulse Rate 59 L 07/13/19 08:40 Respiratory Rate 18 07/13/19 09:00 Blood Pressure 121/51 L 07/13/19 08:40 O2 Sat by Pulse Oximetry (%) 95 07/13/19 09:00 Findings/Remarks: see today Progress Note for HPI, ROS, PE Labs: CBC, BMP 07/13/19 07:04 07/13/19 07:04 Discharge Summary Problems reviewed: Yes Reason For Visit: ACUTE KIDNEY INJURY,ACUTE ON CHRONIC HEART FAILURE Current Active Problems Acute on chronic heart failure (Acute) Ankle pain, left (Acute) Constipation (Acute) Fall (Acute) Family history of colon cancer in mother (Acute) Iron deficiency anemia (Acute) Knee pain, left (Acute) Leukopenia (Acute) Occult blood in stools (Acute) Rectal bleeding (Acute) Weakness (Acute) Procedures: Principal: Head CT Scan. Leg US. Ankle, Knee XR. CXR Hospital Course: Pt came to ER s/p fall at home (stood up to got to bathroom and fell). Pt was admitted ot telemetry, seen by Cardio (Dr King), no new cardiac event were noticed. Pt c/o left ankle and knee pain, XR's were negative, was seen by Ortho (Dr. Wilde), treated conservatively. 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 Pt to be Dc'ed to Rehab with Biweekly f/ u of CBC. pt to see GI after discharge from Rehab. Condition: Improved - Instructions Referrals: Darlene Alvarez MD [Primary Care Provider] - (with in one week after Rehab dischrge.) Disposition: TRANSFER ACUTE CARE/OTHER HOSP - Home Medications Comprehensive Discharge Medication List: Ambulatory Orders Atenolol [Tenormin -] 100 mg PO BID #0 tablet 12/19/12 Isosorbide Mononitrate [Imdur] 120 mg PO DAILY 01/08/13 Pantoprazole Sodium 40 mg PO DAILY 01/08/13 Ranolazine [Ranexa] 500 mg PO BID 01/08/13 Tamsulosin HCl 0.4 mg PO HS 01/08/13 Atorvastatin Ca [Lipitor] 80 mg PO DAILY 06/04/18 Clopidogrel Bisulfate [Plavix] 75 mg PO DAILY 06/04/18 Ezetimibe [Zetia] 10 mg PO DAILY 06/04/18 Finasteride [Proscar] 5 mg PO DAILY 06/04/18 Insulin (LOG) Aspart [NovoLOG -] 0 units SQ TID 06/04/18 Insulin Degludec [Tresiba Flextouch U-100] 37 unit SQ AM 06/04/18 Montelukast Sodium [Singulair] 10 mg PO DAILY 06/04/18 Nitroglycerin [place] [Nitrolingual [place] -] 1 spray TL Q5M PRN 06/04/18 Polyethylene Glycol 3350 [Miralax 255 gm Btl -] 17 gm PO DAILY PRN 06/04/18 Sennosides [Senokot] 8.6 mg PO DAILY PRN 06/04/18 Sitagliptin Phosphate [Januvia] 50 mg PO DAILY 06/04/18 Torsemide [Demadex -] 20 mg PO DAILY #30 tablet MDD 1 06/11/18 Aspirin [ASA -] 81 mg PO DAILY 07/05/19 Isosorbide Mononitrate [Isosorbide Mononitrate ER] 60 mg PO DAILY 07/05/19 Ticagrelor [Brilinta] 90 mg PO BID 07/05/19 Valsartan [Diovan] 40 mg PO DAILY 07/05/19
[2019-07-13] MEDS: VALSARTAN 40 MG TABLET (FP) PO SCH (14:04)
--- NOTE | 2019-07-13 14:51 | PN ---
Progress Note (short form) - Note Progress Note: s: no cp sob palps dizzy Current Medications Generic Name Dose Route Start Last Admin Trade Name Freq PRN Reason Stop Dose Admin Acetaminophen 650 mg 07/07/19 19:14 07/12/19 14:21 Tylenol - PO 650 mg Q6H PRN Administration PAIN LEVEL 1-5 Aspirin 81 mg 07/08/19 10:00 07/13/19 09:37 Asa - PO 81 mg DAILY JAMILA Administration Atorvastatin Calcium 80 mg 07/07/19 22:00 07/12/19 22:27 Lipitor - PO 80 mg HS JAMILA Administration Ezetimibe 10 mg 07/08/19 10:00 07/13/19 09:41 Zetia - PO 10 mg DAILY JAMILA Administration Finasteride 5 mg 07/08/19 10:00 07/13/19 09:37 Proscar - PO 5 mg DAILY JAMILA Administration Insulin Aspart 1 vial 07/07/19 22:00 07/13/19 11:05 Novolog Vial Sliding Scale - SQ 2 units ACHS JAMILA Administration Protocol Insulin Detemir 37 units 07/08/19 07:00 07/13/19 06:45 Levemir Vial SQ 37 units AM JAMILA Administration Isosorbide Mononitrate 120 mg 07/08/19 10:00 07/13/19 09:37 Imdur - PO 120 mg DAILY JAMILA Administration Montelukast Sodium 10 mg 07/07/19 22:00 07/12/19 22:28 Singulair - PO 10 mg HS JAMILA Administration Nitroglycerin 1 spray 07/07/19 19:14 Nitrolingual [place] - TL Q5M PRN FOR CHEST PAIN Pantoprazole Sodium 40 mg 07/10/19 22:00 07/13/19 09:38 Protonix - PO 40 mg BID JAMILA Administration Polyethylene Glycol 17 gm 07/11/19 10:00 07/13/19 09:39 Miralax (For Daily Use) - PO 17 grams DAILY JAMILA Administration Ranolazine 500 mg 07/07/19 22:00 07/13/19 09:39 Ranexa - PO 500 mg BID JAMILA Administration Senna 1 tab 07/09/19 22:00 07/13/19 09:38 Senna - PO 1 tab BID JAMILA Administration Sitagliptin Phosphate 50 mg 07/08/19 07:00 07/13/19 06:45 Januvia - PO 50 mg DAILY@0700 JAMILA Administration Tamsulosin HCl 0.4 mg 07/07/19 22:00 07/12/19 22:26 Flomax - PO 0.4 mg HS JAMILA Administration Ticagrelor 90 mg 07/07/19 22:00 07/13/19 09:37 Brilinta - PO 90 mg BID JAMILA Administration Torsemide 20 mg 07/08/19 10:00 07/13/19 09:36 Demadex - PO 20 mg DAILY J[facility]A Administration Valsartan 40 mg 07/08/19 10:00 07/13/19 14:04 Diovan - PO 40 mg DAILY JAM[facility]A Administration Vital Signs Period Temp Pulse Resp BP Sys/Chen Pulse Ox Last 24 Hr 97.9 F-98.4 F 57-62 18-20 121-147/48-77 95-96 Constitutional: Yes: Well Nourished, No Distress Eyes: No: Sclera Icterus HENT: No: Nasal Congestion Respiratory: Yes: CTA Bilaterally, No: Accessory Muscle Use, Wheezes Gastrointestinal: Yes: Normal Bowel Sounds. No: Distention, Hepatomegaly, Palpable Mass, Tenderness Cardiovascular: Yes: Regular Rate and Rhythm JVD: no Heart Sounds: Yes: S1, S2. No: Gallop Murmur: No: Systolic Murmur, Diastolic Murmur Extremities: No: Cool, Cyanosis Edema:no Integumentary: No: Jaundice diaphoresis Neurological: Yes: Alert, Oriented (x3) Psychiatric: No: Agitated - Other Data Labs, Other Data: CBC, BMP 07/13/19 07:04 07/13/19 07:04 ECG: sr; incomplete LBBB, similar to priors CXR: clear lungs echo 02/2015: nl lvef, mild as/tr/mr, mild lae echo 10/2018: nl lv/rv, mild as, mild mr, mild tr, mild phtn mibi 02/2015: inferolat scar with minimal fahad ischemia Assessment/Plan 73 m hx htn, hld, dchf, cva, pad, cad s/p cabg 1997, pci 2011, 2012, 2013, and most recent cath for nstemi 04/2019 with latoya to d1, lcx, here with fall. bradycardia - atenolol stopped, hr improved cad: -has been stable since his most recent cath for nstemi 04/2019 with latoya to d1, lcx -no signs acs here -continue home imdur, ranexa, atorva, brilinta, asa, zetia, valsartan -stopped bb as above for bradycardia chronic diastolic CHF: -stable at present -cont home torsemide 20 qd ckd: -cr close to baseline 1.7-2 HTN: -cont current meds hld: -cont statin fall: -seems mechanical, tele benign -going to rehab cardiac lai stable for snf
[2019-07-13] MEDS ORDERED: INSULIN (NOVOLOG) ASPART 100 UNITS/ML 10ML VIAL ONE (20:54)
[2019-07-13] MEDS ORDERED: PT OWN MED DRAWER 7, Y5N ONE (20:55)
[2019-07-13] MEDS: MONTELUKAST NA 10 MG TABLET PO SCH (22:37)
[2019-07-13] MEDS: TAMSULOSIN HCL 0.4 MG CAP PO SCH (22:37)
[2019-07-13] MEDS: ATORVASTATIN CA 80 MG TABLET (FP) PO SCH (22:37)
[2019-07-14] MEDS ORDERED: PT OWN MED DRAWER 7, Y5N ONE ×4 (06:21→18:59)
[2019-07-14] MEDS: INSULIN SLIDING SCALE (NOVOLOG) 1 VIAL SQ SCH ×4 (06:23→21:58)
[2019-07-14] MEDS: sitaGLIPtin PHOSPHATE 50 MG TABLET PO SCH (06:23)
[2019-07-14] MEDS: INSULIN (LEVEMIR) 100 UNITS/ML UNITS SQ SCH (06:24)
[2019-07-14] MEDS: FINASTERIDE 5 MG TABLET (FP) PO SCH (09:52)
[2019-07-14] MEDS: RANOLAZINE E.R. 500 MG TABLET (FP) PO SCH ×2 (09:52→21:57)
[2019-07-14] MEDS: PANTOPRAZOLE 40 MG TABLET (FP) PO SCH ×2 (09:53→21:56)
[2019-07-14] MEDS: TORSEMIDE 20 MG TABLET (FP) PO SCH (09:53)
[2019-07-14] MEDS: VALSARTAN 40 MG TABLET (FP) PO SCH (09:53)
[2019-07-14] MEDS: ISOSORBIDE MONONITRATE 60 MG TAB.SR.24H (FP) PO SCH (09:53)
[2019-07-14] MEDS: POLYETHYLENE GLYCOL 3350 119 GM BTL PO SCH (09:54)
[2019-07-14] MEDS: SENNOSIDES 8.6MG TABLET (FP) PO SCH ×2 (09:54→21:56)
[2019-07-14] MEDS: ASPIRIN 81 MG CHEWABLE TABLETS PO SCH (09:54)
[2019-07-14] MEDS: EZETIMIBE 10 MG TABLET (FP) PO SCH (09:55)
[2019-07-14] MEDS: TICAGRELOR 90 MG TABLET PO SCH ×2 (09:57→21:56)
--- NOTE | 2019-07-14 11:37 | PN ---
Progress Note, Physician History of Present Illness: Pt w/o SOB, CP, palpitations, abd pain. Pt tolerated PRBC trasnfusion well - Current Medication List Current Medications: Active Medications Acetaminophen (Tylenol -) 650 mg PO Q6H PRN PRN Reason: PAIN LEVEL 1-5 Last Admin: 07/12/19 14:21 Dose: 650 mg Aspirin (Asa -) 81 mg PO DAILY [facility] Last Admin: 07/14/19 09:54 Dose: 81 mg Atorvastatin Calcium (Lipitor -) 80 mg PO HS [facility] Last Admin: 07/13/19 22:37 Dose: 80 mg Ezetimibe (Zetia -) 10 mg PO DAILY [facility] Last Admin: 07/14/19 09:55 Dose: 10 mg Finasteride (Proscar -) 5 mg PO DAILY [facility] Last Admin: 07/14/19 09:52 Dose: 5 mg Insulin Aspart (Novolog Vial Sliding Scale -) 1 vial SQ [facility]; Protocol Last Admin: 07/14/19 06:23 Dose: 2 units Insulin Detemir (Levemir Vial) 37 units SQ AM [facility] Last Admin: 07/14/19 06:24 Dose: 37 units Isosorbide Mononitrate (Imdur -) 120 mg PO DAILY [facility] Last Admin: 07/14/19 09:53 Dose: 120 mg Montelukast Sodium (Singulair -) 10 mg PO HS [facility] Last Admin: 07/13/19 22:37 Dose: 10 mg Nitroglycerin (Nitrolingual [place] -) 1 spray TL Q5M PRN PRN Reason: FOR CHEST PAIN Pantoprazole Sodium (Protonix -) 40 mg PO BID [facility] Last Admin: 07/14/19 09:53 Dose: 40 mg Polyethylene Glycol (Miralax (For Daily Use) -) 17 gm PO DAILY [facility] Last Admin: 07/14/19 09:54 Dose: 17 grams Ranolazine (Ranexa -) 500 mg PO BID [facility] Last Admin: 07/14/19 09:52 Dose: 500 mg Senna (Senna -) 1 tab PO BID [facility] Last Admin: 07/14/19 09:54 Dose: 1 tab Sitagliptin Phosphate (Januvia -) 50 mg PO DAILY@0700 [facility] Last Admin: 07/14/19 06:23 Dose: 50 mg Tamsulosin HCl (Flomax -) 0.[address] [facility] Last Admin: 07/13/19 22:37 Dose: 0.4 mg Ticagrelor (Brilinta -) 90 mg PO BID [facility] Last Admin: 07/14/19 09:57 Dose: 90 mg Torsemide (Demadex -) 20 mg PO DAILY [facility] Last Admin: 07/14/19 09:53 Dose: 20 mg Valsartan (Diovan -) 40 mg PO DAILY [facility] Last Admin: 07/14/19 09:53 Dose: 40 mg - Objective Vital Signs: Vital Signs Temperature 98.7 F 07/14/19 06:44 Pulse Rate 59 L 07/14/19 06:44 Respiratory Rate 18 07/14/19 07:51 Blood Pressure 136/47 L 07/14/19 06:44 O2 Sat by Pulse Oximetry (%) 95 07/14/19 07:51 Constitutional: Yes: No Distress, Calm Cardiovascular: Yes: Regular Rate and Rhythm, S1, S2 Respiratory: Yes: Regular, CTA Bilaterally, Rales Gastrointestinal: Yes: Normal Bowel Sounds, Soft, Abdomen, Obese. No: Tenderness Edema: No Neurological: Yes: Alert, Oriented Labs: CBC, BMP 07/13/19 07:04 07/13/19 07:04 INR, PTT INR 1.20 (0.83-1.09) H 07/05/19 01:28 Problem List - Problems (1) Fall Code(s): W19.XXXA - UNSPECIFIED FALL, INITIAL ENCOUNTER (2) CAD (coronary artery disease) Code(s): I25.10 - ATHSCL HEART DISEASE OF [place] CORONARY ARTERY W/O ANG PCTRS (3) CVA (cerebral vascular accident) Code(s): I63.9 - CEREBRAL INFARCTION, UNSPECIFIED (4) CKD (chronic kidney disease) Code(s): N18.9 - CHRONIC KIDNEY DISEASE, UNSPECIFIED (5) S/P CABG (coronary artery bypass graft) Code(s): Z95.1 - PRESENCE OF AORTOCORONARY BYPASS GRAFT (6) Anemia Code(s): D64.9 - ANEMIA, UNSPECIFIED (7) Diabetes mellitus Code(s): E11.9 - TYPE 2 DIABETES MELLITUS WITHOUT COMPLICATIONS (8) HTN (hypertension) Code(s): I10 - ESSENTIAL (PRIMARY) HYPERTENSION (9) Ankle pain, left Code(s): M25.572 - PAIN IN LEFT ANKLE AND JOINTS OF LEFT FOOT (10) Knee pain, left Code(s): M25.562 - PAIN IN LEFT KNEE (11) Leukopenia Code(s): D72.819 - DECREASED WHITE BLOOD CELL COUNT, UNSPECIFIED Assessment/Plan Admitted to telemetry, transferred to medical floor on 07/07/2019 Negative CE Cardio, GI, Ortho consults are appreciated. s/p one unit of PRBC Transfusion Pending transfer to [facility] labs.
[2019-07-14] MEDS: ACETAMINOPHEN 325 MG TABLET (FP) PO PRN (14:32)
[2019-07-14] MEDS ORDERED: INSULIN (NOVOLOG) ASPART 100 UNITS/ML 10ML VIAL ONE (21:00)
[2019-07-14] MEDS: MONTELUKAST NA 10 MG TABLET PO SCH (21:56)
[2019-07-14] MEDS: ATORVASTATIN CA 80 MG TABLET (FP) PO SCH (21:56)
[2019-07-14] MEDS: TAMSULOSIN HCL 0.4 MG CAP PO SCH (21:56)
[2019-07-15] MEDS: sitaGLIPtin PHOSPHATE 50 MG TABLET PO SCH (06:21)
[2019-07-15] MEDS: INSULIN (LEVEMIR) 100 UNITS/ML UNITS SQ SCH (06:21)
[2019-07-15] MEDS: INSULIN SLIDING SCALE (NOVOLOG) 1 VIAL SQ SCH ×4 (06:22→22:51)
[2019-07-15 06:29] LABS: HEMOGLOBIN 9.4 GM/dL (11.7-16.9); MCH 31.8 pg (25.7-33.7); MCHC 34.6 g/dl (32.0-35.9); MEAN CELL VOLUME 91.9 fl (80-96); MEAN PLT VOLUME 8.1 fl (7.5-11.1); PLATELET COUNT 204 K/MM3 (134-434); RBC 2.94 M/mm3 (4.00-5.60); RDW 17.7 % (11.9-15.9)
[2019-07-15 07:41] LABS: BLOOD UREA NITROGEN 29.1 mg/dL (7-18); CALCIUM 10.3 mg/dL (8.5-10.1); CREATININE 1.6 mg/dL (0.55-1.3); POTASSIUM 4.4 mmol/L (3.5-5.1)
[2019-07-15] MEDS: ACETAMINOPHEN 325 MG TABLET (FP) PO PRN ×2 (09:47→20:01)
[2019-07-15] MEDS ORDERED: PT OWN MED DRAWER 7, Y5N ONE (11:07)
[2019-07-15] MEDS: PANTOPRAZOLE 40 MG TABLET (FP) PO SCH ×2 (11:13→22:44)
[2019-07-15] MEDS: ASPIRIN 81 MG CHEWABLE TABLETS PO SCH (11:13)
[2019-07-15] MEDS: VALSARTAN 40 MG TABLET (FP) PO SCH (11:14)
[2019-07-15] MEDS: ISOSORBIDE MONONITRATE 60 MG TAB.SR.24H (FP) PO SCH (11:14)
[2019-07-15] MEDS: RANOLAZINE E.R. 500 MG TABLET (FP) PO SCH ×2 (11:14→22:44)
[2019-07-15] MEDS: TICAGRELOR 90 MG TABLET PO SCH ×2 (11:15→22:45)
[2019-07-15] MEDS: POLYETHYLENE GLYCOL 3350 119 GM BTL PO SCH (11:15)
[2019-07-15] MEDS: SENNOSIDES 8.6MG TABLET (FP) PO SCH ×2 (11:15→22:44)
[2019-07-15] MEDS: FINASTERIDE 5 MG TABLET (FP) PO SCH (11:15)
[2019-07-15] MEDS: TORSEMIDE 20 MG TABLET (FP) PO SCH (11:16)
[2019-07-15] MEDS: EZETIMIBE 10 MG TABLET (FP) PO SCH (11:17)
--- NOTE | 2019-07-15 11:52 | PN ---
Progress Note, Physician History of Present Illness: Pt w/o SOB, CP, palpitations, abd pain. Pt's left ankle pain and Knee pain are better - Current Medication List Current Medications: Active Medications Acetaminophen (Tylenol -) 650 mg PO Q6H PRN PRN Reason: PAIN LEVEL 1-5 Last Admin: 07/15/19 09:47 Dose: 650 mg Aspirin (Asa -) 81 mg PO DAILY [facility] Last Admin: 07/15/19 11:13 Dose: 81 mg Atorvastatin Calcium (Lipitor -) 80 mg PO HS [facility] Last Admin: 07/14/19 21:56 Dose: 80 mg Ezetimibe (Zetia -) 10 mg PO DAILY [facility] Last Admin: 07/15/19 11:17 Dose: 10 mg Finasteride (Proscar -) 5 mg PO DAILY [facility] Last Admin: 07/15/19 11:15 Dose: 5 mg Insulin Aspart (Novolog Vial Sliding Scale -) 1 vial SQ ACHS [facility]; Protocol Last Admin: 07/15/19 06:22 Dose: 2 units Insulin Detemir (Levemir Vial) 37 units SQ AM [facility] Last Admin: 07/15/19 06:21 Dose: 37 units Isosorbide Mononitrate (Imdur -) 120 mg PO DAILY [facility] Last Admin: 07/15/19 11:14 Dose: 120 mg Montelukast Sodium (Singulair -) 10 mg PO HS [facility] Last Admin: 07/14/19 21:56 Dose: 10 mg Nitroglycerin (Nitrolingual [place] -) 1 spray TL Q5M PRN PRN Reason: FOR CHEST PAIN Pantoprazole Sodium (Protonix -) 40 mg PO BID [facility] Last Admin: 07/15/19 11:13 Dose: 40 mg Polyethylene Glycol (Miralax (For Daily Use) -) 17 gm PO DAILY [facility] Last Admin: 07/15/19 11:15 Dose: 17 grams Ranolazine (Ranexa -) 500 mg PO BID [facility] Last Admin: 07/15/19 11:14 Dose: 500 mg Senna (Senna -) 1 tab PO BID [facility] Last Admin: 07/15/19 11:15 Dose: 1 tab Sitagliptin Phosphate (Januvia -) 50 mg PO DAILY@0700 [facility] Last Admin: 07/15/19 06:21 Dose: 50 mg Tamsulosin HCl (Flomax -) 0.4 mg PO HS [facility] Last Admin: 07/14/19 21:56 Dose: 0.4 mg Ticagrelor (Brilinta -) 90 mg PO BID [facility] Last Admin: 07/15/19 11:15 Dose: 90 mg Torsemide (Demadex -) 20 mg PO DAILY [facility] Last Admin: 07/15/19 11:16 Dose: 20 mg Valsartan (Diovan -) 40 mg PO DAILY [facility] Last Admin: 07/15/19 11:14 Dose: 40 mg - Objective Vital Signs: Vital Signs Temperature 98.3 F 07/15/19 06:00 Pulse Rate 64 07/15/19 06:00 Respiratory Rate 18 07/15/19 08:29 Blood Pressure 137/67 07/15/19 06:00 O2 Sat by Pulse Oximetry (%) 96 07/15/19 08:29 Constitutional: Yes: No Distress, Calm Cardiovascular: Yes: Regular Rate and Rhythm, S1, S2 Respiratory: Yes: Regular, CTA Bilaterally. No: Rales Gastrointestinal: Yes: Normal Bowel Sounds, Soft. No: Tenderness Edema: No Neurological: Yes: Alert, Oriented Labs: CBC, BMP 07/15/19 06:05 07/15/19 06:05 INR, PTT INR 1.20 (0.83-1.09) H 07/05/19 01:28 Problem List - Problems (1) Fall Code(s): W19.XXXA - UNSPECIFIED FALL, INITIAL ENCOUNTER (2) CAD (coronary artery disease) Code(s): I25.10 - ATHSCL HEART DISEASE OF [place] CORONARY ARTERY W/O ANG PCTRS (3) CVA (cerebral vascular accident) Code(s): I63.9 - CEREBRAL INFARCTION, UNSPECIFIED (4) CKD (chronic kidney disease) Code(s): N18.9 - CHRONIC KIDNEY DISEASE, UNSPECIFIED (5) S/P CABG (coronary artery bypass graft) Code(s): Z95.1 - PRESENCE OF AORTOCORONARY BYPASS GRAFT (6) Anemia Code(s): D64.9 - ANEMIA, UNSPECIFIED (7) Diabetes mellitus Code(s): E11.9 - TYPE 2 DIABETES MELLITUS WITHOUT COMPLICATIONS (8) HTN (hypertension) Code(s): I10 - ESSENTIAL (PRIMARY) HYPERTENSION (9) Ankle pain, left Code(s): M25.572 - PAIN IN LEFT ANKLE AND JOINTS OF LEFT FOOT (10) Knee pain, left Code(s): M25.562 - PAIN IN LEFT KNEE (11) Leukopenia Code(s): D72.819 - DECREASED WHITE BLOOD CELL COUNT, UNSPECIFIED Assessment/Plan Admitted to telemetry, transferred to medical floor on 07/07/2019 Negative CE Cardio, GI, Ortho consults are appreciated. s/p one unit of PRBC Transfusion [facility] H[facility]H are stable
[2019-07-15] MEDS: TAMSULOSIN HCL 0.4 MG CAP PO SCH (22:44)
[2019-07-15] MEDS: ATORVASTATIN CA 80 MG TABLET (FP) PO SCH (22:44)
[2019-07-15] MEDS: MONTELUKAST NA 10 MG TABLET PO SCH (22:44)
[2019-07-16] MEDS: INSULIN (LEVEMIR) 100 UNITS/ML UNITS SQ SCH (06:39)
[2019-07-16] MEDS: sitaGLIPtin PHOSPHATE 50 MG TABLET PO SCH (06:39)
[2019-07-16] MEDS: INSULIN SLIDING SCALE (NOVOLOG) 1 VIAL SQ SCH ×2 (06:40→11:46)
[2019-07-16] MEDS: ACETAMINOPHEN 325 MG TABLET (FP) PO PRN (06:44)
[2019-07-16] MEDS: PANTOPRAZOLE 40 MG TABLET (FP) PO SCH (10:02)
[2019-07-16] MEDS: SENNOSIDES 8.6MG TABLET (FP) PO SCH (10:02)
[2019-07-16] MEDS: TORSEMIDE 20 MG TABLET (FP) PO SCH (10:02)
[2019-07-16] MEDS: ASPIRIN 81 MG CHEWABLE TABLETS PO SCH (10:02)
[2019-07-16] MEDS: FINASTERIDE 5 MG TABLET (FP) PO SCH (10:02)
[2019-07-16] MEDS: TICAGRELOR 90 MG TABLET PO SCH (10:04)
[2019-07-16] MEDS: POLYETHYLENE GLYCOL 3350 119 GM BTL PO SCH (10:04)
[2019-07-16] MEDS: EZETIMIBE 10 MG TABLET (FP) PO SCH (10:05)
[2019-07-16] MEDS: VALSARTAN 40 MG TABLET (FP) PO SCH (10:16)
[2019-07-16] MEDS: RANOLAZINE E.R. 500 MG TABLET (FP) PO SCH (10:19)
[2019-07-16] MEDS: ISOSORBIDE MONONITRATE 60 MG TAB.SR.24H (FP) PO SCH (10:19)
[2019-07-16 10:25] VITALS: PULSE 67
--- NOTE | 2019-07-16 11:10 | PN ---
Progress Note, Physician Chief Complaint: fall History of Present Illness: denies dizzy/LH, presyncope no cp, sob, palp - Current Medication List Current Medications: Active Medications Acetaminophen (Tylenol -) 650 mg PO Q6H PRN PRN Reason: PAIN LEVEL 1-5 Last Admin: 07/16/19 06:44 Dose: 650 mg Aspirin (Asa -) 81 mg PO DAILY [facility] Last Admin: 07/16/19 10:02 Dose: 81 mg Atorvastatin Calcium (Lipitor -) 80 mg PO HS [facility] Last Admin: 07/15/19 22:44 Dose: 80 mg Ezetimibe (Zetia -) 10 mg PO DAILY [facility] Last Admin: 07/16/19 10:05 Dose: 10 mg Finasteride (Proscar -) 5 mg PO DAILY [facility] Last Admin: 07/16/19 10:02 Dose: 5 mg Insulin Aspart (Novolog Vial Sliding Scale -) 1 vial SQ [facility]; Protocol Last Admin: 07/16/19 06:40 Dose: Not Given Insulin Detemir (Levemir Vial) 37 units SQ AM [facility] Last Admin: 07/16/19 06:39 Dose: 37 units Isosorbide Mononitrate (Imdur -) 120 mg PO DAILY [facility] Last Admin: 07/16/19 10:19 Dose: 120 mg Montelukast Sodium (Singulair -) 10 mg PO HS [facility] Last Admin: 07/15/19 22:44 Dose: 10 mg Nitroglycerin (Nitrolingual [place] -) 1 spray TL Q5M PRN PRN Reason: FOR CHEST PAIN Pantoprazole Sodium (Protonix -) 40 mg PO BID [facility] Last Admin: 07/16/19 10:02 Dose: 40 mg Polyethylene Glycol (Miralax (For Daily Use) -) 17 gm PO DAILY [facility] Last Admin: 07/16/19 10:04 Dose: Not Given Ranolazine (Ranexa -) 500 mg PO BID [facility] Last Admin: 07/16/19 10:19 Dose: 500 mg Senna (Senna -) 1 tab PO BID [facility] Last Admin: 07/16/19 10:02 Dose: 1 tab Sitagliptin Phosphate (Januvia -) 50 mg PO DAILY@0700 [facility] Last Admin: 07/16/19 06:39 Dose: 50 mg Tamsulosin HCl (Flomax -) 0.4 mg PO HS [facility] Last Admin: 07/15/19 22:44 Dose: 0.4 mg Ticagrelor (Brilinta -) 90 mg PO BID [facility] Last Admin: 07/16/19 10:04 Dose: 90 mg Torsemide (Demadex -) 20 mg PO DAILY [facility] Last Admin: 07/16/19 10:02 Dose: 20 mg Valsartan (Diovan -) 40 mg PO ACDIN [facility] - Objective Vital Signs: Vital Signs Temperature 97.7 F 07/16/19 10:00 Pulse Rate 67 07/16/19 10:00 Respiratory Rate 18 07/16/19 10:00 Blood Pressure 119/37 L 07/16/19 10:24 O2 Sat by Pulse Oximetry (%) 97 07/15/19 21:00 Constitutional: Yes: Well Nourished, No Distress, Calm Cardiovascular: Yes: Regular Rate and Rhythm, Murmur (2/6 early GEOVANNY lusb, + S2 split), S1, S2. No: Gallop Respiratory: Yes: Regular, CTA Bilaterally. No: Accessory Muscle Use, Rales, Wheezes Extremities: No: Cold Edema: No Neurological: Yes: Alert, Oriented Psychiatric: No: Agitated Labs: CBC, BMP 07/15/19 06:05 07/15/19 06:05 INR, PTT INR 1.20 (0.83-1.09) H 07/05/19 01:28 Assessment/Plan echo 10/2018: nl lv/rv, mild as, mild mr, mild tr, mild phtn Assessment/Plan 73 m hx htn, hld, dchf, cva, pad, cad s/p cabg 1997, pci 2011, 2012, 2013, and most recent cath for nstemi 04/2019 with latoya to d1, lcx, here with fall. bradycardia - atenolol stopped, hr improved cad: -has been stable since his most recent cath for nstemi 04/2019 with latoya to d1, lcx -no signs acs here -continue home imdur, ranexa, atorva, brilinta, asa, zetia -stopped bb as above for bradycardia--no angina chronic diastolic CHF: -stable at present, appears euvolemic -cont home torsemide 20 qd ckd: -cr back at baseline 1.7-2 HTN: -BPs soft this am -move valsartan from AM to dinner time (remains on this agent for DM renal protection) -cont other meds same -observe trend--if runs low on this regimen, rec outpt cardio eval re: ? need for ongoing hi dose imdur (sees dr tan) fall: -seems mechanical, tele benign -going to rehab
--- NOTE | 2019-07-16 12:57 | PN ---
Progress Note, Physician History of Present Illness: Pt w/o SOB, CP, palpitations, abd pain. Pt's still with left ankle pain and Knee pain when walking - Current Medication List Current Medications: Active Medications Acetaminophen (Tylenol -) 650 mg PO Q6H PRN PRN Reason: PAIN LEVEL 1-5 Last Admin: 07/16/19 06:44 Dose: 650 mg Aspirin (Asa -) 81 mg PO DAILY [facility] Last Admin: 07/16/19 10:02 Dose: 81 mg Atorvastatin Calcium (Lipitor -) 80 mg PO HS [facility] Last Admin: 07/15/19 22:44 Dose: 80 mg Ezetimibe (Zetia -) 10 mg PO DAILY [facility] Last Admin: 07/16/19 10:05 Dose: 10 mg Finasteride (Proscar -) 5 mg PO DAILY [facility] Last Admin: 07/16/19 10:02 Dose: 5 mg Insulin Aspart (Novolog Vial Sliding Scale -) 1 vial SQ ACHS [facility]; Protocol Last Admin: 07/16/19 11:46 Dose: 6 units Insulin Detemir (Levemir Vial) 37 units SQ AM [facility] Last Admin: 07/16/19 06:39 Dose: 37 units Isosorbide Mononitrate (Imdur -) 120 mg PO DAILY [facility] Last Admin: 07/16/19 10:19 Dose: 120 mg Montelukast Sodium (Singulair -) 10 mg PO HS [facility] Last Admin: 07/15/19 22:44 Dose: 10 mg Nitroglycerin (Nitrolingual [place] -) 1 spray TL Q5M PRN PRN Reason: FOR CHEST PAIN Pantoprazole Sodium (Protonix -) 40 mg PO BID [facility] Last Admin: 07/16/19 10:02 Dose: 40 mg Polyethylene Glycol (Miralax (For Daily Use) -) 17 gm PO DAILY [facility] Last Admin: 07/16/19 10:04 Dose: Not Given Ranolazine (Ranexa -) 500 mg PO BID [facility] Last Admin: 07/16/19 10:19 Dose: 500 mg Senna (Senna -) 1 tab PO BID [facility] Last Admin: 07/16/19 10:02 Dose: 1 tab Sitagliptin Phosphate (Januvia -) 50 mg PO DAILY@0700 [facility] Last Admin: 07/16/19 06:39 Dose: 50 mg Tamsulosin HCl (Flomax -) 0.4 mg PO HS [facility] Last Admin: 07/15/19 22:44 Dose: 0.4 mg Ticagrelor (Brilinta -) 90 mg PO BID [facility] Last Admin: 07/16/19 10:04 Dose: 90 mg Torsemide (Demadex -) 20 mg PO DAILY [facility] Last Admin: 07/16/19 10:02 Dose: 20 mg Valsartan (Diovan -) 40 mg PO ACDIN [facility] - Objective Vital Signs: Vital Signs Temperature 97.7 F 07/16/19 10:00 Pulse Rate 67 07/16/19 10:00 Respiratory Rate 18 07/16/19 10:00 Blood Pressure 119/37 L 07/16/19 10:24 O2 Sat by Pulse Oximetry (%) 99 07/16/19 09:00 Constitutional: Yes: No Distress, Calm Cardiovascular: Yes: Regular Rate and Rhythm, Murmur, S1, S2 Respiratory: Yes: Regular, CTA Bilaterally. No: Rales Gastrointestinal: Yes: Normal Bowel Sounds, Soft. No: Tenderness Edema: No Neurological: Yes: Alert, Oriented Labs: CBC, BMP 07/15/19 06:05 07/15/19 06:05 INR, PTT INR 1.20 (0.83-1.09) H 07/05/19 01:28 Problem List - Problems (1) Fall Code(s): W19.XXXA - UNSPECIFIED FALL, INITIAL ENCOUNTER (2) CAD (coronary artery disease) Code(s): I25.10 - ATHSCL HEART DISEASE OF [place] CORONARY ARTERY W/O ANG PCTRS (3) CVA (cerebral vascular accident) Code(s): I63.9 - CEREBRAL INFARCTION, UNSPECIFIED (4) CKD (chronic kidney disease) Code(s): N18.9 - CHRONIC KIDNEY DISEASE, UNSPECIFIED (5) S/P CABG (coronary artery bypass graft) Code(s): Z95.1 - PRESENCE OF AORTOCORONARY BYPASS GRAFT (6) Anemia Code(s): D64.9 - ANEMIA, UNSPECIFIED (7) Diabetes mellitus Code(s): E11.9 - TYPE 2 DIABETES MELLITUS WITHOUT COMPLICATIONS (8) HTN (hypertension) Code(s): I10 - ESSENTIAL (PRIMARY) HYPERTENSION (9) Ankle pain, left Code(s): M25.572 - PAIN IN LEFT ANKLE AND JOINTS OF LEFT FOOT (10) Knee pain, left Code(s): M25.562 - PAIN IN LEFT KNEE (11) Leukopenia Code(s): D72.819 - DECREASED WHITE BLOOD CELL COUNT, UNSPECIFIED Assessment/Plan Admitted to telemetry, transferred to medical floor on 07/07/2019 Negative CE Cardio, GI, Ortho consults are appreciated. s/p one unit of PRBC Transfusion; s/p IV Iron infusion Stable H/H Pending transfer to Rehab. TO monitor CBC twice a week for one or two weeks, then weekly. I d/w pt and his the importance of GI follow up after DC from Rehab.
[2019-07-16 14:31] VITALS: BP 155/52; TEMP 98.1
[2019-07-16] MEDS ORDERED: VALSARTAN 40 MG TABLET (FP) PO SCH (16:30)
== END 2019-07-16 16:20 | DRG 378 ==
LOC: JER 00:33 → JERBED 05:04 → J4W 16:51 → J7W 07-07 19:00
PROVIDERS: ADMIT Specialist; ATTEND Specialist
PROC: 30233N1 Transfusion of Nonautologous Red Blood Cells into Peripheral Vein, Percutaneous Approach (ICD-10-PCS; principal; 2019-07-12)
DX: K62.5 Hemorrhage of anus and rectum (principal); I69.354 Hemiplegia and hemiparesis following cerebral infarction affecting left non-dominant side; I50.32 Chronic diastolic (congestive) heart failure; I13.0 Hypertensive heart and chronic kidney disease with heart failure and stage 1 through stage 4 chronic kidney disease, or unspecified chronic kidney disease; I25.10 Atherosclerotic heart disease of native coronary artery without angina pectoris; I25.2 Old myocardial infarction; Z95.1 Presence of aortocoronary bypass graft; E78.5 Hyperlipidemia, unspecified; Z79.4 Long term (current) use of insulin; K21.9 Gastro-esophageal reflux disease without esophagitis; Z87.891 Personal history of nicotine dependence; I44.7 Left bundle-branch block, unspecified; E11.51 Type 2 diabetes mellitus with diabetic peripheral angiopathy without gangrene; E11.22 Type 2 diabetes mellitus with diabetic chronic kidney disease; N18.9 Chronic kidney disease, unspecified; R29.6 Repeated falls; R00.1 Bradycardia, unspecified; M25.562 Pain in left knee; K59.09 Other constipation; D50.9 Iron deficiency anemia, unspecified; M25.572 Pain in left ankle and joints of left foot; D72.819 Decreased white blood cell count, unspecified; W19.XXXA Unspecified fall, initial encounter; Y93.89 Activity, other specified; Y92.098 Other place in other non-institutional residence as the place of occurrence of the external cause; Y99.8 Other external cause status
CPT/HCPCS: 36415; 36430; 36511; 70450-TC; 71045-TC-FY; 73560-TC-LT-FY; 73610-TC-LT-FY; 80048; 80053; 82378; 82550; 82552; 82607; 82728; 82746; 82962; 83540; 83550; 83735; 83880; 84252; 84484; 85025; 85027; 85044; 85610; 85730; 86140; 86850; 86900; 86901; 86922; 93005; 93010; 93970-TC; 97116-GP; 97161-GP; 99285-25; J1756; P9038; P9058

== ENCOUNTER 2020-02-13 15:27 | Inpatient (IN) | payer OTHER, BC ==
[2020-02-13] MEDS ORDERED: SODIUM CHLORIDE 1,000 ML IV SCH (15:30)
--- NOTE | 2020-02-13 15:33 | PDOC ---
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 Patient's is at the bedside providing collateral history. Patient started feeling short of breath since yesterday. Patient's last known normal was at 2am. Around 9:30am, patient's was preparing the patient for an appointment, but he was unable to walk. Patient had similar symptoms about four days ago which self-resolved. PCP: Dr. Tejeda ROS: Constitutional: no fever, no chills HEENT: no throat pain, no dysphagia Cardiovascular: +chest pain, no palpitations Respiratory: no cough, +shortness of breath Gastrointestinal: no abdominal pain, no nausea Genitourinary: no dysuria, no hematuria Musculoskeletal: no myalgia, no arthralgia Skin: no rash, no itching Neurologic: no headache, +weakness Psych: no agitation, no anxiety PE: General: Awake, alert, and fully oriented, in no acute distress Head: No signs of trauma Eyes: EOMI, sclera anicteric ENT: Moist mucus membranes Neck: Normal ROM, supple Lungs: Lungs clear, Normal breath sounds Cardio: Regular rhythm, S1 and S2 present Abdomen: Soft, nontender Extremities: Normal range of motion, Distal pulses present Skin: Warm, Dry, normal turgor Neurologic: Cranial nerves II through XII intact. Normal speech. Please see NIHSS ED Course/MDM: DDX including but not limited to CVA/TIA, recrudescence, ACS, PNA, UTI, Vitals significant for fever and hypoxia Sepsis workup intiated Patient initially presented with worse neurologic exam, now back to baseline NIHSS is 1 Not a tpa candidate as NIHSS is low and patient is outside the tpa window 02/13/20 15:47 EKG: rate 90, QTc 489, widened qrs also present on previous EKG performed 07/09/19 CBC WBC 8.2 K/mm3 (4.0-10.0) 02/13/20 16:00 RBC 3.11 M/mm3 (4.00-5.60) L 02/13/20 16:00 Hgb 10.3 GM/dL (11.7-16.9) L 02/13/20 16:00 Hct 30.0 % (35.4-49) L 02/13/20 16:00 MCV 96.6 fl (80-96) H 02/13/20 16:00 MCH 33.0 pg (25.7-33.7) 02/13/20 16:00 MCHC 34.2 g/dl (32.0-35.9) 02/13/20 16:00 RDW 13.3 % (11.9-15.9) D 02/13/20 16:00 Plt Count 161 K/MM3 (134-434) D 02/13/20 16:00 MPV 8.6 fl (7.5-11.1) 02/13/20 16:00 Absolute Neuts (auto) 7.1 K/mm3 (1.5-8.0) 02/13/20 16:00 Neutrophils % 86.9 % (42.8-82.8) H D 02/13/20 16:00 Lymphocytes % 4.6 % (8-40) L D 02/13/20 16:00 Monocytes % 8.2 % (3.8-10.2) 02/13/20 16:00 Eosinophils % 0.2 % (0-4.5) D 02/13/20 16:00 Basophils % 0.1 % (0-2.0) 02/13/20 16:00 Nucleated RBC % 0 % (0-0) 02/13/20 16:00 No leukocytosis or anemia CXR as reported by radiology: "A single frontal portable projection of the chest at 4:14 PM is submitted. The heart size is enlarged. Median sternotomy sutures and mediastinal surgical clips are present. There are increased interstitial markings diffusely that may be indicative of a mild degree of pulmonary vascular congestion. These changes could also be chronic in nature. No acute infiltrates or pleural effusions are identified. IMPRESSION: Cardiomegaly and possible mild congestion. Reported By: Jose Felipe MD 02/13/20 0886 " CT head as reported by radiology: "Multiplanar imaging was performed. Intravenous contrast was not administered. No intracranial hemorrhage is seen. T here is no extra-axial fluid collection. No discrete infarct is identified within the limitations of CT. Mild to moderate periventricular chronic microvascular ischemic changes are noted. No gross mass lesion is seen. Involutional changes are noted with mild ventricular dilatation. Incidental note is again made of a punctate cortical calcification within the right posterior frontal lobe at the high convexity level. The calvarium appears intact. Verbal report provided to emergency department personnel. IMPRESSION: No CT evidence of acute intracranial pathology. Mild to moderate periventricular chronic microvascular ischemic changes are seen. No definite interval change is identified in comparison to a prior CT exam of 07/05/2019. Reported By: Andry Carrillo MD 02/13/20 1544 " 02/13/20 17:38 CMP Sodium 133 mmol/L (136-145) L 02/13/20 16:00 Potassium 4.9 mmol/L (3.5-5.1) 02/13/20 16:00 Chloride 101 mmol/L (98-107) 02/13/20 16:00 Carbon Dioxide 26 mmol/L (21-32) 02/13/20 16:00 Anion Gap 7 MMOL/L (8-16) L 02/13/20 16:00 BUN 34.3 mg/dL (7-18) H 02/13/20 16:00 Creatinine 1.8 mg/dL (0.55-1.3) H 02/13/20 16:00 Est GFR (CKD-EPI)AfAm 41.74 02/13/20 16:00 Est GFR (CKD-EPI)NonAf 36.01 02/13/20 16:00 POC Glucometer 278 UNITS (80-120) 02/13/20 15:48 Random Glucose 272 mg/dL (74-106) H 02/13/20 16:00 Lactic Acid 1.1 mmol/L (0.4-2.0) 02/13/20 16:00 Calcium 10.6 mg/dL (8.5-10.1) H 02/13/20 16:00 Total Bilirubin 1.0 mg/dL (0.2-1) 02/13/20 16:00 AST 37 U/L (15-37) 02/13/20 16:00 ALT 36 U/L (13-61) 02/13/20 16:00 Alkaline Phosphatase 86 U/L (45-117) 02/13/20 16:00 Creatine Kinase 124 U/L (26-308) 02/13/20 16:00 Troponin I 0.08 ng/ml (0.00-0.05) H 02/13/20 16:00 Total Protein 7.0 g/dl (6.4-8.2) 02/13/20 16:00 Albumin 3.1 g/dl (3.4-5.0) L 02/13/20 16:00 Triglycerides 88 mg/dL (0-150) 02/13/20 16:00 Cholesterol 108 mg/dL (50-200) 02/13/20 16:00 Total LDL Cholesterol 49 mg/dL (5-100) 02/13/20 16:00 HDL Cholesterol 45 mg/dL (40-60) 02/13/20 16:00 Electrolytes unremarkable Tpn elevated, 0.08, ASA ordered Normal lactate Cr elevated, appears to be at patient's baseline Discussed case with Dr. Burnett who will evaluate the patient Awaiting callback from admitting provider 02/13/20 17:[address] Christy who accepted patient for admission. She requested [facility] as she is unable to see the patient before tomorrow. MB sent to [facility] 02/13/20 18:[address] Luis Fernando Torres who accepted patient for admission under the [facility] 02/13/20 18:40 tPA Exclusion checklist 3-4.5h - Time Elapsed Date last known well: 02/13/20 Time last known well: 02:00 Elaspsed time: 1 Day(s) and 7 Hour(s) and 40 Minutes - Thrombolytic Therapy Candidate Is patient eligible for thrombolytic therapy: No - Ineligibility reason(s) Reasons No tPA given: Outside of window - delayed arrival NIH Stroke Scale - Last Known Well Date/Time & Onset Date Last Known Well: 02/13/20 Time Last Known Well: 02:00 - Initial Evaluation Level of consciousness: Alert Ask patient the month and their age: Answers both correctly Ask patient to open & close eyes; make fist and let go: Obeys both correctly Best gaze (horizontal eye movement): Normal Visual field testing: No visual field loss Facial paresis (Show teeth/raise eyebrows/close eyes tight): Normal symmetrical movement Motor Function: Left Arm: Normal Motor Function: Right Arm: Normal (extends arm 90 (or 45) degrees for 10 second s without drift Motor Function: Left Leg: Untestable (Joint fused or limb amputated), explain: (hx of left leg deficiency) Motor Function: Right Leg: Normal (extends leg 30 degrees for 5 seconds without drift) Limb Ataxia: No ataxia Sensory(Use pinprick test arms,legs,trunk,face/side to side): Normal Best language (Describe picture, name items, read sentences): Mild to moderate aphasia Dysarthria (read several words): Normal articulation Extinction and Inattention: No abnormality - Total Score NIH Stroke Scale Score: 1 Past History - Medical History Allergies/Adverse Reactions: Allergies Allergy/AdvReac Type Severity Reaction Status Date / Time No Known Allergies Allergy Verified 02/13/20 17:44 Home Medications: Ambulatory Orders Ranolazine [Ranexa] 1,000 mg PO BID 01/08/13 Atorvastatin Ca [Lipitor] 80 mg PO DAILY 06/04/18 Ezetimibe [Zetia] 10 mg PO DAILY 06/04/18 Finasteride [Proscar] 5 mg PO DAILY 06/04/18 Insulin Degludec [Tresiba Flextouch U-100] 35 unit SQ AM 06/04/18 Montelukast Sodium [Singulair] 10 mg PO DAILY 06/04/18 Nitroglycerin [place] [Nitrolingual [place] -] 1 spray TL Q5M PRN 06/04/18 Polyethylene Glycol 3350 [Miralax 255 gm Btl -] 17 gm PO DAILY PRN 06/04/18 Sennosides [Senokot] 8.6 mg PO DAILY PRN 06/04/18 Sitagliptin Phosphate [Januvia] 50 mg PO DAILY 06/04/18 Torsemide [Demadex -] 20 mg PO DAILY #30 tablet MDD 1 06/11/18 Aspirin [ASA -] 81 mg PO DAILY 07/05/19 Isosorbide Mononitrate [Isosorbide Mononitrate ER] 60 mg PO DAILY 07/05/19 Ticagrelor [Brilinta -] 90 mg PO BID 07/05/19 Valsartan [Diovan] 40 mg PO DAILY 07/05/19 Acetaminophen [Tylenol .Regular Strength -] 650 mg PO Q6H PRN tablet 07/13/19 Insulin Sliding Scale [Novolog Vial Sliding Scale -] 1 vial SQ ACHS units 07/13/19 Pantoprazole Sodium [Protonix -] 40 mg PO BID tablet.ec 07/13/19 Fluticasone/Salmeterol [Advair 250-50 Diskus] 1 each IH BID 02/13/20 Tamsulosin HCl [Flomax] 0.4 mg PO DAILY 02/13/20 Cardiac Disorders: Yes (SD x5 + CABG) CVA: Yes (LT SIDED WEAKNESS) COPD: No CHF: Yes Diabetes: Yes GI Disorders: Yes (GERD) HTN: Yes Hypercholesterolemia: Yes - Surgical History Cardiac Surgery: Yes (CABG, ENDARTERECTOMY, CARDIAC STENTS 4, 2 TO LOWER EXTREMITIES) - Immunization History Immunization Up to Date: Yes - Psycho-Social/Smoking History Smoking Status: Yes Smoking History: Former smoker Years of Tobacco Use: 30 Have you smoked in the past 12 months: No Number of Cigarettes Smoked Daily: 0 If you are a former smoker, when did you quit?: 1984 ED Treatment Course - LABORATORY CBC & Chemistry Diagram: 02/14/20 06:15 02/14/20 06:00 - RADIOLOGY Radiology Studies Ordered: Category Date Time Status HEAD CT (STROKE) [CT] Stat CT Scan 02/13/20 15:29 Ordered CHEST X-RAY PORTABLE* [RAD] Stat Radiology 02/13/20 15:29 Ordered Discharge - Discharge Information Problems reviewed: Yes Clinical Impression/Diagnosis: TIA (transient ischemic attack), Febrile illness, SIRS (systemic inflammatory response syndrome) Condition: Guarded - Admission Yes - Follow up/Referral - Patient Discharge Instructions - Post Discharge Activity
--- NOTE | 2020-02-13 16:05 | PDOC ---
Attending Attestation - Resident Resident Name: Taylor Huber - ED Attending Attestation I have performed the following: I have examined & evaluated the patient, The case was reviewed & discussed with the resident, I agree w/resident's findings & plan, Exceptions are as noted - HPI HPI: 02/13/20 16:00 74 yo M multiple medical problems including previous CVA with L sided residual weakness p/w R sided weakness and slurred speech since ~10:30 AM today with some improvement in his speech as per EMS and . Patient had similar symptoms a few days ago that resolved on their own. Patient did not seek medical care atthat time. Patient denies headache or changes in vision. Denies CP or SOB. - Physicial Exam PE: 02/13/20 16:02 General: non-toxic appearing HEENT: NCAT Neuro: + facial droop, strength 3-4/5 b/l, sensation intact to light touch, speech fluent, no pronator drift, awake, alert, follows simple commands - Critical Care Time Total Critical Care Time: 30 Critical Care Statement: The care of this patient involved high complexity decision making to prevent further life threatening deterioration of the patient's condition and/or to evaluate & treat vital organ system(s) failure or risk of failure. - Medical Decision Making 02/13/20 16:04 74 yo M with sided weakness and facial droop concerning for CVA vs. TIA. Patient presented >4 hours from last known well so outside of a TPA window. Plan: -labs -urine -cxr -CT head -admit This clinical encounter is taking place during a federal and state health care emergency attributable to the novel [place] Virus pandemic. The [employer] of the Department of Health and Human Services has declared, pursuant to the Public Health Service Act 319F-3 (42 U.S[place]C. 247d-6d), that a covered persons activities related to medical countermeasures against COVID-19 will be immune from liability under Federal and State law. Discharge - Discharge Information Problems reviewed: Yes Clinical Impression/Diagnosis: TIA (transient ischemic attack), Febrile illness, SIRS (systemic inflammatory response syndrome) Condition: Guarded - Follow up/Referral - Patient Discharge Instructions - Post Discharge Activity
[2020-02-13 16:16] LABS: BASO % 0.1 % (0-2.0); EOS % 0.2 % (0-4.5); HEMOGLOBIN 10.3 GM/dL (11.7-16.9); LYMPH % 4.6 % (8-40); MCHC 34.2 g/dl (32.0-35.9); MEAN CELL VOLUME 96.6 fl (80-96); MEAN PLT VOLUME 8.6 fl (7.5-11.1); MONO % 8.2 % (3.8-10.2); NEUT % 86.9 % (42.8-82.8); PLATELET COUNT 161 K/MM3 (134-434); RBC 3.11 M/mm3 (4.00-5.60); RDW 13.3 % (11.9-15.9); WHITE BLOOD COUNT 8.2 K/mm3 (4.0-10.0)
[2020-02-13 16:23] LABS: INR 1.09 (0.83-1.09); PROTHROMBIN TIME (PATIENT) 12.9 SEC (9.7-13.0)
[2020-02-13 16:26] LABS: ACTIVATED PTT 28.9 SECONDS (25.2-36.5)
[2020-02-13 16:32] LABS: VENOUS BASE EXCESS -0.5 mmol/L (-2-2); VENOUS O2 SATURATION 94.8 % (70-80); VENOUS PCO2 39.8 mmHg (38-52); VENOUS PH 7.402 (7.310-7.410)
[2020-02-13 16:45] LABS: CHOLESTEROL 108 mg/dL (50-200); HDL CHOLESTEROL 45 mg/dL (40-60); LDL CHOLESTEROL (ONLY SJRH) 49 mg/dL (5-100); TRIGLYCERIDES 88 mg/dL (0-150)
[2020-02-13 16:48] LABS: ALBUMIN 3.1 g/dl (3.4-5.0); BLOOD UREA NITROGEN 34.3 mg/dL (7-18); CALCIUM 10.6 mg/dL (8.5-10.1); CREATININE 1.8 mg/dL (0.55-1.3); POTASSIUM 4.9 mmol/L (3.5-5.1)
[2020-02-13] MEDS ORDERED: ACETAMINOPHEN 1000 MG/100 ML VIAL (NON FORMULARY) IVPB ONE (16:49)
[2020-02-13] MEDS ORDERED: ACETAMINOPHEN INJECTION 100 ML IVPB ONE (16:50)
[2020-02-13] MEDS ORDERED: ASPIRIN 81 MG CHEWABLE TABLETS PO ONE (17:37)
[2020-02-13] MEDS ORDERED: ASPIRIN 81 MG CHEWABLE TABLETS ONE (17:46)
[2020-02-13 19:48] LABS: EPI CELLS 31 /uL (0-25.1); HYALINE CASTS 3 /uL (0-3.1); URINE APPEARANCE TURBID; URINE BILIRUBIN NEGATIVE (NEGATIVE); URINE COLOR DK YELLOW; URINE GLUCOSE (UA) 1+ (NEGATIVE); URINE KETONE NEGATIVE (NEGATIVE); URINE LEUK ESTERASE 3+ (NEGATIVE); URINE NITRITE NEGATIVE (NEGATIVE); URINE PROTEIN 2+ (NEGATIVE); URINE RBC 297 /uL (0-23.9); URINE WBC 12941 /uL (0-25.8)
[2020-02-13] MEDS ORDERED: CEFTRIAXONE 1 GM in DEXTROSE 5%-WATER - 100 ML IVPB ONE (20:47)
[2020-02-13] MEDS ORDERED: CEFTRIAXONE 1 GM/50 ML BAG ONE (20:48)
[2020-02-13] MEDS ORDERED: SENNOSIDES 8.6MG TABLET (FP) PO PRN (22:04)
[2020-02-13] MEDS ORDERED: POLYETHYLENE GLYCOL 3350 255 GM BTL PO PRN (22:04)
[2020-02-13] MEDS ORDERED: NITROGLYCERIN 0.4MG/SPRAY 4.9 GM BOTTLE TL PRN (22:04)
[2020-02-14] MEDS: SODIUM CHLORIDE 1,000 ML IV SCH
[2020-02-14] MEDS ORDERED: ACETAMINOPHEN 325 MG TABLET (FP) ONE (01:13)
--- NOTE | 2020-02-14 01:26 | HP ---
<Bailey Garcia - Last Filed: 02/14/20 01:05> CHIEF COMPLAINT: R sided weakness, inability to walk and SOB HISTORY OF PRESENT ILLNESS: Pt is a 74 year old male with PMHx of CVA x 2, CAD s/p stent, HTN, HLD, DM, CABG presenting to the ED complaining of R sided weakness and inability to walk this AM. Pt states he was getting out of bed to get ready for his doctors appointment, but felt weak to the point he could not walk, mainly on the R side and also became SOB. Pt states he started feeling tired since the day prior, and it continued into today. Pt states this does not feel like his previous CVAs, but more so feels like he is just tired. Pt states he had a similar episode of fatigue 4 days prior which resolved. Pt does rehab 2x weekly to help regain strength in his L side after CVA in the past, and commonly gets fatigued after these sessions. However, today's inability to walk was a new development that has not occurred in the past. Pt denies any fall/trauma from the weakness/inability to walk. Admits weakness, SOB. Denies CP, fever/chills, palpitations, CORREIA, GI, no burning/polyuria/polydipsia, or bowel changes. EKG showed QTc 489, wide QRS, LBBB. Recent Travel: Denies PAST MEDICAL HISTORY: As stated above PAST SURGICAL HISTORY: Denies Social History: Smoking: Quit smoking 40 years ago. Alcohol: Denies Drugs: Denies Allergies No Known Allergies Allergy (Verified 02/13/20 17:44) HOME MEDICATIONS: Home Medications Medication Instructions Recorded Ranolazine [Ranexa] 1,000 mg PO BID 01/08/13 Atorvastatin Ca [Lipitor] 80 mg PO DAILY 06/04/18 Ezetimibe [Zetia] 10 mg PO DAILY 06/04/18 Finasteride [Proscar] 5 mg PO DAILY 06/04/18 Insulin Degludec [Tresiba 35 unit SQ AM 06/04/18 Flextouch U-100] Montelukast Sodium [Singulair] 10 mg PO DAILY 06/04/18 Nitroglycerin [place] [Nitrolingual 1 spray TL Q5M PRN 06/04/18 [place] -] Polyethylene Glycol 3350 [Miralax 17 gm PO DAILY PRN 06/04/18 255 gm Btl -] Sennosides [Senokot] 8.6 mg PO DAILY PRN 06/04/18 Sitagliptin Phosphate [Januvia] 50 mg PO DAILY 06/04/18 Torsemide [Demadex -] 20 mg PO DAILY #30 tablet MDD 1 06/11/18 Aspirin [ASA -] 81 mg PO DAILY 07/05/19 Isosorbide Mononitrate [Isosorbide 60 mg PO DAILY 07/05/19 Mononitrate ER] Ticagrelor [Brilinta -] 90 mg PO BID 07/05/19 Valsartan [Diovan] 40 mg PO DAILY 07/05/19 Acetaminophen [Tylenol .Regular 650 mg PO Q6H PRN tablet 07/13/19 Strength -] Insulin Sliding Scale [Novolog 1 vial SQ ACHS units 07/13/19 Vial Sliding Scale -] Pantoprazole Sodium [Protonix -] 40 mg PO BID tablet.ec 07/13/19 Fluticasone/Salmeterol [Advair 1 each IH BID 02/13/20 250-50 Diskus] Tamsulosin HCl [Flomax] 0.4 mg PO DAILY 02/13/20 REVIEW OF SYSTEMS CONSTITUTIONAL: Absent: fever, chills, diaphoresis, generalized weakness, malaise, loss of appetite, weight change HEENT: Absent: rhinorrhea, nasal congestion, throat pain, throat swelling, difficulty swallowing, mouth swelling, ear pain, eye pain, visual changes CARDIOVASCULAR: Absent: chest pain, syncope, palpitations, irregular heart rate, lightheadedness, peripheral edema RESPIRATORY: Absent: cough, shortness of breath, dyspnea with exertion, orthopnea, wheezing, stridor, hemoptysis GASTROINTESTINAL: Absent: abdominal pain, abdominal distension, nausea, vomiting, diarrhea, constipation, melena, hematochezia GENITOURINARY: Absent: dysuria, frequency, urgency, hesitancy, hematuria, flank pain, genital pain MUSCULOSKELETAL: Absent: myalgia, arthralgia, joint swelling, back pain, neck pain SKIN: Absent: rash, itching, pallor HEMATOLOGIC/IMMUNOLOGIC: Absent: easy bleeding, easy bruising, lymphadenopathy, frequent infections ENDOCRINE: Absent: unexplained weight gain, unexplained weight loss, heat intolerance, cold intolerance NEUROLOGIC: Absent: headache, focal weakness or paresthesias, dizziness, unsteady gait, seizure, mental status changes, bladder or bowel incontinence PSYCHIATRIC: Absent: anxiety, depression, suicidal or homicidal ideation, hallucinations. PHYSICAL EXAMINATION Vital Signs - 24 hr 02/13/20 02/13/20 02/13/20 16:03 16:17 17:50 Temperature 102.0 F H Pulse Rate 92 H 87 Pulse Rate [ 79 Radial] Respiratory 33 H 29 H 30 H Rate Blood Pressure 160/69 Blood Pressure 132/55 L [Right Arm] O2 Sat by Pulse 94 L 94 L 96 Oximetry (%) 02/13/20 02/13/20 02/13/20 18:19 19:19 19:38 Temperature 99 F Pulse Rate Pulse Rate [ 74 Radial] Respiratory 23 H Rate Blood Pressure Blood Pressure 126/45 L [Right Arm] O2 Sat by Pulse 96 98 Oximetry (%) 02/13/20 21:05 Temperature Pulse Rate Pulse Rate [ 72 Radial] Respiratory 24 H Rate Blood Pressure Blood Pressure 135/58 L [Right Arm] O2 Sat by Pulse 98 Oximetry (%) GENERAL: Awake, alert, and fully oriented, in no acute distress. HEAD: Normal with no signs of trauma. EYES: Pupils equal, round and reactive to light, extraocular movements intact, sclera anicteric, conjunctiva clear. No lid lag. EARS, NOSE, THROAT: Ears normal, nares patent, oropharynx clear without exudates. Moist mucous membranes. NECK: Normal range of motion, supple without lymphadenopathy, JVD, or masses. LUNGS: Breath sounds equal, clear to auscultation bilaterally. No wheezes, and no crackles. No accessory muscle use. HEART: Regular rate and rhythm, normal S1 and S2 without murmur, rub or gallop. ABDOMEN: Soft, nontender, not distended, normoactive bowel sounds, no guarding, no rebound, no masses. No hepatomegaly or splenomegaly. MUSCULOSKELETAL: Normal range of motion at all joints. No bony deformities or tenderness. No CVA tenderness. UPPER EXTREMITIES: 2+ pulses, warm, well-perfused. No cyanosis. No clubbing. No peripheral edema. 5/5 strength on the R, 4/5 on L (chronic from old CVA) LOWER EXTREMITIES: 2+ pulses, warm, well-perfused. No calf tenderness. No peripheral edema. 5/5 strength on the R, 4/5 on L (chronic from old CVA) NEUROLOGICAL: Cranial nerves II-XII intact. Normal speech. Normal gait. PSYCHIATRIC: Cooperative. Good eye contact. Appropriate mood and affect. SKIN: Warm, dry, normal turgor, no rashes or lesions noted, normal capillary refill. Laboratory Results - last 24 hr 02/13/20 02/13/20 02/13/20 15:48 16:00 16:00 WBC RBC Hgb Hct MCV MCH MCHC RDW Plt Count MPV Absolute Neuts (auto) Neutrophils % Lymphocytes % Monocytes % Eosinophils % Basophils % Nucleated RBC % PT with INR 12.90 INR 1.09 PTT (Actin FS) 28.9 VBG pH POC VBG pCO2 POC VBG pO2 VBG HCO3 VBG O2 Sat (Mariaelena) VBG Base Excess Sodium Potassium Chloride Carbon Dioxide Anion Gap BUN Creatinine Est GFR (CKD-EPI)AfAm Est GFR (CKD-EPI)NonAf POC Glucometer 278 Random Glucose Lactic Acid Calcium Total Bilirubin AST ALT Alkaline Phosphatase Creatine Kinase Troponin I Total Protein Albumin Triglycerides 88 Cholesterol 108 Total LDL Cholesterol 49 HDL Cholesterol 45 Urine Color Urine Appearance Urine pH Ur Specific [place] Urine Protein Urine Glucose (UA) Urine Ketones Urine Blood Urine Nitrite Urine Bilirubin Urine Urobilinogen Ur Leukocyte Esterase Urine WBC (Auto) Urine RBC (Auto) Urine Casts (Auto) U Epithel Cells (Auto) Urine Bacteria (Auto) Blood Type Antibody Screen 02/13/20 02/13/20 02/13/20 16:00 16:00 16:00 WBC 8.2 RBC 3.11 L Hgb 10.3 L Hct 30.0 L MCV 96.6 H MCH 33.0 MCHC 34.2 RDW 13.3 D Plt Count 161 D MPV 8.6 Absolute Neuts (auto) 7.1 Neutrophils % 86.9 H D Lymphocytes % 4.6 L D Monocytes % 8.2 Eosinophils % 0.2 D Basophils % 0.1 Nucleated RBC % 0 PT with INR INR PTT (Actin FS) VBG pH POC VBG pCO2 POC VBG pO2 VBG HCO3 VBG O2 Sat (Mariaelena) VBG Base Excess Sodium 133 L Potassium 4.9 Chloride 101 Carbon Dioxide 26 Anion Gap 7 L BUN 34.3 H Creatinine 1.8 H Est GFR (CKD-EPI)AfAm 41.74 Est GFR (CKD-EPI)NonAf 36.01 POC Glucometer Random Glucose 272 H Lactic Acid Calcium 10.6 H Total Bilirubin 1.0 AST 37 ALT 36 Alkaline Phosphatase 86 Creatine Kinase 124 Troponin I 0.08 H Total Protein 7.0 Albumin 3.1 L Triglycerides Cholesterol Total LDL Cholesterol HDL Cholesterol Urine Color Urine Appearance Urine pH Ur Specific [place] Urine Protein Urine Glucose (UA) Urine Ketones Urine Blood Urine Nitrite Urine Bilirubin Urine Urobilinogen Ur Leukocyte Esterase Urine WBC (Auto) Urine RBC (Auto) Urine Casts (Auto) U Epithel Cells (Auto) Urine Bacteria (Auto) Blood Type A NEGATIVE Antibody Screen Negative 02/13/20 02/13/20 02/13/20 16:00 16:00 18:55 WBC RBC Hgb Hct MCV MCH MCHC RDW Plt Count MPV Absolute Neuts (auto) Neutrophils % Lymphocytes % Monocytes % Eosinophils % Basophils % Nucleated RBC % PT with INR INR PTT (Actin FS) VBG pH 7.402 POC VBG pCO2 39.8 POC VBG pO2 73.2 H VBG HCO3 24.2 VBG O2 Sat (Mariaelena) 94.8 H VBG Base Excess -0.5 Sodium Potassium Chloride Carbon Dioxide Anion Gap BUN Creatinine Est GFR (CKD-EPI)AfAm Est GFR (CKD-EPI)NonAf POC Glucometer Random Glucose Lactic Acid 1.1 Calcium Total Bilirubin AST ALT Alkaline Phosphatase Creatine Kinase Troponin I Total Protein Albumin Triglycerides Cholesterol Total LDL Cholesterol HDL Cholesterol Urine Color Dk yellow Urine Appearance Turbid Urine pH 5.0 Ur Specific [place] 1.016 Urine Protein 2+ H Urine Glucose (UA) 1+ H Urine Ketones Negative Urine Blood 3+ H Urine Nitrite Negative Urine Bilirubin Negative Urine Urobilinogen 1.0 Ur Leukocyte Esterase 3+ H Urine WBC (Auto) 42507 Urine RBC (Auto) 297 Urine Casts (Auto) 3 U Epithel Cells (Auto) 31 Urine Bacteria (Auto) >10,000 Blood Type Antibody Screen ASSESSMENT/PLAN: Pt is a 74 year old male with PMHx of CVA x 2, CAD s/p stent, CABG, HLD, HTN and DM presenting with R sided weakness admitted for sepsis secondary to UTI. Denies any urinary symptoms but UA shows significant evidence for UTI, head CT negative for any acute abnormalities, showing mild to moderate chronic ischemic changes. Elevated troponin 0.08 also found with LBBB on EKG. #Sepsis secondary to UTI -UA showed 3+ leuk esterase, >10k bacteria, 15859 WBC ; no urinary symptoms -Started on Rocephin 1g, NS at 85cc/hr -Procalcitonin and CPK ordered -Trop 0.08 likely secondary to demand ischemia; follow up with AM troponin -Tylenol PRN for fevers -F/U UCx, BCx, COVID test #Rule out TIA/CVA -Per ED physician, facial drooping on presentation so TIA/CVA cannot be ruled out -Hx of CVA x 2 in the past -CT with no acute changes; MRA in AM -Consulted neurology -NIH scale 2; low likelihood of CVA #CKD -GFR = 36 ; Stage IIIB -Cr 1.8, BUN 34 which is baseline for pt -Follow up with nephro outpatient for management #Diabetes Mellitus -BG 272 -SSI + BGM -Insulin levemir 35u in AM (at home) Prophylaxis Heparin 5000u BID SQ FEN: -NS at 85cc/hr -Sodium controlled diet Dispo Admitted to tele for sepsis secondary to UTI with elevated trop. Follow up procalcitonin, CPK in AM. ATTENDING PHYSICIAN STATEMENT I saw and evaluated the patient. I reviewed the resident's note and discussed the case with the resident. I agree with the resident's findings and plan as documented. SUBJECTIVE: OBJECTIVE: ASSESSMENT AND PLAN: <Con Leos - Last Filed: 02/14/20 01:38> CHIEF COMPLAINT: PCP: HISTORY OF PRESENT ILLNESS: ER course was notable for: (1) (2) (3) Recent Travel: PAST MEDICAL HISTORY: PAST SURGICAL HISTORY: Social History: Smoking: Alcohol: Drugs: Allergies No Known Allergies Allergy (Verified 02/13/20 17:44) HOME MEDICATIONS: Home Medications Medication Instructions Recorded Ranolazine [Ranexa] 1,000 mg PO BID 01/08/13 Atorvastatin Ca [Lipitor] 80 mg PO DAILY 06/04/18 Ezetimibe [Zetia] 10 mg PO DAILY 06/04/18 Finasteride [Proscar] 5 mg PO DAILY 06/04/18 Insulin Degludec [Tresiba 35 unit SQ AM 06/04/18 Flextouch U-100] Montelukast Sodium [Singulair] 10 mg PO DAILY 06/04/18 Nitroglycerin [place] [Nitrolingual 1 spray TL Q5M PRN 06/04/18 [place] -] Polyethylene Glycol 3350 [Miralax 17 gm PO DAILY PRN 06/04/18 255 gm Btl -] Sennosides [Senokot] 8.6 mg PO DAILY PRN 06/04/18 Sitagliptin Phosphate [Januvia] 50 mg PO DAILY 06/04/18 Torsemide [Demadex -] 20 mg PO DAILY #30 tablet MDD 1 06/11/18 Aspirin [ASA -] 81 mg PO DAILY 07/05/19 Isosorbide Mononitrate [Isosorbide 60 mg PO DAILY 07/05/19 Mononitrate ER] Ticagrelor [Brilinta -] 90 mg PO BID 07/05/19 Valsartan [Diovan] 40 mg PO DAILY 07/05/19 Acetaminophen [Tylenol .Regular 650 mg PO Q6H PRN tablet 07/13/19 Strength -] Insulin Sliding Scale [Novolog 1 vial SQ ACHS units 07/13/19 Vial Sliding Scale -] Pantoprazole Sodium [Protonix -] 40 mg PO BID tablet.ec 07/13/19 Fluticasone/Salmeterol [Advair 1 each IH BID 02/13/20 250-50 Diskus] Tamsulosin HCl [Flomax] 0.4 mg PO DAILY 02/13/20 REVIEW OF SYSTEMS CONSTITUTIONAL: Absent: fever, chills, diaphoresis, generalized weakness, malaise, loss of appetite, weight change HEENT: Absent: rhinorrhea, nasal congestion, throat pain, throat swelling, difficulty swallowing, mouth swelling, ear pain, eye pain, visual changes CARDIOVASCULAR: Absent: chest pain, syncope, palpitations, irregular heart rate, lightheadedness, peripheral edema RESPIRATORY: Absent: cough, shortness of breath, dyspnea with exertion, orthopnea, wheezing, stridor, hemoptysis GASTROINTESTINAL: Absent: abdominal pain, abdominal distension, nausea, vomiting, diarrhea, constipation, melena, hematochezia GENITOURINARY: Absent: dysuria, frequency, urgency, hesitancy, hematuria, flank pain, genital pain MUSCULOSKELETAL: Absent: myalgia, arthralgia, joint swelling, back pain, neck pain SKIN: Absent: rash, itching, pallor HEMATOLOGIC/IMMUNOLOGIC: Absent: easy bleeding, easy bruising, lymphadenopathy, frequent infections ENDOCRINE: Absent: unexplained weight gain, unexplained weight loss, heat intolerance, cold intolerance NEUROLOGIC: Absent: headache, focal weakness or paresthesias, dizziness, unsteady gait, seizure, mental status changes, bladder or bowel incontinence PSYCHIATRIC: Absent: anxiety, depression, suicidal or homicidal ideation, hallucinations. PHYSICAL EXAMINATION Vital Signs - 24 hr 02/13/20 02/13/20 02/13/20 16:03 16:17 17:50 Temperature 102.0 F H Pulse Rate 92 H 87 Pulse Rate [ 79 Radial] Respiratory 33 H 29 H 30 H Rate Blood Pressure 160/69 Blood Pressure 132/55 L [Right Arm] O2 Sat by Pulse 94 L 94 L 96 Oximetry (%) 02/13/20 02/13/20 02/13/20 18:19 19:19 19:38 Temperature 99 F Pulse Rate Pulse Rate [ 74 Radial] Respiratory 23 H Rate Blood Pressure Blood Pressure 126/45 L [Right Arm] O2 Sat by Pulse 96 98 Oximetry (%) 02/13/20 21:05 Temperature Pulse Rate Pulse Rate [ 72 Radial] Respiratory 24 H Rate Blood Pressure Blood Pressure 135/58 L [Right Arm] O2 Sat by Pulse 98 Oximetry (%) GENERAL: Awake, alert, and fully oriented, in no acute distress. HEAD: Normal with no signs of trauma. EYES: Pupils equal, round and reactive to light, extraocular movements intact, sclera anicteric, conjunctiva clear. No lid lag. EARS, NOSE, THROAT: Ears normal, nares patent, oropharynx clear without exudates. Moist mucous membranes. NECK: Normal range of motion, supple without lymphadenopathy, JVD, or masses. LUNGS: Breath sounds equal, clear to auscultation bilaterally. No wheezes, and no crackles. No accessory muscle use. HEART: Regular rate and rhythm, normal S1 and S2 without murmur, rub or gallop. ABDOMEN: Soft, nontender, not distended, normoactive bowel sounds, no guarding, no rebound, no masses. No hepatomegaly or splenomegaly. MUSCULOSKELETAL: Normal range of motion at all joints. No bony deformities or tenderness. No CVA tenderness. UPPER EXTREMITIES: 2+ pulses, warm, well-perfused. No cyanosis. No clubbing. No peripheral edema. LOWER EXTREMITIES: 2+ pulses, warm, well-perfused. No calf tenderness. No peripheral edema. NEUROLOGICAL: Cranial nerves II-XII intact. Normal speech. Normal gait. PSYCHIATRIC: Cooperative. Good eye contact. Appropriate mood and affect. SKIN: Warm, dry, normal turgor, no rashes or lesions noted, normal capillary refill. Laboratory Results - last 24 hr 02/13/20 02/13/20 02/13/20 15:48 16:00 16:00 WBC RBC Hgb Hct MCV MCH MCHC RDW Plt Count MPV Absolute Neuts (auto) Neutrophils % Lymphocytes % Monocytes % Eosinophils % Basophils % Nucleated RBC % PT with INR 12.90 INR 1.09 PTT (Actin FS) 28.9 VBG pH POC VBG pCO2 POC VBG pO2 VBG HCO3 VBG O2 Sat (Mariaelena) VBG Base Excess Sodium Potassium Chloride Carbon Dioxide Anion Gap BUN Creatinine Est GFR (CKD-EPI)AfAm Est GFR (CKD-EPI)NonAf POC Glucometer 278 Random Glucose Lactic Acid Calcium Total Bilirubin AST ALT Alkaline Phosphatase Creatine Kinase Troponin I Total Protein Albumin Triglycerides 88 Cholesterol 108 Total LDL Cholesterol 49 HDL Cholesterol 45 Urine Color Urine Appearance Urine pH Ur Specific [place] Urine Protein Urine Glucose (UA) Urine Ketones Urine Blood Urine Nitrite Urine Bilirubin Urine Urobilinogen Ur Leukocyte Esterase Urine WBC (Auto) Urine RBC (Auto) Urine Casts (Auto) U Epithel Cells (Auto) Urine Bacteria (Auto) Blood Type Antibody Screen 02/13/20 02/13/20 02/13/20 16:00 16:00 16:00 WBC 8.2 RBC 3.11 L Hgb 10.3 L Hct 30.0 L MCV 96.6 H MCH 33.0 MCHC 34.2 RDW 13.3 D Plt Count 161 D MPV 8.6 Absolute Neuts (auto) 7.1 Neutrophils % 86.9 H D Lymphocytes % 4.6 L D Monocytes % 8.2 Eosinophils % 0.2 D Basophils % 0.1 Nucleated RBC % 0 PT with INR INR PTT (Actin FS) VBG pH POC VBG pCO2 POC VBG pO2 VBG HCO3 VBG O2 Sat (Mariaelena) VBG Base Excess Sodium 133 L Potassium 4.9 Chloride 101 Carbon Dioxide 26 Anion Gap 7 L BUN 34.3 H Creatinine 1.8 H Est GFR (CKD-EPI)AfAm 41.74 Est GFR (CKD-EPI)NonAf 36.01 POC Glucometer Random Glucose 272 H Lactic Acid Calcium 10.6 H Total Bilirubin 1.0 AST 37 ALT 36 Alkaline Phosphatase 86 Creatine Kinase 124 Troponin I 0.08 H Total Protein 7.0 Albumin 3.1 L Triglycerides Cholesterol Total LDL Cholesterol HDL Cholesterol Urine Color Urine Appearance Urine pH Ur Specific [place] Urine Protein Urine Glucose (UA) Urine Ketones Urine Blood Urine Nitrite Urine Bilirubin Urine Urobilinogen Ur Leukocyte Esterase Urine WBC (Auto) Urine RBC (Auto) Urine Casts (Auto) U Epithel Cells (Auto) Urine Bacteria (Auto) Blood Type A NEGATIVE Antibody Screen Negative 02/13/20 02/13/20 02/13/20 16:00 16:00 18:55 WBC RBC Hgb Hct MCV MCH MCHC RDW Plt Count MPV Absolute Neuts (auto) Neutrophils % Lymphocytes % Monocytes % Eosinophils % Basophils % Nucleated RBC % PT with INR INR PTT (Actin FS) VBG pH 7.402 POC VBG pCO2 39.8 POC VBG pO2 73.2 H VBG HCO3 24.2 VBG O2 Sat (Mariaelena) 94.8 H VBG Base Excess -0.5 Sodium Potassium Chloride Carbon Dioxide Anion Gap BUN Creatinine Est GFR (CKD-EPI)AfAm Est GFR (CKD-EPI)NonAf POC Glucometer Random Glucose Lactic Acid 1.1 Calcium Total Bilirubin AST ALT Alkaline Phosphatase Creatine Kinase Troponin I Total Protein Albumin Triglycerides Cholesterol Total LDL Cholesterol HDL Cholesterol Urine Color Dk yellow Urine Appearance Turbid Urine pH 5.0 Ur Specific [place] 1.016 Urine Protein 2+ H Urine Glucose (UA) 1+ H Urine Ketones Negative Urine Blood 3+ H Urine Nitrite Negative Urine Bilirubin Negative Urine Urobilinogen 1.0 Ur Leukocyte Esterase 3+ H Urine WBC (Auto) 17715 Urine RBC (Auto) 297 Urine Casts (Auto) 3 U Epithel Cells (Auto) 31 Urine Bacteria (Auto) >10,000 Blood Type Antibody Screen ASSESSMENT/PLAN: Visit type - Medication Review Med list reviewed for High Risk Meds patients 65 and older: Yes - Emergency Visit Emergency Visit: Yes ED Registration Date: 02/13/20 Care time: The patient presented to the Emergency Department on the above date and was hospitalized for further evaluation of their emergent condition. - New Patient This patient is new to me today: Yes Date on this admission: 02/14/20 - Critical Care Critical Care patient: No ATTENDING PHYSICIAN STATEMENT I saw and evaluated the patient. I reviewed the resident's note and discussed the case with the resident. I agree with the resident's findings and plan as documented. 74 year old male with PMHx of CVA x 2, CAD s/p stent, HTN, HLD, DM, CABG presented with generalized fatigue, R sided weakness and unable to walk. As per he was very weak. He also had subjective fever. No chest pain, SOB, nausea,vomiting, fever or urinary symptoms. As per ED physician he had slurred speech As per EMS symptoms were improved. UA shows significant evidence for UTI CT head done which did'nt show any acute pathology Sepsis due to UTI Possible TIA vs CVA CKD DM IV hydration IV ceftriaxone 2 gram daily UC, Blood culture COVID test Neuro eval and MRA brain as per neurology Cont home dose ling acting insulin with SSI tylenol for fever resume rena meds DVT ppx Discussed with house staff in conference
[2020-02-14] MEDS ORDERED: VALSARTAN 40 MG TABLET (FP) PO ONE (02:28)
[2020-02-14] MEDS: ACETAMINOPHEN 325 MG TABLET (FP) PO PRN (04:46)
[2020-02-14 07:33] LABS: BASO % 0.1 % (0-2.0); EOS % 0.1 % (0-4.5); HEMATOCRIT 28.6 % (35.4-49); HEMOGLOBIN 9.6 GM/dL (11.7-16.9); LYMPH % 4.4 % (8-40); MCH 32.3 pg (25.7-33.7); MCHC 33.6 g/dl (32.0-35.9); MEAN PLT VOLUME 8.9 fl (7.5-11.1); MONO % 9.7 % (3.8-10.2); NEUT % 85.7 % (42.8-82.8); PLATELET COUNT 151 K/MM3 (134-434); RBC 2.98 M/mm3 (4.00-5.60); RDW 13.5 % (11.9-15.9); WHITE BLOOD COUNT 7.3 K/mm3 (4.0-10.0)
[2020-02-14] MEDS: INSULIN (LEVEMIR) 100 UNITS/ML UNITS SQ SCH (07:45)
[2020-02-14] MEDS: sitaGLIPtin PHOSPHATE 50 MG TABLET PO SCH (07:45)
[2020-02-14] MEDS ORDERED: TAMSULOSIN HCL 0.4 MG CAP ONE ×2 (07:48→07:49)
[2020-02-14] MEDS ORDERED: sitaGLIPtin PHOSPHATE 50 MG TABLET ONE (07:48)
[2020-02-14] MEDS ORDERED: INSULIN (LEVEMIR) 100 UNITS/ML UNITS SQ ONE (07:49)
[2020-02-14 07:54] LABS: ALBUMIN 2.9 g/dl (3.4-5.0); BILIRUBIN,TOTAL 0.8 mg/dL (0.2-1); BLOOD UREA NITROGEN 39.1 mg/dL (7-18); CALCIUM 10.1 mg/dL (8.5-10.1); CREATININE 1.9 mg/dL (0.55-1.3); POTASSIUM 4.6 mmol/L (3.5-5.1); TOT PROT 6.6 g/dl (6.4-8.2)
[2020-02-14] MEDS: TAMSULOSIN HCL 0.4 MG CAP PO SCH (08:00)
[2020-02-14] MEDS: INSULIN SLIDING SCALE (NOVOLOG) 1 VIAL SQ SCH ×4 (08:10→22:37)
--- NOTE | 2020-02-14 09:15 | PN ---
Progress Note (short form) - Note Progress Note: I was called by ER last evening about this pt's admission for UTI fever also r/o new CVA - given acuity I asked for hospitalist eval for H&P which was done on today's date 02/13 1 am; I reviewed chart tests meds and consults; this am I noted Trop 2.8 and d/w cardio dr King who will see pt this am. Neuro consult also called; further rec to follow pending specialists input. d/w pt's PCP dr Alvarez
[2020-02-14] MEDS: TORSEMIDE 20 MG TABLET (FP) PO SCH (09:47)
[2020-02-14] MEDS ORDERED: CEFTRIAXONE 1 GM/50 ML BAG ONE (09:50)
[2020-02-14] MEDS ORDERED: VALSARTAN 40 MG TABLET (FP) PO SCH (10:00)
[2020-02-14] MEDS ORDERED: CEFTRIAXONE 1 GM in DEXTROSE 5%-WATER - 50 ML IVPB SCH (10:00)
[2020-02-14] MEDS ORDERED: ISOSORBIDE MONONITRATE 60 MG TAB.SR.24H (FP) PO SCH (10:00)
[2020-02-14] MEDS ORDERED: ASPIRIN 81 MG CHEWABLE TABLETS ONE (10:18)
[2020-02-14] MEDS ORDERED: TICAGRELOR 90 MG TABLET PO ONE (10:18)
[2020-02-14] MEDS ORDERED: PANTOPRAZOLE 40 MG TABLET ONE (10:18)
[2020-02-14] MEDS ORDERED: HEPARIN NA (PORCINE) 5,000 UNITS/ML 1ML VIAL ONE (10:19)
[2020-02-14] MEDS: ASPIRIN 81 MG CHEWABLE TABLETS PO SCH (10:29)
[2020-02-14] MEDS: HEPARIN NA (PORCINE) 5,000 UNITS/ML 1ML VIAL SQ SCH ×2 (10:29→22:34)
[2020-02-14] MEDS: FINASTERIDE 5 MG TABLET (FP) PO SCH (10:29)
[2020-02-14] MEDS: EZETIMIBE 10 MG TABLET (FP) PO SCH (10:29)
[2020-02-14] MEDS: TICAGRELOR 90 MG TABLET PO SCH ×2 (10:29→22:34)
[2020-02-14] MEDS: PANTOPRAZOLE 40 MG TABLET PO SCH ×2 (10:29→22:34)
[2020-02-14] MEDS: RANOLAZINE E.R. 1,000 MG TABLET (FP) PO SCH ×2 (10:29→22:34)
--- NOTE | 2020-02-14 11:09 | CON.NEURO ---
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 Had difficulties with the prep.) Renal/: Yes: Renal Failure (VICENTE and CRF) Endocrine: Yes: Diabetes Mellitus - Past Surgical History Past Surgical History: Yes: Bypass, CABG (at [facility]), Carotid Endarterectomy (right side), Stent (PVD with lower extremity and coronary stenting ) - Alcohol/Substance Use Hx Alcohol Use: Yes (rare wine) History of Substance Use: reports: None - Smoking History Smoking history: Former smoker Have you smoked in the past 12 months: No Aproximately how many cigarettes per day: 0 If you are a former smoker, when did you quit?: 1984 - Social History Usual Living Arrangement: With Spouse ADL: Independent 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 Home Medications - Allergies Allergies/Adverse Reactions: Allergies Allergy/AdvReac Type Severity Reaction Status Date / Time No Known Allergies Allergy Verified 02/13/20 17:44 - Home Medications Home Medications: Ambulatory Orders Ranolazine [Ranexa] 1,000 mg PO BID 01/08/13 Atorvastatin Ca [Lipitor] 80 mg PO DAILY 06/04/18 Ezetimibe [Zetia] 10 mg PO DAILY 06/04/18 Finasteride [Proscar] 5 mg PO DAILY 06/04/18 Insulin Degludec [Tresiba Flextouch U-100] 35 unit SQ AM 06/04/18 Montelukast Sodium [Singulair] 10 mg PO DAILY 06/04/18 Nitroglycerin [place] [Nitrolingual [place] -] 1 spray TL Q5M PRN 06/04/18 Polyethylene Glycol 3350 [Miralax 255 gm Btl -] 17 gm PO DAILY PRN 06/04/18 Sennosides [Senokot] 8.6 mg PO DAILY PRN 06/04/18 Sitagliptin Phosphate [Januvia] 50 mg PO DAILY 06/04/18 Torsemide [Demadex -] 20 mg PO DAILY #30 tablet MDD 1 06/11/18 Aspirin [ASA -] 81 mg PO DAILY 07/05/19 Isosorbide Mononitrate [Isosorbide Mononitrate ER] 60 mg PO DAILY 07/05/19 Ticagrelor [Brilinta -] 90 mg PO BID 07/05/19 Valsartan [Diovan] 40 mg PO DAILY 07/05/19 Acetaminophen [Tylenol .Regular Strength -] 650 mg PO Q6H PRN tablet 07/13/19 Insulin Sliding Scale [Novolog Vial Sliding Scale -] 1 vial SQ ACHS units 07/13/19 Pantoprazole Sodium [Protonix -] 40 mg PO BID tablet.ec 07/13/19 Fluticasone/Salmeterol [Advair 250-50 Diskus] 1 each IH BID 02/13/20 Tamsulosin HCl [Flomax] 0.4 mg PO DAILY 02/13/20 Family Medical History Family History: Unremarkable Review of Systems - Review of Systems Neurological: reports: Dizziness, Headache, Incoordination, Numbness, Parasthesia Endocrine: reports: Increased Thirst Physical Exam-Neuro Vital Signs: Vital Signs Temperature 98 F 02/14/20 09:50 Pulse Rate 81 02/14/20 09:50 Respiratory Rate 18 02/14/20 09:50 Blood Pressure 103/50 L 02/14/20 09:50 O2 Sat by Pulse Oximetry (%) 100 02/14/20 09:50 Constitutional: Yes: Well Nourished Neck: Yes: WNL Cardiovascular: Yes: WNL Labs: CBC, BMP 02/14/20 06:15 02/14/20 06:00 INR, PTT INR 1.09 (0.83-1.09) 02/13/20 16:00 - Neuro Exam Level Of Consciousness: Yes: Oriented to Person, Oriented to Place Eyes: Yes: PERRLA Speech: Garbled Dominant Hand: Left Gag: Present DTR's: 1+ Left Bicep, 1+ Right Bicep, 1+ Left Tricep, 1+ Right Tricep Response to light touch: Normal Response to pain prick: Normal Motor Strength: 3/5: Left Arm, Left Leg, 4/5: Right Arm, Right Leg Gait: Deferred Imaging - Results Cat Scan: Image Reviewed Problem List - Problems (1) Weakness Code(s): R53.1 - WEAKNESS (2) CVA (cerebral vascular accident) Code(s): I63.9 - CEREBRAL INFARCTION, UNSPECIFIED Assessment/Plan 1. Start Plavix 75 mg po qd 2. Fall precautions 3. MRI brain no Cristhian 4. SCD 5. PT 6. Homocystein level 7. Lipid panel 8. CTA head Thanks Emily Burnett MD neurology
[2020-02-14] MEDS: BUDESONIDE/FORMETEROL FUMARATE 80/4.5 mcg INHALER IH SCH ×2 (11:15→23:19)
--- NOTE | 2020-02-14 12:13 | EKG ---
Test Reason : Blood Pressure : / mmHG Vent. Rate : 090 BPM Atrial Rate : 090 BPM P-R Int : 220 ms QRS Dur : 144 ms QT Int : 400 ms P-R-T Axes : 130 005 144 degrees QTc Int : 489 ms SINUS RHYTHM LEFT BUNDLE BRANCH BLOCK ABNORMAL ECG WHEN COMPARED WITH ECG OF 09-JUL-2019 11:29, ECTOPIC ATRIAL RHYTHM HAS REPLACED SINUS RHYTHM VENT. RATE HAS INCREASED BY 41 BPM LEFT BUNDLE BRANCH BLOCK IS NOW PRESENT BORDERLINE CRITERIA FOR INFERIOR INFARCT ARE NO LONGER PRESENT Confirmed by LORA WOOD MD ([id number]) on 02/14/2020 12:12:46 PM Referred By: Confirmed By:LORA WOOD MD
--- NOTE | 2020-02-14 12:21 | CON.CARD ---
Cardiology Consult (text) - Consultation Consultation Note: Chief Complaint: right sided weakness History of Present Illness: 74 M here with right sided weakness. Pt denies cp sob palps dizzy loc pnd orthopnea le edema. Also noticed to have change in speech, facial droop. 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) IDDM HTN HPL - Alcohol/Substance Use Hx Alcohol Use: No - Smoking History Smoking history: Former smoker Have you smoked in the past 12 months: No Aproximately how many cigarettes per day: 0 Home Medications - Allergies Allergies/Adverse Reactions: Allergies Allergy/AdvReac Type Severity Reaction Status Date / Time No Known Allergies Allergy Verified 02/13/20 17:44 Home Medications Medication Instructions Recorded Ranolazine [Ranexa] 1,000 mg PO BID 01/08/13 Atorvastatin Ca [Lipitor] 80 mg PO DAILY 06/04/18 Ezetimibe [Zetia] 10 mg PO DAILY 06/04/18 Finasteride [Proscar] 5 mg PO DAILY 06/04/18 Insulin Degludec [Tresiba 35 unit SQ AM 06/04/18 Flextouch U-100] Montelukast Sodium [Singulair] 10 mg PO DAILY 06/04/18 Nitroglycerin [place] [Nitrolingual 1 spray TL Q5M PRN 06/04/18 [place] -] Polyethylene Glycol 3350 [Miralax 17 gm PO DAILY PRN 06/04/18 255 gm Btl -] Sennosides [Senokot] 8.6 mg PO DAILY PRN 06/04/18 Sitagliptin Phosphate [Januvia] 50 mg PO DAILY 06/04/18 Torsemide [Demadex -] 20 mg PO DAILY #30 tablet MDD 1 06/11/18 Aspirin [ASA -] 81 mg PO DAILY 07/05/19 Isosorbide Mononitrate [Isosorbide 60 mg PO DAILY 07/05/19 Mononitrate ER] Ticagrelor [Brilinta -] 90 mg PO BID 07/05/19 Valsartan [Diovan] 40 mg PO DAILY 07/05/19 Acetaminophen [Tylenol .Regular 650 mg PO Q6H PRN tablet 07/13/19 Strength -] Insulin Sliding Scale [Novolog 1 vial SQ ACHS units 07/13/19 Vial Sliding Scale -] Pantoprazole Sodium [Protonix -] 40 mg PO BID tablet.ec 07/13/19 Fluticasone/Salmeterol [Advair 1 each IH BID 02/13/20 250-50 Diskus] Tamsulosin HCl [Flomax] 0.4 mg PO DAILY 02/13/20 Review of Systems - Review of Systems per hpi; all others nl Vital Signs Period Temp Pulse Resp BP Sys/Chen Pulse Ox Last 24 Hr 98 F-102.0 F 71-108 18-98 97-189/43-121 94-100 Constitutional: Yes: Well Nourished, No Distress Eyes: No: Sclera Icterus HENT: No: Nasal Congestion Respiratory: Yes: CTA Bilaterally, No: Accessory Muscle Use, Wheezes Gastrointestinal: Yes: Normal Bowel Sounds. No: Distention, Hepatomegaly, Palpable Mass, Tenderness Cardiovascular: Yes: Regular Rate and Rhythm JVD: no Carotid Bruit: No PMI: Non-Displaced Heart Sounds: Yes: S1, S2. No: Gallop Murmur: No: Systolic Murmur, Diastolic Murmur Extremities: No: Cool, Cyanosis Edema:no Peripheral Pulses: 2+ Left Carotid, 2+ Right Carotid, 2+ Left Doralis Pedis, 2+ Right Dorsalis Pedis Integumentary: No: Jaundice diaphoresis Neurological: Yes: Alert, Oriented (x3) Psychiatric: No: Agitated Laboratory Last Values WBC 7.3 K/mm3 (4.0-10.0) 02/14/20 06:15 RBC 2.98 M/mm3 (4.00-5.60) L 02/14/20 06:15 Hgb 9.6 GM/dL (11.7-16.9) L 02/14/20 06:15 Hct 28.6 % (35.4-49) L 02/14/20 06:15 MCV 96.0 fl (80-96) 02/14/20 06:15 MCH 32.3 pg (25.7-33.7) 02/14/20 06:15 MCHC 33.6 g/dl (32.0-35.9) 02/14/20 06:15 RDW 13.5 % (11.9-15.9) 02/14/20 06:15 Plt Count 151 K/MM3 (134-434) 02/14/20 06:15 MPV 8.9 fl (7.5-11.1) 02/14/20 06:15 Absolute Neuts (auto) 6.2 K/mm3 (1.5-8.0) 02/14/20 06:15 Neutrophils % 85.7 % (42.8-82.8) H 02/14/20 06:15 Lymphocytes % 4.4 % (8-40) L 02/14/20 06:15 Monocytes % 9.7 % (3.8-10.2) 02/14/20 06:15 Eosinophils % 0.1 % (0-4.5) 02/14/20 06:15 Basophils % 0.1 % (0-2.0) 02/14/20 06:15 Nucleated RBC % 0 % (0-0) 02/14/20 06:15 PT with INR 12.90 SEC (9.7-13.0) 02/13/20 16:00 INR 1.09 (0.83-1.09) 02/13/20 16:00 PTT (Actin FS) 28.9 SECONDS (25.2-36.5) 02/13/20 16:00 VBG pH 7.402 (7.310-7.410) 02/13/20 16:00 POC VBG pCO2 39.8 mmHg (38-52) 02/13/20 16:00 POC VBG pO2 73.2 mmHg (28-48) H 02/13/20 16:00 VBG HCO3 24.2 mmol/L (23-29) 02/13/20 16:00 VBG O2 Sat (Mariaelena) 94.8 % (70-80) H 02/13/20 16:00 VBG Base Excess -0.5 mmol/L (-2-2) 02/13/20 16:00 Sodium 136 mmol/L (136-145) 02/14/20 06:00 Potassium 4.6 mmol/L (3.5-5.1) 02/14/20 06:00 Chloride 105 mmol/L (98-107) 02/14/20 06:00 Carbon Dioxide 23 mmol/L (21-32) 02/14/20 06:00 Anion Gap 8 MMOL/L (8-16) 02/14/20 06:00 BUN 39.1 mg/dL (7-18) H 02/14/20 06:00 Creatinine 1.9 mg/dL (0.55-1.3) H 02/14/20 06:00 Est GFR (CKD-EPI)AfAm 39.10 02/14/20 06:00 Est GFR (CKD-EPI)NonAf 33.73 02/14/20 06:00 POC Glucometer 211 UNITS (80-120) 02/14/20 11:31 Random Glucose 250 mg/dL (74-106) H 02/14/20 06:00 Hemoglobin A1c % 8.5 % (4.2-6.3) H 02/14/20 06:15 Lactic Acid 1.1 mmol/L (0.4-2.0) 02/13/20 16:00 Calcium 10.1 mg/dL (8.5-10.1) 02/14/20 06:00 Total Bilirubin 0.8 mg/dL (0.2-1) 02/14/20 06:00 AST 30 U/L (15-37) 02/14/20 06:00 ALT 33 U/L (13-61) 02/14/20 06:00 Alkaline Phosphatase 79 U/L (45-117) 02/14/20 06:00 Creatine Kinase 191 U/L (26-308) 02/14/20 10:35 Creatine Kinase Index 1.8 % (0.0-5.0) 02/14/20 10:35 CK-MB (CK-2) 3.6 ng/mL (0.5-3.6) 02/14/20 10:35 Troponin I 2.84 ng/ml (0.00-0.05) H* 02/14/20 10:35 Total Protein 6.6 g/dl (6.4-8.2) 02/14/20 06:00 Albumin 2.9 g/dl (3.4-5.0) L 02/14/20 06:00 Triglycerides 88 mg/dL (0-150) 02/13/20 16:00 Cholesterol 108 mg/dL (50-200) 02/13/20 16:00 Total LDL Cholesterol 49 mg/dL (5-100) 02/13/20 16:00 HDL Cholesterol 45 mg/dL (40-60) 02/13/20 16:00 Vitamin B12 391 pg/ml (193-986) 02/14/20 06:00 Serum Folate 24 ng/mL (3.1-17.5) H 02/14/20 06:00 Urine Color Dk yellow 02/13/20 18:55 Urine Appearance Turbid 02/13/20 18:55 Urine pH 5.0 (5.0-8.0) 02/13/20 18:55 Ur Specific [place] 1.016 (1.010-1.035) 02/13/20 18:55 Urine Protein 2+ (NEGATIVE) H 02/13/20 18:55 Urine Glucose (UA) 1+ (NEGATIVE) H 02/13/20 18:55 Urine Ketones Negative (NEGATIVE) 02/13/20 18:55 Urine Blood 3+ (NEGATIVE) H 02/13/20 18:55 Urine Nitrite Negative (NEGATIVE) 02/13/20 18:55 Urine Bilirubin Negative (NEGATIVE) 02/13/20 18:55 Urine Urobilinogen 1.0 mg/dL (0.2-1.0) 02/13/20 18:55 Ur Leukocyte Esterase 3+ (NEGATIVE) H 02/13/20 18:55 Urine WBC (Auto) 58714 /uL (0-25.8) 02/13/20 18:55 Urine RBC (Auto) 297 /uL (0-23.9) 02/13/20 18:55 Urine Casts (Auto) 3 /uL (0-3.1) 02/13/20 18:55 U Epithel Cells (Auto) 31 /uL (0-25.1) 02/13/20 18:55 Urine Bacteria (Auto) >10,000 /uL (0-1359) 02/13/20 18:55 Blood Type A NEGATIVE 02/13/20 16:00 Antibody Screen Negative 02/13/20 16:00 ECG: sr; LBBB, similar to priors CXR: no sig chf tele: sr echo 02/2015: nl lvef, mild as/tr/mr, mild lae echo 10/2018: nl lv/rv, mild as, mild mr, mild tr, mild phtn mibi 02/2015: inferolat scar with minimal fahad ischemia Assessment/Plan 74 m hx htn, hld, dchf, cva, pad, cad s/p cabg 1997, pci 2011, 2012, 2013, and most recent cath for nstemi 04/2019 with latoya to d1, lcx, here with right side weakness. cva: -pt with hx cva's and here now with sxs suspicious for cva. initial head ct unremarkable. neuro following, ordered mri. -cont current cardiac meds, including statin and dapt elevated trops, hx cad: -has been stable since his most recent cath for nstemi 04/2019 with latoya to d1, lcx -here now with mild elevation in trop with nl ck and no cardiac symptoms. ECG with old lbbb. Does not appear to be acs, possibly demand 2/2 low bp/sepsis/uti and possible cva. Would cont home cardiac meds imdur, ranexa, atorva, brilinta, asa, zetia, valsartan -stopped bb in past for bradycardia -check echo to assess lvef, wall motion. -monitor on tele chronic diastolic CHF: -stable at present -cont home torsemide 20 qd if bp allows (hypotensive here, possibly sepsis) ckd: -cr close to baseline HTN: -bp on low side, possibly from sepsis, can hold arb if bp remains low hld: -cont statin
--- NOTE | 2020-02-14 12:44 | PN ---
Progress Note (short form) - Note Progress Note: ID CONSULT DICTATED R/O CVA UTI R/O SEPSIS SECONDARY TO UUTII CKD PENDING C/S EMPIRIC CEFTRIAXONE
--- NOTE | 2020-02-14 15:43 | ECHO ---
Name: JAJA THOMAS Exam:Adult Echocardiogram Study Date: 02/14/2020 02:11 PM Age: 74 yrs Height: 69 in Weight: 195 lb BSA: 2.0 m2 MMode/2D Measurements & Calculations IVSd: 1.1 cm Ao root diam: 2.7 cm LVIDd: 5.3 cm LA dimension: 4.9 cm LVIDs: 3.9 cm ACS: 1.3 cm LVPWd: 1.5 cm IVSs: 1.3 cm LVPWs: 1.8 cm EDV(Teich): 138.2 ml ESV(Teich): 66.3 ml LVOT diam: 2.1 cm LVLd ap4: 9.3 cm EDV(MOD-sp4): 167.0 ml LVLs ap4: 8.2 cm ESV(MOD-sp4): 90.0 ml SV(MOD-sp4): 77.0 ml LAV (MOD-bp): 83.0 ml TAPSE: 1.0 cm RV S Collin: 6.6 cm/sec Doppler Measurements & Calculations MV E max collin: 111.6 cm/sec Ao V2 max: 230.1 cm/sec MV A max collin: 85.4 cm/sec Ao max P.2 mmHg MV E/A: 1.3 Ao V2 mean: 168.6 cm/sec MV dec time: 0.14 sec Ao mean P.8 mmHg Ao V2 VTI: 48.5 cm YURI(I,D): 1.3 cm2 YURI(V,D): 1.2 cm2 LV V1 max P.8 mmHg MR max collin: 376.4 cm/sec LV V1 mean P.7 mmHg MR max P.7 mmHg LV V1 max: 82.9 cm/sec LV V1 mean: 59.3 cm/sec LV V1 VTI: 18.4 cm SV(LVOT): 62.6 ml TR max collin: 280.8 cm/sec TR max P.0 mmHg PA V2 max: 97.7 cm/sec Med Peak E' Collin: 2.5 cm/sec PA max P.8 mmHg Med E/e': 44.2 Lat Peak E' Collin: 8.2 cm/sec Lat E/e': 13.6 Procedure A complete two-dimensional transthoracic echocardiogram was performed (2D, M-mode, Doppler and color flow Doppler). Left Ventricle The left ventricle is normal in size. Left ventricular systolic function is mildly reduced. Ejection Fraction = 45-50%. There is mild global hypokinesis of the left ventricle. Right Ventricle The right ventricle is normal in size and function. Atria Normal left and right atrial size and function. Mitral Valve There is trace mitral regurgitation. Tricuspid Valve There is mild tricuspid regurgitation. Right ventricular systolic pressure is normal. Aortic Valve Mild to moderate valvular aortic stenosis. No aortic regurgitation is present. Pulmonic Valve There is no pulmonic valvular regurgitation. Great Vessels The aortic root is normal size. Pericardium/Pleura There is no pericardial effusion. Interpretation Summary Left ventricular systolic function is mildly reduced. The right ventricle is normal in size and function. There is trace mitral regurgitation. There is mild tricuspid regurgitation. Mild to moderate valvular aortic stenosis. MD Linus King 02/14/2020 03:43 PM
--- NOTE | 2020-02-14 20:38 | PN ---
Progress Note, Physician Chief Complaint: events noted; pt in bed feeling better admitted by hospitalist [facility] last night - Current Medication List Current Medications: Active Medications Acetaminophen (Tylenol -) 650 mg PO Q6H PRN PRN Reason: PAIN LEVEL 1-5 Last Admin: 02/14/20 04:46 Dose: 650 mg Documented by: Aspirin (Asa -) 81 mg PO DAILY [facility] Last Admin: 02/14/20 10:29 Dose: 81 mg Documented by: Atorvastatin Calcium (Lipitor -) 80 mg PO HS [facility] Budesonide/Formoterol Fumarate (Symbicort 80/4.5mcg -) 2 puff IH BID [facility] Last Admin: 02/14/20 11:15 Dose: 2 puff Documented by: Ezetimibe (Zetia -) 10 mg PO DAILY [facility] Last Admin: 02/14/20 10:29 Dose: 10 mg Documented by: Finasteride (Proscar -) 5 mg PO DAILY [facility] Last Admin: 02/14/20 10:29 Dose: 5 mg Documented by: Heparin Sodium (Porcine) (Heparin -) 5,000 unit SQ BID [facility] Last Admin: 02/14/20 10:29 Dose: 5,000 unit Documented by: Sodium Chloride (Normal Saline -) 1,000 mls @ 83 mls/hr IV ASDIR [facility] Last Admin: 02/14/20 00:00 Dose: 83 mls/hr Documented by: Ceftriaxone Sodium 2 gm/ (Dextrose) 100 mls @ 200 mls/hr IVPB DAILY [facility]; Protocol Insulin Aspart (Novolog Vial Sliding Scale -) 1 vial SQ ACHS [facility]; Protocol Last Admin: 02/14/20 17:00 Dose: 2 unit Documented by: Insulin Detemir (Levemir Vial) 35 units SQ AM [facility] Last Admin: 02/14/20 07:45 Dose: 35 unit Documented by: Isosorbide Mononitrate (Imdur -) 60 mg PO DAILY [facility] Montelukast Sodium (Singulair -) 10 mg PO HS [facility] Nitroglycerin (Nitrolingual [place] -) 1 spray TL Q5M PRN PRN Reason: FOR CHEST PAIN Pantoprazole Sodium (Protonix -) 40 mg PO BID [facility] Last Admin: 02/14/20 10:29 Dose: 40 mg Documented by: Polyethylene Glycol (Miralax (For Bowel Prep) -) 17 gm PO DAILY PRN PRN Reason: CONSTIPATION Ranolazine (Ranexa -) 1,000 mg PO BID [facility] Last Admin: 02/14/20 10:29 Dose: 1,000 mg Documented by: Senna (Senna -) 1 tab PO DAILY PRN PRN Reason: CONSTIPATION Sitagliptin Phosphate (Januvia -) 50 mg PO ACBK [facility] Last Admin: 02/14/20 07:45 Dose: 50 mg Documented by: Tamsulosin HCl (Flomax -) 0.4 mg PO DAILY@0830 [facility] Last Admin: 02/14/20 08:00 Dose: 0.4 mg Documented by: Ticagrelor (Brilinta -) 90 mg PO BID [facility] Last Admin: 02/14/20 10:29 Dose: 90 mg Documented by: Torsemide (Demadex -) 20 mg PO DAILY [facility] Last Admin: 02/14/20 09:47 Dose: Not Given Documented by: Valsartan (Diovan -) 40 mg PO DAILY [facility] - Objective Vital Signs: Vital Signs Temperature 98 F 02/14/20 18:40 Pulse Rate 71 02/14/20 18:40 Respiratory Rate 19 02/14/20 18:40 Blood Pressure 131/62 02/14/20 18:40 O2 Sat by Pulse Oximetry (%) 99 02/14/20 18:40 Constitutional: Yes: No Distress, Calm Eyes: Yes: Conjunctiva Clear HENT: Yes: Atraumatic Neck: Yes: Supple Cardiovascular: Yes: Regular Rate and Rhythm Respiratory: Yes: Diminished Gastrointestinal: Yes: Soft. No: Tenderness Genitourinary: No: Hematuria Musculoskeletal: No: Joint Stiffness, Joint Swelling Extremities: No: Cold, Cool, Cyanosis Edema: No Integumentary: No: Rash, Venous Stasis Changes Neurological: Yes: Alert, Oriented ...Motor Strength: LUE (mild L sided weakness old), LLE Psychiatric: Yes: Alert, Oriented. No: Agitated, Suicidal Ideation Labs: CBC, BMP 02/14/20 06:15 02/14/20 06:00 INR, PTT INR 1.09 (0.83-1.09) 02/13/20 16:00 - ....Imaging Other: Report Reviewed Assessment/Plan 74yo M with PMH of HTN, HLD, DM, CAD s/p stent, CABG, 2 strokes with residual left sided weakness presenting with right sided weakness, inability to walk, and shortness of breath. Patient had similar symptoms few days ago which self- resolved. Admitted r/o new CVA / TIA, found to have also trop+ and fever / UTI; IV ATB; cardio and neurology eval monitor in telemetry falls pfx f/w pt and at bedside; do not get OOB alone DVT Pfx d/w pt and staff d/w pt's and pt's PCP dr Vamshi Alvarez
--- NOTE | 2020-02-14 21:04 | CONS ---
DATE OF CONSULTATION: DATE OF DICTATION: 02/14/2020 INFECTIOUS DISEASE CONSULTATION HISTORY OF PRESENT ILLNESS: The patient is a 74-year-old male evaluated for fever. History was obtained primarily from the chart. He was admitted to the hospital on February 13, 2020, after onset of right hemiparesis and inability to walk. He also had increasing shortness of breath 1 day prior to admission. A CAT scan of the head was performed and was negative for acute infarct or bleed. His course has been complicated by fever to 102. At the present time, the patient is awake and responsive, however he is dysarthric. He is unable to offer any additional details. No report of any recent febrile illness, shaking chills, chest pain, shortness of breath, cough, sputum production, vomiting, diarrhea, dysuria, or hematuria. PAST MEDICAL HISTORY: Positive for hypertension, hyperlipidemia, diabetes mellitus, coronary artery disease, stroke. PAST SURGICAL HISTORY: Status post coronary artery stent, coronary artery bypass. ALLERGIES: No known allergies. MEDICATION: Include ceftriaxone, Flomax, heparin, Lipitor, Zetia, Imdur, Diovan, Tylenol, aspirin. SOCIAL HISTORY: He resides in the community. He is a former smoker, occasional ETOH. SYSTEMS REVIEW: Neurologic: As per HPI. Cardiac: Negative for chest pain or palpitations. Respiratory: Negative for cough or sputum production. Gastrointestinal: Negative vomiting or diarrhea. Genitourinary: Positive for urinary tract infection. LABORATORY DATA: White count 7.3, hematocrit 28.6, platelets 171, creatinine 1.9. Cultures are pending. Chest x-ray negative for acute infiltrate. PHYSICAL EXAMINATION: General: On physical examination, he is awake and alert. He is dysarthric. Vital signs: Temperature 98.0, T-max 102. Blood pressure 127/53, pulse 75 regular, respirations 20 per minute. HEENT: Sclerae anicteric. Cardiovascular: Heart sounds S1, S2. Lungs: Decreased breath sounds bilaterally. Poor inspiratory effort. Abdomen: Soft, nontender. No suprapubic or flank tenderness. Extremities: Negative for edema. IMPRESSION: 1. Rule out cerebrovascular accident. 2. Urinary tract infection rule out sepsis secondary to urinary tract infection. 3. Chronic kidney disease. Await sepsis workup. Empiric antibiotic coverage with ceftriaxone. Neurology evaluation and followup. Aspiration precautions. Thank you for the kind referral. YENI CHATMAN M.D. [place]/[id number]
[2020-02-14] MEDS: MONTELUKAST NA 10 MG TABLET PO SCH (22:34)
[2020-02-14] MEDS: ATORVASTATIN CA 80 MG TABLET (FP) PO SCH (22:34)
[2020-02-15] MEDS: SODIUM CHLORIDE 1,000 ML IV SCH ×2 (02:34→07:38)
[2020-02-15] MEDS: ACETAMINOPHEN 325 MG TABLET (FP) PO PRN (02:35)
[2020-02-15] MEDS: sitaGLIPtin PHOSPHATE 50 MG TABLET PO SCH (06:05)
[2020-02-15] MEDS: INSULIN (LEVEMIR) 100 UNITS/ML UNITS SQ SCH (06:08)
[2020-02-15] MEDS: INSULIN SLIDING SCALE (NOVOLOG) 1 VIAL SQ SCH ×4 (06:12→21:44)
--- NOTE | 2020-02-15 06:12 | PN ---
Progress Note, Physician Chief Complaint: NO CP/SOB/dizziness History of Present Illness: Mild Mild LV dysfx ASHD CVA - Current Medication List Current Medications: Active Medications Acetaminophen (Tylenol -) 650 mg PO Q6H PRN PRN Reason: PAIN LEVEL 1-5 Last Admin: 02/15/20 02:35 Dose: 650 mg Documented by: Aspirin (Asa -) 81 mg PO DAILY [facility] Last Admin: 02/14/20 10:29 Dose: 81 mg Documented by: Atorvastatin Calcium (Lipitor -) 80 mg PO HS [facility] Last Admin: 02/14/20 22:34 Dose: 80 mg Documented by: Budesonide/Formoterol Fumarate (Symbicort 80/4.5mcg -) 2 puff IH BID [facility] Last Admin: 02/14/20 23:19 Dose: 2 puff Documented by: Ezetimibe (Zetia -) 10 mg PO DAILY [facility] Last Admin: 02/14/20 10:29 Dose: 10 mg Documented by: Finasteride (Proscar -) 5 mg PO DAILY [facility] Last Admin: 02/14/20 10:29 Dose: 5 mg Documented by: Heparin Sodium (Porcine) (Heparin -) 5,000 unit SQ BID [facility] Last Admin: 02/14/20 22:34 Dose: 5,000 unit Documented by: Sodium Chloride (Normal Saline -) 1,000 mls @ 83 mls/hr IV ASDIR [facility] Last Admin: 02/15/20 02:34 Dose: Not Given Documented by: Ceftriaxone Sodium 2 gm/ (Dextrose) 100 mls @ 200 mls/hr IVPB DAILY [facility]; Protocol Insulin Aspart (Novolog Vial Sliding Scale -) 1 vial SQ ACHS [facility]; Protocol Last Admin: 02/14/20 22:37 Dose: 2 unit Documented by: Insulin Detemir (Levemir Vial) 35 units SQ AM [facility] Last Admin: 02/15/20 06:08 Dose: 35 unit Documented by: Isosorbide Mononitrate (Imdur -) 60 mg PO DAILY [facility] Montelukast Sodium (Singulair -) 10 mg PO HS [facility] Last Admin: 02/14/20 22:34 Dose: 10 mg Documented by: Nitroglycerin (Nitrolingual [place] -) 1 spray TL Q5M PRN PRN Reason: FOR CHEST PAIN Pantoprazole Sodium (Protonix -) 40 mg PO BID [facility] Last Admin: 02/14/20 22:34 Dose: 40 mg Documented by: Polyethylene Glycol (Miralax (For Bowel Prep) -) 17 gm PO DAILY PRN PRN Reason: CONSTIPATION Ranolazine (Ranexa -) 1,000 mg PO BID [facility] Last Admin: 02/14/20 22:34 Dose: 1,000 mg Documented by: Senna (Senna -) 1 tab PO DAILY PRN PRN Reason: CONSTIPATION Sitagliptin Phosphate (Januvia -) 50 mg PO ACBK [facility] Last Admin: 02/15/20 06:05 Dose: 50 mg Documented by: Tamsulosin HCl (Flomax -) 0.4 mg PO DAILY@0830 [facility] Last Admin: 02/14/20 08:00 Dose: 0.4 mg Documented by: Ticagrelor (Brilinta -) 90 mg PO BID [facility] Last Admin: 02/14/20 22:34 Dose: 90 mg Documented by: Torsemide (Demadex -) 20 mg PO DAILY [facility] Last Admin: 02/14/20 09:47 Dose: Not Given Documented by: Valsartan (Diovan -) 40 mg PO DAILY [facility] - Objective Vital Signs: Vital Signs Temperature 98.4 F 02/15/20 02:00 Pulse Rate 81 02/15/20 02:00 Respiratory Rate 18 02/15/20 02:00 Blood Pressure 143/76 02/15/20 02:00 O2 Sat by Pulse Oximetry (%) 99 02/15/20 02:00 Constitutional: Yes: No Distress, Calm Eyes: Yes: Conjunctiva Clear Cardiovascular: Yes: Regular Rate and Rhythm, Murmur Respiratory: Yes: CTA Bilaterally Gastrointestinal: Yes: Soft Edema: No Neurological: Yes: Alert, Oriented ...Motor Strength: WNL Labs: CBC, BMP 02/14/20 06:15 02/14/20 06:00 INR, PTT INR 1.09 (0.83-1.09) 02/13/20 16:00 Laboratory Tests 02/14/20 02/14/20 02/14/20 06:15 10:35 20:07 WBC Hgb 9.6 L Plt Count Sodium Potassium BUN Creatinine Creatine Kinase 191 165 Creatine Kinase Index 1.8 2.1 Troponin I 2.84 H* 1.87 H* 07/24/20 07/24/20 06:55 06:55 WBC 5.6 Hgb 8.4 L Plt Count 140 Sodium 136 Potassium 4.4 BUN 47.1 H Creatinine 1.8 H Creatine Kinase Creatine Kinase Index Troponin I 1.32 H* - ....Imaging EKG: Image Reviewed (TELE: NSR) Assessment/Plan mibi 02/2015: inferolat scar with minimal fahad ischemia Assessment/Plan 74 m hx htn, hld, dchf, cva, pad, cad s/p cabg 1997, pci 2011, 2012, 2013, and most recent cath for nstemi 04/2019 with latoya to d1, lcx, here with right side weakness. Suspected CVA: -pt with hx cva's and here now with sxs suspicious for cva. initial head ct unremarkable. neuro following, ordered mri. -cont current cardiac meds, including statin and dapt Elevated trops, hx cad: -has been stable since his most recent cath for nstemi 04/2019 with latoya to d1, lcx -here now with mild elevation in trop with nl ck and no cardiac symptoms. ECG with old lbbb. Does not appear to be acs, possibly demand 2/2 low bp/sepsis/uti and possible cva. Would cont home cardiac meds imdur, ranexa, atorva, brilinta, asa, zetia, valsartan -stopped bb in past for bradycardia -Echo with mild LV dysfx and Mild -monitor on tele Chronic diastolic CHF: -stable at present -cont home torsemide 20 qd if bp allows (hypotensive here, possibly sepsis) -Echo now with mild LV dysfx; to complete Neuro evaluation to r/o CVA and then will consider future plans for ischemic evaluation. ckd: -cr close to baseline HTN: - initial bp on low side, possibly from sepsis, now improved hld: -cont statin Anemia: -drift in H/H -As per PMD.
[2020-02-15 07:25] LABS: BASO % 0.1 % (0-2.0); HEMOGLOBIN 8.4 GM/dL (11.7-16.9); LYMPH % 12.7 % (8-40); MCH 32.6 pg (25.7-33.7); MCHC 33.9 g/dl (32.0-35.9); MEAN CELL VOLUME 96.3 fl (80-96); MEAN PLT VOLUME 8.6 fl (7.5-11.1); MONO % 14.1 % (3.8-10.2); NEUT % 71.1 % (42.8-82.8); PLATELET COUNT 140 K/MM3 (134-434); RBC 2.59 M/mm3 (4.00-5.60); RDW 13.1 % (11.9-15.9); WHITE BLOOD COUNT 5.6 K/mm3 (4.0-10.0)
[2020-02-15 07:48] LABS: ALBUMIN 2.4 g/dl (3.4-5.0); BILIRUBIN,TOTAL 0.6 mg/dL (0.2-1); BLOOD UREA NITROGEN 47.1 mg/dL (7-18); CREATININE 1.8 mg/dL (0.55-1.3); POTASSIUM 4.4 mmol/L (3.5-5.1); TOT PROT 5.9 g/dl (6.4-8.2)
[2020-02-15] MEDS ORDERED: DEXTROSE 5%-WATER 100 ML IVPB ONE (08:16)
[2020-02-15] MEDS: FINASTERIDE 5 MG TABLET (FP) PO SCH (09:14)
[2020-02-15] MEDS: VALSARTAN 40 MG TABLET (FP) PO SCH (09:14)
[2020-02-15] MEDS: ASPIRIN 81 MG CHEWABLE TABLETS PO SCH (09:14)
[2020-02-15] MEDS: TAMSULOSIN HCL 0.4 MG CAP PO SCH (09:14)
[2020-02-15] MEDS: EZETIMIBE 10 MG TABLET (FP) PO SCH (09:15)
[2020-02-15] MEDS: ISOSORBIDE MONONITRATE 60 MG TAB.SR.24H (FP) PO SCH (09:15)
[2020-02-15] MEDS: HEPARIN NA (PORCINE) 5,000 UNITS/ML 1ML VIAL SQ SCH ×2 (09:15→21:43)
[2020-02-15] MEDS: TICAGRELOR 90 MG TABLET PO SCH ×2 (09:15→21:43)
[2020-02-15] MEDS: BUDESONIDE/FORMETEROL FUMARATE 80/4.5 mcg INHALER IH SCH ×2 (09:16→22:07)
[2020-02-15] MEDS: RANOLAZINE E.R. 1,000 MG TABLET (FP) PO SCH ×2 (09:16→21:43)
[2020-02-15] MEDS: PANTOPRAZOLE 40 MG TABLET PO SCH ×2 (09:16→21:43)
[2020-02-15] MEDS: CEFTRIAXONE 2 GM in DEXTROSE 5%-WATER 100 ML IVPB SCH (09:16)
[2020-02-15] MEDS: TORSEMIDE 20 MG TABLET (FP) PO SCH (09:25)
--- NOTE | 2020-02-15 09:49 | PN ---
Progress Note, Physician Chief Complaint: on 4s feeling better trop plateau UCx pending, covid pending dropped Hg but no bleeding - Current Medication List Current Medications: Active Medications Acetaminophen (Tylenol -) 650 mg PO Q6H PRN PRN Reason: PAIN LEVEL 1-5 Last Admin: 02/15/20 02:35 Dose: 650 mg Documented by: Aspirin (Asa -) 81 mg PO DAILY [facility] Last Admin: 02/15/20 09:14 Dose: 81 mg Documented by: Atorvastatin Calcium (Lipitor -) 80 mg PO HS [facility] Last Admin: 02/14/20 22:34 Dose: 80 mg Documented by: Budesonide/Formoterol Fumarate (Symbicort 80/4.5mcg -) 2 puff IH BID [facility] Last Admin: 02/15/20 09:16 Dose: 2 puff Documented by: Ezetimibe (Zetia -) 10 mg PO DAILY [facility] Last Admin: 02/15/20 09:15 Dose: 10 mg Documented by: Finasteride (Proscar -) 5 mg PO DAILY [facility] Last Admin: 02/15/20 09:14 Dose: 5 mg Documented by: Heparin Sodium (Porcine) (Heparin -) 5,000 unit SQ BID [facility] Last Admin: 02/15/20 09:15 Dose: 5,000 unit Documented by: Ceftriaxone Sodium 2 gm/ (Dextrose) 100 mls @ 200 mls/hr IVPB DAILY [facility]; Protocol Last Admin: 02/15/20 09:16 Dose: 200 mls/hr Documented by: Insulin Aspart (Novolog Vial Sliding Scale -) 1 vial SQ ACHS [facility]; Protocol Last Admin: 02/15/20 06:12 Dose: Not Given Documented by: Insulin Detemir (Levemir Vial) 35 units SQ AM [facility] Last Admin: 02/15/20 06:08 Dose: 35 unit Documented by: Isosorbide Mononitrate (Imdur -) 60 mg PO DAILY [facility] Last Admin: 02/15/20 09:15 Dose: 60 mg Documented by: Montelukast Sodium (Singulair -) 10 mg PO [facility] Last Admin: 02/14/20 22:34 Dose: 10 mg Documented by: Nitroglycerin (Nitrolingual [place] -) 1 spray TL Q5M PRN PRN Reason: FOR CHEST PAIN Pantoprazole Sodium (Protonix -) 40 mg PO BID [facility] Last Admin: 02/15/20 09:16 Dose: 40 mg Documented by: Pneumococcal 13-Valent Conj Vacc (Prevnar 13 Syringe -) 0.5 ml IM .ONCE ONE Stop: 02/15/20 08:19 Polyethylene Glycol (Miralax (For Bowel Prep) -) 17 gm PO DAILY PRN PRN Reason: CONSTIPATION Ranolazine (Ranexa -) 1,000 mg PO BID [facility] Last Admin: 02/15/20 09:16 Dose: 1,000 mg Documented by: Senna (Senna -) 1 tab PO DAILY PRN PRN Reason: CONSTIPATION Sitagliptin Phosphate (Januvia -) 50 mg PO ACBK [facility] Last Admin: 02/15/20 06:05 Dose: 50 mg Documented by: Tamsulosin HCl (Flomax -) 0.4 mg PO DAILY@0830 [facility] Last Admin: 02/15/20 09:14 Dose: 0.4 mg Documented by: Ticagrelor (Brilinta -) 90 mg PO BID [facility] Last Admin: 02/15/20 09:15 Dose: 90 mg Documented by: Torsemide (Demadex -) 20 mg PO DAILY [facility] Last Admin: 02/15/20 09:25 Dose: 20 mg Documented by: Valsartan (Diovan -) 40 mg PO DAILY [facility] Last Admin: 02/15/20 09:14 Dose: 40 mg Documented by: - Objective Vital Signs: Vital Signs Temperature 98.4 F 02/15/20 02:00 Pulse Rate 81 02/15/20 02:00 Respiratory Rate 18 02/15/20 02:00 Blood Pressure 143/76 02/15/20 02:00 O2 Sat by Pulse Oximetry (%) 99 02/15/20 02:00 Constitutional: Yes: No Distress, Calm Eyes: Yes: Conjunctiva Clear HENT: Yes: Atraumatic Neck: Yes: Supple Cardiovascular: Yes: Regular Rate and Rhythm Respiratory: Yes: Diminished Gastrointestinal: Yes: Soft. No: Tenderness Genitourinary: No: Hematuria Musculoskeletal: No: Joint Stiffness, Joint Swelling Extremities: No: Cold, Cool, Cyanosis Edema: No Integumentary: No: Rash Neurological: Yes: Alert, Oriented ...Motor Strength: LUE, LLE (old mild Lsided weakness) Psychiatric: Yes: Alert, Oriented. No: Agitated, Suicidal Ideation Labs: CBC, BMP 02/15/20 06:55 02/15/20 06:55 INR, PTT INR 1.09 (0.83-1.09) 02/13/20 16:00 - ....Imaging Other: Report Reviewed Assessment/Plan 74yo M with PMH of HTN, HLD, DM, CAD s/p stent, CABG, 2 strokes with residual left sided weakness presenting with right sided weakness, inability to walk, and shortness of breath.Admitted r/o new CVA / TIA, found to have also trop+ and fever / UTI; IV ATB; cardio and neurology f/u; started on plavix per neuro ID eval r/o sepsis, iv ATB per ID GI eval for dropped Hg monitor in telemetry falls pfx d/w pt do not get OOB alone DVT Pfx d/w pt and staff
--- NOTE | 2020-02-15 11:47 | CON.GI ---
Consult Consult Specialty:: Gastroenterology Referred by:: Dr. Christy Reason for Consultation:: Anemia - History of Present Illness Chief Complaint: Right sided weakness History of Present Illness: 74M presents with sudden onset of right sided weakness and inability to walk which has since resolved. He has a h/o two previous right sided CVAs with left sided weakness but regained the ability to ambulate and play golf . He last had a colonoscopy with my partner Dr. Demetrio Lizarraga on 06/08/15 at [facility] which was unrevealing. He cannot recall ever having had an EGD. He takes aspirin and Brilinta and last had a stent inserted 05/12. He denies any overt bleeding but takes iron for anemia. He has chronic constipation. His mother of colon cancer at age 90 - History Source History Provided By: Patient, Medical Record Limitations to Obtaining History: Poor Historian - Past Medical History [employer]: Yes: CVA (with left hemiparesis x 2) Cardio/Vascular: Yes: CAD (s/p CABG and stenting @ [facility]), CHF (mild global hypokinesis, EF 45-50%), HTN, Hyperlipdemia, IN (IN x 7 , the last in 05/12), Other (peripheral vascular disease) Gastrointestinal: Yes: Constipation, Other (Colonoscopy wuth Dr. Lizarraga 06/08 was unrevealing but prep was suboptimal) Hepatobiliary: Yes: Other (fatty liver) Renal/: Yes: Renal Inusuff Heme/Onc: Yes: Anemia Endocrine: Yes: Diabetes Mellitus - Past Surgical History Past Surgical History: Yes: Bypass, CABG (at [facility]), Carotid Endarterectomy (right side), Colonoscopy, Stent (PVD with lower extremity and coronary stenting ) - Alcohol/Substance Use Hx Alcohol Use: Yes (wine wth dinner) History of Substance Use: reports: None - Smoking History Smoking history: Former smoker Have you smoked in the past 12 months: No Aproximately how many cigarettes per day: 0 If you are a former smoker, when did you quit?: 1984 - Social History Usual Living Arrangement: With Spouse ADL: Independent 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 (year[place] 19 Home Medications - Allergies Allergies/Adverse Reactions: Allergies Allergy/AdvReac Type Severity Reaction Status Date / Time No Known Allergies Allergy Verified 02/13/20 17:44 - Home Medications Home Medications: Ambulatory Orders Ranolazine [Ranexa] 1,000 mg PO BID 01/08/13 Atorvastatin Ca [Lipitor] 80 mg PO DAILY 06/04/18 Ezetimibe [Zetia] 10 mg PO DAILY 06/04/18 Finasteride [Proscar] 5 mg PO DAILY 06/04/18 Insulin Degludec [Tresiba Flextouch U-100] 35 unit SQ AM 06/04/18 Montelukast Sodium [Singulair] 10 mg PO DAILY 06/04/18 Nitroglycerin [place] [Nitrolingual [place] -] 1 spray TL Q5M PRN 06/04/18 Polyethylene Glycol 3350 [Miralax 255 gm Btl -] 17 gm PO DAILY PRN 06/04/18 Sennosides [Senokot] 8.6 mg PO DAILY PRN 06/04/18 Sitagliptin Phosphate [Januvia] 50 mg PO DAILY 06/04/18 Torsemide [Demadex -] 20 mg PO DAILY #30 tablet MDD 1 06/11/18 Aspirin [ASA -] 81 mg PO DAILY 07/05/19 Isosorbide Mononitrate [Isosorbide Mononitrate ER] 60 mg PO DAILY 07/05/19 Ticagrelor [Brilinta -] 90 mg PO BID 07/05/19 Valsartan [Diovan] 40 mg PO DAILY 07/05/19 Acetaminophen [Tylenol .Regular Strength -] 650 mg PO Q6H PRN tablet 07/13/19 Insulin Sliding Scale [Novolog Vial Sliding Scale -] 1 vial SQ ACHS units 07/13/19 Pantoprazole Sodium [Protonix -] 40 mg PO BID tablet.ec 07/13/19 Fluticasone/Salmeterol [Advair 250-50 Diskus] 1 each IH BID 02/13/20 Tamsulosin HCl [Flomax] 0.4 mg PO DAILY 02/13/20 Family Medical History Family Hx Cancer: Mother (colon cancer age 90) Family Hx Diabetes: Mother Other Family History: F age 85 Review of Systems - Review of Systems Constitutional: reports: No Symptoms Eyes: reports: No Symptoms HENT: reports: No Symptoms Neck: reports: No Symptoms Cardiovascular: reports: No Symptoms Respiratory: reports: Exercise Intolerance Gastrointestinal: reports: Constipation Genitourinary: reports: No Symptoms Neurological: reports: Weakness (right sided) Physical Exam-GI Vital Signs: Vital Signs Temperature 98.4 F 02/15/20 02:00 Pulse Rate 81 02/15/20 02:00 Respiratory Rate 18 02/15/20 02:00 Blood Pressure 143/76 02/15/20 02:00 O2 Sat by Pulse Oximetry (%) 99 02/15/20 02:00 CBC,CMP WBC 5.6 K/mm3 (4.0-10.0) 02/15/20 06:55 RBC 2.59 M/mm3 (4.00-5.60) L 02/15/20 06:55 Hgb 8.4 GM/dL (11.7-16.9) L 02/15/20 06:55 Hct 25.0 % (35.4-49) L 02/15/20 06:55 MCV 96.3 fl (80-96) H 02/15/20 06:55 MCH 32.6 pg (25.7-33.7) 02/15/20 06:55 MCHC 33.9 g/dl (32.0-35.9) 02/15/20 06:55 RDW 13.1 % (11.9-15.9) 02/15/20 06:55 Plt Count 140 K/MM3 (134-434) 02/15/20 06:55 MPV 8.6 fl (7.5-11.1) 02/15/20 06:55 Absolute Neuts (auto) 3.9 K/mm3 (1.5-8.0) 02/15/20 06:55 Neutrophils % 71.1 % (42.8-82.8) 02/15/20 06:55 Lymphocytes % 12.7 % (8-40) D 02/15/20 06:55 Monocytes % 14.1 % (3.8-10.2) H 02/15/20 06:55 Eosinophils % 2.0 % (0-4.5) D 02/15/20 06:55 Basophils % 0.1 % (0-2.0) 02/15/20 06:55 Nucleated RBC % 0 % (0-0) 02/15/20 06:55 Sodium 136 mmol/L (136-145) 02/15/20 06:55 Potassium 4.4 mmol/L (3.5-5.1) 02/15/20 06:55 Chloride 107 mmol/L (98-107) 02/15/20 06:55 Carbon Dioxide 23 mmol/L (21-32) 02/15/20 06:55 Anion Gap 6 MMOL/L (8-16) L 02/15/20 06:55 BUN 47.1 mg/dL (7-18) H 02/15/20 06:55 Creatinine 1.8 mg/dL (0.55-1.3) H 02/15/20 06:55 Est GFR (CKD-EPI)AfAm 41.74 02/15/20 06:55 Est GFR (CKD-EPI)NonAf 36.01 02/15/20 06:55 POC Glucometer 189 UNITS (80-120) 02/14/20 22:33 Random Glucose 123 mg/dL (74-106) H 02/15/20 06:55 Hemoglobin A1c % 8.5 % (4.2-6.3) H 02/14/20 06:15 Lactic Acid 1.1 mmol/L (0.4-2.0) 02/13/20 16:00 Calcium 10.0 mg/dL (8.5-10.1) 02/15/20 06:55 Total Bilirubin 0.6 mg/dL (0.2-1) 02/15/20 06:55 AST 32 U/L (15-37) 02/15/20 06:55 ALT 37 U/L (13-61) 02/15/20 06:55 Alkaline Phosphatase 66 U/L (45-117) 02/15/20 06:55 Creatine Kinase 165 U/L (26-308) 02/14/20 20:07 Creatine Kinase Index 2.1 % (0.0-5.0) 02/14/20 20:07 CK-MB (CK-2) 3.5 ng/mL (0.5-3.6) 02/14/20 20:07 Troponin I 1.32 ng/ml (0.00-0.05) H* 02/15/20 06:55 Total Protein 5.9 g/dl (6.4-8.2) L 02/15/20 06:55 Albumin 2.4 g/dl (3.4-5.0) L 02/15/20 06:55 Triglycerides 88 mg/dL (0-150) 02/13/20 16:00 Cholesterol 108 mg/dL (50-200) 02/13/20 16:00 Total LDL Cholesterol 49 mg/dL (5-100) 02/13/20 16:00 HDL Cholesterol 45 mg/dL (40-60) 02/13/20 16:00 Vitamin B12 391 pg/ml (193-986) 02/14/20 06:00 Serum Folate 24 ng/mL (3.1-17.5) H 02/14/20 06:00 Current Medications Generic Name Dose Route Start Last Admin Trade Name Freq PRN Reason Stop Dose Admin Acetaminophen 650 mg 02/13/20 22:04 02/15/20 02:35 Tylenol - PO 650 mg Q6H PRN Administration PAIN LEVEL 1-5 Aspirin 81 mg 02/14/20 10:00 02/15/20 09:14 Asa - PO 81 mg DAILY J[facility] Administration Atorvastatin Calcium 80 mg 02/14/20 22:00 02/14/20 22:34 Lipitor - PO 80 mg HS [facility] Administration Budesonide/Formoterol Fumarate 2 puff 02/14/20 10:00 02/15/20 09:16 Symbicort 80/4.5mcg - IH 2 puff BID [facility] Administration Ezetimibe 10 mg 02/14/20 10:00 02/15/20 09:15 Zetia - PO 10 mg DAILY [facility] Administration Finasteride 5 mg 02/14/20 10:00 02/15/20 09:14 Proscar - PO 5 mg DAILY [facility] Administration Heparin Sodium (Porcine) 5,000 unit 02/14/20 10:00 02/15/20 09:15 Heparin - SQ 5,000 unit BID [facility] Administration Ceftriaxone Sodium 2 gm/ 100 mls @ 200 mls/hr 02/15/20 10:00 02/15/20 09:16 Dextrose IVPB 200 mls/hr DAILY [facility] Administration Protocol Insulin Aspart 1 vial 02/14/20 07:00 02/15/20 11:31 Novolog Vial Sliding Scale - SQ Not Given ACHS [facility] Protocol Insulin Detemir 35 units 02/14/20 07:00 02/15/20 06:08 Levemir Vial SQ 35 unit AM [facility] Administration Isosorbide Mononitrate 60 mg 02/14/20 12:04 02/15/20 09:15 Imdur - PO 60 mg DAILY [facility] Administration Montelukast Sodium 10 mg 02/14/20 22:00 02/14/20 22:34 Singulair - PO 10 mg HS [facility] Administration Nitroglycerin 1 spray 02/13/20 22:04 Nitrolingual [place] - TL Q5M PRN FOR CHEST PAIN Pantoprazole Sodium 40 mg 02/14/20 10:00 02/15/20 09:16 Protonix - PO 40 mg BID [facility] Administration Pneumococcal 13-Valent Conj Vacc 0.5 ml 02/15/20 08:18 Prevnar 13 Syringe - IM 02/15/20 08:19 .ONCE ONE Polyethylene Glycol 17 gm 02/13/20 22:04 Miralax (For Bowel Prep) - PO DAILY PRN CONSTIPATION Ranolazine 1,000 mg 02/14/20 10:00 02/15/20 09:16 Ranexa - PO 1,000 mg BID [facility] Administration Senna 1 tab 02/13/20 22:04 Senna - PO DAILY PRN CONSTIPATION Sitagliptin Phosphate 50 mg 02/14/20 07:00 02/15/20 06:05 Januvia - PO 50 mg ACBK [facility] Administration Tamsulosin HCl 0.4 mg 02/14/20 08:30 02/15/20 09:14 Flomax - PO 0.4 mg DAILY@0830 [facility] Administration Ticagrelor 90 mg 02/14/20 10:00 02/15/20 09:15 Brilinta - PO 90 mg BID [facility] Administration Torsemide 20 mg 02/14/20 10:00 02/15/20 09:25 Demadex - PO 20 mg DAILY [facility] Administration Valsartan 40 mg 02/14/20 12:04 02/15/20 09:14 Diovan - PO 40 mg DAILY [facility] Administration Constitutional: Yes: Calm Eyes: Yes: Conjunctiva Clear HENT: Yes: Atraumatic Neck: Yes: Trachea Midline, Other (right neck healed inicision) Cardiovascular: Yes: Regular Rate and Rhythm, Other (healed median sternotomy incision) Respiratory: Yes: CTA Bilaterally Gastrointestinal Inspection: Yes: Distention ...Auscultate: Yes: Hypoactive Bowel Sounds ...Palpate: Yes: Soft, Other (nontender) ...Rectal Exam: Yes: Guaiac Negative (2+ prostate, no masses, full of formed brown g neg stool) Edema: No Neurological: Yes: Alert, Oriented Labs: CBC, BMP 02/15/20 06:55 02/15/20 06:55 INR, PTT INR 1.09 (0.83-1.09) 02/13/20 16:00 Laboratory Tests 12/09/12 12/16/12 01/10/13 03:00 05:35 06:00 Hgb 11.9 8.9 L* 11.0 L 06/04/18 06/06/18 07/08/19 22:50 05:30 07:35 Hgb 11.0 L 9.8 L 9.7 L 07/12/19 07/13/19 02/13/20 07:05 07:04 16:00 Hgb 7.9 L 9.3 L 10.3 L 02/14/20 02/15/20 06:15 06:55 Hgb 9.6 L 8.4 L Laboratory Tests 07/11/19 07:13 Iron 46 L TIBC 231 L Iron Saturation 19 Unsaturated IBC 185 L Ferritin 127.5 Problem List - Problems (1) Anemia Code(s): D64.9 - ANEMIA, UNSPECIFIED (2) TIA (transient ischemic attack) Code(s): G45.9 - TRANSIENT CEREBRAL ISCHEMIC ATTACK, UNSPECIFIED (3) Constipation Code(s): K59.00 - CONSTIPATION, UNSPECIFIED (4) Family history of colon cancer in mother Code(s): Z80.0 - FAMILY HISTORY OF MALIGNANT NEOPLASM OF DIGESTIVE ORGANS (5) NSTEMI (non-ST elevated myocardial infarction) Code(s): I21.4 - NON-ST ELEVATION (NSTEMI) MYOCARDIAL INFARCTION (6) CAD (coronary artery disease) Code(s): I25.10 - ATHSCL HEART DISEASE OF [place] CORONARY ARTERY W/O ANG PCTRS (7) CKD (chronic kidney disease) Code(s): N18.9 - CHRONIC KIDNEY DISEASE, UNSPECIFIED (8) CVA (cerebral vascular accident) Code(s): I63.9 - CEREBRAL INFARCTION, UNSPECIFIED (9) Diabetes mellitus Code(s): E11.9 - TYPE 2 DIABETES MELLITUS WITHOUT COMPLICATIONS (10) HTN (hypertension) Code(s): I10 - ESSENTIAL (PRIMARY) HYPERTENSION (11) PVD (peripheral vascular disease) Code(s): I73.9 - PERIPHERAL VASCULAR DISEASE, UNSPECIFIED (12) S/P CABG (coronary artery bypass graft) Code(s): Z95.1 - PRESENCE OF AORTOCORONARY BYPASS GRAFT Assessment/Plan Impression: - Despite being guaiac negative at present I still suspect that his anemia reflects indolent GI blood loss. Potential etiologies include an NSAID related ulcer, erosive gastritis, vascular ectasias, GERD but I cannot exclude a neoplasm. - Chronic constipation with fecal impaction - colon cancer Plan: -- I have proposed for Francisco to undergo an EGD and a colonoscopy without interrupting his aspirin or Brilinta given his 05/12 stent and his recent TIA. I have discussed the risks of perforation and hemorrhage that could lead to transfusion and surgery with Francisco, his Iban and with is son Francisco. I explained trhat he may need repeat procedures off the blood thinner for polypectomy and biopsies. I discussed my concerns for Francisco suffering a repeat IN or CVA during the procedure and explained that I will not proceed unless given clearance by Dr. Jeffries and Dr King. I have communicated with both of them and they have replied that they will let me know when they decide. Francisco , his and son are in agreement to proceed with the procedures if cleared. -- Miralax TID and PPI BID in the interim -- Diana
--- NOTE | 2020-02-15 13:58 | PN ---
Progress Note, Physician History of Present Illness: AWAKE, ALERT REPORTS URINARY FREQUENCY NO C/O SUPRAPUBIC OR FLANK PAIN NO FEVER/ CHILLS TEMPS DOWN AFEBRILE WBC WNL BC (-) URINE C/S PENDING - Current Medication List Current Medications: Active Medications Acetaminophen (Tylenol -) 650 mg PO Q6H PRN PRN Reason: PAIN LEVEL 1-5 Last Admin: 02/15/20 02:35 Dose: 650 mg Documented by: Aspirin (Asa -) 81 mg PO DAILY [facility] Last Admin: 02/15/20 09:14 Dose: 81 mg Documented by: Atorvastatin Calcium (Lipitor -) 80 mg PO HS [facility] Last Admin: 02/14/20 22:34 Dose: 80 mg Documented by: Budesonide/Formoterol Fumarate (Symbicort 80/4.5mcg -) 2 puff IH BID [facility] Last Admin: 02/15/20 09:16 Dose: 2 puff Documented by: Ezetimibe (Zetia -) 10 mg PO DAILY [facility] Last Admin: 02/15/20 09:15 Dose: 10 mg Documented by: Finasteride (Proscar -) 5 mg PO DAILY [facility] Last Admin: 02/15/20 09:14 Dose: 5 mg Documented by: Heparin Sodium (Porcine) (Heparin -) 5,000 unit SQ BID [facility] Last Admin: 02/15/20 09:15 Dose: 5,000 unit Documented by: Ceftriaxone Sodium 2 gm/ (Dextrose) 100 mls @ 200 mls/hr IVPB DAILY [facility]; Protocol Last Admin: 02/15/20 09:16 Dose: 200 mls/hr Documented by: Iron Sucrose 200 mg/ Sodium (Chloride) 100 mls @ 100 mls/hr IVPB ONCE ONE Stop: 02/15/20 14:59 Insulin Aspart (Novolog Vial Sliding Scale -) 1 vial SQ ACHS [facility]; Protocol Last Admin: 02/15/20 11:31 Dose: Not Given Documented by: Insulin Detemir (Levemir Vial) 35 units SQ AM [facility] Last Admin: 02/15/20 06:08 Dose: 35 unit Documented by: Isosorbide Mononitrate (Imdur -) 60 mg PO DAILY [facility] Last Admin: 02/15/20 09:15 Dose: 60 mg Documented by: Montelukast Sodium (Singulair -) 10 mg PO HS [facility] Last Admin: 02/14/20 22:34 Dose: 10 mg Documented by: Nitroglycerin (Nitrolingual [place] -) 1 spray TL Q5M PRN PRN Reason: FOR CHEST PAIN Pantoprazole Sodium (Protonix -) 40 mg PO BID [facility] Last Admin: 02/15/20 09:16 Dose: 40 mg Documented by: Pneumococcal 13-Valent Conj Vacc (Prevnar 13 Syringe -) 0.5 ml IM .ONCE ONE Stop: 02/15/20 08:19 Polyethylene Glycol (Miralax (For Daily Use) -) 17 gm PO TID [facility] Ranolazine (Ranexa -) 1,000 mg PO BID [facility] Last Admin: 02/15/20 09:16 Dose: 1,000 mg Documented by: Senna (Senna -) 1 tab PO DAILY PRN PRN Reason: CONSTIPATION Sitagliptin Phosphate (Januvia -) 50 mg PO ACBK [facility] Last Admin: 02/15/20 06:05 Dose: 50 mg Documented by: Tamsulosin HCl (Flomax -) 0.4 mg PO DAILY@0830 [facility] Last Admin: 02/15/20 09:14 Dose: 0.4 mg Documented by: Ticagrelor (Brilinta -) 90 mg PO BID [facility] Last Admin: 02/15/20 09:15 Dose: 90 mg Documented by: Torsemide (Demadex -) 20 mg PO DAILY [facility] Last Admin: 02/15/20 09:25 Dose: 20 mg Documented by: Valsartan (Diovan -) 40 mg PO DAILY [facility] Last Admin: 02/15/20 09:14 Dose: 40 mg Documented by: - Objective Vital Signs: Vital Signs Temperature 98.4 F 02/15/20 10:00 Pulse Rate 71 02/15/20 10:00 Respiratory Rate 18 02/15/20 10:00 Blood Pressure 137/66 02/15/20 10:00 O2 Sat by Pulse Oximetry (%) 95 02/15/20 10:00 Constitutional: Yes: No Distress Cardiovascular: Yes: Regular Rate and Rhythm, S1, S2 Respiratory: Yes: CTA Bilaterally Gastrointestinal: Yes: Normal Bowel Sounds, Soft. No: Tenderness Edema: No Labs: CBC, BMP 02/15/20 06:55 02/15/20 06:55 INR, PTT INR 1.09 (0.83-1.09) 02/13/20 16:00 Assessment/Plan UTI CKD MRI NEGATIVE FOR ACUTE CVA CONTINUE CEFTRIAXONE PENDING C/S
[2020-02-15] MEDS ORDERED: IRON SUCROSE INJECTION 200 MG in SODIUM CHLORIDE 90 ML IVPB ONE (14:00)
[2020-02-15] MEDS: POLYETHYLENE GLYCOL 3350 119 GM BTL PO SCH ×2 (14:42→21:53)
--- NOTE | 2020-02-15 15:11 | PN ---
Progress Note, Physician History of Present Illness: events noted chart reviewed seen on telemetry Alert awake oriented mild dizziness with no shortness of breath Patient is not out of bed to chair Patient had MRI of the brain which showed no acute stroke - Current Medication List Current Medications: Active Medications Acetaminophen (Tylenol -) 650 mg PO Q6H PRN PRN Reason: PAIN LEVEL 1-5 Last Admin: 02/15/20 02:35 Dose: 650 mg Documented by: Aspirin (Asa -) 81 mg PO DAILY [facility] Last Admin: 02/15/20 09:14 Dose: 81 mg Documented by: Atorvastatin Calcium (Lipitor -) 80 mg PO HS [facility] Last Admin: 02/14/20 22:34 Dose: 80 mg Documented by: Budesonide/Formoterol Fumarate (Symbicort 80/4.5mcg -) 2 puff IH BID [facility] Last Admin: 02/15/20 09:16 Dose: 2 puff Documented by: Ezetimibe (Zetia -) 10 mg PO DAILY [facility] Last Admin: 02/15/20 09:15 Dose: 10 mg Documented by: Finasteride (Proscar -) 5 mg PO DAILY [facility] Last Admin: 02/15/20 09:14 Dose: 5 mg Documented by: Heparin Sodium (Porcine) (Heparin -) 5,000 unit SQ BID [facility] Last Admin: 02/15/20 09:15 Dose: 5,000 unit Documented by: Ceftriaxone Sodium 2 gm/ (Dextrose) 100 mls @ 200 mls/hr IVPB DAILY [facility]; Protocol Last Admin: 02/15/20 09:16 Dose: 200 mls/hr Documented by: Insulin Aspart (Novolog Vial Sliding Scale -) 1 vial SQ ACHS [facility]; Protocol Last Admin: 02/15/20 11:31 Dose: Not Given Documented by: Insulin Detemir (Levemir Vial) 35 units SQ AM [facility] Last Admin: 02/15/20 06:08 Dose: 35 unit Documented by: Isosorbide Mononitrate (Imdur -) 60 mg PO DAILY [facility] Last Admin: 02/15/20 09:15 Dose: 60 mg Documented by: Montelukast Sodium (Singulair -) 10 mg PO HS [facility] Last Admin: 02/14/20 22:34 Dose: 10 mg Documented by: Nitroglycerin (Nitrolingual [place] -) 1 spray TL Q5M PRN PRN Reason: FOR CHEST PAIN Pantoprazole Sodium (Protonix -) 40 mg PO BID [facility] Last Admin: 02/15/20 09:16 Dose: 40 mg Documented by: Pneumococcal 13-Valent Conj Vacc (Prevnar 13 Syringe -) 0.5 ml IM .ONCE ONE Stop: 02/15/20 08:19 Polyethylene Glycol (Miralax (For Daily Use) -) 17 gm PO TID [facility] Last Admin: 02/15/20 14:42 Dose: 17 gm Documented by: Ranolazine (Ranexa -) 1,000 mg PO BID [facility] Last Admin: 02/15/20 09:16 Dose: 1,000 mg Documented by: Senna (Senna -) 1 tab PO DAILY PRN PRN Reason: CONSTIPATION Sitagliptin Phosphate (Januvia -) 50 mg PO ACBK [facility] Last Admin: 02/15/20 06:05 Dose: 50 mg Documented by: Tamsulosin HCl (Flomax -) 0.4 mg PO DAILY@0830 [facility] Last Admin: 02/15/20 09:14 Dose: 0.4 mg Documented by: Ticagrelor (Brilinta -) 90 mg PO BID [facility] Last Admin: 02/15/20 09:15 Dose: 90 mg Documented by: Torsemide (Demadex -) 20 mg PO DAILY [facility] Last Admin: 02/15/20 09:25 Dose: 20 mg Documented by: Valsartan (Diovan -) 40 mg PO DAILY [facility] Last Admin: 02/15/20 09:14 Dose: 40 mg Documented by: - Objective Vital Signs: Vital Signs Temperature 98.4 F 02/15/20 10:00 Pulse Rate 71 02/15/20 10:00 Respiratory Rate 18 02/15/20 10:00 Blood Pressure 137/66 02/15/20 10:00 O2 Sat by Pulse Oximetry (%) 95 02/15/20 10:00 Constitutional: Yes: Well Nourished Eyes: Yes: WNL Neurological: Yes: Alert, Oriented, Babinski negative, Cran Nerves II-XII Intact ...Motor Strength: WNL Labs: CBC, BMP 02/15/20 06:55 02/15/20 06:55 INR, PTT INR 1.09 (0.83-1.09) 02/13/20 16:00 Problem List - Problems (1) Weakness Code(s): R53.1 - WEAKNESS (2) CVA (cerebral vascular accident) Code(s): I63.9 - CEREBRAL INFARCTION, UNSPECIFIED Assessment/Plan . Follow-up with cardiology. 2. Neurologically okay to do endoscopy on Tuesday. 3. Follow-up with armor reconnaissance specialist regarding instruction for thetreatment plan. 4. Out of bed to chair with fall precautions. 5. Physical therapy. 6. SCD well in the bed
[2020-02-15] MEDS ORDERED: PNEUMOC 13-VAL CONJ-DIP CRM/PF 0.5 ML DISP.SYRIN IM ONE (18:00)
[2020-02-15] MEDS: ATORVASTATIN CA 80 MG TABLET (FP) PO SCH (21:43)
[2020-02-15] MEDS: MONTELUKAST NA 10 MG TABLET PO SCH (21:43)
[2020-02-16] MEDS: POLYETHYLENE GLYCOL 3350 119 GM BTL PO SCH ×3 (05:52→22:23)
[2020-02-16] MEDS: INSULIN (LEVEMIR) 100 UNITS/ML UNITS SQ SCH ×2 (06:04→11:50)
[2020-02-16] MEDS: INSULIN SLIDING SCALE (NOVOLOG) 1 VIAL SQ SCH ×4 (06:04→22:22)
[2020-02-16 06:41] LABS: BASO % 0.2 % (0-2.0); EOS % 2.2 % (0-4.5); HEMATOCRIT 24.8 % (35.4-49); HEMOGLOBIN 8.4 GM/dL (11.7-16.9); LYMPH % 10.5 % (8-40); MCH 32.5 pg (25.7-33.7); MEAN CELL VOLUME 95.5 fl (80-96); MEAN PLT VOLUME 8.7 fl (7.5-11.1); MONO % 14.3 % (3.8-10.2); NEUT % 72.8 % (42.8-82.8); PLATELET COUNT 156 K/MM3 (134-434); RBC 2.59 M/mm3 (4.00-5.60); WHITE BLOOD COUNT 4.2 K/mm3 (4.0-10.0)
[2020-02-16 07:04] LABS: BLOOD UREA NITROGEN 44.6 mg/dL (7-18); CALCIUM 10.2 mg/dL (8.5-10.1); CREATININE 1.6 mg/dL (0.55-1.3); POTASSIUM 4.2 mmol/L (3.5-5.1)
[2020-02-16] MEDS: TAMSULOSIN HCL 0.4 MG CAP PO SCH (08:52)
[2020-02-16] MEDS ORDERED: DEXTROSE 5%-WATER 100 ML IVPB ONE (09:45)
[2020-02-16] MEDS: CEFTRIAXONE 2 GM in DEXTROSE 5%-WATER 100 ML IVPB SCH (09:54)
[2020-02-16] MEDS: HEPARIN NA (PORCINE) 5,000 UNITS/ML 1ML VIAL SQ SCH ×2 (09:56→22:22)
[2020-02-16] MEDS: PANTOPRAZOLE 40 MG TABLET PO SCH ×2 (09:56→22:22)
[2020-02-16] MEDS: ASPIRIN 81 MG CHEWABLE TABLETS PO SCH (09:56)
[2020-02-16] MEDS: TICAGRELOR 90 MG TABLET PO SCH ×2 (09:56→22:22)
[2020-02-16] MEDS: ISOSORBIDE MONONITRATE 60 MG TAB.SR.24H (FP) PO SCH (09:56)
[2020-02-16] MEDS: RANOLAZINE E.R. 1,000 MG TABLET (FP) PO SCH ×2 (09:56→22:22)
[2020-02-16] MEDS: VALSARTAN 40 MG TABLET (FP) PO SCH (09:57)
[2020-02-16] MEDS: EZETIMIBE 10 MG TABLET (FP) PO SCH (09:57)
[2020-02-16] MEDS: BUDESONIDE/FORMETEROL FUMARATE 80/4.5 mcg INHALER IH SCH ×2 (09:57→22:23)
[2020-02-16] MEDS: FINASTERIDE 5 MG TABLET (FP) PO SCH (09:57)
[2020-02-16] MEDS: TORSEMIDE 20 MG TABLET (FP) PO SCH (09:57)
--- NOTE | 2020-02-16 10:25 | PN ---
Progress Note, Physician Chief Complaint: events noted, pt in bed no new c/o seen by GI - for possible EGD if cleared - Current Medication List Current Medications: Active Medications Acetaminophen (Tylenol -) 650 mg PO Q6H PRN PRN Reason: PAIN LEVEL 1-5 Last Admin: 02/15/20 02:35 Dose: 650 mg Documented by: Aspirin (Asa -) 81 mg PO DAILY [facility] Last Admin: 02/16/20 09:56 Dose: 81 mg Documented by: Atorvastatin Calcium (Lipitor -) 80 mg PO HS [facility] Last Admin: 02/15/20 21:43 Dose: 80 mg Documented by: Budesonide/Formoterol Fumarate (Symbicort 80/4.5mcg -) 2 puff IH BID [facility] Last Admin: 02/16/20 09:57 Dose: 2 puff Documented by: Ezetimibe (Zetia -) 10 mg PO DAILY [facility] Last Admin: 02/16/20 09:57 Dose: 10 mg Documented by: Finasteride (Proscar -) 5 mg PO DAILY [facility] Last Admin: 02/16/20 09:57 Dose: 5 mg Documented by: Heparin Sodium (Porcine) (Heparin -) 5,000 unit SQ BID [facility] Last Admin: 02/16/20 09:56 Dose: 5,000 unit Documented by: Ceftriaxone Sodium 2 gm/ (Dextrose) 100 mls @ 200 mls/hr IVPB DAILY [facility]; Protocol Last Admin: 02/16/20 09:54 Dose: 200 mls/hr Documented by: Insulin Aspart (Novolog Vial Sliding Scale -) 1 vial SQ ACHS [facility]; Protocol Last Admin: 02/16/20 06:04 Dose: Not Given Documented by: Insulin Detemir (Levemir Vial) 35 units SQ AM [facility] Last Admin: 02/16/20 06:04 Dose: Not Given Documented by: Isosorbide Mononitrate (Imdur -) 60 mg PO DAILY [facility] Last Admin: 02/16/20 09:56 Dose: 60 mg Documented by: Montelukast Sodium (Singulair -) 10 mg PO [facility] Last Admin: 02/15/20 21:43 Dose: 10 mg Documented by: Nitroglycerin (Nitrolingual [place] -) 1 spray TL Q5M PRN PRN Reason: FOR CHEST PAIN Pantoprazole Sodium (Protonix -) 40 mg PO BID [facility] Last Admin: 02/16/20 09:56 Dose: 40 mg Documented by: Polyethylene Glycol (Miralax (For Daily Use) -) 17 gm PO TID [facility] Last Admin: 02/16/20 05:52 Dose: Not Given Documented by: Ranolazine (Ranexa -) 1,000 mg PO BID [facility] Last Admin: 02/16/20 09:56 Dose: 1,000 mg Documented by: Senna (Senna -) 1 tab PO DAILY PRN PRN Reason: CONSTIPATION Sitagliptin Phosphate (Januvia -) 50 mg PO ACBK [facility] Last Admin: 02/15/20 06:05 Dose: 50 mg Documented by: Tamsulosin HCl (Flomax -) 0.4 mg PO DAILY@0830 [facility] Last Admin: 02/16/20 08:52 Dose: 0.4 mg Documented by: Ticagrelor (Brilinta -) 90 mg PO BID [facility] Last Admin: 02/16/20 09:56 Dose: 90 mg Documented by: Torsemide (Demadex -) 20 mg PO DAILY [facility] Last Admin: 02/16/20 09:57 Dose: 20 mg Documented by: Valsartan (Diovan -) 40 mg PO DAILY [facility] Last Admin: 02/16/20 09:57 Dose: 40 mg Documented by: - Objective Vital Signs: Vital Signs Temperature 98.9 F 02/16/20 06:00 Pulse Rate 80 02/16/20 06:00 Respiratory Rate 18 02/16/20 06:00 Blood Pressure 119/47 L 02/16/20 06:00 O2 Sat by Pulse Oximetry (%) 100 02/16/20 06:00 Constitutional: Yes: No Distress, Calm Eyes: Yes: Conjunctiva Clear HENT: Yes: Atraumatic Neck: Yes: Supple Cardiovascular: Yes: Regular Rate and Rhythm Respiratory: Yes: Diminished Gastrointestinal: Yes: Soft. No: Tenderness Genitourinary: No: Hematuria Musculoskeletal: No: Joint Stiffness, Joint Swelling Extremities: No: Cold, Cool, Cyanosis Edema: No Integumentary: No: Rash Neurological: Yes: Alert, Oriented ...Motor Strength: LUE, LLE Psychiatric: Yes: Alert, Oriented. No: Agitated, Suicidal Ideation Labs: CBC, BMP 02/16/20 05:35 02/16/20 05:35 INR, PTT INR 1.09 (0.83-1.09) 02/13/20 16:00 - ....Imaging Other: Report Reviewed Assessment/Plan 74yo M with PMH of HTN, HLD, DM, CAD s/p stent, CABG, 2 strokes with residual left sided weakness admitted with r/o new CVA and shortness of breath.Admitted r/o new CVA / TIA, found to have also trop+ and fever / UTI; IV ATB; cardio and neurology f/u; started on plavix per neuro ID f/u sepsis, iv ATB per ID GI eval for dropped Hg - EGD if cleared by cardio / neuro monitor in telemetry falls pfx d/w pt do not get OOB alone DVT Pfx d/w pt and staff
--- NOTE | 2020-02-16 12:20 | PN ---
Progress Note (short form) - Note Progress Note: cc: weakness s: no chest pain, palps, dizziness, dyspnea Current Medications Generic Name Dose Route Start Last Admin Trade Name Freq PRN Reason Stop Dose Admin Acetaminophen 650 mg 02/13/20 22:04 02/15/20 02:35 Tylenol - PO 650 mg Q6H PRN Administration PAIN LEVEL 1-5 Aspirin 81 mg 02/14/20 10:00 02/16/20 09:56 Asa - PO 81 mg DAILY JAMILA Administration Atorvastatin Calcium 80 mg 02/14/20 22:00 02/15/20 21:43 Lipitor - PO 80 mg HS JAMILA Administration Budesonide/Formoterol Fumarate 2 puff 02/14/20 10:00 02/16/20 09:57 Symbicort 80/4.5mcg - IH 2 puff BID JAMILA Administration Ezetimibe 10 mg 02/14/20 10:00 02/16/20 09:57 Zetia - PO 10 mg DAILY [facility]ILA Administration Finasteride 5 mg 02/14/20 10:00 02/16/20 09:57 Proscar - PO 5 mg DAILY J[facility]A Administration Heparin Sodium (Porcine) 5,000 unit 02/14/20 10:00 02/16/20 09:56 Heparin - SQ 5,000 unit BID [facility]A Administration Ceftriaxone Sodium 2 gm/ 100 mls @ 200 mls/hr 02/15/20 10:00 02/16/20 09:54 Dextrose IVPB 200 mls/hr DAILY JAMILA Administration Protocol Insulin Aspart 1 vial 02/14/20 07:00 02/16/20 11:46 Novolog Vial Sliding Scale - SQ 6 unit ACHS JAMILA Administration Protocol Insulin Detemir 35 units 02/14/20 07:00 02/16/20 11:50 Levemir Vial SQ 35 unit AM [facility] Administration Isosorbide Mononitrate 60 mg 02/14/20 12:04 02/16/20 09:56 Imdur - PO 60 mg DAILY [facility] Administration Montelukast Sodium 10 mg 02/14/20 22:00 02/15/20 21:43 Singulair - PO 10 mg HS [facility]A Administration Nitroglycerin 1 spray 02/13/20 22:04 Nitrolingual [place] - TL Q5M PRN FOR CHEST PAIN Pantoprazole Sodium 40 mg 02/14/20 10:00 02/16/20 09:56 Protonix - PO 40 mg BID [facility] Administration Polyethylene Glycol 17 gm 02/15/20 14:00 02/16/20 05:52 Miralax (For Daily Use) - PO Not Given TID JAMILA Ranolazine 1,000 mg 02/14/20 10:00 02/16/20 09:56 Ranexa - PO 1,000 mg BID [facility] Administration Senna 1 tab 02/13/20 22:04 Senna - PO DAILY PRN CONSTIPATION Sitagliptin Phosphate 50 mg 02/14/20 07:00 02/15/20 06:05 Januvia - PO 50 mg ACBK J[facility]A Administration Tamsulosin HCl 0.4 mg 02/14/20 08:30 02/16/20 08:52 Flomax - PO 0.4 mg DAILY@0830 [facility] Administration Ticagrelor 90 mg 02/14/20 10:00 02/16/20 09:56 Brilinta - PO 90 mg BID [facility] Administration Torsemide 20 mg 02/14/20 10:00 02/16/20 09:57 Demadex - PO 20 mg DAILY [facility] Administration Valsartan 40 mg 02/14/20 12:04 02/16/20 09:57 Diovan - PO 40 mg DAILY [facility] Administration Vital Signs Period Temp Pulse Resp BP Sys/Chen Pulse Ox Last 24 Hr 97.7 F-98.9 F 72-80 18-18 119-150/47-67 98-100 Constitutional: Yes: No Distress, Calm Eyes: Yes: Conjunctiva Clear Cardiovascular: Yes: Regular Rate and Rhythm, Murmur Respiratory: Yes: CTA Bilaterally Gastrointestinal: Yes: Soft Edema: No Neurological: Yes: Alert, Oriented no jaundice, diaphoresis not agitated tele: sinus Assessment/Plan mibi 02/2015: inferolat scar with minimal fahad ischemia echo 07/2018 mildly dilated LV, mildly reduced LV function EF 45-50%, mild inf wall hypokinesis, RV nl, mod MR, RVSP 50-60 mmHG echo 10/2018: nl lv/rv, mild as, mild mr, mild tr, mild phtn echo 01/2020 mildly reduced LV function EF 45-50%, RV nl, tr MR, mild TR, mild to mod Assessment/Plan 74 m hx htn, hld, dchf, cva, pad, cad s/p cabg 1997, pci 2011, 2012, 2014, and most recent cath for nstemi 04/2019 with latoya to d1, lcx, here with right side weakness. Suspected CVA/TIA -pt with hx cva's and here now with sxs suspicious for cva. initial head ct unremarkable. neuro following, ordered mri. -cont current cardiac meds, including statin and dapt Elevated trops, hx cad: -has been stable since his most recent cath for nstemi 04/2019 with latoya to d1, lcx -here now with mild elevation in trop with nl ck and no cardiac symptoms. ECG with old lbbb. Does not appear to be acs, possibly demand 2/2 low bp/sepsis/uti and possible cva. Would cont home cardiac meds imdur, ranexa, atorva, brilinta, asa, zetia, valsartan -stopped bb in past for bradycardia -monitor on tele Chronic diastolic CHF: -cont home torsemide 20 mg daily -Echo now with mild LV dysfx, noted on prior echo 07/2018, with nl LV function on echo 10/2018 - evaluate with mibi ckd: -cr close to baseline HTN: - initial bp on low side, possibly from sepsis, now improved hld: -cont statin Anemia, preop -GI consulted - plan for endoscopy while continuing DAPT given recent stent placement 04/2019 - mibi as above
--- NOTE | 2020-02-16 16:22 | PN.GI ---
GI Progress Note Subjective: GI NOte: NO overt bleeding overnight and Hb stable. Dr Jeffries's and Dr Mills's notes are appreciated. I discussed the case with Dr Mills and will cancel the endoscopies and await results of his EST and cardiac clearance. - Objective Vital Signs: Vital Signs Temperature 97.7 F 02/16/20 14:00 Pulse Rate 76 02/16/20 14:00 Respiratory Rate 20 02/16/20 14:00 Blood Pressure 122/40 L 02/16/20 14:00 O2 Sat by Pulse Oximetry (%) 100 02/16/20 10:00 Laboratory Tests 02/13/20 02/15/20 02/15/20 18:15 06:55 06:55 Hgb 8.4 L Troponin I 1.32 H* COVID-19 (IVANNA) Not detected 02/16/20 05:35 Hgb 8.4 L Troponin I COVID-19 (IVANNA) Constitutional: Calm Eyes: Yes: Conjunctiva Clear ...Auscultate: Yes: Normoactive Bowel Sounds ...Palpate: Yes: Soft, Other (nontender) Labs: CBC, BMP 02/16/20 05:35 02/16/20 05:35 INR, PTT INR 1.09 (0.83-1.09) 02/13/20 16:00 Assessment/Plan Impression: - Suspect that his anemia reflects indolent GI blood loss. Potential etiologies include an NSAID related ulcer, erosive gastritis, vascular ectasias, GERD but I cannot exclude a neoplasm. - Chronic constipation with fecal impaction - colon cancer Plan: -- Defer EGD and a colonoscopy until after he is cardiologically cleared -- Miralax TID and PPI BID in the interim Problem List - Problems (1) Anemia Code(s): D64.9 - ANEMIA, UNSPECIFIED (2) TIA (transient ischemic attack) Code(s): G45.9 - TRANSIENT CEREBRAL ISCHEMIC ATTACK, UNSPECIFIED (3) Constipation Code(s): K59.00 - CONSTIPATION, UNSPECIFIED (4) Family history of colon cancer in mother Code(s): Z80.0 - FAMILY HISTORY OF MALIGNANT NEOPLASM OF DIGESTIVE ORGANS (5) NSTEMI (non-ST elevated myocardial infarction) Code(s): I21.4 - NON-ST ELEVATION (NSTEMI) MYOCARDIAL INFARCTION (6) CAD (coronary artery disease) Code(s): I25.10 - ATHSCL HEART DISEASE OF [place] CORONARY ARTERY W/O ANG PCTRS (7) CKD (chronic kidney disease) Code(s): N18.9 - CHRONIC KIDNEY DISEASE, UNSPECIFIED (8) CVA (cerebral vascular accident) Code(s): I63.9 - CEREBRAL INFARCTION, UNSPECIFIED (9) Diabetes mellitus Code(s): E11.9 - TYPE 2 DIABETES MELLITUS WITHOUT COMPLICATIONS (10) HTN (hypertension) Code(s): I10 - ESSENTIAL (PRIMARY) HYPERTENSION (11) PVD (peripheral vascular disease) Code(s): I73.9 - PERIPHERAL VASCULAR DISEASE, UNSPECIFIED (12) S/P CABG (coronary artery bypass graft) Code(s): Z95.1 - PRESENCE OF AORTOCORONARY BYPASS GRAFT
[2020-02-16] MEDS: sitaGLIPtin PHOSPHATE 50 MG TABLET PO SCH (20:32)
[2020-02-16] MEDS: MONTELUKAST NA 10 MG TABLET PO SCH (22:22)
[2020-02-16] MEDS: ATORVASTATIN CA 80 MG TABLET (FP) PO SCH (22:22)
[2020-02-17] MEDS: POLYETHYLENE GLYCOL 3350 119 GM BTL PO SCH ×3 (05:53→21:53)
[2020-02-17] MEDS: ACETAMINOPHEN 325 MG TABLET (FP) PO PRN ×3 (05:53→22:17)
[2020-02-17] MEDS: INSULIN SLIDING SCALE (NOVOLOG) 1 VIAL SQ SCH ×4 (06:00→21:54)
[2020-02-17] MEDS: INSULIN (LEVEMIR) 100 UNITS/ML UNITS SQ SCH (07:02)
[2020-02-17] MEDS: sitaGLIPtin PHOSPHATE 50 MG TABLET PO SCH (07:02)
[2020-02-17 07:51] LABS: BASO % 0.2 % (0-2.0); EOS % 2.4 % (0-4.5); HEMATOCRIT 22.9 % (35.4-49); HEMOGLOBIN 7.9 GM/dL (11.7-16.9); LYMPH % 13.9 % (8-40); MCH 32.9 pg (25.7-33.7); MCHC 34.4 g/dl (32.0-35.9); MEAN CELL VOLUME 95.8 fl (80-96); MEAN PLT VOLUME 8.7 fl (7.5-11.1); NEUT % 66.5 % (42.8-82.8); PLATELET COUNT 159 K/MM3 (134-434); RBC 2.39 M/mm3 (4.00-5.60); RDW 13.2 % (11.9-15.9); WHITE BLOOD COUNT 3.8 K/mm3 (4.0-10.0)
[2020-02-17 07:55] LABS: ALBUMIN 2.3 g/dl (3.4-5.0); BILIRUBIN,TOTAL 0.7 mg/dL (0.2-1); BLOOD UREA NITROGEN 44.7 mg/dL (7-18); CALCIUM 9.8 mg/dL (8.5-10.1); CREATININE 1.7 mg/dL (0.55-1.3); POTASSIUM 4.6 mmol/L (3.5-5.1); TOT PROT 5.6 g/dl (6.4-8.2)
[2020-02-17] MEDS ORDERED: DEXTROSE 5%-WATER 100 ML IVPB ONE (09:57)
[2020-02-17] MEDS: HEPARIN NA (PORCINE) 5,000 UNITS/ML 1ML VIAL SQ SCH (10:16)
[2020-02-17] MEDS: TICAGRELOR 90 MG TABLET PO SCH ×2 (10:17→21:55)
[2020-02-17] MEDS: PANTOPRAZOLE 40 MG TABLET PO SCH ×2 (10:17→21:55)
[2020-02-17] MEDS: EZETIMIBE 10 MG TABLET (FP) PO SCH (10:17)
[2020-02-17] MEDS: FINASTERIDE 5 MG TABLET (FP) PO SCH (10:17)
[2020-02-17] MEDS: ISOSORBIDE MONONITRATE 60 MG TAB.SR.24H (FP) PO SCH (10:17)
[2020-02-17] MEDS: CEFTRIAXONE 2 GM in DEXTROSE 5%-WATER 100 ML IVPB SCH (10:17)
[2020-02-17] MEDS: VALSARTAN 40 MG TABLET (FP) PO SCH (10:17)
[2020-02-17] MEDS: TORSEMIDE 20 MG TABLET (FP) PO SCH (10:17)
[2020-02-17] MEDS: TAMSULOSIN HCL 0.4 MG CAP PO SCH (10:17)
[2020-02-17] MEDS: RANOLAZINE E.R. 1,000 MG TABLET (FP) PO SCH ×2 (10:17→21:55)
[2020-02-17] MEDS: ASPIRIN 81 MG CHEWABLE TABLETS PO SCH (10:17)
[2020-02-17] MEDS: BUDESONIDE/FORMETEROL FUMARATE 80/4.5 mcg INHALER IH SCH ×2 (10:18→21:55)
--- NOTE | 2020-02-17 11:05 | PN ---
Progress Note, Physician Chief Complaint: in bed NAD VSS no new c/o afebrile consults reviewed and d/w pt - Current Medication List Current Medications: Active Medications Acetaminophen (Tylenol -) 650 mg PO Q6H PRN PRN Reason: PAIN LEVEL 1-5 Last Admin: 02/17/20 05:53 Dose: 650 mg Documented by: Aspirin (Asa -) 81 mg PO DAILY [facility] Last Admin: 02/17/20 10:17 Dose: 81 mg Documented by: Atorvastatin Calcium (Lipitor -) 80 mg PO HS [facility] Last Admin: 02/16/20 22:22 Dose: 80 mg Documented by: Budesonide/Formoterol Fumarate (Symbicort 80/4.5mcg -) 2 puff IH BID [facility] Last Admin: 02/17/20 10:18 Dose: 2 puff Documented by: Ezetimibe (Zetia -) 10 mg PO DAILY [facility] Last Admin: 02/17/20 10:17 Dose: 10 mg Documented by: Finasteride (Proscar -) 5 mg PO DAILY [facility] Last Admin: 02/17/20 10:17 Dose: 5 mg Documented by: Heparin Sodium (Porcine) (Heparin -) 5,000 unit SQ BID [facility] Last Admin: 02/17/20 10:16 Dose: 5,000 unit Documented by: Ceftriaxone Sodium 2 gm/ (Dextrose) 100 mls @ 200 mls/hr IVPB DAILY [facility]; Protocol Last Admin: 02/17/20 10:17 Dose: 200 mls/hr Documented by: Insulin Aspart (Novolog Vial Sliding Scale -) 1 vial SQ ACHS [facility]; Protocol Last Admin: 02/17/20 06:00 Dose: Not Given Documented by: Insulin Detemir (Levemir Vial) 35 units SQ AM [facility] Last Admin: 02/17/20 07:02 Dose: 35 unit Documented by: Isosorbide Mononitrate (Imdur -) 60 mg PO DAILY [facility] Last Admin: 02/17/20 10:17 Dose: 60 mg Documented by: Montelukast Sodium (Singulair -) 10 mg PO HS [facility] Last Admin: 02/16/20 22:22 Dose: 10 mg Documented by: Nitroglycerin (Nitrolingual [place] -) 1 spray TL Q5M PRN PRN Reason: FOR CHEST PAIN Pantoprazole Sodium (Protonix -) 40 mg PO BID [facility] Last Admin: 02/17/20 10:17 Dose: 40 mg Documented by: Polyethylene Glycol (Miralax (For Daily Use) -) 17 gm PO TID [facility] Last Admin: 02/17/20 05:53 Dose: 17 gm Documented by: Ranolazine (Ranexa -) 1,000 mg PO BID [facility] Last Admin: 02/17/20 10:17 Dose: 1,000 mg Documented by: Senna (Senna -) 1 tab PO DAILY PRN PRN Reason: CONSTIPATION Sitagliptin Phosphate (Januvia -) 50 mg PO ACBK [facility] Last Admin: 02/17/20 07:02 Dose: 50 mg Documented by: Tamsulosin HCl (Flomax -) 0.4 mg PO DAILY@0830 [facility] Last Admin: 02/17/20 10:17 Dose: 0.4 mg Documented by: Ticagrelor (Brilinta -) 90 mg PO BID [facility] Last Admin: 02/17/20 10:17 Dose: 90 mg Documented by: Torsemide (Demadex -) 20 mg PO DAILY [facility] Last Admin: 02/17/20 10:17 Dose: 20 mg Documented by: Valsartan (Diovan -) 40 mg PO DAILY [facility] Last Admin: 02/17/20 10:17 Dose: 40 mg Documented by: - Objective Vital Signs: Vital Signs Temperature 98.0 F 02/17/20 10:00 Pulse Rate 74 02/17/20 10:00 Respiratory Rate 19 02/17/20 10:00 Blood Pressure 118/48 L 02/17/20 10:00 O2 Sat by Pulse Oximetry (%) 100 02/17/20 10:00 Constitutional: Yes: No Distress, Calm Eyes: Yes: Conjunctiva Clear HENT: Yes: Atraumatic Neck: Yes: Supple Cardiovascular: Yes: Regular Rate and Rhythm Respiratory: Yes: CTA Bilaterally Gastrointestinal: Yes: Soft. No: Tenderness Genitourinary: No: Hematuria Musculoskeletal: No: Joint Stiffness, Joint Swelling Extremities: No: Cold, Cool Edema: No Integumentary: No: Rash Neurological: Yes: Alert, Oriented Psychiatric: Yes: Alert, Oriented. No: Agitated Labs: CBC, BMP 02/17/20 06:05 02/17/20 06:05 INR, PTT INR 1.09 (0.83-1.09) 02/13/20 16:00 - ....Imaging Other: Report Reviewed Assessment/Plan 74yo M with PMH of HTN, HLD, DM, CAD s/p stent, CABG, 2 strokes with residual left sided weakness admitted with r/o new CVA and shortness of breath.Admitted r/o new CVA / TIA, found to have also trop+ and fever / UTI; IV ATB; cardio and neurology f/u; on brillinta and po ASA ID f/u sepsis, iv ATB per ID GI eval for dropped Hg - will need EGD per GI: d/w cardio - pt to have stress test tomorrow for risk stratification; monitor in telemetry falls pfx d/w pt do not get OOB alone DVT Pfx d/w pt and staff
--- NOTE | 2020-02-17 11:39 | PN ---
Progress Note (short form) - Note Progress Note: cc: weakness s: no chest pain, palps, dizziness, dyspnea Current Medications Generic Name Dose Route Start Last Admin Trade Name Freq PRN Reason Stop Dose Admin Acetaminophen 650 mg 02/13/20 22:04 02/17/20 05:53 Tylenol - PO 650 mg Q6H PRN Administration PAIN LEVEL 1-5 Aspirin 81 mg 02/14/20 10:00 02/17/20 10:17 Asa - PO 81 mg DAILY JAMILA Administration Atorvastatin Calcium 80 mg 02/14/20 22:00 02/16/20 22:22 Lipitor - PO 80 mg HS JAMILA Administration Budesonide/Formoterol Fumarate 2 puff 02/14/20 10:00 02/17/20 10:18 Symbicort 80/4.5mcg - IH 2 puff BID JAMILA Administration Ezetimibe 10 mg 02/14/20 10:00 02/17/20 10:17 Zetia - PO 10 mg DAILY [facility]A Administration Finasteride 5 mg 02/14/20 10:00 02/17/20 10:17 Proscar - PO 5 mg DAILY [facility] Administration Ceftriaxone Sodium 2 gm/ 100 mls @ 200 mls/hr 02/15/20 10:00 02/17/20 10:17 Dextrose IVPB 200 mls/hr DAILY J[facility]A Administration Protocol Insulin Aspart 1 vial 02/14/20 07:00 02/17/20 11:30 Novolog Vial Sliding Scale - SQ 4 unit ACHS JAMILA Administration Protocol Insulin Detemir 35 units 02/14/20 07:00 02/17/20 07:02 Levemir Vial SQ 35 unit AM [facility] Administration Isosorbide Mononitrate 60 mg 02/14/20 12:04 02/17/20 10:17 Imdur - PO 60 mg DAILY [facility] Administration Montelukast Sodium 10 mg 02/14/20 22:00 02/16/20 22:22 Singulair - PO 10 mg HS [facility]A Administration Nitroglycerin 1 spray 02/13/20 22:04 Nitrolingual [place] - TL Q5M PRN FOR CHEST PAIN Pantoprazole Sodium 40 mg 02/14/20 10:00 02/17/20 10:17 Protonix - PO 40 mg BID [facility] Administration Polyethylene Glycol 17 gm 02/15/20 14:00 02/17/20 05:53 Miralax (For Daily Use) - PO 17 gm TID J[facility]A Administration Ranolazine 1,000 mg 02/14/20 10:00 02/17/20 10:17 Ranexa - PO 1,000 mg BID [facility] Administration Senna 1 tab 02/13/20 22:04 Senna - PO DAILY PRN CONSTIPATION Sitagliptin Phosphate 50 mg 02/14/20 07:00 02/17/20 07:02 Januvia - PO 50 mg ACBK [facility]A Administration Tamsulosin HCl 0.4 mg 02/14/20 08:30 02/17/20 10:17 Flomax - PO 0.4 mg DAILY@0830 [facility] Administration Ticagrelor 90 mg 02/14/20 10:00 02/17/20 10:17 Brilinta - PO 90 mg BID [facility] Administration Torsemide 20 mg 02/14/20 10:00 02/17/20 10:17 Demadex - PO 20 mg DAILY [facility] Administration Valsartan 40 mg 02/14/20 12:04 02/17/20 10:17 Diovan - PO 40 mg DAILY [facility] Administration Vital Signs Period Temp Pulse Resp BP Sys/Chen Pulse Ox Last 24 Hr 97.5 F-98.6 F 68-76 16-20 107-137/40-59 100-100 Constitutional: Yes: No Distress, Calm Eyes: Yes: Conjunctiva Clear Cardiovascular: Yes: Regular Rate and Rhythm, Murmur Respiratory: Yes: CTA Bilaterally Gastrointestinal: Yes: Soft Edema: No Neurological: Yes: Alert, Oriented no jaundice, diaphoresis not agitated tele: sinus Assessment/Plan mibi 02/2015: inferolat scar with minimal fahad ischemia echo 07/2018 mildly dilated LV, mildly reduced LV function EF 45-50%, mild inf wall hypokinesis, RV nl, mod MR, RVSP 50-60 mmHG echo 10/2018: nl lv/rv, mild as, mild mr, mild tr, mild phtn echo 01/2020 mildly reduced LV function EF 45-50%, RV nl, tr MR, mild TR, mild to mod Assessment/Plan 74 m hx htn, hld, dchf, cva, pad, cad s/p cabg 1997, pci 2011, 2012, 2013, and most recent cath for nstemi 04/2019 with latoya to d1, lcx, here with right side weakness. Suspected CVA/TIA -pt with hx cva's and here now with sxs suspicious for cva. initial head ct unremarkable. neuro following, ordered mri. -cont current cardiac meds, including statin and dapt Elevated trops, hx cad: -has been stable since his most recent cath for nstemi 04/2019 with latoya to d1, lcx -here now with mild elevation in trop with nl ck and no cardiac symptoms. ECG with old lbbb. Does not appear to be acs, possibly demand 2/2 low bp/sepsis/uti and possible cva. Would cont home cardiac meds imdur, ranexa, atorva, brilinta, asa, zetia, valsartan -stopped bb in past for bradycardia -monitor on tele Chronic diastolic CHF: -cont home torsemide 20 mg daily -Echo now with mild LV dysfx, noted on prior echo 07/2018, with nl LV function on echo 10/2018 - evaluate with mibi ckd: -cr close to baseline HTN: - initial bp on low side, possibly from sepsis, now improved hld: -cont statin Anemia, preop -GI consulted - plan for endoscopy while continuing DAPT given recent stent placement 04/2019 - preop eval pending mibi as above
--- NOTE | 2020-02-17 15:46 | PN.GI ---
GI Progress Note Subjective: GI NOte: Has no chest or GI complaints. Hb dwindling. 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 - Objective Vital Signs: Vital Signs Temperature 97.2 F L 02/17/20 14:00 Pulse Rate 68 02/17/20 14:00 Respiratory Rate 20 02/17/20 14:00 Blood Pressure 129/66 02/17/20 14:00 O2 Sat by Pulse Oximetry (%) 100 02/17/20 10:00 Laboratory Tests 02/16/20 02/16/20 02/16/20 05:35 05:35 05:35 Hgb 8.4 L Hct 24.8 L Retic Count 1.41 D TIBC 187 L Ferritin 236.5 02/17/20 06:05 Hgb 7.9 L Hct 22.9 L Retic Count TIBC Ferritin Constitutional: Calm ...Auscultate: Yes: Normoactive Bowel Sounds ...Palpate: Yes: Soft, Other (nontender) Labs: CBC, BMP 02/17/20 06:05 02/17/20 06:05 INR, PTT INR 1.09 (0.83-1.09) 02/13/20 16:00 Assessment/Plan Impression: - Suspect that his anemia reflects indolent GI blood loss. Potential etiologies include an NSAID related ulcer, erosive gastritis, vascular ectasias, GERD but I cannot exclude a neoplasm. - History of gastric telangectasia - Chronic constipation with fecal impaction - colon cancer Plan: -- Defer EGD and a colonoscopy until after he is cardiologically cleared -- Miralax TID and PPI BID in the interim Problem List - Problems (1) Anemia Code(s): D64.9 - ANEMIA, UNSPECIFIED (2) TIA (transient ischemic attack) Code(s): G45.9 - TRANSIENT CEREBRAL ISCHEMIC ATTACK, UNSPECIFIED (3) Constipation Code(s): K59.00 - CONSTIPATION, UNSPECIFIED (4) Family history of colon cancer in mother Code(s): Z80.0 - FAMILY HISTORY OF MALIGNANT NEOPLASM OF DIGESTIVE ORGANS (5) NSTEMI (non-ST elevated myocardial infarction) Code(s): I21.4 - NON-ST ELEVATION (NSTEMI) MYOCARDIAL INFARCTION (6) CAD (coronary artery disease) Code(s): I25.10 - ATHSCL HEART DISEASE OF [place] CORONARY ARTERY W/O ANG PCTRS (7) CKD (chronic kidney disease) Code(s): N18.9 - CHRONIC KIDNEY DISEASE, UNSPECIFIED (8) CVA (cerebral vascular accident) Code(s): I63.9 - CEREBRAL INFARCTION, UNSPECIFIED (9) Diabetes mellitus Code(s): E11.9 - TYPE 2 DIABETES MELLITUS WITHOUT COMPLICATIONS (10) HTN (hypertension) Code(s): I10 - ESSENTIAL (PRIMARY) HYPERTENSION (11) PVD (peripheral vascular disease) Code(s): I73.9 - PERIPHERAL VASCULAR DISEASE, UNSPECIFIED (12) S/P CABG (coronary artery bypass graft) Code(s): Z95.1 - PRESENCE OF AORTOCORONARY BYPASS GRAFT
[2020-02-17] MEDS: ATORVASTATIN CA 80 MG TABLET (FP) PO SCH (21:55)
[2020-02-17] MEDS: MONTELUKAST NA 10 MG TABLET PO SCH (21:55)
[2020-02-18] MEDS: sitaGLIPtin PHOSPHATE 50 MG TABLET PO SCH (06:10)
[2020-02-18] MEDS: POLYETHYLENE GLYCOL 3350 119 GM BTL PO SCH ×3 (06:10→21:05)
[2020-02-18] MEDS: INSULIN SLIDING SCALE (NOVOLOG) 1 VIAL SQ SCH ×4 (06:10→21:11)
[2020-02-18] MEDS: INSULIN (LEVEMIR) 100 UNITS/ML UNITS SQ SCH (06:10)
[2020-02-18 07:01] LABS: BASO % 0.4 % (0-2.0); EOS % 2.8 % (0-4.5); HEMATOCRIT 24.5 % (35.4-49); HEMOGLOBIN 8.4 GM/dL (11.7-16.9); LYMPH % 13.8 % (8-40); MCH 32.5 pg (25.7-33.7); MCHC 34.2 g/dl (32.0-35.9); MEAN CELL VOLUME 94.9 fl (80-96); MEAN PLT VOLUME 8.6 fl (7.5-11.1); MONO % 13.4 % (3.8-10.2); NEUT % 69.6 % (42.8-82.8); PLATELET COUNT 180 K/MM3 (134-434); RBC 2.58 M/mm3 (4.00-5.60); RDW 13.2 % (11.9-15.9); WHITE BLOOD COUNT 3.3 K/mm3 (4.0-10.0)
[2020-02-18 07:19] LABS: BLOOD UREA NITROGEN 45.1 mg/dL (7-18); CALCIUM 10.4 mg/dL (8.5-10.1); CREATININE 1.7 mg/dL (0.55-1.3); POTASSIUM 4.4 mmol/L (3.5-5.1)
--- NOTE | 2020-02-18 08:03 | PN ---
Progress Note, Physician Chief Complaint: no new c/o awaiting stress test per cardio - Current Medication List Current Medications: Active Medications Acetaminophen (Tylenol -) 650 mg PO Q6H PRN PRN Reason: PAIN LEVEL 1-5 Last Admin: 02/17/20 22:17 Dose: 650 mg Documented by: Aspirin (Asa -) 81 mg PO DAILY [facility] Last Admin: 02/17/20 10:17 Dose: 81 mg Documented by: Atorvastatin Calcium (Lipitor -) 80 mg PO HS [facility] Last Admin: 02/17/20 21:55 Dose: 80 mg Documented by: Bisacodyl (Dulcolax -) 20 mg PO ONCE ONE Stop: 02/19/20 18:01 Budesonide/Formoterol Fumarate (Symbicort 80/4.5mcg -) 2 puff IH BID [facility] Last Admin: 02/17/20 21:55 Dose: 2 puff Documented by: Ezetimibe (Zetia -) 10 mg PO DAILY [facility] Last Admin: 02/17/20 10:17 Dose: 10 mg Documented by: Finasteride (Proscar -) 5 mg PO DAILY [facility] Last Admin: 02/17/20 10:17 Dose: 5 mg Documented by: Ceftriaxone Sodium 2 gm/ (Dextrose) 100 mls @ 200 mls/hr IVPB DAILY [facility]; Protocol Last Admin: 02/17/20 10:17 Dose: 200 mls/hr Documented by: Insulin Aspart (Novolog Vial Sliding Scale -) 1 vial SQ ACHS [facility]; Protocol Last Admin: 02/18/20 06:10 Dose: Not Given Documented by: Insulin Detemir (Levemir Vial) 35 units SQ AM [facility] Last Admin: 02/18/20 06:10 Dose: Not Given Documented by: Isosorbide Mononitrate (Imdur -) 60 mg PO DAILY [facility] Last Admin: 02/17/20 10:17 Dose: 60 mg Documented by: Montelukast Sodium (Singulair -) 10 mg PO [facility] Last Admin: 02/17/20 21:55 Dose: 10 mg Documented by: Nitroglycerin (Nitrolingual [place] -) 1 spray TL Q5M PRN PRN Reason: FOR CHEST PAIN Pantoprazole Sodium (Protonix -) 40 mg PO BID [facility] Last Admin: 02/17/20 21:55 Dose: 40 mg Documented by: Polyethylene Glycol (Miralax (For Daily Use) -) 17 gm PO TID [facility] Last Admin: 02/18/20 06:10 Dose: Not Given Documented by: Polyethylene Glycol/Electrolytes (Golytely Solution -) 4,000 ml PO ONCE ONE Stop: 02/19/20 10:01 Ranolazine (Ranexa -) 1,000 mg PO BID [facility] Last Admin: 02/17/20 21:55 Dose: 1,000 mg Documented by: Senna (Senna -) 1 tab PO DAILY PRN PRN Reason: CONSTIPATION Sitagliptin Phosphate (Januvia -) 50 mg PO ACBK [facility] Last Admin: 02/18/20 06:10 Dose: Not Given Documented by: Tamsulosin HCl (Flomax -) 0.4 mg PO DAILY@0830 [facility] Last Admin: 02/17/20 10:17 Dose: 0.4 mg Documented by: Ticagrelor (Brilinta -) 90 mg PO BID [facility] Last Admin: 02/17/20 21:55 Dose: 90 mg Documented by: Torsemide (Demadex -) 20 mg PO DAILY [facility] Last Admin: 02/17/20 10:17 Dose: 20 mg Documented by: Valsartan (Diovan -) 40 mg PO DAILY [facility] Last Admin: 02/17/20 10:17 Dose: 40 mg Documented by: - Objective Vital Signs: Vital Signs Temperature 98.0 F 02/18/20 06:00 Pulse Rate 67 02/18/20 06:00 Respiratory Rate 18 02/18/20 06:00 Blood Pressure 122/58 L 02/18/20 06:00 O2 Sat by Pulse Oximetry (%) 100 02/18/20 06:00 Constitutional: Yes: No Distress, Calm Eyes: Yes: Conjunctiva Clear HENT: Yes: Atraumatic Neck: Yes: Supple Cardiovascular: Yes: Regular Rate and Rhythm Respiratory: Yes: CTA Bilaterally Gastrointestinal: Yes: Soft. No: Tenderness Genitourinary: No: Hematuria Musculoskeletal: No: Joint Stiffness, Joint Swelling Extremities: No: Cold, Cool, Cyanosis Edema: No Integumentary: No: Rash Neurological: Yes: Alert, Oriented Psychiatric: Yes: Alert, Oriented. No: Agitated Labs: CBC, BMP 02/18/20 05:45 02/18/20 05:45 INR, PTT INR 1.09 (0.83-1.09) 02/13/20 16:00 - ....Imaging Other: Report Reviewed Assessment/Plan 74yo M with PMH of HTN, HLD, DM, CAD s/p stent, CABG, 2 strokes with residual left sided weakness admitted with r/o new CVA and shortness of breath.Admitted r/o new CVA / TIA, found to have also trop+ and fever / UTI; IV ATB; cardio and neurology f/u; on brillinta and po ASA ID f/u sepsis, iv ATB per ID GI eval for dropped Hg - will need EGD per GI: d/w cardio - pt to have stress test first for risk stratification; monitor in telemetry falls pfx d/w pt do not get OOB alone DVT Pfx d/w pt and staff
--- NOTE | 2020-02-18 10:19 | PN ---
Progress Note (short form) - Note Progress Note: GI NOte: Patient has already gone for his EST. I await the result Problem List - Problems (1) Anemia Code(s): D64.9 - ANEMIA, UNSPECIFIED (2) TIA (transient ischemic attack) Code(s): G45.9 - TRANSIENT CEREBRAL ISCHEMIC ATTACK, UNSPECIFIED (3) Constipation Code(s): K59.00 - CONSTIPATION, UNSPECIFIED (4) Family history of colon cancer in mother Code(s): Z80.0 - FAMILY HISTORY OF MALIGNANT NEOPLASM OF DIGESTIVE ORGANS (5) NSTEMI (non-ST elevated myocardial infarction) Code(s): I21.4 - NON-ST ELEVATION (NSTEMI) MYOCARDIAL INFARCTION (6) CAD (coronary artery disease) Code(s): I25.10 - ATHSCL HEART DISEASE OF [place] CORONARY ARTERY W/O ANG PCTRS (7) CKD (chronic kidney disease) Code(s): N18.9 - CHRONIC KIDNEY DISEASE, UNSPECIFIED (8) CVA (cerebral vascular accident) Code(s): I63.9 - CEREBRAL INFARCTION, UNSPECIFIED (9) Diabetes mellitus Code(s): E11.9 - TYPE 2 DIABETES MELLITUS WITHOUT COMPLICATIONS (10) HTN (hypertension) Code(s): I10 - ESSENTIAL (PRIMARY) HYPERTENSION (11) PVD (peripheral vascular disease) Code(s): I73.9 - PERIPHERAL VASCULAR DISEASE, UNSPECIFIED (12) S/P CABG (coronary artery bypass graft) Code(s): Z95.1 - PRESENCE OF AORTOCORONARY BYPASS GRAFT
[2020-02-18] MEDS ORDERED: REGADENOSON 0.4 MG/5 ML PRE-FILLED SYRINGE IVPUSH ONE ×2 (11:05→11:15)
[2020-02-18] MEDS ORDERED: DEXTROSE 5%-WATER 100 ML IVPB ONE (13:48)
[2020-02-18] MEDS: TICAGRELOR 90 MG TABLET PO SCH ×2 (13:52→21:02)
[2020-02-18] MEDS: ASPIRIN 81 MG CHEWABLE TABLETS PO SCH (13:52)
--- NOTE | 2020-02-18 13:52 | PN ---
Progress Note, Physician History of Present Illness: events noted Chart reviewed Seen the notes from the crusher tender Agree to this plan - Current Medication List Current Medications: Active Medications Acetaminophen (Tylenol -) 650 mg PO Q6H PRN PRN Reason: PAIN LEVEL 1-5 Last Admin: 02/17/20 22:17 Dose: 650 mg Documented by: Aspirin (Asa -) 81 mg PO DAILY [facility] Last Admin: 02/17/20 10:17 Dose: 81 mg Documented by: Atorvastatin Calcium (Lipitor -) 80 mg PO HS [facility] Last Admin: 02/17/20 21:55 Dose: 80 mg Documented by: Bisacodyl (Dulcolax -) 20 mg PO ONCE ONE Stop: 02/19/20 18:01 Budesonide/Formoterol Fumarate (Symbicort 80/4.5mcg -) 2 puff IH BID [facility] Last Admin: 02/17/20 21:55 Dose: 2 puff Documented by: Ezetimibe (Zetia -) 10 mg PO DAILY [facility] Last Admin: 02/17/20 10:17 Dose: 10 mg Documented by: Finasteride (Proscar -) 5 mg PO DAILY [facility] Last Admin: 02/17/20 10:17 Dose: 5 mg Documented by: Ceftriaxone Sodium 2 gm/ (Dextrose) 100 mls @ 200 mls/hr IVPB DAILY [facility]; Protocol Last Admin: 02/17/20 10:17 Dose: 200 mls/hr Documented by: Insulin Aspart (Novolog Vial Sliding Scale -) 1 vial SQ ACHS [facility]; Protocol Last Admin: 02/18/20 06:10 Dose: Not Given Documented by: Insulin Detemir (Levemir Vial) 35 units SQ AM [facility] Last Admin: 02/18/20 06:10 Dose: Not Given Documented by: Isosorbide Mononitrate (Imdur -) 60 mg PO DAILY [facility] Last Admin: 02/17/20 10:17 Dose: 60 mg Documented by: Montelukast Sodium (Singulair -) 10 mg PO HS [facility] Last Admin: 02/17/20 21:55 Dose: 10 mg Documented by: Nitroglycerin (Nitrolingual [place] -) 1 spray TL Q5M PRN PRN Reason: FOR CHEST PAIN Pantoprazole Sodium (Protonix -) 40 mg PO BID [facility] Last Admin: 02/17/20 21:55 Dose: 40 mg Documented by: Polyethylene Glycol (Miralax (For Daily Use) -) 17 gm PO TID [facility] Last Admin: 02/18/20 06:10 Dose: Not Given Documented by: Polyethylene Glycol/Electrolytes (Golytely Solution -) 4,000 ml PO ONCE ONE Stop: 02/19/20 10:01 Ranolazine (Ranexa -) 1,000 mg PO BID [facility] Last Admin: 02/17/20 21:55 Dose: 1,000 mg Documented by: Senna (Senna -) 1 tab PO DAILY PRN PRN Reason: CONSTIPATION Sitagliptin Phosphate (Januvia -) 50 mg PO ACBK [facility] Last Admin: 02/18/20 06:10 Dose: Not Given Documented by: Tamsulosin HCl (Flomax -) 0.4 mg PO DAILY@0830 [facility] Last Admin: 02/17/20 10:17 Dose: 0.4 mg Documented by: Ticagrelor (Brilinta -) 90 mg PO BID [facility] Last Admin: 02/17/20 21:55 Dose: 90 mg Documented by: Torsemide (Demadex -) 20 mg PO DAILY [facility] Last Admin: 02/17/20 10:17 Dose: 20 mg Documented by: Valsartan (Diovan -) 40 mg PO DAILY [facility] Last Admin: 02/17/20 10:17 Dose: 40 mg Documented by: - Objective Vital Signs: Vital Signs Temperature 98.2 F 02/18/20 08:56 Pulse Rate 68 02/18/20 08:56 Respiratory Rate 18 02/18/20 08:56 Blood Pressure 122/54 L 02/18/20 08:56 O2 Sat by Pulse Oximetry (%) 100 02/18/20 08:56 Constitutional: Yes: Well Nourished Eyes: Yes: WNL HENT: Yes: WNL Neurological: Yes: Alert, Oriented, Babinski negative, Cran Nerves II-XII Intact Labs: CBC, BMP 02/18/20 05:45 02/18/20 05:45 INR, PTT INR 1.09 (0.83-1.09) 02/13/20 16:00 Problem List - Problems (1) Weakness Assessment/Plan: FALL PRECAUTIONS. fOLLOW-UP WITH GASTROENTEROLOGY. scdS. dISCHARGE PLANNING Code(s): R53.1 - WEAKNESS (2) CVA (cerebral vascular accident) Code(s): I63.9 - CEREBRAL INFARCTION, UNSPECIFIED
[2020-02-18] MEDS: ISOSORBIDE MONONITRATE 60 MG TAB.SR.24H (FP) PO SCH (13:53)
[2020-02-18] MEDS: PANTOPRAZOLE 40 MG TABLET PO SCH ×2 (13:53→21:02)
[2020-02-18] MEDS: TORSEMIDE 20 MG TABLET (FP) PO SCH (13:53)
[2020-02-18] MEDS: EZETIMIBE 10 MG TABLET (FP) PO SCH (13:54)
[2020-02-18] MEDS: FINASTERIDE 5 MG TABLET (FP) PO SCH (13:54)
[2020-02-18] MEDS: BUDESONIDE/FORMETEROL FUMARATE 80/4.5 mcg INHALER IH SCH ×2 (13:55→21:03)
[2020-02-18] MEDS: CEFTRIAXONE 2 GM in DEXTROSE 5%-WATER 100 ML IVPB SCH (13:55)
[2020-02-18] MEDS: VALSARTAN 40 MG TABLET (FP) PO SCH (13:56)
[2020-02-18] MEDS: RANOLAZINE E.R. 1,000 MG TABLET (FP) PO SCH ×2 (13:56→21:02)
[2020-02-18] MEDS: TAMSULOSIN HCL 0.4 MG CAP PO SCH (13:58)
--- NOTE | 2020-02-18 14:12 | PN ---
Progress Note, Physician History of Present Illness: AWAKE, ALERT OOB IN CHAIR REPORTS OCCASIONAL MILD DYSURIA NO C/O SUPRAPUBIC OR FLANK PAIN NO FEVER/ CHILLS AFEBRILE LEUKOPENIC BC (-) URINE C/S MIXED - Current Medication List Current Medications: Active Medications Acetaminophen (Tylenol -) 650 mg PO Q6H PRN PRN Reason: PAIN LEVEL 1-5 Last Admin: 02/17/20 22:17 Dose: 650 mg Documented by: Aspirin (Asa -) 81 mg PO DAILY [facility] Last Admin: 02/18/20 13:52 Dose: 81 mg Documented by: Atorvastatin Calcium (Lipitor -) 80 mg PO HS [facility] Last Admin: 02/17/20 21:55 Dose: 80 mg Documented by: Bisacodyl (Dulcolax -) 20 mg PO ONCE ONE Stop: 02/19/20 18:01 Budesonide/Formoterol Fumarate (Symbicort 80/4.5mcg -) 2 puff IH BID [facility] Last Admin: 02/18/20 13:55 Dose: 2 puff Documented by: Ezetimibe (Zetia -) 10 mg PO DAILY [facility] Last Admin: 02/18/20 13:54 Dose: 10 mg Documented by: Finasteride (Proscar -) 5 mg PO DAILY [facility] Last Admin: 02/18/20 13:54 Dose: 5 mg Documented by: Ceftriaxone Sodium 2 gm/ (Dextrose) 100 mls @ 200 mls/hr IVPB DAILY [facility]; Protocol Last Admin: 02/18/20 13:55 Dose: 200 mls/hr Documented by: Insulin Aspart (Novolog Vial Sliding Scale -) 1 vial SQ ACHS [facility]; Protocol Last Admin: 02/18/20 06:10 Dose: Not Given Documented by: Insulin Detemir (Levemir Vial) 35 units SQ AM [facility] Last Admin: 02/18/20 06:10 Dose: Not Given Documented by: Isosorbide Mononitrate (Imdur -) 60 mg PO DAILY [facility] Last Admin: 02/18/20 13:53 Dose: 60 mg Documented by: Montelukast Sodium (Singulair -) 10 mg PO HS [facility] Last Admin: 02/17/20 21:55 Dose: 10 mg Documented by: Nitroglycerin (Nitrolingual [place] -) 1 spray TL Q5M PRN PRN Reason: FOR CHEST PAIN Pantoprazole Sodium (Protonix -) 40 mg PO BID [facility] Last Admin: 02/18/20 13:53 Dose: 40 mg Documented by: Polyethylene Glycol (Miralax (For Daily Use) -) 17 gm PO TID [facility] Last Admin: 02/18/20 06:10 Dose: Not Given Documented by: Polyethylene Glycol/Electrolytes (Golytely Solution -) 4,000 ml PO ONCE ONE Stop: 02/19/20 10:01 Ranolazine (Ranexa -) 1,000 mg PO BID [facility] Last Admin: 02/18/20 13:56 Dose: 1,000 mg Documented by: Senna (Senna -) 1 tab PO DAILY PRN PRN Reason: CONSTIPATION Sitagliptin Phosphate (Januvia -) 50 mg PO ACBK [facility] Last Admin: 02/18/20 06:10 Dose: Not Given Documented by: Tamsulosin HCl (Flomax -) 0.4 mg PO DAILY@0830 [facility] Last Admin: 02/18/20 13:58 Dose: 0.4 mg Documented by: Ticagrelor (Brilinta -) 90 mg PO BID [facility] Last Admin: 02/18/20 13:52 Dose: 90 mg Documented by: Torsemide (Demadex -) 20 mg PO DAILY [facility] Last Admin: 02/18/20 13:53 Dose: 20 mg Documented by: Valsartan (Diovan -) 40 mg PO DAILY [facility] Last Admin: 02/18/20 13:56 Dose: 40 mg Documented by: - Objective Vital Signs: Vital Signs Temperature 98.2 F 02/18/20 08:56 Pulse Rate 68 02/18/20 08:56 Respiratory Rate 18 02/18/20 08:56 Blood Pressure 122/54 L 02/18/20 08:56 O2 Sat by Pulse Oximetry (%) 100 02/18/20 08:56 Constitutional: Yes: No Distress, Obese Cardiovascular: Yes: Regular Rate and Rhythm, S1, S2 Respiratory: Yes: CTA Bilaterally Gastrointestinal: Yes: Normal Bowel Sounds, Soft. No: Tenderness Edema: No Labs: CBC, BMP 02/18/20 05:45 02/18/20 05:45 INR, PTT INR 1.09 (0.83-1.09) 02/13/20 16:00 Assessment/Plan UTI CKD MRI NEGATIVE FOR ACUTE PATH CEFTRIAXONE DAY#5 SUBSTITUTE CEFTIN 500MG PO BID X 2 DAYS
[2020-02-18 14:53] VITALS: BMI 28.6
--- NOTE | 2020-02-18 14:59 | PN ---
Progress Note (short form) - Note Progress Note: cc: weakness s: no chest pain, palps, dizziness, dyspnea Current Medications Generic Name Dose Route Start Last Admin Trade Name Freq PRN Reason Stop Dose Admin Acetaminophen 650 mg 02/13/20 22:04 02/17/20 22:17 Tylenol - PO 650 mg Q6H PRN Administration PAIN LEVEL 1-5 Aspirin 81 mg 02/14/20 10:00 02/18/20 13:52 Asa - PO 81 mg DAILY [facility] Administration Atorvastatin Calcium 80 mg 02/14/20 22:00 02/17/20 21:55 Lipitor - PO 80 mg HS [facility] Administration Bisacodyl 20 mg 02/19/20 18:00 Dulcolax - PO 02/19/20 18:01 ONCE ONE Budesonide/Formoterol Fumarate 2 puff 02/14/20 10:00 02/18/20 13:55 Symbicort 80/4.5mcg - IH 2 puff BID [facility] Administration Cefuroxime Axetil 500 mg 02/18/20 20:00 Ceftin - PO BID@0800,2000 [facility] Ezetimibe 10 mg 02/14/20 10:00 02/18/20 13:54 Zetia - PO 10 mg DAILY [facility] Administration Finasteride 5 mg 02/14/20 10:00 02/18/20 13:54 Proscar - PO 5 mg DAILY [facility] Administration Insulin Aspart 1 vial 02/14/20 07:00 02/18/20 14:16 Novolog Vial Sliding Scale - SQ 6 unit ACHS [facility] Administration Protocol Insulin Detemir 35 units 02/14/20 07:00 02/18/20 06:10 Levemir Vial SQ Not Given AM [facility] Isosorbide Mononitrate 60 mg 02/14/20 12:04 02/18/20 13:53 Imdur - PO 60 mg DAILY [facility] Administration Montelukast Sodium 10 mg 02/14/20 22:00 02/17/20 21:55 Singulair - PO 10 mg HS [facility] Administration Nitroglycerin 1 spray 02/13/20 22:04 Nitrolingual [place] - TL Q5M PRN FOR CHEST PAIN Pantoprazole Sodium 40 mg 02/14/20 10:00 02/18/20 13:53 Protonix - PO 40 mg BID [facility] Administration Polyethylene Glycol 17 gm 02/15/20 14:00 02/18/20 14:20 Miralax (For Daily Use) - PO Not Given TID [facility] Polyethylene Glycol/Electrolytes 4,000 ml 02/19/20 10:00 Golytely Solution - PO 02/19/20 10:01 ONCE ONE Ranolazine 1,000 mg 02/14/20 10:00 02/18/20 13:56 Ranexa - PO 1,000 mg BID [facility] Administration Senna 1 tab 02/13/20 22:04 Senna - PO DAILY PRN CONSTIPATION Sitagliptin Phosphate 50 mg 02/14/20 07:00 02/18/20 06:10 Januvia - PO Not Given ACBK [facility] Tamsulosin HCl 0.4 mg 02/14/20 08:30 02/18/20 13:58 Flomax - PO 0.4 mg DAILY@0830 [facility] Administration Ticagrelor 90 mg 02/14/20 10:00 02/18/20 13:52 Brilinta - PO 90 mg BID [facility] Administration Torsemide 20 mg 02/14/20 10:00 02/18/20 13:53 Demadex - PO 20 mg DAILY [facility] Administration Valsartan 40 mg 02/14/20 12:04 02/18/20 13:56 Diovan - PO 40 mg DAILY [facility] Administration Vital Signs Period Temp Pulse Resp BP Sys/Chen Pulse Ox Last 24 Hr 97.5 F-98.2 F 63-74 18-20 121-138/40-66 97-100 Constitutional: Yes: No Distress, Calm Eyes: Yes: Conjunctiva Clear Cardiovascular: Yes: Regular Rate and Rhythm, Murmur Respiratory: Yes: CTA Bilaterally Gastrointestinal: Yes: Soft Edema: No Neurological: Yes: Alert, Oriented no jaundice, diaphoresis not agitated CBC, BMP 02/18/20 05:45 02/18/20 05:45 tele: sinus mibi 02/2015: inferolat scar with minimal fahad ischemia mibi 01/2020: apical lateral and inferolateral fahad-infarct ischemia echo 07/2018 mildly dilated LV, mildly reduced LV function EF 45-50%, mild inf wall hypokinesis, RV nl, mod MR, RVSP 50-60 mmHG echo 10/2018: nl lv/rv, mild as, mild mr, mild tr, mild phtn echo 01/2020 mildly reduced LV function EF 45-50%, RV nl, tr MR, mild TR, mild to mod Assessment/Plan 74 m hx htn, hld, dchf, cva, pad, cad s/p cabg 1997, pci 2011, 2012, 2013, and most recent cath for nstemi 04/2019 with latoya to d1, lcx, here with right side weakness. Elevated trops, hx cad: -has been stable since his most recent cath for nstemi 04/2019 with latoya to d1, lcx -here now with mild elevation in trop with nl ck and no cardiac symptoms. ECG w ith old lbbb. Does not appear to be acs, possibly demand 2/2 low bp/sepsis/uti and possible cva. Would cont home cardiac meds imdur, ranexa, atorva, brilinta, asa, zetia, valsartan -stopped bb in past for bradycardia -MIBI done here showing similar findings to 02/2015, fahad-infarct ischemia Chronic diastolic CHF: -cont home torsemide 20 mg daily, cont arb. not on bb due to bradycardia. -Echo now with mild LV dysfx, noted on prior echo 07/2018 as well, with nl LV function on echo 10/2018 -mibi here similar to prior ckd: -cr close to baseline HTN: - initial bp on low side, possibly from sepsis, now improved hld: -cont statin Suspected CVA/TIA -pt with hx cva's and here now with sxs suspicious for cva. MRI shows no acute infarct. neuro following -cont current cardiac meds, including statin and dapt Anemia, preop -GI consulted - plan for endoscopy while continuing DAPT given recent stent placement 04/2019 -MIBI done here with similar low risk findings as 02/2015. No cardiac contra indications to planned EGD.
[2020-02-18] MEDS ORDERED: PT OWN MED DRAWER 7, Y5N ONE (20:55)
[2020-02-18] MEDS: MONTELUKAST NA 10 MG TABLET PO SCH (21:01)
[2020-02-18] MEDS: ATORVASTATIN CA 80 MG TABLET (FP) PO SCH (21:02)
[2020-02-18] MEDS: CEFUROXIME AXETIL 500 MG TABLET PO SCH (22:03)
[2020-02-19] MEDS: POLYETHYLENE GLYCOL 3350 119 GM BTL PO SCH ×3 (05:47→21:17)
[2020-02-19] MEDS: sitaGLIPtin PHOSPHATE 50 MG TABLET PO SCH (06:04)
[2020-02-19] MEDS: INSULIN SLIDING SCALE (NOVOLOG) 1 VIAL SQ SCH ×4 (06:05→21:31)
[2020-02-19] MEDS: INSULIN (LEVEMIR) 100 UNITS/ML UNITS SQ SCH (06:05)
[2020-02-19 07:30] LABS: BLOOD UREA NITROGEN 41.3 mg/dL (7-18); CALCIUM 10.3 mg/dL (8.5-10.1); CREATININE 1.7 mg/dL (0.55-1.3); POTASSIUM 4.3 mmol/L (3.5-5.1)
[2020-02-19 07:32] LABS: BASO % 0.2 % (0-2.0); EOS % 2.3 % (0-4.5); HEMATOCRIT 23.6 % (35.4-49); HEMOGLOBIN 8.1 GM/dL (11.7-16.9); LYMPH % 13.1 % (8-40); MCH 32.6 pg (25.7-33.7); MCHC 34.3 g/dl (32.0-35.9); MEAN CELL VOLUME 94.9 fl (80-96); MEAN PLT VOLUME 8.5 fl (7.5-11.1); MONO % 10.6 % (3.8-10.2); NEUT % 73.8 % (42.8-82.8); PLATELET COUNT 189 K/MM3 (134-434); RBC 2.49 M/mm3 (4.00-5.60); WHITE BLOOD COUNT 4.4 K/mm3 (4.0-10.0)
[2020-02-19] MEDS ORDERED: PEG 3350/NA SULF BICARB CL/KCL 4000 ML SOLN.RECON PO ONE ×2 (09:00→10:00)
[2020-02-19] MEDS: CEFUROXIME AXETIL 500 MG TABLET PO SCH ×2 (10:10→21:16)
[2020-02-19] MEDS: RANOLAZINE E.R. 1,000 MG TABLET (FP) PO SCH ×2 (10:11→21:15)
[2020-02-19] MEDS: VALSARTAN 40 MG TABLET (FP) PO SCH (10:11)
[2020-02-19] MEDS: ASPIRIN 81 MG CHEWABLE TABLETS PO SCH (10:11)
[2020-02-19] MEDS: EZETIMIBE 10 MG TABLET (FP) PO SCH (10:11)
[2020-02-19] MEDS: PANTOPRAZOLE 40 MG TABLET PO SCH ×2 (10:11→21:16)
[2020-02-19] MEDS: FINASTERIDE 5 MG TABLET (FP) PO SCH (10:11)
[2020-02-19] MEDS: TICAGRELOR 90 MG TABLET PO SCH ×2 (10:11→21:16)
[2020-02-19] MEDS: TORSEMIDE 20 MG TABLET (FP) PO SCH (10:11)
[2020-02-19] MEDS: ISOSORBIDE MONONITRATE 60 MG TAB.SR.24H (FP) PO SCH (10:11)
[2020-02-19] MEDS: TAMSULOSIN HCL 0.4 MG CAP PO SCH (10:11)
[2020-02-19] MEDS: BUDESONIDE/FORMETEROL FUMARATE 80/4.5 mcg INHALER IH SCH ×2 (10:12→21:18)
--- NOTE | 2020-02-19 12:40 | PN ---
Progress Note (short form) - Note Progress Note: cc: weakness s: no chest pain, palps, dizziness, dyspnea Current Medications Generic Name Dose Route Start Last Admin Trade Name Freq PRN Reason Stop Dose Admin Acetaminophen 650 mg 02/13/20 22:04 02/17/20 22:17 Tylenol - PO 650 mg Q6H PRN Administration PAIN LEVEL 1-5 Aspirin 81 mg 02/14/20 10:00 02/19/20 10:11 Asa - PO 81 mg DAILY [facility] Administration Atorvastatin Calcium 80 mg 02/14/20 22:00 02/18/20 21:02 Lipitor - PO 80 mg HS [facility] Administration Bisacodyl 20 mg 02/19/20 18:00 Dulcolax - PO 02/19/20 18:01 ONCE ONE Budesonide/Formoterol Fumarate 2 puff 02/14/20 10:00 02/19/20 10:12 Symbicort 80/4.5mcg - IH 2 puff BID [facility] Administration Cefuroxime Axetil 500 mg 02/18/20 20:00 02/19/20 10:10 Ceftin - PO 500 mg BID@0800,2000 [facility] Administration Ezetimibe 10 mg 02/14/20 10:00 02/19/20 10:11 Zetia - PO 10 mg DAILY [facility] Administration Finasteride 5 mg 02/14/20 10:00 02/19/20 10:11 Proscar - PO 5 mg DAILY [facility] Administration Insulin Aspart 1 vial 02/14/20 07:00 02/19/20 11:59 Novolog Vial Sliding Scale - SQ 2 unit ACHS [facility] Administration Protocol Insulin Detemir 35 units 02/14/20 07:00 02/19/20 06:05 Levemir Vial SQ 35 unit AM [facility] Administration Isosorbide Mononitrate 60 mg 02/14/20 12:04 02/19/20 10:11 Imdur - PO 60 mg DAILY [facility] Administration Montelukast Sodium 10 mg 02/14/20 22:00 02/18/20 21:01 Singulair - PO 10 mg HS [facility] Administration Nitroglycerin 1 spray 02/13/20 22:04 Nitrolingual [place] - TL Q5M PRN FOR CHEST PAIN Pantoprazole Sodium 40 mg 02/14/20 10:00 02/19/20 10:11 Protonix - PO 40 mg BID [facility] Administration Polyethylene Glycol 17 gm 02/15/20 14:00 02/19/20 05:47 Miralax (For Daily Use) - PO Not Given TID [facility] Ranolazine 1,000 mg 02/14/20 10:00 02/19/20 10:11 Ranexa - PO 1,000 mg BID [facility] Administration Senna 1 tab 02/13/20 22:04 Senna - PO DAILY PRN CONSTIPATION Sitagliptin Phosphate 50 mg 02/14/20 07:00 02/19/20 06:04 Januvia - PO 50 mg ACBK [facility] Administration Tamsulosin HCl 0.4 mg 02/14/20 08:30 02/19/20 10:11 Flomax - PO 0.4 mg DAILY@0830 [facility] Administration Ticagrelor 90 mg 02/14/20 10:00 02/19/20 10:11 Brilinta - PO 90 mg BID [facility] Administration Torsemide 20 mg 02/14/20 10:00 02/19/20 10:11 Demadex - PO 20 mg DAILY [facility] Administration Valsartan 40 mg 02/14/20 12:04 02/19/20 10:11 Diovan - PO 40 mg DAILY [facility] Administration Vital Signs Period Temp Pulse Resp BP Sys/Chen Pulse Ox Last 24 Hr 97.6 F-99.0 F 70-80 18-20 125-149/46-82 97-100 Constitutional: Yes: No Distress, Calm Eyes: Yes: Conjunctiva Clear Cardiovascular: Yes: Regular Rate and Rhythm, Murmur Respiratory: Yes: CTA Bilaterally Gastrointestinal: Yes: Soft Edema: No Neurological: Yes: Alert, Oriented no jaundice, diaphoresis not agitated tele: sinus mibi 02/2015: inferolat scar with minimal fahad ischemia mibi 01/2020: apical lateral and inferolateral fahad-infarct ischemia echo 07/2018 mildly dilated LV, mildly reduced LV function EF 45-50%, mild inf wall hypokinesis, RV nl, mod MR, RVSP 50-60 mmHG echo 10/2018: nl lv/rv, mild as, mild mr, mild tr, mild phtn echo 01/2020 mildly reduced LV function EF 45-50%, RV nl, tr MR, mild TR, mild to mod Assessment/Plan 74 m hx htn, hld, dchf, cva, pad, cad s/p cabg 1997, pci 2011, 2012, 2013, and most recent cath for nstemi 04/2019 with latoya to d1, lcx, here with right side weakness. Elevated trops, hx cad: -has been stable since his most recent cath for nstemi 04/2019 with latoya to d1, lcx -here now with mild elevation in trop with nl ck and no cardiac symptoms. ECG with old lbbb. Does not appear to be acs, possibly demand 2/2 low bp/sepsis/uti and possible cva. Would cont home cardiac meds imdur, ranexa, atorva, brilinta, asa, zetia, valsartan -stopped bb in past for bradycardia -MIBI done here showing similar findings to 02/2015, fahad-infarct ischemia Chronic diastolic CHF: -cont home torsemide 20 mg daily, cont arb. not on bb due to bradycardia. -Echo now with mild LV dysfx, noted on prior echo 07/2018 as well, with nl LV function on echo 10/2018 -mibi here similar to prior ckd: -cr close to baseline HTN: - initial bp on low side, possibly from sepsis, now improved hld: -cont statin Suspected CVA/TIA -pt with hx cva's and here now with sxs suspicious for cva. MRI shows no acute infarct. neuro following -cont current cardiac meds, including statin and dapt Anemia, preop -GI consulted - plan for endoscopy while continuing DAPT given recent stent placement 04/2019 -MIBI done here with similar low risk findings as 02/2015. No cardiac contraindications to planned EGD.
--- NOTE | 2020-02-19 13:13 | PN ---
Progress Note, Physician Chief Complaint: stress test done pt cleared for EGD colonoscopy by neuro and cardio and pt agreed with procedures (risk MN /CVA/ bleed/ perf d/w pt) - Current Medication List Current Medications: Active Medications Acetaminophen (Tylenol -) 650 mg PO Q6H PRN PRN Reason: PAIN LEVEL 1-5 Last Admin: 02/17/20 22:17 Dose: 650 mg Documented by: Aspirin (Asa -) 81 mg PO DAILY [facility] Last Admin: 02/19/20 10:11 Dose: 81 mg Documented by: Atorvastatin Calcium (Lipitor -) 80 mg PO [facility] Last Admin: 02/18/20 21:02 Dose: 80 mg Documented by: Bisacodyl (Dulcolax -) 20 mg PO ONCE ONE Stop: 02/19/20 18:01 Budesonide/Formoterol Fumarate (Symbicort 80/4.5mcg -) 2 puff IH BID [facility] Last Admin: 02/19/20 10:12 Dose: 2 puff Documented by: Cefuroxime Axetil (Ceftin -) 500 mg PO BID@0800,2000 [facility] Last Admin: 02/19/20 10:10 Dose: 500 mg Documented by: Ezetimibe (Zetia -) 10 mg PO DAILY [facility] Last Admin: 02/19/20 10:11 Dose: 10 mg Documented by: Finasteride (Proscar -) 5 mg PO DAILY [facility] Last Admin: 02/19/20 10:11 Dose: 5 mg Documented by: Insulin Aspart (Novolog Vial Sliding Scale -) 1 vial SQ ACHS [facility]; Protocol Last Admin: 02/19/20 11:59 Dose: 2 unit Documented by: Insulin Detemir (Levemir Vial) 35 units SQ AM [facility] Last Admin: 02/19/20 06:05 Dose: 35 unit Documented by: Isosorbide Mononitrate (Imdur -) 60 mg PO DAILY [facility] Last Admin: 02/19/20 10:11 Dose: 60 mg Documented by: Montelukast Sodium (Singulair -) 10 mg PO [facility] Last Admin: 02/18/20 21:01 Dose: 10 mg Documented by: Nitroglycerin (Nitrolingual [place] -) 1 spray TL Q5M PRN PRN Reason: FOR CHEST PAIN Pantoprazole Sodium (Protonix -) 40 mg PO BID [facility] Last Admin: 02/19/20 10:11 Dose: 40 mg Documented by: Polyethylene Glycol (Miralax (For Daily Use) -) 17 gm PO TID [facility] Last Admin: 02/19/20 05:47 Dose: Not Given Documented by: Ranolazine (Ranexa -) 1,000 mg PO BID [facility] Last Admin: 02/19/20 10:11 Dose: 1,000 mg Documented by: Senna (Senna -) 1 tab PO DAILY PRN PRN Reason: CONSTIPATION Sitagliptin Phosphate (Januvia -) 50 mg PO ACBK [facility] Last Admin: 02/19/20 06:04 Dose: 50 mg Documented by: Tamsulosin HCl (Flomax -) 0.4 mg PO DAILY@0830 [facility] Last Admin: 02/19/20 10:11 Dose: 0.4 mg Documented by: Ticagrelor (Brilinta -) 90 mg PO BID [facility] Last Admin: 02/19/20 10:11 Dose: 90 mg Documented by: Torsemide (Demadex -) 20 mg PO DAILY [facility] Last Admin: 02/19/20 10:11 Dose: 20 mg Documented by: Valsartan (Diovan -) 40 mg PO DAILY [facility] Last Admin: 02/19/20 10:11 Dose: 40 mg Documented by: - Objective Vital Signs: Vital Signs Temperature 98.2 F 02/19/20 10:18 Pulse Rate 71 02/19/20 10:18 Respiratory Rate 18 02/19/20 10:18 Blood Pressure 126/54 L 02/19/20 10:18 O2 Sat by Pulse Oximetry (%) 100 02/19/20 10:18 Constitutional: Yes: No Distress, Calm Eyes: Yes: Conjunctiva Clear HENT: Yes: Atraumatic Neck: Yes: Supple Cardiovascular: Yes: Regular Rate and Rhythm Respiratory: Yes: Diminished Gastrointestinal: Yes: Soft. No: Tenderness Genitourinary: No: Hematuria Musculoskeletal: No: Joint Stiffness, Joint Swelling Extremities: No: Cold, Cool, Cyanosis Edema: No Integumentary: No: Rash, Venous Stasis Changes Neurological: Yes: Alert, Oriented Psychiatric: Yes: Alert, Oriented. No: Agitated, Suicidal Ideation Labs: CBC, BMP 02/19/20 05:47 02/19/20 05:47 INR, PTT INR 1.09 (0.83-1.09) 02/13/20 16:00 - ....Imaging Other: Report Reviewed Assessment/Plan 74yo M with PMH of HTN, HLD, DM, CAD s/p stent, CABG, 2 strokes with residual left sided weakness admitted with r/o new CVA and shortness of breath.Admitted with fever / UTI; IV ATB per ID; cardio and neurology f/u; on brillinta and po ASA anemia: GI eval; EGD colonoscopy per GI; pt aware of possible risks and complications cleared by cardio and neuro for GI procedures; sq heparin held monitor in telemetry falls pfx d/w pt do not get OOB alone DVT Pfx d/w pt and staff
--- NOTE | 2020-02-19 17:32 | PN.GI ---
GI Progress Note Subjective: GI NOte: Cardiac clearance is appreciated. Bowel prep is in progress. Struggling to finish - Objective Vital Signs: Vital Signs Temperature 98.5 F 02/19/20 14:00 Pulse Rate 70 02/19/20 14:00 Respiratory Rate 16 02/19/20 14:00 Blood Pressure 114/42 L 02/19/20 14:00 O2 Sat by Pulse Oximetry (%) 100 02/19/20 10:18 Laboratory Tests 02/16/20 02/16/20 02/17/20 05:35 05:35 06:05 Hgb 7.9 L Retic Count 1.41 D TIBC 187 L Ferritin 236.5 02/18/20 02/19/20 05:45 05:47 Hgb 8.4 L 8.1 L Retic Count TIBC Ferritin Constitutional: Calm ...Auscultate: Yes: Hypoactive Bowel Sounds ...Palpate: Yes: Soft, Other (nontender) Labs: CBC, BMP 02/19/20 05:47 02/19/20 05:47 INR, PTT INR 1.09 (0.83-1.09) 02/13/20 16:00 Assessment/Plan Impression: - Suspect that his anemia reflects indolent GI blood loss. Potential etiologies include an NSAID related ulcer, erosive gastritis, vascular ectasias, GERD but I cannot exclude a neoplasm. - History of gastric telangectasia - Chronic constipation with fecal impaction - colon cancer Plan: -- EGD and a colonoscopy tomorrow as he is cardiologically cleared -- PPI BID Problem List - Problems (1) Anemia Code(s): D64.9 - ANEMIA, UNSPECIFIED (2) TIA (transient ischemic attack) Code(s): G45.9 - TRANSIENT CEREBRAL ISCHEMIC ATTACK, UNSPECIFIED (3) Constipation Code(s): K59.00 - CONSTIPATION, UNSPECIFIED (4) Family history of colon cancer in mother Code(s): Z80.0 - FAMILY HISTORY OF MALIGNANT NEOPLASM OF DIGESTIVE ORGANS (5) NSTEMI (non-ST elevated myocardial infarction) Code(s): I21.4 - NON-ST ELEVATION (NSTEMI) MYOCARDIAL INFARCTION (6) CAD (coronary artery disease) Code(s): I25.10 - ATHSCL HEART DISEASE OF [place] CORONARY ARTERY W/O ANG PCTRS (7) CKD (chronic kidney disease) Code(s): N18.9 - CHRONIC KIDNEY DISEASE, UNSPECIFIED (8) CVA (cerebral vascular accident) Code(s): I63.9 - CEREBRAL INFARCTION, UNSPECIFIED (9) Diabetes mellitus Code(s): E11.9 - TYPE 2 DIABETES MELLITUS WITHOUT COMPLICATIONS (10) HTN (hypertension) Code(s): I10 - ESSENTIAL (PRIMARY) HYPERTENSION (11) PVD (peripheral vascular disease) Code(s): I73.9 - PERIPHERAL VASCULAR DISEASE, UNSPECIFIED (12) S/P CABG (coronary artery bypass graft) Code(s): Z95.1 - PRESENCE OF AORTOCORONARY BYPASS GRAFT
[2020-02-19] MEDS ORDERED: BISACODYL 5 MG TABLET.DR (FP) PO ONE (18:00)
[2020-02-19] MEDS ORDERED: MAGNESIUM CITRATE 300 ML BOTTLE PO ONE (21:00)
[2020-02-19] MEDS ORDERED: PT OWN MED DRAWER 7, Y5N ONE (21:12)
[2020-02-19] MEDS: MONTELUKAST NA 10 MG TABLET PO SCH (21:16)
[2020-02-19] MEDS: ATORVASTATIN CA 80 MG TABLET (FP) PO SCH (21:17)
[2020-02-20] MEDS: POLYETHYLENE GLYCOL 3350 119 GM BTL PO SCH ×3 (06:03→21:33)
[2020-02-20] MEDS: sitaGLIPtin PHOSPHATE 50 MG TABLET PO SCH (06:04)
[2020-02-20] MEDS: INSULIN SLIDING SCALE (NOVOLOG) 1 VIAL SQ SCH ×5 (06:04→21:27)
[2020-02-20] MEDS: INSULIN (LEVEMIR) 100 UNITS/ML UNITS SQ SCH (06:04)
--- NOTE | 2020-02-20 07:06 | PN ---
Progress Note, Physician Chief Complaint: in bed NAD VSS feeling well no new c/o awaiting EGD / colonoscopy - Current Medication List Current Medications: Active Medications Acetaminophen (Tylenol -) 650 mg PO Q6H PRN PRN Reason: PAIN LEVEL 1-5 Last Admin: 02/17/20 22:17 Dose: 650 mg Documented by: Aspirin (Asa -) 81 mg PO DAILY [facility] Last Admin: 02/19/20 10:11 Dose: 81 mg Documented by: Atorvastatin Calcium (Lipitor -) 80 mg PO [facility] Last Admin: 02/19/20 21:17 Dose: 80 mg Documented by: Budesonide/Formoterol Fumarate (Symbicort 80/4.5mcg -) 2 puff IH BID [facility] Last Admin: 02/19/20 21:18 Dose: 2 puff Documented by: Cefuroxime Axetil (Ceftin -) 500 mg PO BID@0800,2000 [facility] Last Admin: 02/19/20 21:16 Dose: 500 mg Documented by: Ezetimibe (Zetia -) 10 mg PO DAILY [facility] Last Admin: 02/19/20 10:11 Dose: 10 mg Documented by: Finasteride (Proscar -) 5 mg PO DAILY [facility] Last Admin: 02/19/20 10:11 Dose: 5 mg Documented by: Insulin Aspart (Novolog Vial Sliding Scale -) 1 vial SQ [facility]; Protocol Last Admin: 02/20/20 06:04 Dose: Not Given Documented by: Insulin Detemir (Levemir Vial) 35 units SQ AM [facility] Last Admin: 02/20/20 06:04 Dose: Not Given Documented by: Isosorbide Mononitrate (Imdur -) 60 mg PO DAILY [facility] Last Admin: 02/19/20 10:11 Dose: 60 mg Documented by: Montelukast Sodium (Singulair -) 10 mg PO [facility] Last Admin: 02/19/20 21:16 Dose: 10 mg Documented by: Nitroglycerin (Nitrolingual [place] -) 1 spray TL Q5M PRN PRN Reason: FOR CHEST PAIN Pantoprazole Sodium (Protonix -) 40 mg PO BID [facility] Last Admin: 02/19/20 21:16 Dose: 40 mg Documented by: Polyethylene Glycol (Miralax (For Daily Use) -) 17 gm PO TID [facility] Last Admin: 02/20/20 06:03 Dose: Not Given Documented by: Ranolazine (Ranexa -) 1,000 mg PO BID [facility] Last Admin: 02/19/20 21:15 Dose: 1,000 mg Documented by: Senna (Senna -) 1 tab PO DAILY PRN PRN Reason: CONSTIPATION Sitagliptin Phosphate (Januvia -) 50 mg PO ACBK [facility] Last Admin: 02/20/20 06:04 Dose: Not Given Documented by: Tamsulosin HCl (Flomax -) 0.4 mg PO DAILY@0830 [facility] Last Admin: 02/19/20 10:11 Dose: 0.4 mg Documented by: Ticagrelor (Brilinta -) 90 mg PO BID [facility] Last Admin: 02/19/20 21:16 Dose: 90 mg Documented by: Torsemide (Demadex -) 20 mg PO DAILY [facility] Last Admin: 02/19/20 10:11 Dose: 20 mg Documented by: Valsartan (Diovan -) 40 mg PO DAILY [facility] Last Admin: 02/19/20 10:11 Dose: 40 mg Documented by: - Objective Vital Signs: Vital Signs Temperature 98 F 02/20/20 06:00 Pulse Rate 78 02/20/20 06:00 Respiratory Rate 20 02/20/20 06:00 Blood Pressure 140/49 L 02/20/20 06:00 O2 Sat by Pulse Oximetry (%) 98 02/20/20 06:00 Constitutional: Yes: No Distress, Calm Eyes: Yes: Conjunctiva Clear HENT: Yes: Atraumatic Neck: Yes: Supple Cardiovascular: Yes: Regular Rate and Rhythm Respiratory: Yes: CTA Bilaterally Gastrointestinal: Yes: Soft. No: Tenderness Genitourinary: No: Hematuria Extremities: No: Cold, Cool Edema: No Integumentary: No: Rash, Venous Stasis Changes Neurological: Yes: Alert, Oriented ...Motor Strength: LUE, LLE (old L sided 4.5 weakness) Psychiatric: Yes: Alert, Oriented. No: Agitated, Suicidal Ideation Labs: CBC, BMP 02/19/20 05:47 02/19/20 05:47 INR, PTT INR 1.09 (0.83-1.09) 02/13/20 16:00 - ....Imaging Other: Report Reviewed Assessment/Plan 74yo M with PMH of HTN, HLD, DM, CAD s/p stent, CABG, 2 strokes with residual left sided weakness admitted with r/o new CVA and shortness of breath.Admitted with fever / UTI; IV ATB per ID; cardio and neurology f/u; on brillinta and po ASA anemia: GI eval; EGD colonoscopy per GI today; pt aware of possible risks and complications cleared by cardio and neuro for GI procedures; sq heparin held monitor in telemetry postop falls pfx d/w pt do not get OOB alone DVT Pfx d/w pt and staff
[2020-02-20] MEDS ORDERED: ETOMIDATE 20 MG/10 ML AMPUL IVPUSH ONE (10:12)
[2020-02-20] MEDS ORDERED: PT OWN MED DRAWER 7, Y5N ONE ×2 (11:50→21:17)
[2020-02-20] MEDS: TORSEMIDE 20 MG TABLET (FP) PO SCH (11:53)
[2020-02-20] MEDS: ASPIRIN 81 MG CHEWABLE TABLETS PO SCH (11:54)
[2020-02-20] MEDS: PANTOPRAZOLE 40 MG TABLET PO SCH ×2 (11:54→21:29)
[2020-02-20] MEDS: EZETIMIBE 10 MG TABLET (FP) PO SCH (11:54)
[2020-02-20] MEDS: FINASTERIDE 5 MG TABLET (FP) PO SCH (11:54)
[2020-02-20] MEDS: ISOSORBIDE MONONITRATE 60 MG TAB.SR.24H (FP) PO SCH (11:54)
[2020-02-20] MEDS: TICAGRELOR 90 MG TABLET PO SCH ×2 (11:54→21:28)
[2020-02-20] MEDS: TAMSULOSIN HCL 0.4 MG CAP PO SCH (11:54)
[2020-02-20] MEDS: RANOLAZINE E.R. 1,000 MG TABLET (FP) PO SCH ×2 (11:55→21:21)
[2020-02-20] MEDS: VALSARTAN 40 MG TABLET (FP) PO SCH (11:55)
[2020-02-20] MEDS: CEFUROXIME AXETIL 500 MG TABLET PO SCH ×2 (11:55→21:27)
[2020-02-20] MEDS: BUDESONIDE/FORMETEROL FUMARATE 80/4.5 mcg INHALER IH SCH ×2 (11:55→21:31)
--- NOTE | 2020-02-20 12:15 | PN ---
Progress Note (short form) - Note Progress Note: cc: weakness s: patient at endoscopy. no overnight events. Current Medications Generic Name Dose Route Start Last Admin Trade Name Freq PRN Reason Stop Dose Admin Acetaminophen 650 mg 02/13/20 22:04 02/17/20 22:17 Tylenol - PO 650 mg Q6H PRN Administration PAIN LEVEL 1-5 Aspirin 81 mg 02/14/20 10:00 02/20/20 11:54 Asa - PO 81 mg DAILY JAMILA Administration Atorvastatin Calcium 80 mg 02/14/20 22:00 02/19/20 21:17 Lipitor - PO 80 mg HS JAMILA Administration Budesonide/Formoterol Fumarate 2 puff 02/14/20 10:00 02/20/20 11:55 Symbicort 80/4.5mcg - IH 2 puff BID JAMILA Administration Cefuroxime Axetil 500 mg 02/18/20 20:00 02/20/20 11:55 Ceftin - PO 500 mg BID@0800,2000 JAMILA Administration Ezetimibe 10 mg 02/14/20 10:00 02/20/20 11:54 Zetia - PO 10 mg DAILY JAMILA Administration Finasteride 5 mg 02/14/20 10:00 02/20/20 11:54 Proscar - PO 5 mg DAILY JAMILA Administration Insulin Aspart 1 vial 02/14/20 07:00 02/20/20 06:04 Novolog Vial Sliding Scale - SQ Not Given ACHS [facility] Protocol Insulin Detemir 35 units 02/14/20 07:00 02/20/20 06:04 Levemir Vial SQ Not Given AM [facility] Isosorbide Mononitrate 60 mg 02/14/20 12:04 02/20/20 11:54 Imdur - PO 60 mg DAILY JAMILA Administration Montelukast Sodium 10 mg 02/14/20 22:00 02/19/20 21:16 Singulair - PO 10 mg HS [facility] Administration Nitroglycerin 1 spray 02/13/20 22:04 Nitrolingual [place] - TL Q5M PRN FOR CHEST PAIN Pantoprazole Sodium 40 mg 02/14/20 10:00 02/20/20 11:54 Protonix - PO 40 mg BID JAMILA Administration Polyethylene Glycol 17 gm 02/15/20 14:00 02/20/20 06:03 Miralax (For Daily Use) - PO Not Given TID [facility] Ranolazine 1,000 mg 02/14/20 10:00 02/20/20 11:55 Ranexa - PO 1,000 mg BID JAMILA Administration Senna 1 tab 02/13/20 22:04 Senna - PO DAILY PRN CONSTIPATION Sitagliptin Phosphate 50 mg 02/14/20 07:00 02/20/20 06:04 Januvia - PO Not Given ACBK JAMILA Tamsulosin HCl 0.4 mg 02/14/20 08:30 02/20/20 11:54 Flomax - PO 0.4 mg DAILY@0830 JAMILA Administration Ticagrelor 90 mg 02/14/20 10:00 02/20/20 11:54 Brilinta - PO 90 mg BID JAMILA Administration Torsemide 20 mg 02/14/20 10:00 02/20/20 11:53 Demadex - PO 20 mg DAILY JAMILA Administration Valsartan 40 mg 02/14/20 12:04 02/20/20 11:55 Diovan - PO 40 mg DAILY JAMILA Administration Vital Signs Period Temp Pulse Resp BP Sys/Chen Pulse Ox Last 24 Hr 97.4 F-98.7 F 64-79 16-20 114-168/42-66 91-100 Intake & Output 02/17/20 02/18/20 02/19/20 02/20/20 23:59 23:59 23:59 23:59 Intake Total 6009 377 8585 300 Output Total 600 300 900 Balance 149 002 4163 300 Weight 194 lb 194 lb Laboratory Last Values WBC 4.4 K/mm3 (4.0-10.0) 02/19/20 05:47 RBC 2.49 M/mm3 (4.00-5.60) L 02/19/20 05:47 Hgb 8.1 GM/dL (11.7-16.9) L 02/19/20 05:47 Hct 23.6 % (35.4-49) L 02/19/20 05:47 MCV 94.9 fl (80-96) 02/19/20 05:47 MCH 32.6 pg (25.7-33.7) 02/19/20 05:47 MCHC 34.3 g/dl (32.0-35.9) 02/19/20 05:47 RDW 13.0 % (11.9-15.9) 02/19/20 05:47 Plt Count 189 K/MM3 (134-434) 02/19/20 05:47 MPV 8.5 fl (7.5-11.1) 02/19/20 05:47 Absolute Neuts (auto) 3.2 K/mm3 (1.5-8.0) 02/19/20 05:47 Neutrophils % 73.8 % (42.8-82.8) 02/19/20 05:47 Lymphocytes % 13.1 % (8-40) 02/19/20 05:47 Monocytes % 10.6 % (3.8-10.2) H 02/19/20 05:47 Eosinophils % 2.3 % (0-4.5) 02/19/20 05:47 Basophils % 0.2 % (0-2.0) 02/19/20 05:47 Nucleated RBC % 0 % (0-0) 02/19/20 05:47 Retic Count 1.41 % (0.5-1.5) D 02/16/20 05:35 PT with INR 12.90 SEC (9.7-13.0) 02/13/20 16:00 INR 1.09 (0.83-1.09) 02/13/20 16:00 PTT (Actin FS) 28.9 SECONDS (25.2-36.5) 02/13/20 16:00 VBG pH 7.402 (7.310-7.410) 02/13/20 16:00 POC VBG pCO2 39.8 mmHg (38-52) 02/13/20 16:00 POC VBG pO2 73.2 mmHg (28-48) H 02/13/20 16:00 VBG HCO3 24.2 mmol/L (23-29) 02/13/20 16:00 VBG O2 Sat (Mariaelena) 94.8 % (70-80) H 02/13/20 16:00 VBG Base Excess -0.5 mmol/L (-2-2) 02/13/20 16:00 Sodium 138 mmol/L (136-145) 02/19/20 05:47 Potassium 4.3 mmol/L (3.5-5.1) 02/19/20 05:47 Chloride 102 mmol/L (98-107) 02/19/20 05:47 Carbon Dioxide 30 mmol/L (21-32) 02/19/20 05:47 Anion Gap 6 MMOL/L (8-16) L 02/19/20 05:47 BUN 41.3 mg/dL (7-18) H 02/19/20 05:47 Creatinine 1.7 mg/dL (0.55-1.3) H 02/19/20 05:47 Est GFR (CKD-EPI)AfAm 44.73 02/19/20 05:47 Est GFR (CKD-EPI)NonAf 38.59 02/19/20 05:47 POC Glucometer 158 UNITS (80-120) 02/20/20 12:02 Random Glucose 215 mg/dL (74-106) H 02/19/20 05:47 Hemoglobin A1c % 8.5 % (4.2-6.3) H 02/14/20 06:15 Lactic Acid 1.1 mmol/L (0.4-2.0) 02/13/20 16:00 Calcium 10.3 mg/dL (8.5-10.1) H 02/19/20 05:47 TIBC 187 ug/dL (250-450) L 02/16/20 05:35 Ferritin 236.5 ng/ml (8-388) 02/16/20 05:35 Total Bilirubin 0.7 mg/dL (0.2-1) 02/17/20 06:05 AST 35 U/L (15-37) 02/17/20 06:05 ALT 53 U/L (13-61) 02/17/20 06:05 Alkaline Phosphatase 66 U/L (45-117) 02/17/20 06:05 Creatine Kinase 165 U/L (26-308) 02/14/20 20:07 Creatine Kinase Index 2.1 % (0.0-5.0) 02/14/20 20:07 CK-MB (CK-2) 3.5 ng/mL (0.5-3.6) 02/14/20 20:07 Troponin I 0.34 ng/ml (0.00-0.05) H 02/17/20 06:05 Total Protein 5.6 g/dl (6.4-8.2) L 02/17/20 06:05 Albumin 2.3 g/dl (3.4-5.0) L 02/17/20 06:05 Triglycerides 88 mg/dL (0-150) 02/13/20 16:00 Cholesterol 108 mg/dL (50-200) 02/13/20 16:00 Total LDL Cholesterol 49 mg/dL (5-100) 02/13/20 16:00 HDL Cholesterol 45 mg/dL (40-60) 02/13/20 16:00 Vitamin B12 391 pg/ml (193-986) 02/14/20 06:00 Serum Folate 24 ng/mL (3.1-17.5) H 02/14/20 06:00 Procalcitonin 1.52 ng/mL (0.00-0.08) H 02/14/20 06:15 Urine Color Dk yellow 02/13/20 18:55 Urine Appearance Turbid 02/13/20 18:55 Urine pH 5.0 (5.0-8.0) 02/13/20 18:55 Ur Specific [place] 1.016 (1.010-1.035) 02/13/20 18:55 Urine Protein 2+ (NEGATIVE) H 02/13/20 18:55 Urine Glucose (UA) 1+ (NEGATIVE) H 02/13/20 18:55 Urine Ketones Negative (NEGATIVE) 02/13/20 18:55 Urine Blood 3+ (NEGATIVE) H 02/13/20 18:55 Urine Nitrite Negative (NEGATIVE) 02/13/20 18:55 Urine Bilirubin Negative (NEGATIVE) 02/13/20 18:55 Urine Urobilinogen 1.0 mg/dL (0.2-1.0) 02/13/20 18:55 Ur Leukocyte Esterase 3+ (NEGATIVE) H 02/13/20 18:55 Urine WBC (Auto) 93669 /uL (0-25.8) 02/13/20 18:55 Urine RBC (Auto) 297 /uL (0-23.9) 02/13/20 18:55 Urine Casts (Auto) 3 /uL (0-3.1) 02/13/20 18:55 U Epithel Cells (Auto) 31 /uL (0-25.1) 02/13/20 18:55 Urine Bacteria (Auto) >10,000 /uL (0-1359) 02/13/20 18:55 Stool Occult Blood Negative (NEGATIVE) 02/17/20 20:00 COVID-19 (IVANNA) Not detected (Not Detected) 02/17/20 11:35 Blood Type A NEGATIVE 02/13/20 16:00 Antibody Screen Negative 02/13/20 16:00 tele: sinus mibi 02/2015: inferolat scar with minimal fahad ischemia mibi 01/2020: apical lateral and inferolateral fahad-infarct ischemia echo 07/2018 mildly dilated LV, mildly reduced LV function EF 45-50%, mild inf wall hypokinesis, RV nl, mod MR, RVSP 50-60 mmHG echo 10/2018: nl lv/rv, mild as, mild mr, mild tr, mild phtn echo 01/2020 mildly reduced LV function EF 45-50%, RV nl, tr MR, mild TR, mild to mod Assessment/Plan 74 m hx htn, hld, dchf, cva, pad, cad s/p cabg 1997, pci 2011, 2012, 2013, and most recent cath for nstemi 04/2019 with latoya to d1, lcx, here with right side weakness. Elevated trops, hx cad: -has been stable since his most recent cath for nstemi 04/2019 with latoya to d1, lcx -here now with mild elevation in trop with nl ck and no cardiac symptoms. ECG with old lbbb. Does not appear to be acs, possibly demand 2/2 low bp/sepsis/uti and possible cva. Would cont home cardiac meds imdur, ranexa, atorva, brilinta, asa, zetia, valsartan -stopped bb in past for bradycardia -MIBI done here showing similar findings to 02/2015, fahad-infarct ischemia Chronic diastolic CHF: -cont home torsemide 20 mg daily, cont arb. not on bb due to bradycardia. -Echo now with mild LV dysfx, noted on prior echo 07/2018 as well, with nl LV function on echo 10/2018 -mibi here similar to prior ckd: -cr close to baseline HTN: - initial bp on low side, possibly from sepsis, now improved - cont home meds hld: -cont statin Suspected CVA/TIA -pt with hx cva's and here now with sxs suspicious for cva. MRI shows no acute infarct. neuro following -cont current cardiac meds, including statin and dapt Anemia, preop -GI consulted - endoscopy while continuing DAPT given recent stent placement 04/2019 -MIBI done here with similar low risk findings as 02/2015 - further recs per GI
--- NOTE | 2020-02-20 12:36 | PN.GI ---
GI Progress Note Subjective: GI Procedure NOtes: Please see scanned EGD and colonoscopy reports. EGD revealed submucosal antral nodules that could prove to be GISTs or carcinoid tumors and mild duodenitis but no bleeding . Colonoscopy revealed ascending, hepatic flexure and rectal polyps that will need to be removed when the Brilinta can be stopped in April. I also noted vascular ectasia in the ileum and believe that his anemia is due to small bowel vascular ectasia bleeding. I spoke with Francisco, his and then with his son, Francisco and advised capsule endoscopy as outpatient and referral to an endoscopist that can do EUS of the nodules and biopsy them. That person could also do his colonoscopy. I will speak with Dr Darlene Alvarez his PMD to see where she wants him to be referred. - Objective Vital Signs: Vital Signs Temperature 97.4 F L 02/20/20 10:43 Pulse Rate 64 02/20/20 11:29 Respiratory Rate 18 02/20/20 11:29 Blood Pressure 163/45 L 02/20/20 11:29 O2 Sat by Pulse Oximetry (%) 100 02/20/20 11:29 Constitutional: Calm ...Auscultate: Yes: Normoactive Bowel Sounds ...Palpate: Yes: Soft, Other (nontender) Labs: CBC, BMP 02/19/20 05:47 02/19/20 05:47 INR, PTT INR 1.09 (0.83-1.09) 02/13/20 16:00 Assessment/Plan Impression: - Anemia reflects indolent GI blood loss from vascular ectasias. - Submucosal antral nodles require EUS - Colon polyps - Diverticulosis - History of gastric telangectasia - Chronic constipation with fecal impaction - colon cancer Plan: -- No GI objections to discharge to pursue capsule endoscopy, EUS and colonoscopy as outpatient. I just discussed the case with Dr Darlene Alvarez Problem List - Problems (1) Submucosal lesion of stomach Code(s): K31.89 - OTHER DISEASES OF STOMACH AND DUODENUM (2) Nodularity of gastric antrum Code(s): K31.89 - OTHER DISEASES OF STOMACH AND DUODENUM (3) Colon polyps Code(s): K63.5 - POLYP OF COLON (4) Hiatal hernia Code(s): K44.9 - DIAPHRAGMATIC HERNIA WITHOUT OBSTRUCTION OR GANGRENE (5) Diverticulosis Code(s): K57.90 - DVRTCLOS OF INTEST, PART UNSP, W/O PERF OR ABSCESS W/O BLEED (6) Anemia Code(s): D64.9 - ANEMIA, UNSPECIFIED (7) TIA (transient ischemic attack) Code(s): G45.9 - TRANSIENT CEREBRAL ISCHEMIC ATTACK, UNSPECIFIED (8) Constipation Code(s): K59.00 - CONSTIPATION, UNSPECIFIED (9) Family history of colon cancer in mother Code(s): Z80.0 - FAMILY HISTORY OF MALIGNANT NEOPLASM OF DIGESTIVE ORGANS (10) NSTEMI (non-ST elevated myocardial infarction) Code(s): I21.4 - NON-ST ELEVATION (NSTEMI) MYOCARDIAL INFARCTION (11) CAD (coronary artery disease) Code(s): I25.10 - ATHSCL HEART DISEASE OF [place] CORONARY ARTERY W/O ANG PCTRS (12) CKD (chronic kidney disease) Code(s): N18.9 - CHRONIC KIDNEY DISEASE, UNSPECIFIED (13) CVA (cerebral vascular accident) Code(s): I63.9 - CEREBRAL INFARCTION, UNSPECIFIED (14) Diabetes mellitus Code(s): E11.9 - TYPE 2 DIABETES MELLITUS WITHOUT COMPLICATIONS (15) HTN (hypertension) Code(s): I10 - ESSENTIAL (PRIMARY) HYPERTENSION (16) PVD (peripheral vascular disease) Code(s): I73.9 - PERIPHERAL VASCULAR DISEASE, UNSPECIFIED (17) S/P CABG (coronary artery bypass graft) Code(s): Z95.1 - PRESENCE OF AORTOCORONARY BYPASS GRAFT (18) Vascular ectasia of small intestine Code(s): K63.9 - DISEASE OF INTESTINE, UNSPECIFIED
[2020-02-20] MEDS ORDERED: RANOLAZINE E.R. 500 MG TABLET (FP) ONE (21:16)
[2020-02-20] MEDS: MONTELUKAST NA 10 MG TABLET PO SCH (21:20)
[2020-02-20] MEDS: ATORVASTATIN CA 80 MG TABLET (FP) PO SCH (21:28)
[2020-02-21] MEDS: POLYETHYLENE GLYCOL 3350 119 GM BTL PO SCH ×2 (06:32→14:30)
[2020-02-21] MEDS: sitaGLIPtin PHOSPHATE 50 MG TABLET PO SCH (06:36)
[2020-02-21] MEDS: INSULIN (LEVEMIR) 100 UNITS/ML UNITS SQ SCH (06:40)
[2020-02-21] MEDS: INSULIN SLIDING SCALE (NOVOLOG) 1 VIAL SQ SCH ×2 (06:41→11:38)
[2020-02-21 08:18] LABS: BASO % 0.3 % (0-2.0); EOS % 2.6 % (0-4.5); HEMATOCRIT 24.7 % (35.4-49); HEMOGLOBIN 8.3 GM/dL (11.7-16.9); LYMPH % 15.8 % (8-40); MCHC 33.7 g/dl (32.0-35.9); MEAN CELL VOLUME 94.9 fl (80-96); MEAN PLT VOLUME 8.3 fl (7.5-11.1); MONO % 11.5 % (3.8-10.2); NEUT % 69.8 % (42.8-82.8); PLATELET COUNT 216 K/MM3 (134-434); RDW 13.1 % (11.9-15.9)
[2020-02-21 08:21] LABS: ALBUMIN 2.6 g/dl (3.4-5.0); BILIRUBIN,TOTAL 0.7 mg/dL (0.2-1); BLOOD UREA NITROGEN 33.8 mg/dL (7-18); CALCIUM 10.2 mg/dL (8.5-10.1); CREATININE 1.9 mg/dL (0.55-1.3); POTASSIUM 3.8 mmol/L (3.5-5.1); TOT PROT 5.8 g/dl (6.4-8.2)
[2020-02-21] MEDS ORDERED: PT OWN MED DRAWER 7, Y5N ONE (09:21)
[2020-02-21] MEDS: CEFUROXIME AXETIL 500 MG TABLET PO SCH (09:24)
[2020-02-21] MEDS: FINASTERIDE 5 MG TABLET (FP) PO SCH (09:24)
[2020-02-21] MEDS: ISOSORBIDE MONONITRATE 60 MG TAB.SR.24H (FP) PO SCH (09:25)
[2020-02-21] MEDS: TORSEMIDE 20 MG TABLET (FP) PO SCH (09:25)
[2020-02-21] MEDS: ASPIRIN 81 MG CHEWABLE TABLETS PO SCH (09:25)
[2020-02-21] MEDS: PANTOPRAZOLE 40 MG TABLET PO SCH (09:25)
[2020-02-21] MEDS: TAMSULOSIN HCL 0.4 MG CAP PO SCH (09:25)
[2020-02-21] MEDS: VALSARTAN 40 MG TABLET (FP) PO SCH (09:26)
[2020-02-21] MEDS: EZETIMIBE 10 MG TABLET (FP) PO SCH (09:26)
[2020-02-21] MEDS: TICAGRELOR 90 MG TABLET PO SCH (09:26)
[2020-02-21] MEDS: BUDESONIDE/FORMETEROL FUMARATE 80/4.5 mcg INHALER IH SCH (09:27)
[2020-02-21] MEDS: RANOLAZINE E.R. 1,000 MG TABLET (FP) PO SCH (09:27)
--- NOTE | 2020-02-21 10:28 | PN ---
Progress Note (short form) - Note Progress Note: cc: weakness s: no chest pain, palps, dizziness, dyspnea Current Medications Generic Name Dose Route Start Last Admin Trade Name Freq PRN Reason Stop Dose Admin Acetaminophen 650 mg 02/13/20 22:04 02/17/20 22:17 Tylenol - PO 650 mg Q6H PRN Administration PAIN LEVEL 1-5 Aspirin 81 mg 02/14/20 10:00 02/21/20 09:25 Asa - PO 81 mg DAILY JAMILA Administration Atorvastatin Calcium 80 mg 02/14/20 22:00 02/20/20 21:28 Lipitor - PO 80 mg HS JAMILA Administration Budesonide/Formoterol Fumarate 2 puff 02/14/20 10:00 02/21/20 09:27 Symbicort 80/4.5mcg - IH 2 puff BID JAMILA Administration Cefuroxime Axetil 500 mg 02/18/20 20:00 02/21/20 09:24 Ceftin - PO 500 mg BID@0800,2000 [facility] Administration Ezetimibe 10 mg 02/14/20 10:00 02/21/20 09:26 Zetia - PO 10 mg DAILY JAMILA Administration Finasteride 5 mg 02/14/20 10:00 02/21/20 09:24 Proscar - PO 5 mg DAILY [facility] Administration Insulin Aspart 1 vial 02/14/20 07:00 02/21/20 06:41 Novolog Vial Sliding Scale - SQ 2 unit ACHS [facility] Administration Protocol Insulin Detemir 35 units 02/14/20 07:00 02/21/20 06:40 Levemir Vial SQ 35 unit AM [facility] Administration Isosorbide Mononitrate 60 mg 02/14/20 12:04 02/21/20 09:25 Imdur - PO 60 mg DAILY JAMILA Administration Montelukast Sodium 10 mg 02/14/20 22:00 02/20/20 21:20 Singulair - PO 10 mg HS [facility] Administration Nitroglycerin 1 spray 02/13/20 22:04 Nitrolingual [place] - TL Q5M PRN FOR CHEST PAIN Pantoprazole Sodium 40 mg 02/14/20 10:00 02/21/20 09:25 Protonix - PO 40 mg BID [facility] Administration Polyethylene Glycol 17 gm 02/15/20 14:00 02/21/20 06:32 Miralax (For Daily Use) - PO Not Given TID [facility] Ranolazine 1,000 mg 02/14/20 10:00 02/21/20 09:27 Ranexa - PO 1,000 mg BID JAMILA Administration Senna 1 tab 02/13/20 22:04 Senna - PO DAILY PRN CONSTIPATION Sitagliptin Phosphate 50 mg 02/14/20 07:00 02/21/20 06:36 Januvia - PO 50 mg ACBK JAMILA Administration Tamsulosin HCl 0.4 mg 02/14/20 08:30 02/21/20 09:25 Flomax - PO 0.4 mg DAILY@0830 JAMILA Administration Ticagrelor 90 mg 02/14/20 10:00 02/21/20 09:26 Brilinta - PO 90 mg BID JAMILA Administration Torsemide 20 mg 02/14/20 10:00 02/21/20 09:25 Demadex - PO 20 mg DAILY JAMILA Administration Valsartan 40 mg 02/14/20 12:04 02/21/20 09:26 Diovan - PO 40 mg DAILY JAMILA Administration Vital Signs Period Temp Pulse Resp BP Sys/Chen Pulse Ox Last 24 Hr 97.4 F-98.2 F 62-72 16-18 109-168/41-58 96-100 Constitutional: Yes: No Distress, Calm Eyes: Yes: Conjunctiva Clear Cardiovascular: Yes: Regular Rate and Rhythm, Murmur Respiratory: Yes: CTA Bilaterally Gastrointestinal: Yes: Soft Edema: No Neurological: Yes: Alert, Oriented no jaundice, diaphoresis not agitated CBC, BMP 02/21/20 06:24 02/21/20 06:24 tele: sinus mibi 02/2015: inferolat scar with minimal fahad ischemia mibi 01/2020: apical lateral and inferolateral fahad-infarct ischemia echo 07/2018 mildly dilated LV, mildly reduced LV function EF 45-50%, mild inf wall hypokinesis, RV nl, mod MR, RVSP 50-60 mmHG echo 10/2018: nl lv/rv, mild as, mild mr, mild tr, mild phtn echo 01/2020 mildly reduced LV function EF 45-50%, RV nl, tr MR, mild TR, mild to mod Assessment/Plan 74 m hx htn, hld, dchf, cva, pad, cad s/p cabg 1997, pci 2011, 2012, 2013, and most recent cath for nstemi 04/2019 with latoya to d1, lcx, here with right side weakness. Elevated trops, hx cad: -has been stable since his most recent cath for nstemi 04/2019 with latoya to d1, lcx -here now with mild elevation in trop with nl ck and no cardiac symptoms. ECG with old lbbb. Does not appear to be acs, possibly demand 2/2 low bp/sepsis/uti and possible cva. Would cont home cardiac meds imdur, ranexa, atorva, brilinta, asa, zetia, valsartan -stopped bb in past for bradycardia -MIBI done here showing similar findings to 02/2015, fahad-infarct ischemia Chronic diastolic CHF: -cont home torsemide 20 mg daily, cont arb. not on bb due to bradycardia. -Echo now with mild LV dysfx, noted on prior echo 07/2018 as well, with nl LV function on echo 10/2018 -mibi here similar to prior ckd: -cr close to baseline HTN: - initial bp on low side, possibly from sepsis, now improved hld: -cont statin Suspected CVA/TIA -pt with hx cva's and here now with sxs suspicious for cva. MRI shows no acute infarct. neuro following -cont current cardiac meds, including statin and dapt Anemia, preop -GI consulted - had unremarkable egd/foc, plan for outpt capsule study cardiac lai stable for dc
[2020-02-21 10:45] VITALS: TEMP 97.7
--- NOTE | 2020-02-21 12:07 | DS ---
Physical Examination Vital Signs: Vital Signs Temperature 97.7 F 02/21/20 10:00 Pulse Rate 71 02/21/20 10:00 Respiratory Rate 18 02/21/20 10:00 Blood Pressure 139/61 02/21/20 10:00 O2 Sat by Pulse Oximetry (%) 97 02/21/20 10:00 Findings/Remarks: OOB to chair ate OK no c/o; feels generally weak, would like to go to PT rehab SNF / [place] d/w pt and son Arden / phone and PCP dr Vamshi Alvarez f/u needed and meds Constitutional: Yes: No Distress, Calm Eyes: Yes: Conjunctiva Clear HENT: Yes: Atraumatic Neck: Yes: Supple Cardiovascular: Yes: Regular Rate and Rhythm Respiratory: Yes: CTA Bilaterally Gastrointestinal: Yes: Soft. No: Tenderness Renal/: No: Hematuria Musculoskeletal: No: Joint Stiffness, Joint Swelling Extremities: No: Cold, Cool, Cyanosis Edema: No Integumentary: No: Rash Neurological: Yes: Alert, Oriented ...Motor Strength: LUE, LLE (old 4) Psychiatric: Yes: Alert, Oriented. No: Agitated, Suicidal Ideation Labs: CBC, BMP 02/21/20 06:24 02/21/20 06:24 Discharge Summary Problems reviewed: Yes Reason For Visit: TIA SIRS Current Active Problems Colon polyps (Acute) Diverticulosis (Acute) Febrile illness (Acute) Hiatal hernia (Acute) Nodularity of gastric antrum (Acute) SIRS (systemic inflammatory response syndrome) (Acute) Submucosal lesion of stomach (Acute) TIA (transient ischemic attack) (Acute) Vascular ectasia of small intestine (Acute) Procedures: Principal: 74 YOM ASHD CVA recent < 1 year cardiac stent HTN HLP CRF anemia admitted with UTI ro new CVA and positive troponins. Other Procedures: brain MRI no new CVA seen by neurology; seen also by cardi ology, troponins trending down. Seen by GI for anemia had EGD gastritis and possible carcinoid tumors, will need EUS capsule endoscopy outpt. Hospital Course: improved with above; did not need transfusions. Stable on meds; to transfer to SNF for PT rehab, f/u as advised d/w pt and son and d/w PCP dr Alvarez Condition: Improved - Instructions Diet, Activity, Other Instructions: f/u PCP GI cardiology and neurology in 1-2 weeks; renal / f/u outpt [facility] if worse or recurrent c/o; further GI w/u per dr Muller - EUS and biopsy of gastric lesions; capsule endoscopy Referrals: Mike Murray MD [Staff Physician] - Hu Muller MD [Staff Physician] - Emily Burnett MD [Staff Physician] - Darlene Alvarez MD [Primary Care Provider] - Allan Escobar MD [Staff Physician] - Disposition: [facility] - Home Medications Comprehensive Discharge Medication List: Ambulatory Orders Ranolazine [Ranexa] 1,000 mg PO BID 01/08/13 Atorvastatin Ca [Lipitor] 80 mg PO DAILY 06/04/18 Ezetimibe [Zetia] 10 mg PO DAILY 06/04/18 Finasteride [Proscar] 5 mg PO DAILY 06/04/18 Insulin Degludec [Tresiba Flextouch U-100] 35 unit SQ AM 06/04/18 Montelukast Sodium [Singulair] 10 mg PO DAILY 06/04/18 Nitroglycerin [place] [Nitrolingual [place] -] 1 spray TL Q5M PRN 06/04/18 Polyethylene Glycol 3350 [Miralax 255 gm Btl -] 17 gm PO DAILY PRN 06/04/18 Sennosides [Senokot] 8.6 mg PO DAILY PRN 06/04/18 Sitagliptin Phosphate [Januvia] 50 mg PO DAILY 06/04/18 Torsemide [Demadex -] 20 mg PO DAILY #30 tablet MDD 1 06/11/18 Aspirin [ASA -] 81 mg PO DAILY 07/05/19 Isosorbide Mononitrate [Isosorbide Mononitrate ER] 60 mg PO DAILY 07/05/19 Ticagrelor [Brilinta -] 90 mg PO BID 07/05/19 Valsartan [Diovan] 40 mg PO DAILY 07/05/19 Acetaminophen [Tylenol .Regular Strength -] 650 mg PO Q6H PRN tablet 07/13/19 Pantoprazole Sodium [Protonix -] 40 mg PO BID tablet.ec 07/13/19 Fluticasone/Salmeterol [Advair 250-50 Diskus] 1 each IH BID 02/13/20 Tamsulosin HCl [Flomax] 0.4 mg PO DAILY 02/13/20 Cefuroxime Axetil [Ceftin -] 500 mg PO BID@0800,2000 #10 tablet 02/21/20 Cefuroxime Axetil [Ceftin -] 500 mg PO Q12H #10 tablet 02/21/20 Insulin Sliding Scale [Novolog Vial Sliding Scale -] 1 vial SQ ACHS units 02/21/20 Pantoprazole Sodium [Protonix -] 40 mg PO BID #14 tablet.ec 02/21/20
[2020-02-21 14:02] VITALS: BP 125/73; PULSE 66
== END 2020-02-21 16:00 | DRG 378 ==
LOC: JER 15:27 → JERBED 19:00 → J4S 02-14 19:03
PROVIDERS: ADMIT Internal Medicine; ATTEND Internal Medicine
PROC: 0DJD8ZZ Inspection of Lower Intestinal Tract, Via Natural or Artificial Opening Endoscopic (ICD-10-PCS; 2020-02-20)
PROC: 0DJ08ZZ Inspection of Upper Intestinal Tract, Via Natural or Artificial Opening Endoscopic (ICD-10-PCS; principal; 2020-02-20 10:00)
DX: K31.811 Angiodysplasia of stomach and duodenum with bleeding (principal); G45.9 Transient cerebral ischemic attack, unspecified; I13.0 Hypertensive heart and chronic kidney disease with heart failure and stage 1 through stage 4 chronic kidney disease, or unspecified chronic kidney disease; I50.32 Chronic diastolic (congestive) heart failure; N39.0 Urinary tract infection, site not specified; I69.351 Hemiplegia and hemiparesis following cerebral infarction affecting right dominant side; I69.354 Hemiplegia and hemiparesis following cerebral infarction affecting left non-dominant side; I24.8 Other forms of acute ischemic heart disease; I25.10 Atherosclerotic heart disease of native coronary artery without angina pectoris; E78.5 Hyperlipidemia, unspecified; I10 Essential (primary) hypertension; E11.9 Type 2 diabetes mellitus without complications; K21.9 Gastro-esophageal reflux disease without esophagitis; E78.00 Pure hypercholesterolemia, unspecified; I25.2 Old myocardial infarction; I44.7 Left bundle-branch block, unspecified; K59.09 Other constipation; R29.810 Facial weakness; E11.22 Type 2 diabetes mellitus with diabetic chronic kidney disease; N18.9 Chronic kidney disease, unspecified; K63.5 Polyp of colon; K57.90 Diverticulosis of intestine, part unspecified, without perforation or abscess without bleeding; R50.9 Fever, unspecified; N40.0 Benign prostatic hyperplasia without lower urinary tract symptoms; K76.0 Fatty (change of) liver, not elsewhere classified; K62.1 Rectal polyp; D50.9 Iron deficiency anemia, unspecified; E11.51 Type 2 diabetes mellitus with diabetic peripheral angiopathy without gangrene; K44.9 Diaphragmatic hernia without obstruction or gangrene; K29.80 Duodenitis without bleeding; D3A.029 Benign carcinoid tumor of the large intestine, unspecified portion; K64.8 Other hemorrhoids; K31.89 Other diseases of stomach and duodenum; Z95.1 Presence of aortocoronary bypass graft; Z79.4 Long term (current) use of insulin; Z95.5 Presence of coronary angioplasty implant and graft
CPT/HCPCS: 36415; 70450-TC; 70551-TC; 71045-TC-FY; 78452-TC; 80048; 80053; 80061; 81003; 82272; 82308; 82550; 82553; 82607; 82728; 82746; 82803; 82962; 83036; 83550; 83605; 83721; 84484; 85025; 85044; 85610; 85730; 86850; 86900; 86901; 87040; 87077; 87086; 87186; 90670; 93005; 93010; 93017; 93306-TC; 97116-GP; 97162-GP; 99291; A9502; J0131; J1644; J1756; J2785; J7030; U0003

== ENCOUNTER 2020-07-29 07:06 | Inpatient (IN) | payer OTHER, BC ==
[2020-07-29 07:47] VITALS: BMI 36.1
[2020-07-29] MEDS ORDERED: SODIUM CHLORIDE 3,334 ML IV ONE (07:53)
[2020-07-29] MEDS ORDERED: ACETAMINOPHEN 1000 MG/100 ML BAG IVPB ONE (08:02)
[2020-07-29] MEDS ORDERED: ACETAMINOPHEN INJECTION 100 ML IVPB ONE (08:24)
[2020-07-29] MEDS ORDERED: morphine CARPU-JECT 4 MG/1 ML DISP.SYRIN IVPUSH ONE (08:42)
[2020-07-29 09:01] LABS: VENOUS BASE EXCESS 0.4 mmol/L (-2-2); VENOUS O2 SATURATION 53.7 % (70-80); VENOUS PCO2 46.3 mmHg (38-52); VENOUS PH 7.368 (7.310-7.410)
[2020-07-29 09:12] LABS: INR 1.05 (0.83-1.09); PROTHROMBIN TIME (PATIENT) 12.7 SEC (9.7-13.0)
[2020-07-29 09:15] LABS: ACTIVATED PTT 34.4 SECONDS (25.2-36.5)
[2020-07-29 09:19] LABS: CALCIUM 10.6 mg/dL (8.5-10.1)
[2020-07-29 09:20] LABS: ALBUMIN 3.2 g/dl (3.4-5.0); BASO % 0.2 % (0-2.0); HEMATOCRIT 32.2 % (35.4-49); LYMPH % 13.2 % (8-40); MCH 32.3 pg (25.7-33.7); MCHC 34.1 g/dl (32.0-35.9); MEAN CELL VOLUME 94.5 fl (80-96); MEAN PLT VOLUME 9.2 fl (7.5-11.1); MONO % 6.7 % (3.8-10.2); NEUT % 79.9 % (42.8-82.8); PLATELET COUNT 118 K/MM3 (134-434); RBC 3.41 M/mm3 (4.00-5.60); RDW 13.6 % (11.9-15.9); WHITE BLOOD COUNT 4.6 K/mm3 (4.0-10.0)
[2020-07-29 09:23] LABS: CREATININE 2.3 mg/dL (0.55-1.3)
[2020-07-29 09:24] LABS: TOT PROT 7.7 g/dl (6.4-8.2)
[2020-07-29] MEDS ORDERED: ASPIRIN 81 MG CHEWABLE TABLETS PO ONE (10:41)
[2020-07-29] MEDS ORDERED: CEFTRIAXONE 1,000 MG in DEXTROSE 5%-WATER - 50 ML IVPB ONE (10:52)
[2020-07-29] MEDS ORDERED: DEXAMETHASONE SOD PHOSPHATE 4 MG/1 ML VIAL IVPUSH ONE (10:52)
[2020-07-29] MEDS ORDERED: AZITHROMYCIN IVPB 500 MG in DEXTROSE 5%-WATER - 250 ML IVPB ONE (10:52)
[2020-07-29] MEDS ORDERED: CLOPIDOGREL BISULFATE 300 MG TABLET PO ONE (12:19)
[2020-07-29] MEDS ORDERED: ASPIRIN 325 MG ENTERIC COATED TABLET (FP) ONE (12:28)
[2020-07-29] MEDS ORDERED: CEFTRIAXONE 1 GM/50 ML BAG ONE (12:29)
[2020-07-29] MEDS ORDERED: CLOPIDOGREL BISULFATE 300 MG TABLET ONE (12:29)
[2020-07-29] MEDS ORDERED: AZITHROMYCIN IVPB 500 MG/250 ML BAG IVPB ONE (12:29)
[2020-07-29] MEDS ORDERED: DEXAMETHASONE SOD PHOSPHATE 10 MG/1 ML VIAL ONE (12:30)
[2020-07-29] MEDS ORDERED: HEPARIN NA (PORCINE) 5,000 UNITS/ML 1ML VIAL SQ ONE (12:41)
[2020-07-29] MEDS ORDERED: HEPARIN NA (PORCINE) 5,000 UNITS/ML 1ML VIAL IVPUSH PRN ×2 (12:41)
[2020-07-29 12:42] LABS: CALCIUM 9.8 mg/dL (8.5-10.1)
[2020-07-29 12:43] LABS: ALBUMIN 2.7 g/dl (3.4-5.0); BLOOD UREA NITROGEN 50.1 mg/dL (7-18)
[2020-07-29 12:46] LABS: CREATININE 2.1 mg/dL (0.55-1.3)
[2020-07-29 12:48] LABS: BILIRUBIN,TOTAL 0.5 mg/dL (0.2-1); TOT PROT 6.1 g/dl (6.4-8.2)
[2020-07-29 12:51] LABS: N-TERMINAL BNP 15040.6 pg/ml (5-450)
[2020-07-29 13:19] LABS: EPI CELLS 8 /uL (0-25.1); HYALINE CASTS 4 /uL (0-3.1); URINE APPEARANCE CLOUDY; URINE BACTERIA >9,000 /uL (0-1359); URINE BILIRUBIN NEGATIVE (NEGATIVE); URINE COLOR YELLOW; URINE GLUCOSE (UA) NEGATIVE (NEGATIVE); URINE KETONE NEGATIVE (NEGATIVE); URINE LEUK ESTERASE TRACE (NEGATIVE); URINE NITRITE NEGATIVE (NEGATIVE); URINE PROTEIN 3+ (NEGATIVE); URINE RBC 24 /uL (0-23.9); URINE UROBILINOGEN 0.2 mg/dL (0.2-1.0); URINE WBC 260 /uL (0-25.8)
[2020-07-29] MEDS ORDERED: HEPARIN INFUSION - 25,000 UNITS/500 ML INFUS.BAG IVPB ONE (13:41)
[2020-07-29] MEDS ORDERED: HEPARIN NA (PORCINE) 5,000 UNITS/ML 1ML VIAL ONE (13:41)
[2020-07-29] MEDS ORDERED: FUROSEMIDE 40 MG/4 ML INJECTABLE VIAL IVPUSH ONE (14:06)
[2020-07-29] MEDS ORDERED: POLYETHYLENE GLYCOL 3350 255 GM BTL PO PRN (14:22)
[2020-07-29] MEDS ORDERED: NITROGLYCERIN SUBLINGUAL 1/150 0.4 MG TAB SL PRN (14:22)
[2020-07-29] MEDS ORDERED: SENNOSIDES 8.6MG TABLET (FP) PO PRN (14:22)
[2020-07-29] MEDS ORDERED: FUROSEMIDE 40 MG/4 ML INJECTABLE VIAL ONE (14:24)
[2020-07-29] MEDS: HEPARIN - 25,000 UNIT in SODIUM CHLORIDE 495 ML IV SCH (14:52)
[2020-07-29] MEDS: MONTELUKAST NA 10 MG TABLET PO SCH (21:16)
[2020-07-29] MEDS: RANOLAZINE E.R. 500 MG TABLET (FP) PO SCH (21:16)
[2020-07-29] MEDS: ATORVASTATIN CA 80 MG TABLET (FP) PO SCH (21:16)
[2020-07-29] MEDS: PANTOPRAZOLE 40 MG TABLET PO SCH (21:16)
[2020-07-30] MEDS ORDERED: PT OWN MED DRAWER 7, Y5N ONE (05:57)
[2020-07-30 08:12] LABS: BASO % 0.1 % (0-2.0); MCH 32.4 pg (25.7-33.7); MCHC 34.5 g/dl (32.0-35.9); MEAN PLT VOLUME 9.5 fl (7.5-11.1); MONO % 5.2 % (3.8-10.2); NEUT % 85.7 % (42.8-82.8); PLATELET COUNT 102 K/MM3 (134-434); RBC 3.09 M/mm3 (4.00-5.60); RDW 13.9 % (11.9-15.9); WHITE BLOOD COUNT 3.5 K/mm3 (4.0-10.0)
[2020-07-30] MEDS: CEFTRIAXONE 1 GM in DEXTROSE 5%-WATER - 50 ML IVPB SCH (09:23)
[2020-07-30] MEDS: TAMSULOSIN HCL 0.4 MG CAP PO SCH (09:24)
[2020-07-30] MEDS: INSULIN (LEVEMIR) 100 UNITS/ML UNITS SQ SCH ×2 (09:24→09:37)
[2020-07-30 09:29] LABS: ALBUMIN 2.7 g/dl (3.4-5.0); CALCIUM 9.9 mg/dL (8.5-10.1)
[2020-07-30 09:32] LABS: CREATININE 2.2 mg/dL (0.55-1.3)
[2020-07-30 09:33] LABS: BILIRUBIN,TOTAL 0.4 mg/dL (0.2-1); TOT PROT 6.4 g/dl (6.4-8.2)
[2020-07-30] MEDS: ASPIRIN 81 MG CHEWABLE TABLETS PO SCH (09:34)
[2020-07-30] MEDS: ISOSORBIDE MONONITRATE 60 MG TAB.SR.24H (FP) PO SCH (09:35)
[2020-07-30] MEDS: TORSEMIDE 20 MG TABLET (FP) PO SCH (09:35)
[2020-07-30] MEDS: MULTIVITAMINS THER W-MINERALS COMBO TABLET (FP) PO SCH (09:35)
[2020-07-30] MEDS: PANTOPRAZOLE 40 MG TABLET PO SCH ×2 (09:35→21:24)
[2020-07-30] MEDS: sitaGLIPtin PHOSPHATE 50 MG TABLET PO SCH (09:35)
[2020-07-30] MEDS: FINASTERIDE 5 MG TABLET (FP) PO SCH (09:35)
[2020-07-30] MEDS: AZITHROMYCIN IVPB 500 MG/250 ML BAG IVPB SCH (09:35)
[2020-07-30] MEDS: RANOLAZINE E.R. 500 MG TABLET (FP) PO SCH ×2 (09:35→21:24)
[2020-07-30] MEDS: EZETIMIBE 10 MG TABLET (FP) PO SCH (09:35)
[2020-07-30] MEDS: HEPARIN - 25,000 UNIT in SODIUM CHLORIDE 495 ML IV SCH (12:45)
[2020-07-30] MEDS ORDERED: REMDESIVIR 200 MG in SODIUM CHLORIDE 210 ML IVPB ONE (14:00)
[2020-07-30] MEDS: CLOPIDOGREL BISULFATE 75 MG TABLET (FP) PO SCH (14:49)
[2020-07-30] MEDS: ATORVASTATIN CA 80 MG TABLET (FP) PO SCH (21:24)
[2020-07-30] MEDS: MONTELUKAST NA 10 MG TABLET PO SCH (21:24)
[2020-07-31] MEDS: ACETAMINOPHEN 325 MG TABLET (FP) PO PRN ×2 (00:18→09:06)
[2020-07-31] MEDS ORDERED: PT OWN MED DRAWER 7, Y5N ONE (04:41)
[2020-07-31] MEDS: INSULIN (LEVEMIR) 100 UNITS/ML UNITS SQ SCH (06:31)
[2020-07-31] MEDS: sitaGLIPtin PHOSPHATE 50 MG TABLET PO SCH (06:31)
[2020-07-31 08:08] LABS: HEMOGLOBIN 11.5 GM/dL (11.7-16.9); MCH 31.9 pg (25.7-33.7); MCHC 33.9 g/dl (32.0-35.9); MEAN CELL VOLUME 94.2 fl (80-96); MEAN PLT VOLUME 9.9 fl (7.5-11.1); MONO % 4.1 % (3.8-10.2); NEUT % 91.9 % (42.8-82.8); PLATELET COUNT 127 K/MM3 (134-434); RBC 3.61 M/mm3 (4.00-5.60); RDW 13.4 % (11.9-15.9); WHITE BLOOD COUNT 6.4 K/mm3 (4.0-10.0)
[2020-07-31] MEDS ORDERED: cefTRIAXone SODIUM 1 GM VIAL ONE (08:51)
[2020-07-31] MEDS ORDERED: DEXTROSE 5%-WATER - 50 ML IVPB ONE (08:52)
[2020-07-31] MEDS: CEFTRIAXONE 1 GM in DEXTROSE 5%-WATER - 50 ML IVPB SCH (09:04)
[2020-07-31] MEDS: CLOPIDOGREL BISULFATE 75 MG TABLET (FP) PO SCH (09:05)
[2020-07-31] MEDS: RANOLAZINE E.R. 500 MG TABLET (FP) PO SCH ×2 (09:05→21:32)
[2020-07-31] MEDS: TAMSULOSIN HCL 0.4 MG CAP PO SCH (09:05)
[2020-07-31] MEDS: MULTIVITAMINS THER W-MINERALS COMBO TABLET (FP) PO SCH (09:05)
[2020-07-31] MEDS: ASPIRIN 81 MG CHEWABLE TABLETS PO SCH (09:05)
[2020-07-31] MEDS: TORSEMIDE 20 MG TABLET (FP) PO SCH (09:05)
[2020-07-31] MEDS: FINASTERIDE 5 MG TABLET (FP) PO SCH (09:05)
[2020-07-31] MEDS: PANTOPRAZOLE 40 MG TABLET PO SCH ×2 (09:06→21:32)
[2020-07-31] MEDS: ISOSORBIDE MONONITRATE 60 MG TAB.SR.24H (FP) PO SCH (09:06)
[2020-07-31] MEDS: EZETIMIBE 10 MG TABLET (FP) PO SCH (09:06)
[2020-07-31] MEDS: HEPARIN - 25,000 UNIT in SODIUM CHLORIDE 495 ML IV SCH ×2 (09:09→16:40)
[2020-07-31 09:16] LABS: BLOOD UREA NITROGEN 83.3 mg/dL (7-18); CALCIUM 9.7 mg/dL (8.5-10.1); MAGNESIUM 1.9 mg/dL (1.8-2.4)
[2020-07-31 09:19] LABS: CREATININE 3.2 mg/dL (0.55-1.3); PHOSPHOROUS 3.3 mg/dL (2.5-4.9)
[2020-07-31 09:21] LABS: BILIRUBIN,TOTAL 0.5 mg/dL (0.2-1); TOT PROT 7.1 g/dl (6.4-8.2)
[2020-07-31 10:49] LABS: ANISOCYTOSIS 2+; MACROCYTOSIS 2+; PLATELET ESTIMATE DECREASED; TOXIC GRANULATION 1+
[2020-07-31] MEDS: AZITHROMYCIN IVPB 500 MG/250 ML BAG IVPB SCH (11:05)
[2020-07-31] MEDS ORDERED: SODIUM CHLORIDE 1,000 ML IV SCH (11:15)
[2020-07-31] MEDS: INSULIN SLIDING SCALE (NOVOLOG) 1 VIAL SQ SCH ×3 (12:08→21:57)
[2020-07-31] MEDS: SODIUM CHLORIDE 1,000 ML IV SCH (12:10)
[2020-07-31] MEDS: DEXAMETHASONE SOD PHOSPHATE 4 MG/1 ML VIAL IVPUSH SCH (13:58)
[2020-07-31] MEDS ORDERED: REMDESIVIR 100 MG in SODIUM CHLORIDE 230 ML IVPB SCH (14:00)
[2020-07-31] MEDS ORDERED: GLYCERIN 1 RECTAL SUPPOSITORY, ADULT RC ONE (21:00)
[2020-07-31] MEDS: POLYETHYLENE GLYCOL 3350 255 GM BTL PO SCH (21:32)
[2020-07-31] MEDS: ATORVASTATIN CA 80 MG TABLET (FP) PO SCH (21:32)
[2020-07-31] MEDS: MONTELUKAST NA 10 MG TABLET PO SCH (21:32)
[2020-08-01] MEDS: sitaGLIPtin PHOSPHATE 50 MG TABLET PO SCH (06:35)
[2020-08-01] MEDS: INSULIN SLIDING SCALE (NOVOLOG) 1 VIAL SQ SCH ×4 (06:35→22:26)
[2020-08-01] MEDS: POLYETHYLENE GLYCOL 3350 255 GM BTL PO SCH ×3 (06:35→22:24)
[2020-08-01] MEDS: INSULIN (LEVEMIR) 100 UNITS/ML UNITS SQ SCH (06:36)
[2020-08-01 07:40] LABS: HEMATOCRIT 27.9 % (35.4-49); HEMOGLOBIN 9.7 GM/dL (11.7-16.9); MCH 32.1 pg (25.7-33.7); MCHC 34.7 g/dl (32.0-35.9); MEAN CELL VOLUME 92.5 fl (80-96); MEAN PLT VOLUME 9.8 fl (7.5-11.1); MONO % 2.7 % (3.8-10.2); NEUT % 92.3 % (42.8-82.8); PLATELET COUNT 110 K/MM3 (134-434); RBC 3.01 M/mm3 (4.00-5.60); RDW 13.8 % (11.9-15.9); WHITE BLOOD COUNT 5.5 K/mm3 (4.0-10.0)
[2020-08-01 08:39] LABS: CALCIUM 9.6 mg/dL (8.5-10.1)
[2020-08-01 08:40] LABS: ALBUMIN 2.4 g/dl (3.4-5.0)
[2020-08-01 08:43] LABS: CREATININE 4.1 mg/dL (0.55-1.3)
[2020-08-01 08:44] LABS: BILIRUBIN,TOTAL 0.5 mg/dL (0.2-1); TOT PROT 6.1 g/dl (6.4-8.2)
[2020-08-01] MEDS ORDERED: cefTRIAXone SODIUM 1 GM VIAL ONE (08:46)
[2020-08-01] MEDS ORDERED: DEXTROSE 5%-WATER - 50 ML IVPB ONE (08:46)
[2020-08-01] MEDS: CEFTRIAXONE 1 GM in DEXTROSE 5%-WATER - 50 ML IVPB SCH (09:12)
[2020-08-01] MEDS: AZITHROMYCIN IVPB 500 MG/250 ML BAG IVPB SCH (09:12)
[2020-08-01] MEDS: CLOPIDOGREL BISULFATE 75 MG TABLET (FP) PO SCH (09:13)
[2020-08-01] MEDS: DEXAMETHASONE SOD PHOSPHATE 4 MG/1 ML VIAL IVPUSH SCH (09:13)
[2020-08-01] MEDS: ASPIRIN 81 MG CHEWABLE TABLETS PO SCH (09:13)
[2020-08-01] MEDS: MULTIVITAMINS THER W-MINERALS COMBO TABLET (FP) PO SCH (09:13)
[2020-08-01] MEDS: TAMSULOSIN HCL 0.4 MG CAP PO SCH (09:14)
[2020-08-01] MEDS: RANOLAZINE E.R. 500 MG TABLET (FP) PO SCH ×2 (09:14→22:21)
[2020-08-01] MEDS: ISOSORBIDE MONONITRATE 60 MG TAB.SR.24H (FP) PO SCH (09:14)
[2020-08-01] MEDS: FINASTERIDE 5 MG TABLET (FP) PO SCH (09:14)
[2020-08-01] MEDS: PANTOPRAZOLE 40 MG TABLET PO SCH ×2 (09:14→22:21)
[2020-08-01] MEDS: EZETIMIBE 10 MG TABLET (FP) PO SCH (09:14)
[2020-08-01 09:45] LABS: BLOOD UREA NITROGEN 109.8 mg/dL (7-18)
[2020-08-01 11:13] LABS: ANISOCYTOSIS 0; MACROCYTOSIS 0; PLATELET ESTIMATE DECREASED
[2020-08-01] MEDS ORDERED: SODIUM CHLORIDE 1,000 ML IV SCH (11:28)
[2020-08-01] MEDS: HEPARIN - 25,000 UNIT in SODIUM CHLORIDE 495 ML IV SCH (12:08)
[2020-08-01] MEDS: SODIUM CHLORIDE 1,000 ML IV SCH (12:10)
[2020-08-01 13:55] LABS: URINE APPEARANCE TURBID; URINE BILIRUBIN 1+ (NEGATIVE); URINE COLOR DK YELLOW; URINE GLUCOSE (UA) NEGATIVE (NEGATIVE); URINE KETONE NEGATIVE (NEGATIVE); URINE LEUK ESTERASE NEGATIVE (NEGATIVE); URINE NITRITE NEGATIVE (NEGATIVE); URINE PROTEIN NEGATIVE (NEGATIVE); URINE UROBILINOGEN 0.2 mg/dL (0.2-1.0)
[2020-08-01] MEDS ORDERED: PT OWN MED DRAWER 7, Y5N ONE (21:14)
[2020-08-01] MEDS: ATORVASTATIN CA 80 MG TABLET (FP) PO SCH (22:21)
[2020-08-01] MEDS: MONTELUKAST NA 10 MG TABLET PO SCH (22:21)
[2020-08-02] MEDS: HEPARIN - 25,000 UNIT in SODIUM CHLORIDE 495 ML IV SCH (01:00)
[2020-08-02] MEDS: INSULIN SLIDING SCALE (NOVOLOG) 1 VIAL SQ SCH (06:17)
[2020-08-02] MEDS: POLYETHYLENE GLYCOL 3350 255 GM BTL PO SCH (06:17)
[2020-08-02] MEDS: sitaGLIPtin PHOSPHATE 50 MG TABLET PO SCH (06:23)
[2020-08-02] MEDS: INSULIN (LEVEMIR) 100 UNITS/ML UNITS SQ SCH (06:24)
[2020-08-02 07:14] LABS: HEMATOCRIT 27.1 % (35.4-49); HEMOGLOBIN 9.5 GM/dL (11.7-16.9); MCH 32.6 pg (25.7-33.7); MCHC 35.1 g/dl (32.0-35.9); MEAN CELL VOLUME 92.8 fl (80-96); MEAN PLT VOLUME 10.6 fl (7.5-11.1); PLATELET COUNT 125 K/MM3 (134-434); RBC 2.92 M/mm3 (4.00-5.60); RDW 13.9 % (11.9-15.9); WHITE BLOOD COUNT 6.8 K/mm3 (4.0-10.0)
[2020-08-02 08:27] LABS: ALBUMIN 2.4 g/dl (3.4-5.0); BILIRUBIN,TOTAL 0.7 mg/dL (0.2-1); CALCIUM 8.9 mg/dL (8.5-10.1); CREATININE 5.2 mg/dL (0.55-1.3); MAGNESIUM 2.3 mg/dL (1.8-2.4)
[2020-08-02] MEDS: DEXAMETHASONE SOD PHOSPHATE 4 MG/1 ML VIAL IVPUSH SCH (09:29)
[2020-08-02] MEDS: TAMSULOSIN HCL 0.4 MG CAP PO SCH (09:29)
[2020-08-02] MEDS: AZITHROMYCIN IVPB 500 MG/250 ML BAG IVPB SCH (09:29)
[2020-08-02] MEDS: ASPIRIN 81 MG CHEWABLE TABLETS PO SCH (09:29)
[2020-08-02] MEDS: MULTIVITAMINS THER W-MINERALS COMBO TABLET (FP) PO SCH (09:29)
[2020-08-02] MEDS: ISOSORBIDE MONONITRATE 60 MG TAB.SR.24H (FP) PO SCH (09:29)
[2020-08-02] MEDS: PANTOPRAZOLE 40 MG TABLET PO SCH (09:30)
[2020-08-02] MEDS: RANOLAZINE E.R. 500 MG TABLET (FP) PO SCH (09:30)
[2020-08-02] MEDS: EZETIMIBE 10 MG TABLET (FP) PO SCH (09:30)
[2020-08-02] MEDS: CLOPIDOGREL BISULFATE 75 MG TABLET (FP) PO SCH (09:30)
[2020-08-02] MEDS: FINASTERIDE 5 MG TABLET (FP) PO SCH (09:30)
[2020-08-02] MEDS ORDERED: cefTRIAXone SODIUM 1 GM VIAL ONE (10:12)
[2020-08-02] MEDS ORDERED: DEXTROSE 5%-WATER - 50 ML IVPB ONE (10:12)
[2020-08-02] MEDS: CEFTRIAXONE 1 GM in DEXTROSE 5%-WATER - 50 ML IVPB SCH (10:14)
[2020-08-02] MEDS ORDERED: LORazepam 2 MG/ML SDV VIAL ONE (10:59)
[2020-08-02 11:06] LABS: BLOOD UREA NITROGEN 144.2 mg/dL (7-18)
[2020-08-02] MEDS ORDERED: LORazepam 2 MG/ML SDV VIAL IVPUSH ONE (11:09)
[2020-08-02 11:40] LABS: EOS % 0.1 % (0-4.5); HEMATOCRIT 28.5 % (35.4-49); HEMOGLOBIN 9.5 GM/dL (11.7-16.9); LYMPH % 9.8 % (8-40); MCH 31.9 pg (25.7-33.7); MCHC 33.2 g/dl (32.0-35.9); MEAN CELL VOLUME 96.2 fl (80-96); MEAN PLT VOLUME 10.2 fl (7.5-11.1); MONO % 2.8 % (3.8-10.2); NEUT % 87.3 % (42.8-82.8); PLATELET COUNT 134 K/MM3 (134-434); RBC 2.96 M/mm3 (4.00-5.60); RDW 14.4 % (11.9-15.9); WHITE BLOOD COUNT 7.7 K/mm3 (4.0-10.0)
[2020-08-02 11:47] LABS: INR 1.06 (0.83-1.09); PROTHROMBIN TIME (PATIENT) 12.8 SEC (9.7-13.0)
[2020-08-02 11:49] LABS: ACTIVATED PTT 47.3 SECONDS (25.2-36.5)
[2020-08-02 11:52] LABS: CALCIUM 8.5 mg/dL (8.5-10.1)
[2020-08-02 11:53] LABS: ALBUMIN 2.2 g/dl (3.4-5.0); MAGNESIUM 2.6 mg/dL (1.8-2.4)
[2020-08-02 11:56] LABS: CREATININE 5.5 mg/dL (0.55-1.3)
[2020-08-02 11:57] LABS: BILIRUBIN,TOTAL 0.4 mg/dL (0.2-1); TOT PROT 5.4 g/dl (6.4-8.2)
[2020-08-02 13:08] VITALS: BP 110/54; PULSE 78; TEMP 97.7
[2020-08-02 13:20] LABS: BLOOD UREA NITROGEN 134.9 mg/dL (7-18)
== END 2020-08-02 14:42 | disposition expired | DRG 177 ==
LOC: JER 07:06 → JERBED 14:21 → J4W 15:36 → JICU 08-02 11:33
PROVIDERS: ADMIT Internal Medicine; ATTEND Internal Medicine
PROC: XW033E5 Introduction of Remdesivir Anti-infective into Peripheral Vein, Percutaneous Approach, New Technology Group 5 (ICD-10-PCS; 2020-07-30)
PROC: XW13325 Transfusion of Convalescent Plasma (Nonautologous) into Peripheral Vein, Percutaneous Approach, New Technology Group 5 (ICD-10-PCS; 2020-07-30)
PROC: 0CHY7BZ Insertion of Airway into Mouth and Throat, Via Natural or Artificial Opening (ICD-10-PCS; principal; 2020-08-02)
PROC: 5A19054 Respiratory Ventilation, Single, Nonmechanical (ICD-10-PCS; 2020-08-02)
PROC: 5A12012 Performance of Cardiac Output, Single, Manual (ICD-10-PCS; 2020-08-02)
DX: U07.1 COVID-19 (principal); I21.4 Non-ST elevation (NSTEMI) myocardial infarction; J12.82 Pneumonia due to coronavirus disease 2019; J96.01 Acute respiratory failure with hypoxia; I50.43 Acute on chronic combined systolic (congestive) and diastolic (congestive) heart failure; I21.3 ST elevation (STEMI) myocardial infarction of unspecified site; I13.0 Hypertensive heart and chronic kidney disease with heart failure and stage 1 through stage 4 chronic kidney disease, or unspecified chronic kidney disease; N17.9 Acute kidney failure, unspecified; I69.354 Hemiplegia and hemiparesis following cerebral infarction affecting left non-dominant side; N18.30 Chronic kidney disease, stage 3 unspecified; E11.22 Type 2 diabetes mellitus with diabetic chronic kidney disease; E11.51 Type 2 diabetes mellitus with diabetic peripheral angiopathy without gangrene; I73.9 Peripheral vascular disease, unspecified; I25.10 Atherosclerotic heart disease of native coronary artery without angina pectoris; Z95.1 Presence of aortocoronary bypass graft; R00.1 Bradycardia, unspecified; Z95.5 Presence of coronary angioplasty implant and graft; E66.9 Obesity, unspecified; Z68.36 Body mass index [BMI] 36.0-36.9, adult; K76.0 Fatty (change of) liver, not elsewhere classified
CPT/HCPCS: 36415; 36430; 70450-TC; 71045-TC-FY; 72125-TC; 72131-TC; 72170-TC-FY; 73502-TC-LT-FY; 73562-TC-LT-FY; 76775-TC; 80053; 81003; 82550; 82553; 82565; 82728; 82803; 82962; 83605; 83615; 83735; 83880; 84100; 84439; 84484; 84540; 85025; 85027; 85379; 85610; 85730; 86140; 86850; 86900; 86901; 87040; 87804; 87899; 93005; 93010; 97116-GP; 97161-GP; 99285-25; C9399; C9803; J0131; J1644; P9017; U0003